=== PATIENT | female | born 1955 | race Caucasian/White ===

== ENCOUNTER 2022-01-14 13:59 | Emergency (ER) | payer MEDICARE, MEDICAID, SELFPAY ==
[2022-01-14] VITALS (9 sets, daily range): BP systolic 119–155; BP diastolic 72–88; PULSE 74–90; RESP 15–17; TEMP 36.6; O2SAT 93–97; BMI 17.6
[2022-01-14 14:30] LABS: Coronavirus 19, PCR Not Detected (NotDetected); Influenza B, PCR Not Detected (NotDetected)
--- NOTE | 2022-01-14 14:47 | HMH.EDGENADL ---
ED Disposition Clinical Impression: Influenza A Thoracic back pain Qualifiers: Chronicity: acute Back pain laterality: bilateral Qualified Code(s): M54.6 - Pain in thoracic spine Disposition: Home, Self-Care Condition on Discharge: Good Instructions: DI for Diarrhea and Traveler's Diarrhea -- Adult, DI for Nausea -- Adult, DI for Influenza -- Adult, DI for Thoracic Back Pain Additional Instructions: Tamiflu as prescribed. Tylenol 3 as needed for pain, plain Tylenol as needed for less severe pain or fever. Zofran as needed for nausea. [id number] Imodium as needed for diarrhea. Follow-up with primary care provider if not improved in 4 to 5 days. Prescriptions: Acetaminophen with Codeine [Tylenol with Codeine #3 tablet] 1 tab PO Q6HP PRN #10 tab PRN Reason: Moderate Pain Transmission Status: Received by [id number] Oseltamivir Phosphate [Tamiflu 75mg Capsule] 75 mg PO BID #10 cap Transmission Status: Pending to [id number] Ondansetron [Zofran 4mg ODT] 4 mg PO TIDP PRN #10 tab PRN Reason: Nausea And Vomiting Transmission Status: Pending to [id number] Referrals: Scooby Sepulveda APRN [Primary Care Provider] - - Critical Care Critical Care Time: No Attestation: On 01/14/22, the high probability of a clinically significant, sudden or life threatening deterioration of the following system(s) required my full and direct attention, intervention and personal management. The time I documented below is in addition to time spent performing reported procedures but includes the following listed in this critical care notation. Medical Decision Making - Preet Inquiry Pt receiving controlled substance: No Vital Signs: 01/14/22 14:00 01/14/22 14:30 01/14/22 15:13 Temperature 97.9 F Temperature Source Oral Pulse Rate 85 89 Pulse Rate [Right Radial] 87 Respiratory Rate 16 16 16 Blood Pressure 119/73 155/81 H Blood Pressure [Right Arm] 129/78 Blood Pressure Mean 92 105 Blood Pressure Mean [Right Arm] 95 Blood Pressure Source Automatic Cuff Blood Pressure Source [Right Arm] Automatic Cuff Blood Pressure Position Sitting Blood Pressure Position [Right Arm] Sitting 02 Sat by Pulse Oximetry 95 96 96 Oxygen Delivery Method Room Air Room Air 01/14/22 15:30 01/14/22 16:00 Temperature Temperature Source Pulse Rate 90 84 Pulse Rate [Right Radial] Respiratory Rate 15 16 Blood Pressure 134/88 140/84 Blood Pressure [Right Arm] Blood Pressure Mean 103 102 Blood Pressure Mean [Right Arm] Blood Pressure Source Blood Pressure Source [Right Arm] Blood Pressure Position Blood Pressure Position [Right Arm] 02 Sat by Pulse Oximetry 96 95 Oxygen Delivery Method - Lab Data Lab Results 01/14/22 14:21: SARS-CoV-2 (PCR) Not detected, Influenza A Untype (PCR) Detected A, Influenza Type B (PCR) Not detected 01/14/22 15:23: WBC 3.9 L, RBC 4.47, Hgb 14.7, Hct 44.5, MCV 99.6 H, MCH 32.8 H, MCHC 32.9, RDW 14.0, Plt Count 108 L, MPV 8.7, Neut % (Auto) 76.6, Lymph % (Auto) 11.8, [place] % (Auto) 8.5, Eos % (Auto) 0.3, Baso % (Auto) 2.8 H, Neut # (Auto) 3.0, Lymph # (Auto) 0.5 L, [place] # (Auto) 0.3, Eos # (Auto) 0.0, Baso # (Auto) 0.1 01/14/22 15:23: Sodium 135 L, Potassium 3.9, Chloride 98, Carbon Dioxide 33 H, Anion Gap 7.9, BUN 17, Creatinine 0.80, Estimated Creat Clear 42, Estimated GFR 72, Est GFR ( Amer) 87, Glucose 111 H, Calcium 9.3, Total Bilirubin 1.3, AST 66 H, ALT 32, Alkaline Phosphatase 137 H, Troponin I 0.01, Total Protein 7.0, Albumin 3.8, Globulin 3.2, Albumin/Globulin Ratio 1.2 Result diagrams: 01/14/22 15:23 01/14/22 15:23 Orders (Tests/Meds): ED MEDICATIONS Generic Name Dose Route Start Last Admin Trade Name Freq PRN Reason Stop Dose Admin Lactated Ringer's 1,000 mls @ 100 mls/hr 01/14/22 15:00 01/14/22 15:16 Lactated Ringer's 1000 Ml Bag IV 02/13/22 14:59 100 mls/hr .Q10H BOOKER Administration Sodium Chlori
--- NOTE | 2022-01-14 14:49 | PC.NURSE ---
ED MD at
--- NOTE | 2022-01-14 14:52 | XR_ITS ---
PROCEDURE INFORMATION: Exam: XR Chest Exam date and time: 01/14/2022 2:54 PM Age: 66 years old Clinical indication: Pain; Other: Back; Additional info: Thoracic back pain TECHNIQUE: Imaging protocol: XR of the chest. Views: 2 views. COMPARISON: CR XR THORACIC SPINE 2V 01/14/2022 2:51 PM FINDINGS: Tubes, catheters and devices: Left subclavian transvenous pacemaker present. Lungs: Lungs are mildly hyperexpanded, with flattening of the diaphragm and increased retrosternal clear space, compatible chronic obstructive pulmonary physiologic changes. Calcified granuloma within the periphery of the left lower lobe. Pleural spaces: Unremarkable. No pleural effusion. No pneumothorax. Heart/Mediastinum: Changes of prior sternotomy and mitral valve repair. Vasculature: Atherosclerotic vascular disease. Bones/joints: Mild multilevel upper and midthoracic spine degenerative disc space narrowing and osteophyte formation. Organs: Cholecystectomy clips in the right upper abdomen. IMPRESSION: No acute cardiopulmonary abnormality.
--- NOTE | 2022-01-14 14:52 | XR_ITS ---
PROCEDURE INFORMATION: Exam: XR Thoracic Spine Exam date and time: 01/14/2022 2:51 PM Age: 66 years old Clinical indication: Pain in thoracic spine; Additional info: Thoracic back pain TECHNIQUE: Imaging protocol: XR of the thoracic spine. Views: 2 views. COMPARISON: No relevant prior studies available. FINDINGS: Tubes, catheters and devices: Partially visualized left subclavian transvenous pacemaker leads within the right cardiac chambers. Bones/joints: Changes of prior sternotomy and mitral valve repair. Mild upper and midthoracic spine degenerative disc space narrowing minimal osteophyte formation. No acute fracture or malalignment. Soft tissues: Unremarkable. Vasculature: Atherosclerotic disease of the thoracic aorta, without aneurysm or dissection. Other findings: Retained epicardial wires visualized. IMPRESSION: No acute fracture or malalignment.
--- NOTE | 2022-01-14 15:00 | PC.NURSE ---
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
--- NOTE | 2022-01-14 15:11 | ECG_ITS ---
APPROVED REPORT Exam: Resting ECG HR:100 bpm ECG Measurements Heart Rate 100 AXES QRSd 168 QRS -88 QT 407 T 83 QTc 464 Conclusion ATRIAL FIBRILLATION WITH RAPID VENTRICULAR RESPONSE LEFT AXIS DEVIATION [QRS AXIS < -30] RIGHT BUNDLE BRANCH BLOCK [120+ ms QRS DURATION, UPRIGHT V1, 40+ ms S IN I/aVL/V4/V5/V6] VOLTAGE CRITERIA FOR LVH [MEETS CRITERIA IN ONE OF: R(aVL), S(V1), R(V5), R(V5/V6)+S(V1)] ABNORMAL ECG UNCONFIRMED REPORT Electronically signed by : Foreign Vargas MD 01/15/2022 20:12:56
[2022-01-14 15:37] LABS: Influenza A, PCR Detected (NotDetected)
[2022-01-14 15:44] LABS: Chloride 98 mmol/L (98-107); Sodium 135 mmol/L (136-145)
[2022-01-14 15:45] LABS: Potassium 3.9 mmoL/L (3.5-5.1)
[2022-01-14 15:47] LABS: Alanine Aminotransferase 32 U/L (12-78); Albumin Level 3.8 g/dl (3.5-5.0); Albumin/Globulin Ratio 1.2 (1.1-1.8); Alkaline Phosphatase 137 U/L (38-126); Anion Gap 7.9 mEq/L (5-15); Aspartate Amino Transferase 66 U/L (14-36); Bilirubin,Total 1.3 mg/dl (0.2-1.3); Blood Urea Nitrogen 17 mg/dl (7-17); Carbon Dioxide 33 mmol/L (22.0-30.0); Creatinine Clearance Estimated 42 mL/min (50-200); Estimated Glomerular Filt Rate 72 ml/min (>60); GFR (African American) 87 ML/MIN (>60); Globulin 3.2 g/dL (1.3-3.2)
[2022-01-14 15:48] LABS: Basophils # 0.1 K/mm3 (0-0.2); Basophils % 2.8 % (0.1-2.0); Calcium 9.3 mg/dl (8.4-10.2); Eosinophils % 0.3 % (0.1-12.0); Glucose 111 mg/dl (74-100); Hematocrit 44.5 % (37.0-47.0); Hemoglobin 14.7 g/dL (12.2-16.2); Lymphocytes # 0.5 K/mm3 (0.7-4.5); Lymphocytes % 11.8 % (10-50); Mean Corpuscular HGB Conc 32.9 g/dL (31.8-35.4); Mean Corpuscular Hemoglobin 32.8 pg (27.0-31.2); Mean Corpuscular Volume 99.6 fl (81-99); Mean Platelet Volume 8.7 fl (7.4-10.4); Monocytes # 0.3 K/mm3 (0.1-1.0); Monocytes % 8.5 % (1.7-9.3); Neutrophils % 76.6 % (37.0-80.0); Platelet Count 108 K/mm3 (142-424); Red Blood Count 4.47 M/mm3 (4.20-5.40); White Blood Count 3.9 K/mm3 (4.8-10.8)
[2022-01-14 16:00] LABS: Troponin I 0.01 ng/ml (0.00-0.034)
--- NOTE | 2022-01-14 16:37 | PC.NURSE ---
ED MD at speaking with patient about POC
== END 2022-01-14 18:03 | disposition home or self-care (01) ==
PROVIDERS: Emergency Provider Emergency Medicine; PCP Nurse Practitioner Family
DX: M54.6 Pain in thoracic spine (principal); R11.2 Nausea with vomiting, unspecified; R19.7 Diarrhea, unspecified; Z20.822 Contact with and (suspected) exposure to COVID-19; I10 Essential (primary) hypertension; I45.10 Unspecified right bundle-branch block; I49.9 Cardiac arrhythmia, unspecified; K21.9 Gastro-esophageal reflux disease without esophagitis; M79.7 Fibromyalgia; J44.9 Chronic obstructive pulmonary disease, unspecified; F17.210 Nicotine dependence, cigarettes, uncomplicated; Z79.01 Long term (current) use of anticoagulants; Z79.1 Long term (current) use of non-steroidal anti-inflammatories (NSAID); Z79.51 Long term (current) use of inhaled steroids; Z79.899 Other long term (current) drug therapy; Z88.6 Allergy status to analgesic agent; Z88.8 Allergy status to other drugs, medicaments and biological substances; Z82.49 Family history of ischemic heart disease and other diseases of the circulatory system; Z80.9 Family history of malignant neoplasm, unspecified; Z83.3 Family history of diabetes mellitus
CPT/HCPCS: 71046; 72070; 80053; 84484; 85025; 93005; 96374; 96375; 99285; C9803; J2405; U0003; U0005

== ENCOUNTER 2022-01-18 18:15 | Inpatient (IN) | payer MEDICARE, MEDICAID, SELFPAY ==
[2022-01-18 18:18] VITALS: BP 132/112; PULSE 106; RESP 22; TEMP 36.7; O2SAT 86; BMI 17.1
--- NOTE | 2022-01-18 18:39 | XR_ITS ---
PROCEDURE INFORMATION: Exam: XR Chest Exam date and time: 01/18/2022 6:46 PM Age: 66 years old Clinical indication: Shortness of breath; Additional info: Flu 1 week ago, SOA, weakness, fatigue TECHNIQUE: Imaging protocol: XR of the chest. Views: 1 view. COMPARISON: CR XR CHEST 2V 01/14/2022 2:54 PM FINDINGS: Lungs: Mild increase in the lung volumes with flattening of the hemidiaphragms is demonstrated. No regions of consolidation or pleural effusion are present. There is a slightly nodular region of increased radiodensity superimposed upon the left lower lung. Findings again correspond to a densely calcified granuloma. Pleural spaces: See Lungs finding. Heart/Mediastinum: No interval change in previously demonstrated pacemaker device and valve prosthesis. Bones/joints: Unremarkable. IMPRESSION: 1. Stable appearance of the lung parenchyma. No evidence of acute cardiopulmonary disease. 2. Mild hyperinflation of the lung volumes suggesting mild changes of chronic obstructive pulmonary disease. Clinically correlate.
[2022-01-18 19:02] LABS: Basophils # 0.1 K/mm3 (0-0.2); Basophils % 1.3 % (0.1-2.0); Eosinophils # 0.1 K/mm3 (0.0-0.4); Eosinophils % 0.7 % (0.1-12.0); Hematocrit 37.8 % (37.0-47.0); Hemoglobin 12.7 g/dL (12.2-16.2); Mean Corpuscular HGB Conc 33.7 g/dL (31.8-35.4); Mean Corpuscular Hemoglobin 33.2 pg (27.0-31.2); Mean Corpuscular Volume 98.6 fl (81-99); Mean Platelet Volume 9.9 fl (7.4-10.4); Monocytes # 0.8 K/mm3 (0.1-1.0); Monocytes % 8.2 % (1.7-9.3); Neutrophils # 7.7 K/mm3 (1.8-7.8); Neutrophils % 79.9 % (37.0-80.0); Platelet Count 139 K/mm3 (142-424); Red Blood Count 3.83 M/mm3 (4.20-5.40); Red Cell Distribution Width 14.2 % (11.5-17.5); White Blood Count 9.6 K/mm3 (4.8-10.8)
[2022-01-18 19:03] LABS: Chloride 87 mmol/L (98-107); Potassium 4.9 mmoL/L (3.5-5.1); Sodium 129 mmol/L (136-145)
[2022-01-18 19:06] LABS: Alanine Aminotransferase 28 U/L (12-78); Albumin Level 3.6 g/dl (3.5-5.0); Albumin/Globulin Ratio 1.1 (1.1-1.8); Alkaline Phosphatase 87 U/L (38-126); Anion Gap 11.9 mEq/L (5-15); Aspartate Amino Transferase 53 U/L (14-36); Bilirubin,Total 2.2 mg/dl (0.2-1.3); Blood Urea Nitrogen 28 mg/dl (7-17); Carbon Dioxide 35 mmol/L (22.0-30.0); Creatinine Clearance Estimated 41 mL/min (50-200); Estimated Glomerular Filt Rate 55 ml/min (>60); GFR (African American) 67 ML/MIN (>60); Globulin 3.3 g/dL (1.3-3.2); Total Protein,Serum 6.9 g/dl (6.3-8.2)
[2022-01-18 19:07] LABS: Calcium 8.5 mg/dl (8.4-10.2); Glucose 109 mg/dl (74-100)
--- NOTE | 2022-01-18 19:14 | HMH.EDGENADL ---
ED Disposition Condition on Discharge: Fair - Critical Care Critical Care Time: No <Gilberto Rebollar - Last Filed: 01/18/22 20:31> <Sean Barros - Last Filed: 01/18/22 21:29> Clinical Impression: Influenza A, Dehydration, Thrombocytopenia, Prolonged INR, Elevated brain natriuretic peptide (BNP) level, History of artificial heart valve, Long-term (current) use of anticoagulants, INR goal 2.5-3.5, SIRS (systemic inflammatory response syndrome), Tobacco use Respiratory failure with hypoxia Qualifiers: Chronicity: acute Qualified Code(s): J96.01 - Acute respiratory failure with hypoxia Thoracic back pain Qualifiers: Chronicity: acute Back pain laterality: midline Qualified Code(s): M54.6 - Pain in thoracic spine COPD (chronic obstructive pulmonary disease) Qualifiers: COPD type: emphysema Emphysema type: unspecified Qualified Code(s): J43.9 - Emphysema, unspecified Disposition: Admitted As Inpatient Attestation: On 01/18/22, the high probability of a clinically significant, sudden or life threatening deterioration of the following system(s) required my full and direct attention, intervention and personal management. The time I documented below is in addition to time spent performing reported procedures but includes the following listed in this critical care notation. Medical Decision Making - Medical Records Medical records reviewed: Yes: I reviewed the patient's medical records. MR Comment: Reviewed emergency department visit note from 01/14/2022 and associated x-ray reports. - Preet Inquiry Pt receiving controlled substance: Yes Preet was queried for this patient: Yes Risks and benefits of using a controlled substance: were discussed with pt by me - Lab Data Result diagrams: 01/18/22 18:50 01/18/22 18:50 - Radiology Data #1 Image(s): Chest Image Reviewed: Yes I reviewed the patient's radiology image, Yes I have reviewed radiologist's interpretation - Physician Consults Physician Consulted: Fiorella - present Time: 20:15 Reason -: Pt condition <Gilberto Rebollar - Last Filed: 01/18/22 20:31> - Lab Data Lab results reviewed: Yes: I reviewed the patient's lab results. Result diagrams: 01/18/22 18:50 01/18/22 18:50 - CT Data CT Scan: Chest, T-Spine Time Received: 21:[address] Reviewed: Yes: I have viewed the radiologist's interpretation Preliminary Findings: Abnormal - ECG Data Tracing #1 Arrhythmias present: afib Ischemic changes: non-specific ST-T wave changes Conduction abnormalities present: RBBB <FiorellaSean S - Last Filed: 01/18/22 21:29> Vital Signs: 01/18/22 18:18 Temperature 98.1 F Temperature Source Oral Pulse Rate [Right Radial] 106 H Respiratory Rate 22 Blood Pressure [Right Arm] 132/112 H Blood Pressure Mean [Right Arm] 118 Blood Pressure Source [Right Arm] Automatic Cuff Blood Pressure Position [Right Arm] Sitting 02 Sat by Pulse Oximetry 86 L Oxygen Delivery Method Room Air - Lab Data Lab Results 01/18/22 18:50: WBC 9.6, RBC 3.83 L, Hgb 12.7, Hct 37.8, MCV 98.6, MCH 33.2 H, MCHC 33.7, RDW 14.2, Plt Count 139 L, MPV 9.9, Neut % (Auto) 79.9, Lymph % (Auto) 10.0, [place] % (Auto) 8.2, Eos % (Auto) 0.7, Baso % (Auto) 1.3, Neut # (Auto) 7.7, Lymph # (Auto) 1.0, [place] # (Auto) 0.8, Eos # (Auto) 0.1, Baso # (Auto) 0.1 01/18/22 18:50: Sodium 129 L, Potassium 4.9, Chloride 87 L, Carbon Dioxide 35 H, Anion Gap 11.9, BUN 28 H, Creatinine 1.00, Estimated Creat Clear 41, Estimated GFR 55 L, Est GFR ( Amer) 67, Glucose 109 H, Calcium 8.5, Total Bilirubin 2.2 H, AST 53 H, ALT 28, Alkaline Phosphatase 87, Total Protein 6.9, Albumin 3.6, Globulin 3.3 H, Albumin/Globulin Ratio 1.1 01/18/22 18:50: Troponin I 0.01 01/18/22 18:50: C-Reactive Protein 162.0 H, NT-Pro-B Natriuret Pep 2090 H 01/18/22 18:50: ESR 19 01/18/22 18:50: Procalcitonin 0.286 05/04/22 19:51: PT 84.9 H, INR 8.00 H 01/18/22 19:51: Lactate 1.6 01/18/22 20:20: SARS-CoV-2 (PCR) Not detected, Influen
--- NOTE | 2022-01-18 19:33 | CT_ITS ---
PROCEDURE INFORMATION: Exam: CT Thoracic Spine With Contrast Exam date and time: 01/18/2022 8:06 PM Age: 66 years old Clinical indication: Pain in thoracic spine; Additional info: Pain thoracic spine TECHNIQUE: Imaging protocol: Computed tomography images of the thoracic spine with intravenous contrast. Radiation optimization: All CT scans at this facility use at least one of these dose optimization techniques: automated exposure control; mA and/or kV adjustment per patient size (includes targeted exams where dose is matched to clinical indication); or iterative reconstruction. Contrast material: ISOVUE; Contrast volume: 75 ml; Contrast route: IV; COMPARISON: CR XR THORACIC SPINE 2V 01/14/2022 2:51 PM FINDINGS: Vertebrae: Mild scoliosis of the thoracic spine convexity to the left. Irregularity of the superior T8 and T9 vertebral endplates compatible Schmorl's node formation. No evidence of compression fracture deformity. Discs/Spinal canal/Neural foramina: Spinal canal neural foramina patent. Soft tissues: Unremarkable. IMPRESSION: 1. No evidence of compression fracture deformity. 2. Multi level Schmorl's node formation. 3. Mild scoliosis of the thoracic spine convexity to the left .
--- NOTE | 2022-01-18 19:33 | CT_ITS ---
PROCEDURE INFORMATION: Exam: CTA Chest With Contrast Exam date and time: 01/18/2022 8:02 PM Age: 66 years old Clinical indication: Shortness of breath; Prior surgery; Additional info: SOA, hypoxia TECHNIQUE: Imaging protocol: Computed tomographic angiography of the chest with contrast. 3D rendering (Not supervised by radiologist): MIP and/or 3D reconstructed images were created by the technologist. Radiation optimization: All CT scans at this facility use at least one of these dose optimization techniques: automated exposure control; mA and/or kV adjustment per patient size (includes targeted exams where dose is matched to clinical indication); or iterative reconstruction. Contrast material: ISOVUE; Contrast volume: 75 ml; Contrast route: INTRAVENOUS (IV); COMPARISON: CR XR CHEST PORTABLE 01/18/2022 6:46 PM FINDINGS: Tubes, catheters and devices: Artifact related to known mitral valve prosthesis demonstrated. Artifact related to known pacemaker wires also demonstrated. Pulmonary arteries: No evidence of pulmonary embolus. Aorta: Regions of atherosclerotic vascular calcification involving the aortic arch.. Lungs: Evidence of densely calcified granulomas left lower lobe. Mild regions of bronchiectasis with peribronchial thickening demonstrated in the lower lobes. No regions of pleural effusion. No infiltrates. Pleural spaces: See Lungs finding. Heart: Left atrium is enlarged. Lymph nodes: Unremarkable. No enlarged lymph nodes. Bones/joints: Unremarkable. No acute fracture. Soft tissues: Coarse calcifications in the right breast. IMPRESSION: 1. No evidence of pulmonary embolus. 2. Evidence of prior granulomatous disease. 3. Mild regions of peribronchial thickening and bronchiectasis in the lower lobes. No regions of consolidation or pleural effusion. 4. Left atrial enlargement. Mitral valve prosthesis demonstrated.
--- NOTE | 2022-01-18 19:57 | ECG_ITS ---
APPROVED REPORT Exam: Resting ECG HR:106 bpm ECG Measurements Heart Rate 106 AXES QRSd 159 QRS -89 QT 363 T 79 QTc 425 Conclusion ATRIAL FIBRILLATION WITH RAPID VENTRICULAR RESPONSE RIGHT BUNDLE BRANCH BLOCK [120+ ms QRS DURATION, UPRIGHT V1, 40+ ms S IN I/aVL/V4/V5/V6] ABNORMAL ECG UNCONFIRMED REPORT Electronically signed by : Foreign Vargas MD 01/19/2022 10:17:12
--- NOTE | 2022-01-18 20:01 | PC.NURSE ---
Assessed pt at this time. No new needs at this time, medicated per MAR and EKG performed.
[2022-01-18 20:04] LABS: Erythrocyte Sedimentation Rate 19 mm/hr (0-30)
[2022-01-18 20:10] LABS: NT Pro Brain Natriuretic Pep. 2090 pg/mL (0-125)
[2022-01-18 20:14] LABS: Troponin I 0.01 ng/ml (0.00-0.034)
[2022-01-18 20:15] LABS: Lactic Acid 1.6 mmol/L (0.7-2.1)
[2022-01-18 20:18] LABS: Procalcitonin 0.286 ng/mL (0.0-2.0)
[2022-01-18 20:30] LABS: Prothrombin Time 84.9 seconds (10.1-12.5)
[2022-01-18 20:35] LABS: Coronavirus 19, PCR Not Detected (NotDetected); Influenza B, PCR Not Detected (NotDetected)
[2022-01-18 20:37] VITALS: BMI 17.2
--- NOTE | 2022-01-18 20:46 | PC.NURSE ---
pt up to restroom
--- NOTE | 2022-01-18 20:49 | PC.NURSE ---
Report called to
[2022-01-18 21:00] LABS: Influenza A, PCR Detected (NotDetected)
--- NOTE | 2022-01-18 21:33 | PC.NURSE ---
patient up to floor via stretcher @ this time.
--- NOTE | 2022-01-18 21:36 | HMH.HP ---
*Admission Date: 01/18/22 *Chief complaint: sob *History of present illness: this patient presented to the ed -The patient was diagnosed with influenza A on 01/14/2022 in this emergency department by me. She says that now I have progressed to pneumonia or something . She says she continues to get worse with increased shortness of breath, increased weakness, poor appetite. Continues to have severe pain in her thoracic back. She says that her 's home health nurse checked her out today and told her her pulse ox was 86% at home. She does not use oxygen. She does have a nebulizer and used a treatment before coming to the emergency room. On 01/14/2022 she presented primarily complaining of severe pain in her thoracic back. X-rays of thoracic spine and chest were negative. Flu test was positive and she was treated with Tamiflu. She has COPD and continues to smoke, although she has not smoked for about 1 week. She has a history of cardiac valve replacement and is anticoagulated with warfarin. (Gilberto Rebollar) pt with low sat on room air and dec po intake and admitted for eval and treatment - [facility] History I have reviewed the patient's past medical history: Yes Medical History: Reports:: Arrhythmia, Chronic Obstructive Pulmonary Disease (COPD), Gastroesophageal Reflux Disease(GERD), Internal Pacemaker Denies:: Cancer, Diabetes Mellitus Type 1, Diabetes Mellitus Type 2, Hypertension, MRSA *Have you ever received a pneumonia vaccine?: Yes *Have you received a flu vaccine this season?: Yes Other Medical History: Reports: Other Other Surgeries: Yes: CABG (x4), Cardiac Surgery (x2), Cholecystectomy, Mitral Valve Replacement, Open Heart Surgery, Pacemaker, Tubal Ligation, Other (PMx4) Amputation: No Fractures: No - *Social History Smoking Status: Current every day smoker Tobacco Type: cigarettes Alcohol Intake: never Substance Use Type: marijuana *Occupational Status:: retired Housing: house Household Members: family *Travel in the last 8 weeks: None Family Hx:: Cancer, Coronary Artery Disease, Hypertension, Diabetes, Heart Attack Review of Systems - Review of Systems Review of systems:: pertinent systems reviewed and negative unless documented below - Constitutional Reports weakness, Denies fever(s) - Eyes Denies change in vision - ENT Denies facial pain - *Cardiovascular Reports shortness of breath, Denies chest pain at rest - *Respiratory Reports cough, Reports shortness of breath - *Gastrointestinal Denies abdominal pain - *Genitourinary Denies blood in urine - *Musculoskeletal Denies joint pain - Integumentary/Breasts Denies rash - *Neurologic Reports weakness, Denies headache(s) - Psychiatric Denies confusion Meds Home Medications Medication Instructions Recorded Confirmed Type carvedilol 12.5 mg tablet 12.5 mg PO BID 11/18/20 01/18/22 History furosemide 40 mg tablet 40 mg PO DAILY 11/18/20 01/18/22 History lisinopril 20 mg tablet 20 mg PO DAILY 11/18/20 01/18/22 History warfarin 4 mg tablet 4 mg PO DAILY 11/18/20 01/18/22 History Acetaminophen with Codeine 1 tab PO Q6HP PRN #10 tab 01/14/22 01/18/22 Rx [Tylenol with Codeine #3 tablet] Ondansetron [Zofran 4mg ODT] 4 mg PO TIDP PRN #10 tab 01/14/22 01/18/22 Rx Allergies Allergy/AdvReac Type Severity Reaction Status Date / Time Aspirin Allergy Unknown Uncoded 11/18/20 14:31 Ibuprofen Allergy Unknown Uncoded 11/18/20 14:31 Nitroglycerin Allergy Unknown Uncoded 11/18/20 14:31 Nonsteroidal Allergy Unknown Uncoded 11/18/20 14:31 Antiinflammatory Drug Nsaid Allergy Unknown Uncoded 11/18/20 14:31 Procainamide Allergy Unknown Uncoded 11/18/20 14:31 Exam Vital signs and Labs for Last 24 Hours: Temp Pulse Resp BP Pulse Ox 98.1 F 106 H 22 132/112 H 86 L 01/18/22 18:18 01/18/22 18:18 01/18/22 18:18 01/18/22 18:18 01/18/22 18:18 Laboratory Results - last 24 hr 01/18/22 18:50: WBC 9.6, RBC 3.83
[2022-01-18 22:01] VITALS: BP 99/58; PULSE 88; RESP 28; TEMP 37.3; O2SAT 90
--- NOTE | 2022-01-18 22:24 | PC.NURSE ---
patient up to floor @ 22:19
[2022-01-18 22:29] VITALS: PULSE 88
[2022-01-18 22:41] LABS: Troponin I 0.02 ng/ml (0.00-0.034)
[2022-01-19] VITALS (11 sets, daily range): BP systolic 90–110; BP diastolic 47–73; PULSE 73–110; RESP 18–20; TEMP 36.6–36.9; O2SAT 86–96; BMI 17.2
[2022-01-19 02:04] LABS: Troponin I < 0.01 ng/ml (0.00-0.034)
--- NOTE | 2022-01-19 03:59 | PC.NURSE ---
Pt is A/O x3. Rested intermittently t/o night. Pt voiced no c/o of N/V, or pain. Pt remains on 2L NC with O2 sats >90%. Pt can ambulate to bathroom independently.
[2022-01-19 06:20] LABS: Basophils # 0.1 K/mm3 (0-0.2); Basophils % 1.2 % (0.1-2.0); Hematocrit 38.1 % (37.0-47.0); Hemoglobin 12.7 g/dL (12.2-16.2); Lymphocytes # 0.3 K/mm3 (0.7-4.5); Lymphocytes % 6.1 % (10-50); Mean Corpuscular HGB Conc 33.2 g/dL (31.8-35.4); Mean Corpuscular Volume 99.6 fl (81-99); Mean Platelet Volume 8.6 fl (7.4-10.4); Monocytes # 0.2 K/mm3 (0.1-1.0); Monocytes % 3.1 % (1.7-9.3); Neutrophils % 89.7 % (37.0-80.0); Platelet Count 131 K/mm3 (142-424); Red Blood Count 3.83 M/mm3 (4.20-5.40); Red Cell Distribution Width 14.3 % (11.5-17.5); White Blood Count 5.5 K/mm3 (4.8-10.8)
[2022-01-19 06:31] LABS: Blood Urea Nitrogen 26 mg/dl (7-17); Calcium 8.4 mg/dl (8.4-10.2); Carbon Dioxide 38 mmol/L (22.0-30.0); Chloride 87 mmol/L (98-107); Creatinine Clearance Estimated 41 mL/min (50-200); Estimated Glomerular Filt Rate 72 ml/min (>60); GFR (African American) 87 ML/MIN (>60); Glucose 177 mg/dl (74-100); Sodium 130 mmol/L (136-145)
[2022-01-19 06:32] LABS: MANUAL DIFFERENTIAL MANUAL DIFFERENTIAL (MANUAL DIFF)
[2022-01-19 06:40] LABS: INR 7.87 (0.9-1.1); Prothrombin Time 76.3 seconds (10.1-12.5)
--- NOTE | 2022-01-19 07:17 | HMH.PHAVTE ---
[facility] Pharmacy VTE Monitoring - Patient Demographics Admission date: 01/18/22 Report Date: 01/19/22 Time: 07:17 Allergies/Adverse Reactions: Patient Allergies Aspirin Allergy (Unknown, Uncoded 11/18/20 14:31) Ibuprofen Allergy (Unknown, Uncoded 11/18/20 14:31) Nitroglycerin Allergy (Unknown, Uncoded 11/18/20 14:31) Nonsteroidal Antiinflammatory Drug Allergy (Unknown, Uncoded 11/18/20 14:31) Nsaid Allergy (Unknown, Uncoded 11/18/20 14:31) Procainamide Allergy (Unknown, Uncoded 11/18/20 14:31) Height: 1.65 m Weight: 46.72 kg Patient Problems: Current Active Problems Influenza A (Acute) Thoracic back pain (Acute) Respiratory failure with hypoxia (Acute) Dehydration (Acute) Thrombocytopenia (Acute) Prolonged INR (Acute) Elevated brain natriuretic peptide (BNP) level (Acute) SIRS (systemic inflammatory response syndrome) (Acute) COPD (chronic obstructive pulmonary disease) (Acute) Tobacco use (Acute) COPD with respiratory failure, acute (Acute) Long-term (current) use of anticoagulants, INR goal 2.5-3.5 (Chronic) History of artificial heart valve (Chronic) - VTE Risk Labs: VTE Related Lab Results Hgb 12.7 g/dL (12.2-16.2) 01/19/22 06:02 Hct 38.1 % (37.0-47.0) 01/19/22 06:02 Plt Count 131 K/mm3 (142-424) L 01/19/22 06:02 PT 76.3 seconds (10.1-12.5) H 01/19/22 06:02 INR 7.87 (0.9-1.1) H 01/19/22 06:02 BUN 26 mg/dl (7-17) H 01/19/22 06:02 Creatinine 0.80 mg/dl (0.52-1.04) 01/19/22 06:02 Estimated Creat Clear 41 mL/min (50-200) 01/19/22 06:02 VTE Score: 5 VTE Risk Level: Low Risk - Prophylaxis VTE Prophylaxis Ordered?: Yes Types of VTE Prophylaxis: TEDS Knee High Location of Applied Device: Bilateral Lower Extremeties
[2022-01-19 07:41] LABS: Lymphocytes % 9 % (10-50); Monocytes % 5 % (2-9); Neutrophils % 86 % (42-76); Platelet Estimate Normal; RBC Morphology Normal; Total Cells Counted 100
--- NOTE | 2022-01-19 08:00 | CA_ITS ---
APPROVED REPORT EXAM: Comprehensive 2D, Doppler, and color-flow Echocardiogram Senior Reliability Engineer: Edna Woods CRT Ht: 5 ft 5 in Wt: 103lbs BSA: 1.49 BP: 132/112 mmHg Indications: NSTEMI, CABG X4, MVR, PACER,CHF,COPD,TDE POOR U/S WINDOWS 2D Dimensions Aortic Root 2.04 cm M-Mode Dimensions RVDd 1.92 cm (0.9-2.6) LA Diam 3.73 cm (1.9-4.0) LVDd 5.03 cm (3.5-5.7) Ao Diam 3.70 cm (2.0-3.7) LVDs 3.87 cm (3.5-5.7) IVSd 0.96 cm (0.6-1.1) PWd 1.11 cm (0.6-1.1) EF (Teich) 46.00% FS 23.10% EDV (Teich) 119.90 mL TAPSE 1.18 (<1.7) ESV (Teich) 64.70 mL LV Diastology E Decel Time 140.00 (160-240 msec) E/A Ratio 2.39 MED E' 4.90 (< 7 cm/sec) MED A' 2.80 cm/s E'/MED E' Ratio 37.45 (>14) LAT E' 10.00 (<10 cm/sec) LAT A' 2.80 cm/s E/LAT E' Ratio 18.35 (>14) Aortic Valve AO Peak GR. 4.40 mmHg Mitral Valve MV E Max Malik. 184.00 (40-130 cm/s) MV A Velocity 77.00 (40-130 cm/s) E/A Ratio 2.39 MV Decel. Time 140.00 (160-240 ms) MV Mean Gr. 4.50 (<2mmHg) MV PHT 41.00 ms Pulmonary Valve PV Peak Velocity 155.00 (50-150 cm/s) Tricuspid Valve TR P. Velocity 240.00 cm/s RAP Estimate 10.00 mmHg RVSP 33.10 mmHg Left Ventricle Left atrium is moderately enlarged, left ventricle is normal size, mild concentric left ventricular hypertrophy, visually estimated ejection fraction 55% with no regional wall motion abnormality, diastolic parameters are inconclusive. Right Ventricle Right atrium and right ventricle moderately enlarged with normal contractility, pacemaker leads in right atrium and right ventricle. Aortic Valve Aortic valve is thickened and calcified without Doppler evidence of aortic stenosis or aortic insufficiency. Mitral Valve There is a mechanical mitral valve prosthesis seen in the mitral position, the valve is well-seated, the mean gradient across valve is 4.5 mmHg, which is within physiological range for this type of valve, there is no significant mitral regurgitation. Tricuspid Valve Tricuspid valve is minimally thickened, there is moderate tricuspid regurgitation, calculated right ventricular systolic pressure 33 mmHg. Pulmonic Valve Pulmonic valve is poorly visualized. Great Vessels Aortic root is normal size. Inferior vena cava is mildly dilated with normal inspiratory collapse. Pericardium No significant pericardial effusion noted. Conclusion 1. Biatrial enlargement, normal left ventricular size, mild concentric left ventricular hypertrophy, estimated ejection fraction 55% with no regional wall motion abnormality, diastolic parameters are inconclusive. 2. Normal functioning mechanical prosthetic valve in the mitral position without significant mitral inflow obstruction or mitral regurgitation. 3. Moderately enlarged right ventricle with normal contractility. 4. Moderate tricuspid regurgitation, calculated right ventricular systolic pressure 33 mmHg. 5. No significant pericardial effusion noted. 6. Inferior vena cava is mildly dilated with normal inspiratory collapse. Electronically signed by : Richmond Guevara MD 01/20/2022 09:39:45
--- NOTE | 2022-01-19 09:16 | HMH.PULMCON ---
*Admission Date: 01/18/22 *Reason for consult:: Acute hypoxic respiratory failure, influenza *History of present illness: Ms. Katz 66-year-old female current smoker greater than [id number] smoking history, no significant prior respiratory complaint recent right breast influenza pneumonia and discharged on 5 days of Tamiflu presented to the hospital with worsening respiratory distress and pulmonary was called for further management [facility] History Medical History: Reports:: Arrhythmia, Congestive Heart Failure, Chronic Obstructive Pulmonary Disease (COPD), Gastroesophageal Reflux Disease(GERD), Internal Pacemaker Denies:: Cancer, Diabetes Mellitus Type 1, Diabetes Mellitus Type 2, Hypertension, MRSA *Have you ever received a pneumonia vaccine?: Yes *Have you received a flu vaccine this season?: Yes Other Medical History: Reports: Other Other Surgeries: Yes: CABG (x4), Cardiac Surgery (x2), Cholecystectomy, Mitral Valve Replacement, Open Heart Surgery, Pacemaker, Tubal Ligation, Other (PMx4) Amputation: No Fractures: No - *Social History Smoking Status: Current every day smoker Tobacco Type: cigarettes # Packs/Day (cigarettes): 1 Alcohol Intake: never Substance Use Type: marijuana *Occupational Status:: retired Housing: house Household Members: significant other, children *Travel in the last 8 weeks: None Family Hx:: No significant family history ROS - Cons Reports body ache(s), Reports chills - Eyes Denies change in vision - ENT Reports nasal discharge - Card Reports shortness of breath, Reports shortness of breath with activity - Resp Respiratory: Reports shortness of breath, Reports chest congestion, Reports cough, Reports dyspnea on exertion, Reports excessive phlegm production - GI Gastrointestingal: Denies: abdominal pain - [place] Musculoskeletal: Reports muscle weakness - Psych Denies thoughts of hurting/killing others, Denies thoughts of hurting/killing yourself Meds Home Medications Medication Instructions Recorded Confirmed Type carvedilol 12.5 mg tablet 12.5 mg PO BID 11/18/20 01/18/22 History furosemide 40 mg tablet 40 mg PO DAILY 11/18/20 01/18/22 History lisinopril 20 mg tablet 20 mg PO DAILY 11/18/20 01/18/22 History warfarin 4 mg tablet 4 mg PO DAILY 11/18/20 01/19/22 History Acetaminophen with Codeine 1 tab PO Q6HP PRN #10 tab 01/14/22 01/18/22 Rx [Tylenol with Codeine #3 tablet] Ondansetron [Zofran 4mg ODT] 4 mg PO TIDP PRN #10 tab 01/14/22 01/18/22 Rx Allergies Allergy/AdvReac Type Severity Reaction Status Date / Time aspirin Allergy Unknown Unknown Verified 01/19/22 07:56 allergy reaction nitroglycerin Allergy Unknown Unknown Verified 01/19/22 07:57 allergy reaction NSAIDS (Non-Steroidal Allergy Unknown Unknown Verified 01/19/22 07:56 Anti-Inflamma allergy reaction procainamide Allergy Unknown Unknown Verified 01/19/22 07:57 allergy reaction Exam - Constitutional Constitutional:: Present: no acute distress, comfortable - HENMT Exam HENMT: Present: normocephalic, atraumatic - Eye Exam Eyes:: Present: normal appearance both eyes and related structures - Neck Exam Neck:: Present: normal visual inspection - Respiratory Exam Respiratory:: Present: able to speak in complete sentences, no respiratory distress, wheezing - Cardiovascular Exam Cardiac:: Present: S1, S2 - GI Exam GI:: Present: soft, no hepatosplenomegaly - Skin Exam Skin: Present: warm, no rash - Neurological Exam Neurological: Present: alert, awake, normal cognition - Extremities Exam Extremities: Present: no cyanosis, no clubbing, no edema Internal Medicine - CN: Reslt - Labs CBC & Chem 7: 01/19/22 06:02 01/19/22 06:02 Labs: Short CBC 01/18/22 01/19/22 Range/Units 18:50 06:02 WBC 9.6 5.5 D (4.8-10.8) K/mm3 Hgb 12.7 12.7 (12.2-16.2) g/dL Hct 37.8 38.1 (37.0-47.0) % Plt Count 139 L 131 L (142-424
--- NOTE | 2022-01-19 09:19 | HMH.PHAINT ---
HOME MEDICATION RECONCILIATION COMPLETED ON PATIENT USING EXTERNAL FILL HISTORY FROM PHARMACY AND PATIENT INTERVIEW. -SHREE STEEL, OHD
--- NOTE | 2022-01-19 09:56 | DIET.NUTRFU ---
RD rounded with provider, patient requesting salt and wants a regular diet. Patient is underweight, appears malnourished. Will interview to determine if baseline or actively losing. Provider agreed to liberalize to regular diet
--- NOTE | 2022-01-19 10:28 | HMH.CNCARD ---
History of Present Illness Consult date: 01/19/22 Requesting physician: Sean Barros Consult reason: shortness of breath Chief complaint: Flu, SOA, elevated BNP Additional Medical History:: 1. COPD/emphysema with continued tobacco use 2. History of myocardial infarction, age 25 3. History of mitral valve replacement with mechanical mitral valve, approximately 1997 4. History of ASD repair with patch, 1999 5. History of pacemaker implantation approximately 1997, currently has a Protenus device, followed by Dr. Rutherford History of present illness: 66-year-old white female with history as noted above presented for evaluation of shortness of breath with suspected influenza infection due to other members of the household recently having it. Patient did test positive for the flu and was admitted for evaluation and treatment. Elevated BNP noted on admission and echocardiogram performed with official results pending at this time. CT of the chest showed evidence of emphysema and suspected bronchitis with no evidence of pneumonia or pulmonary embolism. Pulmonary has seen the patient and recommends continuing antibiotic therapy along with tamsulosin for treatment of the flu. Cardiology consulted due to history of mitral valve replacement and pacemaker placement. Patient does see Dr. Rutherford on a regular basis and does relate having cardiac catheterization in the remote past with no need for stenting. She states she is on her sixth pacemaker battery at this time. INR is noted to be elevated but patient states she has not been eating regularly due to the flu which may have altered her INR. She denies any bleeding. EKG is atrial fibrillation at a rate of 106 bpm with right bundle branch block. [facility] History Medical History: Reports:: Arrhythmia, Congestive Heart Failure, Chronic Obstructive Pulmonary Disease (COPD), Gastroesophageal Reflux Disease(GERD), Internal Pacemaker Denies:: Cancer, Diabetes Mellitus Type 1, Diabetes Mellitus Type 2, Hypertension, MRSA *Have you ever received a pneumonia vaccine?: Yes *Have you received a flu vaccine this season?: Yes Other Medical History: Reports: Other Other Surgeries: Yes: CABG (x4), Cardiac Surgery (x2), Cholecystectomy, Mitral Valve Replacement, Open Heart Surgery, Pacemaker, Tubal Ligation, Other (PMx4) Amputation: No Fractures: No - *Social History Smoking Status: Current every day smoker Tobacco Type: cigarettes # Packs/Day (cigarettes): 1 Alcohol Intake: never Substance Use Type: marijuana *Occupational Status:: retired Housing: house Household Members: significant other, children *Travel in the last 8 weeks: None Family Hx:: No significant family history Meds Home Medications Medication Instructions Recorded Confirmed Type carvedilol 12.5 mg tablet 12.5 mg PO BID 11/18/20 01/18/22 History furosemide 40 mg tablet 40 mg PO DAILY 11/18/20 01/18/22 History lisinopril 20 mg tablet 20 mg PO DAILY 11/18/20 01/18/22 History warfarin 4 mg tablet 4 mg PO DAILY 11/18/20 01/19/22 History Acetaminophen with Codeine 1 tab PO Q6HP PRN #10 tab 01/14/22 01/18/22 Rx [Tylenol with Codeine #3 tablet] Ondansetron [Zofran 4mg ODT] 4 mg PO TIDP PRN #10 tab 01/14/22 01/18/22 Rx Allergies Allergy/AdvReac Type Severity Reaction Status Date / Time aspirin Allergy Unknown Unknown Verified 01/19/22 07:56 allergy reaction nitroglycerin Allergy Unknown Unknown Verified 01/19/22 07:57 allergy reaction NSAIDS (Non-Steroidal Allergy Unknown Unknown Verified 01/19/22 07:56 Anti-Inflamma allergy reaction procainamide Allergy Unknown Unknown Verified 01/19/22 07:57 allergy reaction Exam Vital signs and Labs for Last 24 Hours: Temp Pulse Resp BP Pulse Ox 98.0 F 100 H 20 101/59 L 90 L 01/19/22 07:34 01/19/22 08:00 01/19/22 07:34 01/19/22 07:34 01/19/22 07:34 Laboratory Results - last 24 hr 01/18/22 18:50: WBC 9.6,
--- NOTE | 2022-01-19 10:39 | HMH.ACPN2 ---
Internal Medicine - PN: Subj *Date: 01/19/22 *Time: 10:39 Interval history: 66-year-old female patient sitting up in bed resting quietly O2 on as a 2 L with oxygenation 91%. She reports she is feeling better today than yesterday Exam Vital signs and Labs for Last 24 Hours: Temp Pulse Resp BP Pulse Ox 98.0 F 100 H 20 101/59 L 90 L 01/19/22 07:34 01/19/22 08:00 01/19/22 07:34 01/19/22 07:34 01/19/22 07:34 Laboratory Results - last 24 hr 01/18/22 18:50: WBC 9.6, RBC 3.83 L, Hgb 12.7, Hct 37.8, MCV 98.6, MCH 33.2 H, MCHC 33.7, RDW 14.2, Plt Count 139 L, MPV 9.9, Neut % (Auto) 79.9, Lymph % (Auto) 10.0, [place] % (Auto) 8.2, Eos % (Auto) 0.7, Baso % (Auto) 1.3, Neut # (Auto) 7.7, Lymph # (Auto) 1.0, [place] # (Auto) 0.8, Eos # (Auto) 0.1, Baso # (Auto) 0.1 01/18/22 18:50: Sodium 129 L, Potassium 4.9, Chloride 87 L, Carbon Dioxide 35 H, Anion Gap 11.9, BUN 28 H, Creatinine 1.00, Estimated Creat Clear 41, Estimated GFR 55 L, Est GFR ( Amer) 67, Glucose 109 H, Calcium 8.5, Total Bilirubin 2.2 H, AST 53 H, ALT 28, Alkaline Phosphatase 87, Total Protein 6.9, Albumin 3.6, Globulin 3.3 H, Albumin/Globulin Ratio 1.1 01/18/22 18:50: Troponin I 0.01 01/18/22 18:50: C-Reactive Protein 162.0 H, NT-Pro-B Natriuret Pep 2090 H 01/18/22 18:50: ESR 19 01/18/22 18:50: Procalcitonin 0.286 01/18/22 19:51: PT 84.9 H, INR 8.00 H 01/18/22 19:51: Lactate 1.6 01/18/22 20:20: SARS-CoV-2 (PCR) Not detected, Influenza A Untype (PCR) Detected A, Influenza Type B (PCR) Not detected 01/18/22 22:15: Troponin I 0.02 01/19/22 01:30: Troponin I < 0.01 01/19/22 06:02: WBC 5.5 D, RBC 3.83 L, Hgb 12.7, Hct 38.1, MCV 99.6 H, MCH 33.0 H, MCHC 33.2, RDW 14.3, Plt Count 131 L, MPV 8.6, Neut % (Auto) 89.7 H, Lymph % (Auto) 6.1 L, [place] % (Auto) 3.1, Eos % (Auto) 0.0 L, Baso % (Auto) 1.2, Neut # (Auto) 5.0, Lymph # (Auto) 0.3 L, [place] # (Auto) 0.2, Eos # (Auto) 0.0, Baso # (Auto) 0.1, Total Counted 100, Neutrophils % (Manual) 86 H, Lymphocytes % (Manual) 9 L, Monocytes % (Manual) 5, Platelet Estimate Normal, RBC Morphology Normal 01/19/22 06:02: Sodium 130 L, Potassium 4.0, Chloride 87 L, Carbon Dioxide 38 H, Anion Gap 9.0, BUN 26 H, Creatinine 0.80, Estimated Creat Clear 41, Estimated GFR 72, Est GFR ( Amer) 87 D, Glucose 177 H D, Calcium 8.4, Magnesium 2.0 01/19/22 06:02: PT 76.3 H, INR 7.87 H I & O for Last 24 hours: Intake & Output 01/16/22 01/17/22 01/18/22 01/19/22 23:59 23:59 23:59 23:59 Intake Total 480 / 480 Balance 480 / 480 Weight 102 lb 15.999 oz 102 lb 15.999 oz - Constitutional no acute distress, chronically ill appearing - *Routine HEENT Exam Head: Present: normocephalic Eye: Present: EOMI ENT: Present: mucous membranes moist - *Routine Neck Exam Present: trachea midline. Absent: tracheal deviation - *Routine Respiratory Exam Present: decreased breath sounds. Absent: accessory muscle use - *Routine Cardiovascular Exam Present: tachycardia, irregularly irregular - *Routine Abdominal Exam Present: soft, normoactive bowel sounds. Absent: tenderness, firm - *Routine Extremities Exam Present: full ROM, pulses intact. Absent: cyanosis, clubbing - *Routine Skin Exam Present: intact, dry. Absent: cyanosis, erythema - *Routine Neurological Exam Present: alert, oriented X3. Absent: motor deficit - Routine Psychiatric Exam Present: normal affect, normal thought process. Absent: visual hallucinations Assessment and Plan (1) COPD with respiratory failure, acute Status: Acute Category: Medical Code(s): J44.9 - Chronic obstructive pulmonary disease, unspecified; J96.00 - Acute respiratory failure, unspecified whether with hypoxia or hypercapnia (2) COPD (chronic obstructive pulmonary disease) Status: Acute Qualifiers: Qualified Code(s): J43.9 - Emphysema, unspecified Category: Medical Code(s): J44.9 - Chronic obstructive pulmonary disease, unspecified (3) Elevated brain natriuretic peptide
--- NOTE | 2022-01-19 13:23 | PC.NURSE ---
Spoke with Kelly from lab about blood culture, and pcr being positive.
--- NOTE | 2022-01-19 13:46 | PC.NURSE ---
Called Dr. Barnett's office to tell about blood culture. Left a message on voicemail.
--- NOTE | 2022-01-19 13:54 | PC.NURSE ---
Spoke with Bonnie told her about results she will let chandu know.
--- NOTE | 2022-01-19 19:55 | PC.NURSE ---
Pt had a very pleasant day. She has been going to the bathroom independently. She has hardly called out. She has been mainly RA for a good portion of the day. She is coughing intermittently. She has had family visit and great affect. She has been A/O x4 through out the shift.
--- NOTE | 2022-01-19 20:48 | PC.NURSE ---
pt informed her O2 was at 86 and pt stated that she felt fine a did not want to wear it at this time
[2022-01-20] VITALS (12 sets, daily range): BP systolic 84–110; BP diastolic 47–72; PULSE 70–88; RESP 16–20; TEMP 36.5–36.8; O2SAT 89–98; BMI 17.3
--- NOTE | 2022-01-20 04:24 | PC.NURSE ---
no issues noted at this time, pt slept good through the night, a&o, VSS, was noted coreg held yesterday during day, coreg was given pm dose, b/p on the low side, but maps 71-76, 02 at 2L pnc worn at times, it was noted sats 83% on room air, 90% on 1.5-2L 02 pnc, lungs diminished.
--- NOTE | 2022-01-20 06:27 | PC.NURSE ---
Pt room air sat was 81%, placed back on 3L. Pt recovered to 90%.
[2022-01-20 06:29] LABS: Basophils % 0.3 % (0.1-2.0); Hematocrit 36.1 % (37.0-47.0); Hemoglobin 12.1 g/dL (12.2-16.2); Lymphocytes # 0.5 K/mm3 (0.7-4.5); Lymphocytes % 6.1 % (10-50); Mean Corpuscular HGB Conc 33.5 g/dL (31.8-35.4); Mean Corpuscular Hemoglobin 32.5 pg (27.0-31.2); Mean Corpuscular Volume 97.2 fl (81-99); Mean Platelet Volume 8.7 fl (7.4-10.4); Monocytes # 0.4 K/mm3 (0.1-1.0); Monocytes % 5.2 % (1.7-9.3); Neutrophils # 7.1 K/mm3 (1.8-7.8); Neutrophils % 88.4 % (37.0-80.0); Platelet Count 192 K/mm3 (142-424); Red Blood Count 3.72 M/mm3 (4.20-5.40); Red Cell Distribution Width 14.1 % (11.5-17.5)
[2022-01-20 06:37] LABS: Blood Urea Nitrogen 22 mg/dl (7-17); Calcium 8.5 mg/dl (8.4-10.2); Chloride 88 mmol/L (98-107); Creatinine Clearance Estimated 41 mL/min (50-200); Estimated Glomerular Filt Rate 72 ml/min (>60); GFR (African American) 87 ML/MIN (>60); Glucose 167 mg/dl (74-100); MANUAL DIFFERENTIAL MANUAL DIFFERENTIAL (MANUAL DIFF); Potassium 3.7 mmoL/L (3.5-5.1); Sodium 130 mmol/L (136-145)
[2022-01-20 06:43] LABS: Anion Gap 6.7 mEq/L (5-15); Carbon Dioxide 39 mmol/L (22.0-30.0)
[2022-01-20 07:18] LABS: Lymphocytes % 9 % (10-50); Monocytes % 3 % (2-9); Neutrophils % 88 % (42-76); Total Cells Counted 100
[2022-01-20 07:19] LABS: Platelet Estimate Normal; RBC Morphology Normal
--- NOTE | 2022-01-20 07:43 | HMH.PNCARD ---
Subjective Date: 01/20/22 Time: 07:43 Principal diagnosis: Influenza Interval history: 66-year-old white female sitting in bed in no acute distress. Breathing has improved since yesterday. echo results: 1. Biatrial enlargement, normal left ventricular size, mild concentric left ventricular hypertrophy, estimated ejection fraction 55% with no regional wall motion abnormality, diastolic parameters are inconclusive. 2. Normal functioning mechanical prosthetic valve in the mitral position without significant mitral inflow obstruction or mitral regurgitation. 3. Moderately enlarged right ventricle with normal contractility. 4. Moderate tricuspid regurgitation, calculated right ventricular systolic pressure 33 mmHg. 5. No significant pericardial effusion noted. 6. Inferior vena cava is mildly dilated with normal inspiratory collapse. Electronically signed by : Richmond Guevara MD 01/20/2022 09:39:45 Exam Vital signs and Labs for Last 24 Hours: Temp Pulse Resp BP Pulse Ox 98.0 F 70 18 105/62 L 90 L 01/20/22 03:17 01/20/22 04:00 01/20/22 03:17 01/20/22 03:17 01/20/22 06:28 Laboratory Results - last 24 hr 01/20/22 06:05: WBC 8.0 D, RBC 3.72 L, Hgb 12.1 L, Hct 36.1 L, MCV 97.2, MCH 32.5 H, MCHC 33.5, RDW 14.1, Plt Count 192 D, MPV 8.7, Neut % (Auto) 88.4 H, Lymph % (Auto) 6.1 L, [place] % (Auto) 5.2, Eos % (Auto) 0.0 L, Baso % (Auto) 0.3, Neut # (Auto) 7.1, Lymph # (Auto) 0.5 L, [place] # (Auto) 0.4, Eos # (Auto) 0.0, Baso # (Auto) 0.0, Total Counted 100, Neutrophils % (Manual) 88 H, Lymphocytes % (Manual) 9 L, Monocytes % (Manual) 3, Platelet Estimate Normal, RBC Morphology Normal 01/20/22 06:05: Sodium 130 L, Potassium 3.7, Chloride 88 L, Carbon Dioxide 39 H, Anion Gap 6.7, BUN 22 H, Creatinine 0.80, Estimated Creat Clear 41, Estimated GFR 72, Est GFR ( Amer) 87, Glucose 167 H, Calcium 8.5 I & O for Last 24 hours: Intake & Output 01/17/22 01/18/22 01/19/22 01/20/22 11:59 11:59 11:59 11:59 Intake Total 480 / 480 870 / 870 Balance 480 / 480 870 / 870 Weight 102 lb 15.999 oz 104 lb 0.931 oz Microbiology Reports for the Last 24 Hours: Microbiology 01/19/22 10:36 Sputum - Expectorated Sputum Gram Stain - Final 01/18/22 19:51 Blood Blood Culture - Preliminary - Constitutional no acute distress - *Routine Respiratory Exam Present: rhonchi, wheezes, diminished air movement - *Routine Cardiovascular Exam Present: click, irregular rhythm - *Routine Extremities Exam Absent: cyanosis, clubbing, edema Progress Note: A&P (1) COPD with respiratory failure, acute Status: Acute (2) COPD (chronic obstructive pulmonary disease) Status: Acute (3) Elevated brain natriuretic peptide (BNP) level Status: Acute (4) Influenza A Status: Acute (5) Prolonged INR Status: Acute (6) SIRS (systemic inflammatory response syndrome) Status: Acute (7) Thrombocytopenia Status: Acute (8) Tobacco use Status: Acute (9) History of artificial heart valve Status: Chronic (10) Long-term (current) use of anticoagulants, INR goal 2.5-3.5 Status: Chronic Assessment and Plan for All Diagnoses:: 1. Influenza infection, per pulmonary, continuing antibiotic therapy along with Tamiflu and prednisone. 2. COPD with chronic shortness of breath 3. Elevated BNP secondary to influenza infection. No appreciable congestive heart failure on chest x-ray or CT of the chest. Lasix has been resumed. 4. History of mechanical mitral valve, on Coumadin for chronic anticoagulation therapy. MVR functioning normally. EF normal. INR 6.29. No bleeding. 5. History of ASD repair with patch. 6. Pacemaker in situ, followed by Dr. Rutherford in [place], [place]. 7. History of hypertension, borderline low blood pressure with elevated BNP. Continues on coreg and lisinopril with lasix. 8. Elevated INR, holding Coumadin at this time to allow to drift down to goal of 2.5-3.5. [facility]
[2022-01-20 08:20] LABS: INR 6.29 (0.9-1.1)
--- NOTE | 2022-01-20 09:39 | HMH.PULMPN ---
Internal Medicine - PN: Subj *Date: 01/20/22 *Time: 13:53 Interval history: No acute respiratory events overnight. Patient continued to remain on room air. Admits improvement in her symptoms. Exam - Constitutional Constitutional:: Present: no acute distress, comfortable - HENMT Exam HENMT: Present: normocephalic - Eye Exam Eyes:: Present: normal appearance both eyes and related structures - Neck Exam Neck:: Present: normal visual inspection - Respiratory Exam Respiratory:: Present: able to speak in complete sentences, respiratory distress, wheezing. Absent: crackles - Cardiovascular Exam Cardiac:: Present: S1, S2 - GI Exam GI:: Present: soft - Skin Exam Skin: Present: warm, no rash - Neurological Exam Neurological: Present: alert, awake, normal cognition - Extremities Exam Extremities: Present: no cyanosis, no clubbing, no edema - Psychiatric Exam Psychiatric: Present: affect normal Assessment and Plan (1) COPD with respiratory failure, acute Status: Acute Category: Medical Code(s): J44.9 - Chronic obstructive pulmonary disease, unspecified; J96.00 - Acute respiratory failure, unspecified whether with hypoxia or hypercapnia (2) COPD (chronic obstructive pulmonary disease) Status: Acute Qualifiers: COPD type: emphysema Emphysema type: unspecified Qualified Code(s): J43.9 - Emphysema, unspecified Category: Medical Code(s): J44.9 - Chronic obstructive pulmonary disease, unspecified (3) Elevated brain natriuretic peptide (BNP) level Status: Acute Category: Medical Code(s): R79.89 - Other specified abnormal findings of blood chemistry (4) Influenza A Status: Acute Category: Medical Code(s): J10.1 - Influenza due to other identified influenza virus with other respiratory manifestations (5) Prolonged INR Status: Acute Category: Medical Code(s): R79.1 - Abnormal coagulation profile (6) SIRS (systemic inflammatory response syndrome) Status: Acute Category: Medical Code(s): R65.10 - Systemic inflammatory response syndrome (SIRS) of non-infectious origin without acute organ dysfunction (7) Thrombocytopenia Status: Acute Category: Medical Code(s): D69.6 - Thrombocytopenia, unspecified (8) Tobacco use Status: Acute Category: Social Hx Code(s): Z72.0 - Tobacco use (9) History of artificial heart valve Status: Chronic Category: Surgical Code(s): Z95.2 - Presence of prosthetic heart valve (10) Long-term (current) use of anticoagulants, INR goal 2.5-3.5 Status: Chronic Category: Medical Code(s): Z79.01 - retirement (current) use of anticoagulants - Assessment and plan all Dx Assessment and Plan for all problems:: #Acute hypoxic respiratory failure: #Influenza pneumonia: #Community-acquired pneumonia: #Streptococcus bacteremia Ms. Katz 66-year-old female current smoker greater than [id number] smoking history, no significant prior respiratory complaint recent right breast influenza pneumonia and discharged on 5 days of Tamiflu presented to the hospital with worsening respiratory distress and pulmonary was called for further management. Mechanical mitral valve prosthesis. On warfarin. Supratherapeutic INR on presentation. CTA on admission no evidence of pulmonary embolism. No dense airspace disease noted. Evidence of bronchitis noted. Evidence of emphysema noted As per chart review patient has history of cardiac valve and has been on anticoagulation. No evidence of leukocytosis. Renal function normal. Significant elevated INR at 8. Flu viral PCR positive, status post completion Tamiflu treatment for 5 days Was initiated on treatment for COPD exacerbation with ceftriaxone azithromycin along with methylprednisolone and nebulization treatments. Prelim blood cultures in pne bottle growing gram-positive cocci in chains, Streptococcus Interval update: No acute respiratory events overnight. Stable oxygen requirements, saturati
--- NOTE | 2022-01-20 09:53 | HMH.DCSUM ---
General - General Admission date:: 01/18/22 Discharge date: 01/23/22 HPI HPI: this patient presented to the ed -The patient was diagnosed with influenza A on 01/14/2022 in this emergency department by me. She says that now I have progressed to pneumonia or something . She says she continues to get worse with increased shortness of breath, increased weakness, poor appetite. Continues to have severe pain in her thoracic back. She says that her 's home health nurse checked her out today and told her her pulse ox was 86% at home. She does not use oxygen. She does have a nebulizer and used a treatment before coming to the emergency room. On 01/14/2022 she presented primarily complaining of severe pain in her thoracic back. X-rays of thoracic spine and chest were negative. Flu test was positive and she was treated with Tamiflu. She has COPD and continues to smoke, although she has not smoked for about 1 week. She has a history of cardiac valve replacement and is anticoagulated with warfarin. (Gilberto Rebollar) pt with low sat on room air and dec po intake and admitted for eval and treatment - Hospital Course Hospital Course: Abnormal Lab Results 01/20/22 06:05: RBC 3.72 L, Hgb 12.1 L, Hct 36.1 L, MCH 32.5 H, Neut % (Auto) 88.4 H, Lymph % (Auto) 6.1 L, Eos % (Auto) 0.0 L, Lymph # (Auto) 0.5 L, Neutrophils % (Manual) 88 H, Lymphocytes % (Manual) 9 L 01/20/22 06:05: Sodium 130 L, Chloride 88 L, Carbon Dioxide 39 H, BUN 22 H, Glucose 167 H 01/20/22 07:53: PT 62.0 H, INR 6.29 H Microbiology 01/18/22 19:51 Blood Blood Culture - Preliminary 01/19/22 10:36 Sputum - Expectorated Sputum Gram Stain - Final cardiology consult: Assessment and Plan for All Diagnoses:: 1. Influenza infection, per pulmonary, continuing antibiotic therapy along with Tamiflu and prednisone. 2. COPD with chronic shortness of breath 3. Elevated BNP secondary to influenza infection. No appreciable congestive heart failure on chest x-ray or CT of the chest. Lasix has been resumed. 4. History of mechanical mitral valve, on Coumadin for chronic anticoagulation therapy. MVR functioning normally. EF normal. INR 6.29. No bleeding. 5. History of ASD repair with patch. 6. Pacemaker in situ, followed by Dr. Rutherford in [place], [place]. 7. History of hypertension, borderline low blood pressure with elevated BNP. Continues on coreg and lisinopril with lasix. 8. Elevated INR, holding Coumadin at this time to allow to drift down to goal of 2.5-3.5. Nothing further to add. Please call if needed. Pt will follow up with Dr. Rutherford. echo results: 1. Biatrial enlargement, normal left ventricular size, mild concentric left ventricular hypertrophy, estimated ejection fraction 55% with no regional wall motion abnormality, diastolic parameters are inconclusive. 2. Normal functioning mechanical prosthetic valve in the mitral position without significant mitral inflow obstruction or mitral regurgitation. 3. Moderately enlarged right ventricle with normal contractility. 4. Moderate tricuspid regurgitation, calculated right ventricular systolic pressure 33 mmHg. 5. No significant pericardial effusion noted. 6. Inferior vena cava is mildly dilated with normal inspiratory collapse. pulmonary consult:Assessment and Plan for all problems:: #Acute hypoxic respiratory failure: #Influenza pneumonia: #Community-acquired pneumonia: #Streptococcus bacteremia Ms. Katz 66-year-old female current smoker greater than [id number] smoking history, no significant prior respiratory complaint recent right breast influenza pneumonia and discharged on 5 days of Tamiflu presented to the hospital with worsening respiratory distress and pulmonary was called for further management CTA on admission no evidence of pulmonary embolism. No dense airspace disease noted. Evidence of bronchitis noted. Evidence of emphysema noted As per chart review patient
--- NOTE | 2022-01-20 12:28 | XR_ITS ---
FINAL REPORT TECHNIQUE: Chest PA & Lateral CLINICAL HISTORY: soa, low o2 sat COMPARISON: January 14, 2022 FINDINGS: 2 views of the chest were performed. The heart size is normal. There are multiple sternotomy wires. There is a left subclavian pacemaker. The mediastinum is within normal limits. There are chronic changes in both lungs. There are no pleural effusions. There is no pneumothorax. The bony thorax appears intact. IMPRESSION: No acute cardiopulmonary process. Reviewed, Interpreted and Dictated by Jose Angel Espinal MD Transcribed by Clark Hinkle Authenticated by Jose Angel Espinal MD on 01/20/2022 01:52:19 PM [facility]
--- NOTE | 2022-01-20 13:33 | HMH.ACPN2 ---
Internal Medicine - PN: Subj *Date: 01/20/22 *Time: 08:15 Interval history: pt states doing well wants to go home Exam Vital signs and Labs for Last 24 Hours: Temp Pulse Resp BP Pulse Ox 97.7 F 77 20 84/53 L 94 L 01/20/22 11:42 01/20/22 11:42 01/20/22 11:42 01/20/22 11:42 01/20/22 11:42 Laboratory Results - last 24 hr 01/20/22 06:05: WBC 8.0 D, RBC 3.72 L, Hgb 12.1 L, Hct 36.1 L, MCV 97.2, MCH 32.5 H, MCHC 33.5, RDW 14.1, Plt Count 192 D, MPV 8.7, Neut % (Auto) 88.4 H, Lymph % (Auto) 6.1 L, [place] % (Auto) 5.2, Eos % (Auto) 0.0 L, Baso % (Auto) 0.3, Neut # (Auto) 7.1, Lymph # (Auto) 0.5 L, [place] # (Auto) 0.4, Eos # (Auto) 0.0, Baso # (Auto) 0.0, Total Counted 100, Neutrophils % (Manual) 88 H, Lymphocytes % (Manual) 9 L, Monocytes % (Manual) 3, Platelet Estimate Normal, RBC Morphology Normal 01/20/22 06:05: Sodium 130 L, Potassium 3.7, Chloride 88 L, Carbon Dioxide 39 H, Anion Gap 6.7, BUN 22 H, Creatinine 0.80, Estimated Creat Clear 41, Estimated GFR 72, Est GFR ( Amer) 87, Glucose 167 H, Calcium 8.5 01/20/22 07:53: PT 62.0 H, INR 6.29 H I & O for Last 24 hours: Intake & Output 01/18/22 01/19/22 01/20/22 01/21/22 11:59 11:59 11:59 11:59 Intake Total 480 / 480 1230 / 1230 Balance 480 / 480 1230 / 1230 Weight 102 lb 15.999 oz 104 lb 0.931 oz Microbiology Reports for the Last 24 Hours: Microbiology 01/18/22 19:51 Blood Blood Culture - Preliminary 01/19/22 10:36 Sputum - Expectorated Sputum Gram Stain - Final - Constitutional no acute distress - *Routine HEENT Exam Head: Present: normocephalic Eye: Present: PERRL ENT: Present: mucous membranes moist - *Routine Neck Exam Present: supple. Absent: lymphadenopathy - *Routine Respiratory Exam Present: wheezes - *Routine Cardiovascular Exam Present: RRR, murmur - *Routine Abdominal Exam Present: soft, normoactive bowel sounds. Absent: tenderness - *Routine Extremities Exam Absent: cyanosis, clubbing, edema - *Routine Skin Exam Present: warm. Absent: rash - *Routine Neurological Exam Present: alert, oriented X3 Assessment and Plan (1) COPD with respiratory failure, acute Status: Acute Category: Medical Code(s): J44.9 - Chronic obstructive pulmonary disease, unspecified; J96.00 - Acute respiratory failure, unspecified whether with hypoxia or hypercapnia (2) COPD (chronic obstructive pulmonary disease) Status: Acute Qualifiers: COPD type: emphysema Emphysema type: unspecified Qualified Code(s): J43.9 - Emphysema, unspecified Category: Medical Code(s): J44.9 - Chronic obstructive pulmonary disease, unspecified (3) Elevated brain natriuretic peptide (BNP) level Status: Acute Category: Medical Code(s): R79.89 - Other specified abnormal findings of blood chemistry (4) Influenza A Status: Acute Category: Medical Code(s): J10.1 - Influenza due to other identified influenza virus with other respiratory manifestations (5) Prolonged INR Status: Acute Category: Medical Code(s): R79.1 - Abnormal coagulation profile (6) SIRS (systemic inflammatory response syndrome) Status: Acute Category: Medical Code(s): R65.10 - Systemic inflammatory response syndrome (SIRS) of non-infectious origin without acute organ dysfunction (7) Thrombocytopenia Status: Acute Category: Medical Code(s): D69.6 - Thrombocytopenia, unspecified (8) Tobacco use Status: Acute Category: Social Hx Code(s): Z72.0 - Tobacco use (9) History of artificial heart valve Status: Chronic Category: Surgical Code(s): Z95.2 - Presence of prosthetic heart valve (10) Long-term (current) use of anticoagulants, INR goal 2.5-3.5 Status: Chronic Category: Medical Code(s): Z79.01 - joint terminal attack controller (current) use of anticoagulants (11) Protein malnutrition Status: Acute Category: Medical Code(s): E46 - Unspecified protein-calorie malnutrition - Assessment and plan all Dx Assessmen
--- NOTE | 2022-01-20 16:58 | PC.NURSE ---
Congested cough with no production. VS stable and patient on 2LNC. No complaints of pain and patient remained alert and oriented. Password set up: [employer]. Possible discharge home tomorrow.
[2022-01-21] VITALS (13 sets, daily range): BP systolic 98–107; BP diastolic 52–64; PULSE 75–110; RESP 16–19; TEMP 36.7–36.9; O2SAT 87–98; BMI 17.2
--- NOTE | 2022-01-21 04:00 | PC.NURSE ---
PT RESTED WELL THROUGH THE NIGHT, LUNG SOUNDS EXPIRATORY WHEEZES NOTED, VSS, TELEMETRY REVEALS PACED RYTHM WITH OCCASIONAL PACER SPIKES NOTED, RYTHM IRREGLAR, 02 SATS 91% ON 02 AT 3L, PT TAKES 02 OFF AND ON. NO OTHER ISSUES NOTED, VSS
[2022-01-21 07:44] LABS: Basophils % 0.3 % (0.1-2.0); Eosinophils % 0.1 % (0.1-12.0); Hematocrit 34.8 % (37.0-47.0); Hemoglobin 11.7 g/dL (12.2-16.2); Lymphocytes # 0.5 K/mm3 (0.7-4.5); Lymphocytes % 6.5 % (10-50); Mean Corpuscular HGB Conc 33.6 g/dL (31.8-35.4); Mean Corpuscular Volume 98.4 fl (81-99); Mean Platelet Volume 8.1 fl (7.4-10.4); Monocytes # 0.7 K/mm3 (0.1-1.0); Neutrophils # 6.9 K/mm3 (1.8-7.8); Neutrophils % 84.1 % (37.0-80.0); Platelet Count 229 K/mm3 (142-424); Red Blood Count 3.54 M/mm3 (4.20-5.40); Red Cell Distribution Width 14.1 % (11.5-17.5); White Blood Count 8.3 K/mm3 (4.8-10.8)
[2022-01-21 07:48] LABS: INR 4.61 (0.9-1.1)
[2022-01-21 07:49] LABS: Anion Gap 5.3 mEq/L (5-15); Blood Urea Nitrogen 16 mg/dl (7-17); Carbon Dioxide 38 mmol/L (22.0-30.0); Chloride 91 mmol/L (98-107); Creatinine Clearance Estimated 41 mL/min (50-200); Estimated Glomerular Filt Rate 84 ml/min (>60); GFR (African American) 101 ML/MIN (>60); Glucose 114 mg/dl (74-100); Potassium 3.3 mmoL/L (3.5-5.1); Sodium 131 mmol/L (136-145)
[2022-01-21 07:59] LABS: Prothrombin Time 46.5 seconds (10.1-12.5)
--- NOTE | 2022-01-21 07:59 | PC.NURSE ---
Spoke with Kelly from the lab with a critical value PT of 46.5.
--- NOTE | 2022-01-21 09:47 | HMH.ACPN2 ---
Internal Medicine - PN: Subj *Date: 01/22/22 *Time: 08:34 Interval history: doing ok - has t spine pain - labs are improving Exam Vital signs and Labs for Last 24 Hours: Temp Pulse Resp BP Pulse Ox 98.4 F 100 H 17 100/55 L 90 L 01/21/22 07:40 01/21/22 08:00 01/21/22 07:40 01/21/22 07:40 01/21/22 07:40 Laboratory Results - last 24 hr 01/21/22 06:54: WBC 8.3, RBC 3.54 L, Hgb 11.7 L, Hct 34.8 L, MCV 98.4, MCH 33.0 H, MCHC 33.6, RDW 14.1, Plt Count 229, MPV 8.1, Neut % (Auto) 84.1 H, Lymph % (Auto) 6.5 L, [place] % (Auto) 9.0, Eos % (Auto) 0.1, Baso % (Auto) 0.3, Neut # (Auto) 6.9, Lymph # (Auto) 0.5 L, [place] # (Auto) 0.7, Eos # (Auto) 0.0, Baso # (Auto) 0.0 01/21/22 06:54: Sodium 131 L, Potassium 3.3 L, Chloride 91 L, Carbon Dioxide 38 H, Anion Gap 5.3, BUN 16 D, Creatinine 0.70, Estimated Creat Clear 41, Estimated GFR 84, Est GFR ( Amer) 101, Glucose 114 H, Calcium 8.0 L 01/21/22 06:54: PT 46.5 H, INR 4.61 H I & O for Last 24 hours: Intake & Output 01/18/22 01/19/22 01/20/22 01/21/22 11:59 11:59 11:59 11:59 Intake Total 480 / 480 1230 / 1230 870 / 870 Balance 480 / 480 1230 / 1230 870 / 870 Weight 102 lb 15.999 oz 104 lb 0.931 oz 103 lb 9.876 oz Microbiology Reports for the Last 24 Hours: Microbiology 01/19/22 10:36 Sputum - Expectorated Sputum Gram Stain - Final 01/19/22 10:36 Sputum - Expectorated Sputum Sputum Culture - Preliminary 01/18/22 19:51 Blood Blood Culture - Preliminary NO GROWTH AFTER 48 HOURS 01/18/22 19:51 Blood Blood Culture - Preliminary - Constitutional no acute distress - *Routine HEENT Exam Head: Present: normocephalic Eye: Present: EOMI, PERRL ENT: Present: mucous membranes dry - *Routine Neck Exam Present: supple - *Routine Respiratory Exam Present: decreased breath sounds - *Routine Cardiovascular Exam Present: RRR, murmur - *Routine Abdominal Exam Present: soft - *Routine Extremities Exam Present: pulses intact - *Routine Skin Exam Present: intact - *Routine Neurological Exam Present: alert, CN II-XII intact - Routine Psychiatric Exam Present: normal affect Assessment and Plan (1) COPD with respiratory failure, acute Status: Acute Category: Medical Code(s): J44.9 - Chronic obstructive pulmonary disease, unspecified; J96.00 - Acute respiratory failure, unspecified whether with hypoxia or hypercapnia (2) COPD (chronic obstructive pulmonary disease) Status: Acute Qualifiers: COPD type: emphysema Emphysema type: unspecified Qualified Code(s): J43.9 - Emphysema, unspecified Category: Medical Code(s): J44.9 - Chronic obstructive pulmonary disease, unspecified (3) Elevated brain natriuretic peptide (BNP) level Status: Acute Category: Medical Code(s): R79.89 - Other specified abnormal findings of blood chemistry (4) Influenza A Status: Acute Category: Medical Code(s): J10.1 - Influenza due to other identified influenza virus with other respiratory manifestations (5) Prolonged INR Status: Acute Category: Medical Code(s): R79.1 - Abnormal coagulation profile (6) SIRS (systemic inflammatory response syndrome) Status: Acute Category: Medical Code(s): R65.10 - Systemic inflammatory response syndrome (SIRS) of non-infectious origin without acute organ dysfunction (7) Thrombocytopenia Status: Acute Category: Medical Code(s): D69.6 - Thrombocytopenia, unspecified (8) Tobacco use Status: Acute Category: Social Hx Code(s): Z72.0 - Tobacco use (9) History of artificial heart valve Status: Chronic Category: Surgical Code(s): Z95.2 - Presence of prosthetic heart valve (10) Long-term (current) use of anticoagulants, INR goal 2.5-3.5 Status: Chronic Category: Medical Code(s): Z79.01 - USP (current) use of anticoagulants
[2022-01-22] VITALS (12 sets, daily range): BP systolic 93–127; BP diastolic 45–68; PULSE 68–97; RESP 16–20; TEMP 36.7–37.2; O2SAT 92–100; BMI 17.2
[2022-01-22 07:45] LABS: Basophils % 0.4 % (0.1-2.0); Eosinophils % 0.3 % (0.1-12.0); Hemoglobin 12.1 g/dL (12.2-16.2); Lymphocytes # 0.6 K/mm3 (0.7-4.5); Lymphocytes % 6.1 % (10-50); Mean Corpuscular HGB Conc 31.8 g/dL (31.8-35.4); Mean Corpuscular Hemoglobin 32.3 pg (27.0-31.2); Mean Corpuscular Volume 101.6 fl (81-99); Mean Platelet Volume 8.1 fl (7.4-10.4); Monocytes # 0.9 K/mm3 (0.1-1.0); Monocytes % 9.5 % (1.7-9.3); Neutrophils # 8.1 K/mm3 (1.8-7.8); Neutrophils % 83.7 % (37.0-80.0); Platelet Count 234 K/mm3 (142-424); Red Blood Count 3.74 M/mm3 (4.20-5.40); Red Cell Distribution Width 14.4 % (11.5-17.5); White Blood Count 9.7 K/mm3 (4.8-10.8)
[2022-01-22 08:04] LABS: Anion Gap 5.3 mEq/L (5-15); Blood Urea Nitrogen 10 mg/dl (7-17); Calcium 8.2 mg/dl (8.4-10.2); Carbon Dioxide 39 mmol/L (22.0-30.0); Chloride 93 mmol/L (98-107); Creatinine Clearance Estimated 41 mL/min (50-200); Estimated Glomerular Filt Rate 84 ml/min (>60); GFR (African American) 101 ML/MIN (>60); Glucose 123 mg/dl (74-100); Potassium 3.3 mmoL/L (3.5-5.1); Sodium 134 mmol/L (136-145)
[2022-01-22 08:54] LABS: INR 3.39 (0.9-1.1)
--- NOTE | 2022-01-22 09:09 | HMH.ACPN2 ---
Internal Medicine - PN: Subj *Date: 01/22/22 *Time: 09:09 Exam Vital signs and Labs for Last 24 Hours: Temp Pulse Resp BP Pulse Ox 98.1 F 90 17 106/66 L 93 L 01/22/22 07:52 01/22/22 08:00 01/22/22 07:52 01/22/22 07:52 01/22/22 07:52 Laboratory Results - last 24 hr 01/22/22 07:10: WBC 9.7, RBC 3.74 L, Hgb 12.1 L, Hct 38.0, MCV 101.6 H, MCH 32.3 H, MCHC 31.8, RDW 14.4, Plt Count 234, MPV 8.1, Neut % (Auto) 83.7 H, Lymph % (Auto) 6.1 L, [place] % (Auto) 9.5 H, Eos % (Auto) 0.3, Baso % (Auto) 0.4, Neut # (Auto) 8.1 H, Lymph # (Auto) 0.6 L, [place] # (Auto) 0.9, Eos # (Auto) 0.0, Baso # (Auto) 0.0 01/22/22 07:10: Sodium 134 L, Potassium 3.3 L, Chloride 93 L, Carbon Dioxide 39 H, Anion Gap 5.3, BUN 10 D, Creatinine 0.70, Estimated Creat Clear 41, Estimated GFR 84, Est GFR ( Amer) 101, Glucose 123 H, Calcium 8.2 L I & O for Last 24 hours: Intake & Output 01/19/22 01/20/22 01/21/22 01/22/22 23:59 23:59 23:59 23:59 Intake Total 960 / 960 1470 / 1470 1110 / 1110 490 / 490 Balance 960 / 960 1470 / 1470 1110 / 1110 490 / 490 Weight 46.72 kg 47.2 kg 47 kg 47 kg Microbiology Reports for the Last 24 Hours: Microbiology 01/19/22 10:36 Sputum - Expectorated Sputum Gram Stain - Final 01/19/22 10:36 Sputum - Expectorated Sputum Sputum Culture - Preliminary Gram Negative Rods 01/19/22 11:49 Nose - Nasal MRSA Culture - Final Negative 01/18/22 19:51 Blood Blood Culture - Preliminary Streptococcus parasanguinis Assessment and Plan (1) COPD with respiratory failure, acute Status: Acute Category: Medical Code(s): J44.9 - Chronic obstructive pulmonary disease, unspecified; J96.00 - Acute respiratory failure, unspecified whether with hypoxia or hypercapnia (2) COPD (chronic obstructive pulmonary disease) Status: Acute Qualifiers: COPD type: emphysema Emphysema type: unspecified Qualified Code(s): J43.9 - Emphysema, unspecified Category: Medical Code(s): J44.9 - Chronic obstructive pulmonary disease, unspecified (3) Elevated brain natriuretic peptide (BNP) level Status: Acute Category: Medical Code(s): R79.89 - Other specified abnormal findings of blood chemistry (4) Influenza A Status: Acute Category: Medical Code(s): J10.1 - Influenza due to other identified influenza virus with other respiratory manifestations (5) Prolonged INR Status: Acute Category: Medical Code(s): R79.1 - Abnormal coagulation profile (6) SIRS (systemic inflammatory response syndrome) Status: Acute Category: Medical Code(s): R65.10 - Systemic inflammatory response syndrome (SIRS) of non-infectious origin without acute organ dysfunction (7) Thrombocytopenia Status: Acute Category: Medical Code(s): D69.6 - Thrombocytopenia, unspecified (8) Tobacco use Status: Acute Category: Social Hx Code(s): Z72.0 - Tobacco use (9) History of artificial heart valve Status: Chronic Category: Surgical Code(s): Z95.2 - Presence of prosthetic heart valve (10) Long-term (current) use of anticoagulants, INR goal 2.5-3.5 Status: Chronic Category: Medical Code(s): Z79.01 - penitentiary (current) use of anticoagulants The patient's infection will respond to the chosen ABx?: Yes (REPEAT BLOOD CULTURE PENDING, SPUTUM GNR FINAL C/S PENDING.) Is the patient receiving the right drug, dose, and route?: Yes Could a more targeted ABx be ordered?: No
--- NOTE | 2022-01-22 10:22 | HMH.ACPN2 ---
Internal Medicine - PN: Subj *Date: 01/22/22 *Time: 10:33 Interval history: Patient complains of back pain this morning, thoracic spine, lidocaine patch applied. CT scan of the thoracic spine was reviewed, there is some scoliosis changes, no acute compression deformity. Patient's status post a prosthetic mitral valve. Cultures positive Exam Vital signs and Labs for Last 24 Hours: Temp Pulse Resp BP Pulse Ox 98.1 F 90 17 106/66 L 98 01/22/22 07:52 01/22/22 08:00 01/22/22 07:52 01/22/22 07:52 01/22/22 09:32 Laboratory Results - last 24 hr 01/22/22 07:10: WBC 9.7, RBC 3.74 L, Hgb 12.1 L, Hct 38.0, MCV 101.6 H, MCH 32.3 H, MCHC 31.8, RDW 14.4, Plt Count 234, MPV 8.1, Neut % (Auto) 83.7 H, Lymph % (Auto) 6.1 L, [place] % (Auto) 9.5 H, Eos % (Auto) 0.3, Baso % (Auto) 0.4, Neut # (Auto) 8.1 H, Lymph # (Auto) 0.6 L, [place] # (Auto) 0.9, Eos # (Auto) 0.0, Baso # (Auto) 0.0 01/22/22 07:10: Sodium 134 L, Potassium 3.3 L, Chloride 93 L, Carbon Dioxide 39 H, Anion Gap 5.3, BUN 10 D, Creatinine 0.70, Estimated Creat Clear 41, Estimated GFR 84, Est GFR ( Amer) 101, Glucose 123 H, Calcium 8.2 L 01/22/22 08:37: PT 35.0 H, INR 3.39 H I & O for Last 24 hours: Intake & Output 01/19/22 01/20/22 01/21/22 01/22/22 23:59 23:59 23:59 23:59 Intake Total 960 / 960 1470 / 1470 1110 / 1110 490 / 490 Balance 960 / 960 1470 / 1470 1110 / 1110 490 / 490 Weight 102 lb 15.999 oz 104 lb 0.931 oz 103 lb 9.876 oz 103 lb 9.876 oz Microbiology Reports for the Last 24 Hours: Microbiology 01/20/22 10:02 Blood Blood Culture - Preliminary NO GROWTH AFTER 48 HOURS 01/20/22 10:02 Blood Blood Culture - Preliminary NO GROWTH AFTER 48 HOURS 01/19/22 10:36 Sputum - Expectorated Sputum Gram Stain - Final 01/19/22 10:36 Sputum - Expectorated Sputum Sputum Culture - Preliminary Gram Negative Rods 01/19/22 11:49 Nose - Nasal MRSA Culture - Final Negative 01/18/22 19:51 Blood Blood Culture - Preliminary Streptococcus parasanguinis - Constitutional no acute distress, chronically ill appearing - *Routine HEENT Exam Head: Present: normocephalic Eye: Present: EOMI, PERRL ENT: Present: mucous membranes moist - *Routine Neck Exam Present: supple. Absent: lymphadenopathy - *Routine Respiratory Exam Present: decreased breath sounds. Absent: wheezes - *Routine Cardiovascular Exam Present: RRR, murmur - *Routine Abdominal Exam Present: soft, normoactive bowel sounds. Absent: tenderness - *Routine Extremities Exam Absent: cyanosis, clubbing, edema - *Routine Skin Exam Present: warm. Absent: rash - *Routine Neurological Exam Present: alert, oriented X3 Assessment and Plan (1) COPD with respiratory failure, acute Status: Acute Category: Medical Code(s): J44.9 - Chronic obstructive pulmonary disease, unspecified; J96.00 - Acute respiratory failure, unspecified whether with hypoxia or hypercapnia (2) COPD (chronic obstructive pulmonary disease) Status: Acute Qualifiers: COPD type: emphysema Emphysema type: unspecified Qualified Code(s): J43.9 - Emphysema, unspecified Category: Medical Code(s): J44.9 - Chronic obstructive pulmonary disease, unspecified (3) Elevated brain natriuretic peptide (BNP) level Status: Acute Category: Medical Code(s): R79.89 - Other specified abnormal findings of blood chemistry (4) Influenza A Status: Acute Category: Medical Code(s): J10.1 - Influenza due to other identified influenza virus with other respiratory manifestations (5) Prolonged INR Status: Acute Category: Medical Code(s): R79.1 - Abnormal coagulation profile (6) SIRS (systemic inflammatory response syndrome) Status: Acute Category: Medical Code(s): R65.10 - Systemic inflammatory response syndrome (SIRS) of non-infectious jorje
--- NOTE | 2022-01-22 13:40 | PC.NURSE ---
Attempted to change IV and pt refused to let me change.
--- NOTE | 2022-01-22 18:35 | PC.NURSE ---
Pt was A/Ox4 had very unremarkable day. She is ready to leave and has been a little depressed about being her. I tried to change her IV today, and she refused stating that she should be leaving tomorrow. She was pleasant through out shift. She had no issues.
[2022-01-23] VITALS: BP 99/57; PULSE 70; PULSE 81; RESP 18; TEMP 37.1; O2SAT 97
[2022-01-23 03:51] VITALS: BP 131/80; PULSE 86; RESP 18; TEMP 36.8; O2SAT 99
[2022-01-23 04:00] VITALS: PULSE 70
[2022-01-23 04:06] VITALS: BMI 17.2
[2022-01-23 05:56] LABS: Basophils % 0.2 % (0.1-2.0); Eosinophils % 0.5 % (0.1-12.0); Hematocrit 35.7 % (37.0-47.0); Hemoglobin 11.4 g/dL (12.2-16.2); Lymphocytes # 0.7 K/mm3 (0.7-4.5); Lymphocytes % 7.9 % (10-50); Mean Corpuscular HGB Conc 31.9 g/dL (31.8-35.4); Mean Corpuscular Hemoglobin 32.4 pg (27.0-31.2); Mean Corpuscular Volume 101.7 fl (81-99); Mean Platelet Volume 7.7 fl (7.4-10.4); Monocytes # 0.8 K/mm3 (0.1-1.0); Monocytes % 8.7 % (1.7-9.3); Neutrophils # 7.3 K/mm3 (1.8-7.8); Neutrophils % 82.7 % (37.0-80.0); Platelet Count 231 K/mm3 (142-424); Red Blood Count 3.51 M/mm3 (4.20-5.40); Red Cell Distribution Width 14.2 % (11.5-17.5); White Blood Count 8.9 K/mm3 (4.8-10.8)
[2022-01-23 06:06] LABS: Alanine Aminotransferase 17 U/L (12-78); Albumin Level 2.8 g/dl (3.5-5.0); Albumin/Globulin Ratio 0.9 (1.1-1.8); Alkaline Phosphatase 75 U/L (38-126); Anion Gap 4.7 mEq/L (5-15); Aspartate Amino Transferase 18 U/L (14-36); Bilirubin,Total 0.7 mg/dl (0.2-1.3); Blood Urea Nitrogen 8 mg/dl (7-17); Calcium 7.9 mg/dl (8.4-10.2); Carbon Dioxide 34 mmol/L (22.0-30.0); Chloride 96 mmol/L (98-107); Creatinine Clearance Estimated 41 mL/min (50-200); Estimated Glomerular Filt Rate 100 ml/min (>60); GFR (African American) 121 ML/MIN (>60); Globulin 3.1 g/dL (1.3-3.2); Glucose 112 mg/dl (74-100); INR 2.33 (0.9-1.1); Potassium 3.7 mmoL/L (3.5-5.1); Prothrombin Time 24.7 seconds (10.1-12.5); Sodium 131 mmol/L (136-145); Total Protein,Serum 5.9 g/dl (6.3-8.2)
[2022-01-23 06:23] VITALS: O2SAT 94
--- NOTE | 2022-01-23 06:52 | PC.NURSE ---
Pt alert and oriented and able to report her needs. Pt stated that she feels much better and does not feel that she needs the amiflu anymore. Pt rested all night but did /o back pain. Heat pack given and was effective. Pt remain on 02 at this time and sats remain in the upper 90's. Call alva within reach.
[2022-01-23 08:00] VITALS: BP 114/68; PULSE 82; PULSE 90; RESP 22; TEMP 36.7; O2SAT 94
--- NOTE | 2022-01-23 09:31 | HMH.PULMPN ---
Internal Medicine - PN: Subj *Date: 01/23/22 *Time: 11:45 Interval history: No acute respiratory events over the weekend patient admits continued improvement in her symptoms. Exam - Constitutional Constitutional:: Present: no acute distress, comfortable - HENMT Exam HENMT: Present: normocephalic - Eye Exam Eyes:: Present: normal appearance both eyes and related structures - Neck Exam Neck:: Present: normal visual inspection - Respiratory Exam Respiratory:: Present: able to speak in complete sentences, no respiratory distress. Absent: wheezing - Cardiovascular Exam Cardiac:: Present: S1, S2 - GI Exam GI:: Present: soft, no hepatosplenomegaly - Skin Exam Skin: Present: warm - Neurological Exam Neurological: Present: alert, awake, normal cognition - Extremities Exam Extremities: Present: no cyanosis, no clubbing, no edema - Psychiatric Exam Psychiatric: Present: normal affect Assessment and Plan (1) COPD with respiratory failure, acute Status: Acute Category: Medical Code(s): J44.9 - Chronic obstructive pulmonary disease, unspecified; J96.00 - Acute respiratory failure, unspecified whether with hypoxia or hypercapnia (2) COPD (chronic obstructive pulmonary disease) Status: Acute Qualifiers: COPD type: emphysema Emphysema type: unspecified Qualified Code(s): J43.9 - Emphysema, unspecified Category: Medical Code(s): J44.9 - Chronic obstructive pulmonary disease, unspecified (3) Elevated brain natriuretic peptide (BNP) level Status: Acute Category: Medical Code(s): R79.89 - Other specified abnormal findings of blood chemistry (4) Influenza A Status: Acute Category: Medical Code(s): J10.1 - Influenza due to other identified influenza virus with other respiratory manifestations (5) Prolonged INR Status: Acute Category: Medical Code(s): R79.1 - Abnormal coagulation profile (6) SIRS (systemic inflammatory response syndrome) Status: Acute Category: Medical Code(s): R65.10 - Systemic inflammatory response syndrome (SIRS) of non-infectious origin without acute organ dysfunction (7) Thrombocytopenia Status: Acute Category: Medical Code(s): D69.6 - Thrombocytopenia, unspecified (8) Tobacco use Status: Acute Category: Social Hx Code(s): Z72.0 - Tobacco use (9) History of artificial heart valve Status: Chronic Category: Surgical Code(s): Z95.2 - Presence of prosthetic heart valve (10) Long-term (current) use of anticoagulants, INR goal 2.5-3.5 Status: Chronic Category: Medical Code(s): Z79.01 - terminal clerk (current) use of anticoagulants - Assessment and plan all Dx Assessment and Plan for all problems:: #Acute hypoxic respiratory failure: #Influenza pneumonia: #Community-acquired pneumonia: #Streptococcus bacteremia Ms. Katz 66-year-old female current smoker greater than [id number] smoking history, no significant prior respiratory complaint recent diagnosis of influenza pneumonia and discharged on 5 days of Tamiflu presented to the hospital with worsening respiratory distress and pulmonary was called for further management. Mechanical mitral valve prosthesis. On warfarin. Supratherapeutic INR on presentation. CTA on admission no evidence of pulmonary embolism. No dense airspace disease noted. Evidence of bronchitis noted. Evidence of emphysema noted As per chart review patient has history of cardiac valve and has been on anticoagulation. No evidence of leukocytosis. Renal function normal. Significant elevated INR at 8. Flu viral PCR positive, status post completion Tamiflu treatment for 5 days Was initiated on treatment for COPD exacerbation with ceftriaxone azithromycin along with methylprednisolone and nebulization treatments. Prelim blood cultures in one bottle growing gram-positive cocci in chains, Streptococcus, repeat blood cultures negative. Sputum culture growing gram-negative rods, Klebsiella pneumonia. She du
[2022-01-23 09:57] VITALS: O2SAT 91
--- NOTE | 2022-01-23 10:35 | HMH.DCSUM ---
General - General Admission date:: 01/18/22 Discharge date: 01/23/22 HPI HPI: this patient presented to the ed -The patient was diagnosed with influenza A on 01/14/2022 in this emergency department by me. She says that now I have progressed to pneumonia or something . She says she continues to get worse with increased shortness of breath, increased weakness, poor appetite. Continues to have severe pain in her thoracic back. She says that her 's home health nurse checked her out today and told her her pulse ox was 86% at home. She does not use oxygen. She does have a nebulizer and used a treatment before coming to the emergency room. On 01/14/2022 she presented primarily complaining of severe pain in her thoracic back. X-rays of thoracic spine and chest were negative. Flu test was positive and she was treated with Tamiflu. She has COPD and continues to smoke, although she has not smoked for about 1 week. She has a history of cardiac valve replacement and is anticoagulated with warfarin. (Gilberto Rebollar) pt with low sat on room air and dec po intake and admitted for eval and treatment - Objective Vital signs: Temp Pulse Resp BP Pulse Ox 98.1 F 82 22 114/68 91 L 01/23/22 08:00 01/23/22 08:00 01/23/22 08:00 01/23/22 08:00 01/23/22 09:57 Results Labs on day of discharge: Labs from last 24 hours 01/23/22 01/23/22 01/23/22 05:45 05:45 05:45 WBC 8.9 RBC 3.51 L Hgb 11.4 L Hct 35.7 L MCV 101.7 H MCH 32.4 H MCHC 31.9 RDW 14.2 Plt Count 231 MPV 7.7 Neut % (Auto) 82.7 H Lymph % (Auto) 7.9 L Henry % (Auto) 8.7 Eos % (Auto) 0.5 Baso % (Auto) 0.2 Neut # (Auto) 7.3 Lymph # (Auto) 0.7 Henry # (Auto) 0.8 Eos # (Auto) 0.0 Baso # (Auto) 0.0 PT 24.7 H INR 2.33 H Sodium 131 L Potassium 3.7 Chloride 96 L Carbon Dioxide 34 H Anion Gap 4.7 L BUN 8 Creatinine 0.60 Estimated Creat Clear 41 Estimated GFR 100 Est GFR ( Amer) 121 Glucose 112 H Calcium 7.9 L Total Bilirubin 0.7 AST 18 ALT 17 Alkaline Phosphatase 75 Total Protein 5.9 L Albumin 2.8 L Globulin 3.1 Albumin/Globulin Ratio 0.9 L Preliminary micro results at discharge 01/20/22 10:02 Blood Culture - Preliminary Blood NO GROWTH AFTER 48 HOURS 01/20/22 10:02 Blood Culture - Preliminary Blood NO GROWTH AFTER 48 HOURS 01/18/22 19:51 Blood Culture - Preliminary Blood Streptococcus parasanguinis 01/18/22 19:51 Blood Culture - Preliminary Blood NO GROWTH AFTER 48 HOURS DS: Diagnosis - Discharge Diagnosis (1) COPD with respiratory failure, acute Status: Acute (2) COPD (chronic obstructive pulmonary disease) Status: Acute (3) Elevated brain natriuretic peptide (BNP) level Status: Acute (4) Influenza A Status: Acute (5) Prolonged INR Status: Acute (6) SIRS (systemic inflammatory response syndrome) Status: Acute (7) Thrombocytopenia Status: Acute (8) Tobacco use Status: Acute (9) History of artificial heart valve Status: Chronic (10) Long-term (current) use of anticoagulants, INR goal 2.5-3.5 Status: Chronic Discharge Plan - Patient Discharge Instructions Patient Instructions: DI for Dehydration -- Adult, DI for Influenza -- Adult, DI for Chronic Pain -- Adult, DI for Respiratory Failure, DI for Hypoxia - Follow up Plan Follow up with: Nick Irby MD [Physician] - 03/02/22 1:30 pm (PFT and 6 Minute walk on 02/21/2022 at 8:00 NPO 4 hours prior to test ) Home Medications: Home Medications Medication Instructions Recorded Confirmed Type carvedilol 12.5 mg tablet 12.5 mg PO BID 11/18/20 01/18/22 History furosemide 40 mg tablet 40 mg PO DAILY 11/18/20 01/18/22 History lisinopril 20 mg tablet 20 mg PO DAILY 11/18/20 01/18/22 History warfarin 4 mg tablet 4 mg PO DAILY 11/18/20 01/19/22 History Acetamin
--- NOTE | 2022-01-23 10:52 | DIET.NUTRFU ---
RD provided her handouts on high calorie/high protein choices. It would be beneficial to gain 10# overtime. Recommended 6 small meals and protein provided at each. Handouts were provided and reviewed. Also recommended she drink 1 ensure daily to help with the wt gains.
--- NOTE | 2022-01-24 14:21 | CARE MANAGER ---
Contacted patient related to hospital discharge follow up. She states she received the antibiotic. I contacted [facility] pharmacy and they stated they had to order it and it will be there tomorrow. Relayed message to patient. Denies any other questions or concerns. FREDY Helms
== END 2022-01-23 11:47 | disposition home or self-care (01) | DRG 193 ==
LOC: ER 20:29 → 2ND 20:46
PROVIDERS: Family Medicine; Nurse Practitioner Family; Physician Assistant; Admitting Provider Emergency Medicine; Emergency Provider Emergency Medicine; PCP Nurse Practitioner Family; Visit Provider Emergency Medicine
DX: J11.08 Influenza due to unidentified influenza virus with specified pneumonia (principal); J96.00 Acute respiratory failure, unspecified whether with hypoxia or hypercapnia; Z68.1 Body mass index [BMI] 19.9 or less, adult; R78.81 Bacteremia; J18.9 Pneumonia, unspecified organism; J43.9 Emphysema, unspecified; Z95.1 Presence of aortocoronary bypass graft; Z20.822 Contact with and (suspected) exposure to COVID-19; F17.210 Nicotine dependence, cigarettes, uncomplicated; D69.59 Other secondary thrombocytopenia; Z95.2 Presence of prosthetic heart valve; Z95.0 Presence of cardiac pacemaker; R79.1 Abnormal coagulation profile; I25.2 Old myocardial infarction; I10 Essential (primary) hypertension; D69.6 Thrombocytopenia, unspecified
CPT/HCPCS: 36415; 71045; 71046; 71275; 72129; 80048; 80053; 83605; 83735; 83880; 84145; 84484; 85007; 85025; 85610; 85651; 86140; 87040; 87070; 87077; 87081; 87186; 87205; 93005; 93306; 94640; 94761; 96375; 99285; C9803; J0456; J0696; J2405; Q9967; U0003; U0005

== ENCOUNTER 2022-03-22 13:21 | Emergency (ER) | payer MEDICARE, MEDICAID, SELFPAY ==
--- NOTE | 2022-03-22 13:46 | HMH.EDUTC ---
[facility] Disposition Clinical Impression: Pruritus of skin Disposition: Home, Self-Care Condition on Discharge: Good Instructions: DI for Itching, Hydroxyzine Additional Instructions: avoid contact with anything that may be contributing to your itching. Don't put the topical steroids (triamcinolone) on your face or your groin. Follow up with your regular doctor. GO TO THE ER FOR ANY WORSENING SYMPTOMS OR CONCERNS The hydroxyzine will make you drowsy, so don't drive or operate heavy machinery after taking it. Prescriptions: hydrOXYzine HCL [Hydroxyzine HCl] 10 mg PO Q6HP PRN #30 tab PRN Reason: Itching Transmission Status: Received by [id number] Triamcinolone Acetonide 1 applicatio TP TIDP PRN 7 Days #1 gm PRN Reason: Itching Transmission Status: Received by [id number] Referrals: Provider,Referral, [Primary Care Provider] - Time of Disposition: 14:03 Medical Decision Making - Medical Records Medical records reviewed: No: I reviewed the patient's medical records. - Preet Inquiry Pt receiving controlled substance: No Vital Signs: 03/22/22 13:49 03/22/22 14:04 Temperature 97.8 F 97.8 F Temperature Source Oral Pulse Rate 88 Pulse Rate [Left] 88 Respiratory Rate 17 17 Blood Pressure 118/71 Blood Pressure [Right Arm] 118/71 Blood Pressure Mean [Right Arm] 86 02 Sat by Pulse Oximetry 97 [facility] HPI - General Stated complaint: rash on legs Time Seen by Provider: 03/22/22 13:46 - History of Present Illness Provider Complaint: She is here c/o bilateral leg itching. This has been ongoing for the past 1 week. She denies any contact with known irritant. - Related Data Home Medications Medication Instructions Recorded Confirmed carvedilol 12.5 mg tablet 12.5 mg PO BID 11/18/20 01/18/22 furosemide 40 mg tablet 40 mg PO DAILY 11/18/20 01/18/22 lisinopril 20 mg tablet 20 mg PO DAILY 11/18/20 01/18/22 warfarin 4 mg tablet 4 mg PO DAILY 11/18/20 01/19/22 Previous Rx's Medication Instructions Recorded Acetaminophen with Codeine 1 tab PO Q6HP PRN #10 tab 01/14/22 [Tylenol with Codeine #3 tablet] Ondansetron [Zofran 4mg ODT] 4 mg PO TIDP PRN #10 tab 01/14/22 Ipratropium/Albuterol Sulfate 2 puff IH QID PRN 90 Days #120 each 01/23/22 [Combivent Respimat Inh] Nicotine [Nicoderm 21mg/24hr 21 mg TD DAILYP PRN #30 patch 01/23/22 patch] levoFLOXacin [Levofloxacin 750MG 750 mg PO Q48H #3 tab 01/23/22 Tablet*] Triamcinolone Acetonide 1 applicatio TP TIDP PRN 7 Days #1 03/22/22 gm hydrOXYzine HCL [Hydroxyzine HCl] 10 mg PO Q6HP PRN #30 tab 03/22/22 Allergies Allergy/AdvReac Type Severity Reaction Status Date / Time aspirin Allergy Unknown Unknown Verified 03/22/22 13:51 allergy reaction nitroglycerin Allergy Unknown Unknown Verified 03/22/22 13:51 allergy reaction NSAIDS (Non-Steroidal Allergy Unknown Unknown Verified 03/22/22 13:51 Anti-Inflamma allergy reaction procainamide Allergy Unknown Unknown Verified 03/22/22 13:51 allergy reaction [facility] History - Hepatitis A Screen Attestation statement:: This patient has been screened for Hepatitis A risk factors. I have reviewed the patient's past medical history: Yes Medical History: Reports:: Arrhythmia, Congestive Heart Failure, Chronic Obstructive Pulmonary Disease (COPD), Gastroesophageal Reflux Disease(GERD), Internal Pacemaker Denies:: Cancer, Diabetes Mellitus Type 1, Diabetes Mellitus Type 2, Hypertension, MRSA Other Medical History: Reports: Other Other Surgeries: Yes: CABG (x4), Cardiac Surgery (x2), Cholecystectomy, Mitral Valve Replacement, Open Heart Surgery, Pacemaker, Tubal Ligation, Other (PMx4) Amputation: No Fractures: No Comment: ulnar nerve released - Social History Smoking Status: Current every day smoker Tobacco Type: cigarettes # Packs/Day (cigarettes): 1 Alcohol Intake: never Substance Use Type: marijuana O
[2022-03-22 13:49] VITALS: BP 118/71; PULSE 88; RESP 17; TEMP 36.6; O2SAT 97; BMI 16.2
[2022-03-22 14:04] VITALS: BP 118/71; PULSE 88; RESP 17; TEMP 36.6
== END 2022-03-22 14:06 | disposition home or self-care (01) ==
PROVIDERS: Emergency Provider Nurse Practitioner Family
DX: L29.9 Pruritus, unspecified (principal)
CPT/HCPCS: 99212; G0463

== ENCOUNTER → 2022-07-18 14:38 | Outpatient (CLI) | payer MEDICARE, MEDICAID, SELFPAY ==
[2022-07-18 19:42] LABS: Eosinophils # 0.1 K/mm3 (0.0-0.4); Eosinophils % 2.8 % (0.1-12.0); Hematocrit 44.1 % (37.0-47.0); Hemoglobin 13.8 g/dL (12.2-16.2); Lymphocytes # 0.9 K/mm3 (0.7-4.5); Lymphocytes % 20.9 % (10-50); Mean Corpuscular HGB Conc 31.3 g/dL (31.8-35.4); Mean Corpuscular Hemoglobin 31.9 pg (27.0-31.2); Mean Corpuscular Volume 102.1 fl (81-99); Mean Platelet Volume 9.2 fl (7.4-10.4); Monocytes # 0.2 K/mm3 (0.1-1.0); Neutrophils # 3.1 K/mm3 (1.8-7.8); Neutrophils % 70.2 % (37.0-80.0); Platelet Count 146 K/mm3 (142-424); Red Blood Count 4.32 M/mm3 (4.20-5.40); Red Cell Distribution Width 14.2 % (11.5-17.5); White Blood Count 4.3 K/mm3 (4.8-10.8)
[2022-07-18 19:48] LABS: Alanine Aminotransferase 14 U/L (12-78); Albumin Level 4.3 g/dl (3.5-5.0); Albumin/Globulin Ratio 1.4 (1.1-1.8); Alkaline Phosphatase 106 U/L (38-126); Anion Gap 13.3 mEq/L (5-15); Aspartate Amino Transferase 34 U/L (14-36); Bilirubin,Total 0.8 mg/dl (0.2-1.3); Blood Urea Nitrogen 11 mg/dl (7-17); Calcium 9.8 mg/dl (8.4-10.2); Carbon Dioxide 38 mmol/L (22.0-30.0); Chloride 96 mmol/L (98-107); Estimated Glomerular Filt Rate 72 ml/min (>60); GFR (African American) 87 ML/MIN (>60); Globulin 3.1 g/dL (1.3-3.2); Glucose 78 mg/dl (74-100); Potassium 4.3 mmoL/L (3.5-5.1); Sodium 143 mmol/L (136-145); Total Protein,Serum 7.4 g/dl (6.3-8.2)
[2022-07-18 20:18] LABS: Thyroid Stimulating Hormone 3.89 uIU/mL (0.465-4.68)
== END ==
PROVIDERS: PCP Family Medicine; Visit Provider Family Medicine
DX: D69.6 Thrombocytopenia, unspecified (principal); I48.91 Unspecified atrial fibrillation
CPT/HCPCS: 80053; 84436; 84443; 85025

== ENCOUNTER 2022-10-24 12:57 | Emergency (ER) | payer MEDICARE, MEDICAID, SELFPAY ==
[2022-10-24 13:27] VITALS: BP 126/85; PULSE 78; RESP 19; TEMP 36.6; O2SAT 92
[2022-10-24 13:28] LABS: Coronavirus 19, PCR Not Detected (NotDetected); Influenza A, PCR Not Detected (NotDetected); Influenza B, PCR Not Detected (NotDetected)
--- NOTE | 2022-10-24 13:28 | PC.NURSE ---
Pt pulled to triage so we could assess vital signs and get history. FREDY Blancas has been informed of vitals at this time. Pt has been placed back into lobby as we wait for a room to open up. She was given a warm blanket and told if she begins to feel any different to let registration know. Will round on her again shortly.
--- NOTE | 2022-10-24 13:30 | XR_ITS ---
FINAL REPORT TECHNIQUE: Chest PA & Lateral CLINICAL HISTORY: cough, sob when lying down COMPARISON: January 2022 FINDINGS: 2 views of the chest were performed. There are multiple sternotomy wires. There is a left subclavian pacemaker. The heart size is normal. The mediastinum is within normal limits. There is no acute cardiopulmonary process. There are no pleural effusions. There is no pneumothorax. The bony thorax appears intact. IMPRESSION: No acute cardiopulmonary process. Reviewed, Interpreted and Dictated by Jose Angel Espinal MD Transcribed by Clark Hinkle Authenticated and [facility]
--- NOTE | 2022-10-24 13:31 | PC.NURSE ---
Notified xray of radiology order
--- NOTE | 2022-10-24 13:34 | PC.NURSE ---
PT TO XR AT THIS TIME
[2022-10-24 14:06] VITALS: BP 126/85; PULSE 78; RESP 19; TEMP 36.6; O2SAT 93; BMI 16.2
--- NOTE | 2022-10-24 14:26 | ECG_ITS ---
APPROVED REPORT Exam: Resting ECG HR:77 bpm ECG Measurements Heart Rate 77 AXES HI 250 P 80 QRSd 151 QRS 268 QT 432 T 72 QTc 464 Conclusion SINUS RHYTHM WITH FIRST DEGREE AV BLOCK RIGHT AXIS DEVIATION [QRS AXIS > 100] RIGHT BUNDLE BRANCH BLOCK [120+ ms QRS DURATION, UPRIGHT V1, 40+ ms S IN I/aVL/V4/V5/V6] INFERIOR MYOCARDIAL INFARCTION , PROBABLY OLD [40+ ms Q WAVE AND/OR ST/T ABNORMALITY IN II/aVF] ANTEROLATERAL MYOCARDIAL INFARCTION , OF INDETERMINATE AGE [40+ ms Q WAVE IN I/aVL/V3-V6] ABNORMAL ECG UNCONFIRMED REPORT Electronically signed by : Foreign Vargas MD 10/24/2022 20:17:30
--- NOTE | 2022-10-24 14:27 | PC.NURSE ---
RESPIRATORY AT BEDSIDE
[2022-10-24 14:30] VITALS: BP 133/71; PULSE 77; RESP 22; O2SAT 95
[2022-10-24 14:44] VITALS: PULSE 75; PULSE 77
[2022-10-24 14:55] LABS: Basophils % 0.5 % (0.1-2.0); Eosinophils # 0.1 K/mm3 (0.0-0.4); Eosinophils % 1.3 % (0.1-12.0); Hematocrit 42.4 % (37.0-47.0); Hemoglobin 13.8 g/dL (12.2-16.2); Lymphocytes # 0.4 K/mm3 (0.7-4.5); Lymphocytes % 7.2 % (10-50); Mean Corpuscular HGB Conc 32.5 g/dL (31.8-35.4); Mean Corpuscular Hemoglobin 32.6 pg (27.0-31.2); Mean Corpuscular Volume 100.4 fl (81-99); Mean Platelet Volume 8.2 fl (7.4-10.4); Monocytes # 0.3 K/mm3 (0.1-1.0); Monocytes % 5.8 % (1.7-9.3); Neutrophils # 4.8 K/mm3 (1.8-7.8); Neutrophils % 85.2 % (37.0-80.0); Platelet Count 130 K/mm3 (142-424); Red Blood Count 4.22 M/mm3 (4.20-5.40); White Blood Count 5.6 K/mm3 (4.8-10.8)
[2022-10-24 15:05] LABS: Chloride 98 mmol/L (98-107); MANUAL DIFFERENTIAL MANUAL DIFFERENTIAL (MANUAL DIFF); Potassium 4.3 mmoL/L (3.5-5.1); Sodium 138 mmol/L (136-145)
[2022-10-24 15:08] LABS: Alanine Aminotransferase 20 U/L (12-78); Albumin Level 4.3 g/dl (3.5-5.0); Albumin/Globulin Ratio 1.2 (1.1-1.8); Alkaline Phosphatase 110 U/L (38-126); Anion Gap 8.3 mEq/L (5-15); Aspartate Amino Transferase 37 U/L (14-36); Bilirubin,Total 2.1 mg/dl (0.2-1.3); Blood Urea Nitrogen 11 mg/dl (7-17); Carbon Dioxide 36 mmol/L (22.0-30.0); Creatinine Clearance Estimated 38 mL/min (50-200); Estimated Glomerular Filt Rate 72 ml/min (>60); GFR (African American) 87 ML/MIN (>60); Globulin 3.6 g/dL (1.3-3.2); Total Protein,Serum 7.9 g/dl (6.3-8.2)
[2022-10-24 15:09] LABS: Calcium 8.9 mg/dl (8.4-10.2); Glucose 102 mg/dl (74-100)
--- NOTE | 2022-10-24 15:16 | HMH.EDGENADL ---
Discharge Plan Disposition Patient Disposition: Home, Self-Care Condition: Good Prescriptions Prescriptions: New prednisone 20 mg tablet 20 mg PO BID Qty: 10 0RF levofloxacin 500 mg tablet 500 mg PO DAILY 7 Days Qty: 7 0RF No Action lisinopril 20 mg tablet 20 mg PO DAILY furosemide [Lasix] 40 mg tablet 40 mg PO DAILY carvedilol 12.5 mg tablet 12.5 mg PO BID warfarin 4 mg tablet 4 mg PO DAILY scopolamine base 1 mg over 3 days patch 3 day 1 patch transdermal Q3D PRN (Reason: motion sickness) Qty: 4 0RF nicotine 21 MG/PATCH patch 24 hour 21 mg transdermal DAILYP PRN (Reason: Nicotine Cravings) Qty: 30 0RF ipratropium-albuterol 120 PUFF mist 2 puff inhalation QID PRN (Reason: Shortness Of Breath Or Wheezing) 90 Days Qty: 120 3RF ondansetron 4 MG tablet,disintegrating 4 mg PO TIDP PRN (Reason: Nausea And Vomiting) Qty: 10 0RF triamcinolone acetonide 15 GM cream 1 applicatio TP TIDP PRN (Reason: Itching) 7 Days Qty: 1 0RF Rx Instructions: 0.025% Referrals Follow up/Referrals: Francisco Javier Barnett MD [Primary Care Provider] - See instructions Clinical Impressions Clinical Impression: COPD (chronic obstructive pulmonary disease) Discharge ED Provider: Gilberto Rebollar General Adult HPI General Chief complaint: Shortness of Breath/Dyspnea Stated complaint: Bodyaches cough fatigue chills SOA Time Seen by Provider: 10/24/22 15:20 Mode of Arrival: Ambulatory Source of Information: Patient Limitations: No Limitations Description of Symptoms (Recalled from ER Triage Doc. by RN): PT WITH C/O COUGH, CONGESTION, BODY ACHES AND SHORTNESS OF BREATH WORSE WHEN LYING DOWN X 3 DAYS History of Present Illness HPI narrative: Patient states I hope I am not going into pneumonia . She complains of a cough producing white and sometimes small amounts of yellow sputum, congestion, chills, body aches, fatigue. She says that she has not felt well since taking a cruise before , but is worse over the past 3 days. She is a smoker and has COPD. She is on inhalers and nebulizer treatments as needed. She is not on oxygen at home. Related Data Home Medications Medication Instructions Recorded Confirmed carvedilol 12.5 mg tablet 12.5 mg PO BID Hypertension 11/18/20 07/18/22 furosemide 40 mg tablet (Lasix) 40 mg PO DAILY Fluid 11/18/20 07/18/22 lisinopril 20 mg tablet 20 mg PO DAILY Hypertension 11/18/20 07/18/22 warfarin 4 mg tablet 4 mg PO DAILY Blood thinner 11/18/20 07/18/22 Previous Rx's Medication Instructions Recorded ondansetron 4 mg disintegrating 4 mg PO TIDP PRN Nausea And 01/14/22 tablet Vomiting #10 tabs ipratropium 20 mcg-albuterol 100 2 puff inhalation QID PRN 01/23/22 mcg/actuation mist for inhalation Shortness Of Breath Or Wheezing 90 days #120 ea nicotine 21 mg/24 hr daily 21 mg transdermal DAILYP PRN 01/23/22 transdermal patch Nicotine Cravings #30 patches triamcinolone acetonide 0.025 % 1 applicatio topical TIDP PRN 03/22/22 topical cream Itching 7 days #1 g scopolamine base 1 mg over 3 days 1 patch transdermal Q3D PRN motion 07/18/22 transdermal patch sickness #4 ea levofloxacin 500 mg tablet 500 mg PO DAILY 7 days #7 tabs 10/24/22 prednisone 20 mg tablet 20 mg PO BID #10 tabs 10/24/22 Allergies Allergy/AdvReac Type Severity Reaction Status Date / Time aspirin Allergy Unknown Unknown Verified 07/18/22 13:16 allergy reaction nitroglycerin Allergy Unknown Unknown Verified 07/18/22 13:16 allergy reaction NSAIDS (Non-Steroidal Allergy Unknown Unknown Verified 07/18/22 13:16 Anti-Inflamma allergy reaction procainamide Allergy Unknown Unknown Verified 07/18/22 13:16 allergy reaction PFSH PFSH Disclaimer: The information contained in this section may have been updated after the patient was seen, as this information can be updated by other users. Medical History (Reviewed 07/18/22 @ 13:20
[2022-10-24 15:25] LABS: Lymphocytes % 11 % (10-50); Monocytes % 9 % (2-9); Neutrophils % 80 % (42-76); Platelet Estimate Slight Decrease; Stomatocytes 1+; Total Cells Counted 100
--- NOTE | 2022-10-24 15:27 | PC.NURSE ---
ER at ; family at
[2022-10-24 15:38] VITALS: BP 129/64; PULSE 71; RESP 19; TEMP 36.7; O2SAT 95
== END 2022-10-24 15:41 | disposition home or self-care (01) ==
PROVIDERS: Emergency Provider Emergency Medicine; PCP Family Medicine
DX: J44.9 Chronic obstructive pulmonary disease, unspecified (principal); I10 Essential (primary) hypertension; F17.210 Nicotine dependence, cigarettes, uncomplicated; Z79.01 Long term (current) use of anticoagulants; Z95.2 Presence of prosthetic heart valve; Z20.822 Contact with and (suspected) exposure to COVID-19
CPT/HCPCS: 71046; 80053; 85007; 85025; 93005; 96374; 99285; C9803; U0003; U0005

== ENCOUNTER 2023-04-24 09:52 | Emergency (ER) | payer MEDICARE, MEDICAID, SELFPAY ==
[2023-04-24] VITALS (7 sets, daily range): BP systolic 132–188; BP diastolic 74–105; PULSE 71–83; RESP 20–23; TEMP 36.8; O2SAT 90–99; BMI 15.6
--- NOTE | 2023-04-24 09:52 | ECG_ITS ---
APPROVED REPORT Exam: Resting ECG HR:80 bpm ECG Measurements Heart Rate 80 AXES AZ 124 P 103 QRSd 182 QRS -89 QT 426 T 88 QTc 462 Conclusion ELECTRONIC VENTRICULAR PACEMAKER ABNORMAL RHYTHM ECG UNCONFIRMED REPORT Electronically signed by : Foreign Vargas MD 04/24/2023 20:46:40
--- NOTE | 2023-04-24 10:11 | XR_ITS ---
FINAL REPORT CLINICAL HISTORY: chest pain/SOA FINDINGS: SINGLE-VIEW CHEST There is cardiomegaly. The patient is status post median sternotomy. Left subclavian pacer is identified. The lungs are clear. There is no pneumothorax. IMPRESSION: No acute cardiopulmonary process. Reviewed, Interpreted and Dictated by Karri Maxwell III, MD Transcribed by Kelli Conroy Authenticated and [facility]
[2023-04-24 10:22] LABS: Basophils % 0.3 % (0.1-2.0); Eosinophils # 0.1 K/mm3 (0.0-0.4); Eosinophils % 2.1 % (0.1-12.0); Hematocrit 49.6 % (37.0-47.0); Hemoglobin 15.1 g/dL (12.2-16.2); Lymphocytes # 0.7 K/mm3 (0.7-4.5); Lymphocytes % 12.5 % (10-50); Mean Corpuscular HGB Conc 30.5 g/dL (31.8-35.4); Mean Corpuscular Hemoglobin 31.3 pg (27.0-31.2); Mean Corpuscular Volume 102.5 fl (81-99); Monocytes # 0.4 K/mm3 (0.1-1.0); Monocytes % 6.6 % (1.7-9.3); Neutrophils # 4.4 K/mm3 (1.8-7.8); Neutrophils % 78.4 % (37.0-80.0); Platelet Count 152 K/mm3 (142-424); Red Blood Count 4.83 M/mm3 (4.20-5.40); Red Cell Distribution Width 14.6 % (11.5-17.5); White Blood Count 5.6 K/mm3 (4.8-10.8)
[2023-04-24 10:28] LABS: Alanine Aminotransferase 21 U/L (12-78); Albumin Level 4.3 g/dl (3.5-5.0); Alkaline Phosphatase 101 U/L (38-126); Anion Gap 7.1 mEq/L (5-15); Aspartate Amino Transferase 46 U/L (14-36); Bilirubin,Total 1.8 mg/dl (0.2-1.3); Blood Urea Nitrogen 7 mg/dl (7-17); Calcium 9.4 mg/dl (8.4-10.2); Carbon Dioxide 37 mmol/L (22.0-30.0); Chloride 95 mmol/L (98-107); Creatinine Clearance Estimated 37 mL/min (50-200); Estimated Glomerular Filt Rate 100 ml/min (>60); GFR (African American) 121 ML/MIN (>60); Globulin 4.1 g/dL (1.3-3.2); Glucose 125 mg/dl (74-100); Potassium 4.1 mmoL/L (3.5-5.1); Sodium 135 mmol/L (136-145); Total Protein,Serum 8.4 g/dl (6.3-8.2)
[2023-04-24 10:29] LABS: Magnesium 1.7 mg/dl (1.6-2.3)
[2023-04-24 10:39] LABS: NT Pro Brain Natriuretic Pep. 2280 pg/mL (0-125)
[2023-04-24 10:41] LABS: Troponin I 0.02 ng/ml (0.00-0.034)
--- NOTE | 2023-04-24 10:45 | HMH.EDGENADL ---
Discharge Plan Disposition Patient Disposition: Home, Self-Care Prescriptions Prescriptions: New doxycycline hyclate 100 mg capsule 100 mg PO BID 10 Days Qty: 20 0RF benzonatate 100 mg capsule 100 mg PO TID PRN (Reason: cough) 5 Days Qty: 20 0RF albuterol sulfate 90 mcg/actuation HFA aerosol inhaler 4 inh inhalation Q4H PRN (Reason: shortness of breath or wheezing) Qty: 8.5 0RF Rx Instructions: 4 puffs every 4 hours for 48 hours then as needed for shortness of breath or wheezing following No Action lisinopril 20 mg tablet 20 mg PO DAILY furosemide [Lasix] 40 mg tablet 40 mg PO DAILY carvedilol 12.5 mg tablet 12.5 mg PO BID warfarin 4 mg tablet 4 mg PO DAILY scopolamine base 1 mg over 3 days patch 3 day 1 patch transdermal Q3D PRN (Reason: motion sickness) Qty: 4 0RF nicotine 21 MG/PATCH patch 24 hour 21 mg transdermal DAILYP PRN (Reason: Nicotine Cravings) Qty: 30 0RF ipratropium-albuterol 120 PUFF mist 2 puff inhalation QID PRN (Reason: Shortness Of Breath Or Wheezing) 90 Days Qty: 120 3RF prednisone 20 mg tablet 20 mg PO BID Qty: 10 0RF levofloxacin 500 mg tablet 500 mg PO DAILY 7 Days Qty: 7 0RF ondansetron 4 MG tablet,disintegrating 4 mg PO TIDP PRN (Reason: Nausea And Vomiting) Qty: 10 0RF triamcinolone acetonide 15 GM cream 1 applicatio TP TIDP PRN (Reason: Itching) 7 Days Qty: 1 0RF Rx Instructions: 0.025% Referrals Follow up/Referrals: Francisco Javier Barnett MD [Primary Care Provider] - See instructions Activity Restrictions/Add. Instructions Additional Instructions/Restrictions: Please return with any significant worsening shortness of breath fevers or other concerns. Clinical Impressions Clinical Impression: Acute exacerbation of chronic obstructive pulmonary disease Discharge ED Provider: Landry Lawrence General Adult HPI General Chief complaint: Chest Pain Stated complaint: CP Time Seen by Provider: 04/24/23 10:07 Mode of Arrival: Wheelchair Source of Information: Patient Limitations: No Limitations Description of Symptoms (Recalled from ER Triage Doc. by RN): pt to ed c/o chest pain and pressure. pt states her symptoms have been persistant x2 weeks associated with intermittent SOA. pt reports a hx of afib. History of Present Illness HPI narrative: 67-year-old female presenting today with dyspnea. This has been persistent for 2 weeks with increasing shortness of breath difficulty with speaking increased wheezing no sputum production or fevers or chills. No lower extremity edema or weight gain. She does have a history of heart failure she states and she has a pacemaker and has refused a defibrillator in the past she is unsure of her last heart cath or last echo and is unsure about her ejection fraction. She has been trying her breathing treatments at home without significant improvement. Related Data Home Medications Medication Instructions Recorded Confirmed carvedilol 12.5 mg tablet 12.5 mg PO BID Hypertension 11/18/20 07/18/22 furosemide 40 mg tablet (Lasix) 40 mg PO DAILY Fluid 11/18/20 07/18/22 lisinopril 20 mg tablet 20 mg PO DAILY Hypertension 11/18/20 07/18/22 warfarin 4 mg tablet 4 mg PO DAILY Blood thinner 11/18/20 07/18/22 Previous Rx's Medication Instructions Recorded ondansetron 4 mg disintegrating 4 mg PO TIDP PRN Nausea And 01/14/22 tablet Vomiting #10 tabs ipratropium 20 mcg-albuterol 100 2 puff inhalation QID PRN 01/23/22 mcg/actuation mist for inhalation Shortness Of Breath Or Wheezing 90 days #120 ea nicotine 21 mg/24 hr daily 21 mg transdermal DAILYP PRN 01/23/22 transdermal patch Nicotine Cravings #30 patches triamcinolone acetonide 0.025 % 1 applicatio topical TIDP PRN 03/22/22 topical cream Itching 7 days #1 g scopolamine base 1 mg over 3 days 1 patch transdermal Q3D PRN motion 07/18/22 transdermal patch sickness #4 ea levofloxacin 500 mg tablet 500 mg PO DAILY 7 days #7 tabs 0
[2023-04-24 11:00] LABS: Thyroid Stimulating Hormone 6.46 uIU/mL (0.465-4.68)
[2023-04-24 11:31] LABS: VBG Base Excess 7.4 mmol/L (-2.4-2.3); VBG HCO3 32.6 mmol/L (23-30); VBG Oxygen Saturation 54.4 % (50-70); VBG PH 7.38 mmol/L (7.31-7.41); VBG PO2 27.6 mmol/L (28-40); VBG Total CO2 34.3 mmol/L (23-27)
--- NOTE | 2023-04-24 11:53 | PC.NURSE ---
Rounded on pt, she is still feeling well. She is anxious to go home. Ensuring her IV ABX is running in smoothly, educated pt to keep her arm a little bit straighter to ensure medication to infuse well.
== END 2023-04-24 12:47 | disposition home or self-care (01) ==
PROVIDERS: Emergency Provider Student in an Organized Health Care Education/Training Program; PCP Family Medicine
DX: J44.1 Chronic obstructive pulmonary disease with (acute) exacerbation (principal); R07.89 Other chest pain; I10 Essential (primary) hypertension
CPT/HCPCS: 71045; 80053; 82803; 83735; 83880; 84443; 84484; 85025; 93005; 96361; 96374; 96375; 99285; J2405; J3475

== ENCOUNTER 2023-12-28 14:57 | Emergency (ER) | payer MEDICARE, MEDICAID, SELFPAY ==
[2023-12-28] VITALS (11 sets, daily range): BP systolic 120–169; BP diastolic 58–94; PULSE 75–116; RESP 13–23; TEMP 36.7; O2SAT 87–98; BMI 16.1
--- NOTE | 2023-12-28 14:51 | ECG_ITS ---
APPROVED REPORT Exam: Resting ECG HR:90 bpm ECG Measurements Heart Rate 90 AXES QRSd 179 QRS 268 QT 444 T 79 QTc 492 Conclusion ATRIAL FIBRILLATION RIGHT AXIS DEVIATION [QRS AXIS > 100] RIGHT BUNDLE BRANCH BLOCK [120+ ms QRS DURATION, UPRIGHT V1, 40+ ms S IN I/aVL/V4/V5/V6] MINIMAL VOLTAGE CRITERIA FOR LVH, CONSIDER NORMAL VARIANT [MEETS CRITERIA IN ONE OF: R(aVL), S(V1), R(V5), R(V5/V6)+S(V1)] ABNORMAL ECG Electronically signed by : CLEO MORGAN, 12/28/2023 20:49:39
--- NOTE | 2023-12-28 15:01 | ECG_ITS ---
APPROVED REPORT Exam: Resting ECG HR:97 bpm ECG Measurements Heart Rate 97 AXES QRSd 174 QRS 268 QT 430 T 76 QTc 484 Conclusion ATRIAL FIBRILLATION RIGHT AXIS DEVIATION [QRS AXIS > 100] RIGHT BUNDLE BRANCH BLOCK [120+ ms QRS DURATION, UPRIGHT V1, 40+ ms S IN I/aVL/V4/V5/V6] MINIMAL VOLTAGE CRITERIA FOR LVH, CONSIDER NORMAL VARIANT [MEETS CRITERIA IN ONE OF: R(aVL), S(V1), R(V5), R(V5/V6)+S(V1)] ABNORMAL ECG Electronically signed by : CLEO MORGAN, 12/28/2023 20:49:24
--- NOTE | 2023-12-28 15:15 | PC.NURSE ---
Dr. Grissom at [facility] for pt eval
--- NOTE | 2023-12-28 15:16 | CT_ITS ---
FINAL REPORT TECHNIQUE: Postcontrast axial images of the chest were performed in a CTA protocol. This study was performed with techniques to keep radiation doses as low as reasonably achievable, (ALARA). Individualized dose reduction technique using automated exposure control or adjustment of mA and/or kV according to the patient's size were employed. CLINICAL HISTORY: CP rad to back COMPARISON: 01/2022 FINDINGS: The heart is enlarged with significant dilatation of the right atrium and right ventricle. No adenopathy is identified. No pleural or pericardial effusion is identified. The thoracic aorta is normal in caliber with no focal aneurysm or dissection identified. There is no filling defect to suggest pulmonary embolism There is mild emphysema and mild scarring. A small nodule is seen in the left lower lobe measuring 4 mm on image 64 which is nonspecific. Lungs are otherwise clear. The images of the upper abdomen are unremarkable. IMPRESSION: No evidence for PE, aneurysm or dissection. 4 mm left lower lobe nodule, nonspecific. Consider follow-up chest CT in 12 months. Reviewed, Interpreted and Dictated by Karri Maxwell III, MD Transcribed by Eveline Ward Authenticated and [facility]
--- NOTE | 2023-12-28 15:16 | XR_ITS ---
FINAL REPORT CLINICAL HISTORY: cough FINDINGS: SINGLE-VIEW CHEST There is cardiomegaly with pulmonary vascular congestion. Patient is status post median sternotomy. Left subclavian pacer is identified. The lungs are otherwise clear. There is no pneumothorax. IMPRESSION: Cardiomegaly with pulmonary vascular congestion. Reviewed, Interpreted and Dictated by Karri Maxwell III, MD Transcribed by Kelli Conroy Authenticated and [facility]
--- NOTE | 2023-12-28 15:22 | ED_ITS ---
Discharge Plan Disposition Patient Disposition: Home, Self-Care Prescriptions Prescriptions: New azithromycin [Zithromax Z-Jose] 250 mg tablet 250 mg PO DAILY 4 Days Qty: 4 0RF Rx Instructions: start on day 2 of therapy prednisone 50 mg tablet 50 mg PO DAILY 4 Days Qty: 4 0RF No Action lisinopril 20 mg tablet 20 mg PO DAILY furosemide [Lasix] 40 mg tablet 40 mg PO DAILY carvedilol 12.5 mg tablet 12.5 mg PO BID warfarin 4 mg tablet 4 mg PO DAILY scopolamine base 1 mg over 3 days patch 3 day 1 patch transdermal Q3D PRN (Reason: motion sickness) Qty: 4 0RF nicotine 21 MG/PATCH patch 24 hour 21 mg transdermal DAILYP PRN (Reason: Nicotine Cravings) Qty: 30 0RF ipratropium-albuterol 120 PUFF mist 2 puff inhalation QID PRN (Reason: Shortness Of Breath Or Wheezing) 90 Days Qty: 120 3RF prednisone 20 mg tablet 20 mg PO BID Qty: 10 0RF levofloxacin 500 mg tablet 500 mg PO DAILY 7 Days Qty: 7 0RF ondansetron 4 MG tablet,disintegrating 4 mg PO TIDP PRN (Reason: Nausea And Vomiting) Qty: 10 0RF triamcinolone acetonide 15 GM cream 1 applicatio TP TIDP PRN (Reason: Itching) 7 Days Qty: 1 0RF Rx Instructions: 0.025% doxycycline hyclate 100 mg capsule 100 mg PO BID 10 Days Qty: 20 0RF benzonatate 100 mg capsule 100 mg PO TID PRN (Reason: cough) 5 Days Qty: 20 0RF albuterol sulfate 90 mcg/actuation HFA aerosol inhaler 4 inh inhalation Q4H PRN (Reason: shortness of breath or wheezing) Qty: 8.5 0RF Rx Instructions: 4 puffs every 4 hours for 48 hours then as needed for shortness of breath or wheezing following Referrals Follow up/Referrals: Antwan Gonsales MD [Staff Physician] - See instructions Provider,MD Raf [Primary Care Provider] - See instructions Activity Restrictions/Add. Instructions Additional Instructions/Restrictions: At this time it was felt you are safe to be discharged home. If new or worsening symptoms please do not hesitate to return the emergency department. If symptoms persist please follow-up with your family doctor as you are able for long-term care of your lung disease and to follow-up on the nodule that was found on your lung. Please take your medications as prescribed. Please call and schedule appoint with Dr. Gonsales for continued evaluation of your heart as soon as you are able next week. Clinical Impressions Clinical Impression: Acute exacerbation of chronic obstructive pulmonary disease, Pulmonary nodule Discharge ED Provider: Eladio Grissom [facility] General Chief Complaint: Chest Pain Stated Complaint: chest pain Time Seen by Provider: 12/28/23 15:02 Mode of Arrival: Wheelchair Source of Information: Patient Limitations: No Limitations Description of Symptoms (Recalled from ER Triage Doc. by RN): Patient complaint of diarrhea, stomach pain, vomiting, chest tightness and back pain since this morning. History of Present Illness HPI narrative: Patient is a 68-year-old female with past medical history of COPD not on nasal cannula, left-sided frozen shoulder who presents emergency department for evaluation multiple complaints. Patient has had nonbloody diarrhea and vomiting, chest tightness radiating through to her shoulder blades. There is associated cough. Onset was acute, occurring earlier this morning. Due to persistent symptoms she presents here for continued evaluation. Related Data Home Medications Medication Instructions Recorded Confirmed carvedilol 12.5 mg tablet 12.5 mg PO BID Hypertension 11/18/20 07/18/22 furosemide 40 mg tablet (Lasix) 40 mg PO DAILY Fluid 11/18/20 07/18/22 lisinopril 20 mg tablet 20 mg PO DAILY Hypertension 11/18/20 07/18/22 warfarin 4 mg tablet 4 mg PO DAILY Blood thinner 11/18/20 07/18/22 Previous Rx's Medication Instructions Recorded ondansetron 4 mg disintegrating 4 mg PO TIDP PRN Nausea And 01/14/22 tablet Vomiting #10 tabs ipratropium 20 mcg-albuterol 100 2 puff inhalation QID PRN 01/23/22 mcg/actuation mist for inhalation Shortness Of Breath Or Wheezing 90 days #120 ea nicotine 21 mg/24 hr daily 21 mg transdermal DAILYP PRN 01/23/22 transdermal patch Nicotine Cravings #30 patches triamcinolone acetonide 0.025 % 1 applicatio topical TIDP PRN 03/22/22 topical cream Itching 7 days #1 g scopolamine base 1 mg over 3 days 1 patch transdermal Q3D PRN motion 07/18/22 transdermal patch sickness #4 ea levofloxacin 500 mg tablet 500 mg PO DAILY 7 days #7 tabs 10/24/22 prednisone 20 mg tablet 20 mg PO BID #10 tabs 10/24/22 albuterol sulfate 90 mcg/actuation 4 inh inhalation Q4H PRN shortness 04/24/23 aerosol inhaler of breath or wheezing #8.5 grams benzonatate 100 mg capsule 100 mg PO TID PRN cough 5 days #20 04/24/23 caps doxycycline hyclate 100 mg capsule 100 mg PO BID 10 days #20 caps 04/24/23 azithromycin 250 mg tablet 250 mg PO DAILY COPD exacerbation 12/28/23 (Zithromax Z-Jose) 4 days #4 tabs prednisone 50 mg tablet 50 mg PO DAILY COPD 4 days #4 tabs 12/28/23 Allergies Allergy/AdvReac Type Severity Reaction Status Date / Time aspirin Allergy Unknown Unknown Verified 07/18/22 13:16 allergy reaction nitroglycerin Allergy Unknown Unknown Verified 07/18/22 13:16 allergy reaction NSAIDS (Non-Steroidal Allergy Unknown Unknown Verified 07/18/22 13:16 Anti-Inflamma allergy reaction procainamide Allergy Unknown Unknown Verified 07/18/22 13:16 allergy reaction PFSH PFS Disclaimer: The information contained in this section may have been updated after the patient was seen, as this information can be updated by other users. Medical History Hypertension Long-term (current) use of anticoagulants, INR goal 2.5-3.5 Surgical History History of artificial heart valve Social History (Updated 07/18/22 @ 13:20 by ROBEL Yu) Smoking Status: Unknown if ever smoked alcohol intake: never substance use type: marijuana current occupational status: retired Travel in the last 8 weeks: None household members: significant other and children housing: house caffeine: No ROS Obtained: Yes Systems reviewed as appropriate & no additional complaints except as documented Physical Exam General General appearance: alert and in no apparent distress Head Head exam: atraumatic and normocephalic Eye Eye exam: Present PERRL ENT ENT exam: Present mucous membranes moist Neck Neck exam: Present normal inspection Chest Chest inspection: Present normal inspection and symmetric chest wall rise Respiratory Respiratory exam: Present normal lung sounds bilaterally and other (Tachypneic with poor air entry); Absent respiratory distress Cardiovascular Cardiovascular exam: Present regular rate and normal rhythm Abdominal Exam Abdominal exam: Present soft; Absent tenderness Extremities Exam Extremities exam: Present normal inspection Neurological Exam Neurological exam: Present alert Psychiatric Psychiatric exam: Present normal affect Skin Skin exam: Present warm and dry HEART Score HEART Score HEART Score assessment performed?: Yes History (anamnesis): Moderately suspicious ECG: Non-specific disturbance Age: >65 years Risk factors: 1-2 risk factors Troponin: 1-3x normal limit HEART Score: 6 Critical Care Critical Care Time Critical Care Time: No Medical Decision Making Preet Inquiry Pt receiving controlled substance: No Vital Signs Vital Signs: 12/28/23 14:58 12/28/23 15:01 12/28/23 15:30 Temperature 98.1 F Temperature Source Oral Pulse Rate 116 H 78 Pulse Rate [Radial] 88 Respiratory Rate 18 23 13 Blood Pressure 169/94 H 145/82 H Blood Pressure [Right Arm] 163/84 H Blood Pressure Mean [Right Arm] 110 Blood Pressure Source [Right Arm] Automatic Cuff Blood Pressure Position [Right Arm] Sitting 02 Sat by Pulse Oximetry 94 L 93 L 94 L Oxygen Delivery Method Room Air Room Air Oxygen Flow Rate (LPM) 12/28/23 16:00 12/28/23 16:30 12/28/23 16:36 Temperature Temperature Source Pulse Rate 75 Pulse Rate [Radial] Respiratory Rate 17 22 Blood Pressure 136/84 152/70 H Blood Pressure [Right Arm] Blood Pressure Mean [Right Arm] Blood Pressure Source [Right Arm] Blood Pressure Position [Right Arm] 02 Sat by Pulse Oximetry 90 L 87 L Oxygen Delivery Method Room Air Oxygen Flow Rate (LPM) 12/28/23 16:36 12/28/23 17:01 12/28/23 17:31 Temperature Temperature Source Pulse Rate 80 85 Pulse Rate [Radial] Respiratory Rate 17 23 Blood Pressure 131/58 L 132/80 Blood Pressure [Right Arm] Blood Pressure Mean [Right Arm] Blood Pressure Source [Right Arm] Blood Pressure Position [Right Arm] 02 Sat by Pulse Oximetry 92 L 98 97 Oxygen Delivery Method Nasal Cannula Oxygen Flow Rate (LPM) 2 12/28/23 18:00 12/28/23 18:30 Temperature Temperature Source Pulse Rate 110 H 100 H Pulse Rate [Radial] Respiratory Rate 16 23 Blood Pressure 138/70 121/81 Blood Pressure [Right Arm] Blood Pressure Mean [Right Arm] Blood Pressure Source [Right Arm] Blood Pressure Position [Right Arm] 02 Sat by Pulse Oximetry 96 95 Oxygen Delivery Method Oxygen Flow Rate (LPM) Lab Data Labs: Lab Results 12/28/23 14:59: WBC 4.1 L, RBC 4.65, Hgb 16.2, Hct 51.4 H, MCV 110.5 H, MCH 34.8 H, MCHC 31.5 L, RDW 14.3, Plt Count 116 L, MPV 8.3, Neut % (Auto) 78.2, Lymph % (Auto) 13.4, [place] % (Auto) 5.9, Eos % (Auto) 1.7, Baso % (Auto) 0.8, Neut # (Auto) 3.2, Lymph # (Auto) 0.6 L, [place] # (Auto) 0.2, Eos # (Auto) 0.1, Baso # (Auto) 0.0, Sodium 131 L, Potassium 4.3, Chloride 93 L, Carbon Dioxide 34 H, Anion Gap 8.3, BUN 8, Creatinine 0.70, Estimated Creat Clear 37, Estimated GFR 83, Est GFR ( Amer) 101, Glucose 124 H, Calcium 9.4, Total Bilirubin 2.0 H, AST 46 H, ALT 21, Alkaline Phosphatase 111, Troponin I 0.02, Total Protein 7.6, Albumin 4.3, Globulin 3.3 H, Albumin/Globulin Ratio 1.3 12/28/23 15:20: VBG pH 7.39, VBG pCO2 47.4, VBG pO2 46.4 H, VBG HCO3 28.0, VBG Total CO2 29.5 H, VBG O2 Saturation 82.3 H, VBG Base Excess 3.1 H 12/28/23 15:30: SARS-CoV-2 (PCR) Not detected, Influenza A Untype (PCR) Not detected, Influenza Type B (PCR) Not detected 12/28/23 18:32: Troponin I < 0.01 12/28/23 14:59 12/28/23 14:59 Response Orders (Tests/Meds): ED MEDICATIONS Generic Name Dose Route Start Last Admin Trade Name Freq PRN Reason Stop Dose Admin Sodium Chloride 10 ml 12/28/23 16:15 12/28/23 16:17 Sodium Chloride 0.9% 10ml Syr (Rad Only) IV 01/27/24 16:14 10 ml NEEDED PRN Administration Maintain IV Site Discontinued Medications Generic Name Dose Route Start Last Admin Trade Name [place] PRN Reason Stop Dose Admin Acetaminophen 1,000 mg 12/28/23 15:16 12/28/23 15:26 Acetaminophen 1,000mg/100ml Vial IV 12/28/23 15:17 1,000 mg ONCE ONE Administration Albuterol/Ipratropium 3 ml 12/28/23 15:19 12/28/23 15:27 Ipratropium/Albuterol 3 Ml Neb IH 12/28/23 15:20 3 ml ONCE ONE Administration Azithromycin 500 mg 12/28/23 18:48 12/28/23 19:05 Azithromycin 250mg Tablet PO 12/28/23 18:49 500 mg ONCE ONE Administration Lactated Ringer's 1,710 mls @ 855 mls/hr 12/28/23 15:16 12/28/23 15:27 Lactated Ringer's 1000 Ml Bag 30 ml/kg infuse over 2 hr (1710 ml) 12/28/23 17:15 855 mls/hr IV Administration .Q2H ONE Iopamidol 70 ml 12/28/23 16:15 12/28/23 16:17 Iopamidol-370 (76%);100ml Bottle IV 12/28/23 16:16 70 ml ONCE ONE Administration Lidocaine 1 each 12/28/23 15:16 12/28/23 15:26 Lidocaine 5% Transdermal Patch TP 12/28/23 15:17 1 each ONCE ONE Administration Methylprednisolone Sodium Succinate 125 mg 12/28/23 15:19 12/28/23 15:26 Methylprednisolone Sod Succ 125mg Vial IV 12/28/23 15:20 125 mg ONCE ONE Administration Morphine Sulfate 4 mg 12/28/23 15:18 12/28/23 15:27 Morphine 4mg/Ml Syringe IV 12/28/23 15:19 4 mg ONCE ONE Administration Ondansetron HCl 4 mg 12/28/23 15:18 12/28/23 15:26 Ondansetron 4mg/2ml Vial IV 12/28/23 15:19 4 mg ONCE ONE Administration Sodium Chloride 50 ml 12/28/23 16:15 12/28/23 16:17 0.9 % Sodium Chloride 50 Ml Vial IV 12/28/23 16:16 50 ml ONCE ONE Administration ORDERS Category Date Time Status CT angio chest - dissection Stat Cat Scan 12/28/23 15:16 Completed CXR --portable [XR chest portable] Stat Exams 12/28/23 15:16 Completed CBC w/Auto Diff [Complete Blood Count Auto Diff] Stat Lab 12/28/23 14:59 Completed CMP [Comprehensive Metabolic Panel] Stat Lab 12/28/23 14:59 Completed Rapid PCR Covid and Flu A/B Stat Lab 12/28/23 15:30 Completed Trop I [Troponin I] Stat Lab 12/28/23 14:59 Completed Troponin I Q3H Lab 12/28/23 18:32 Completed Troponin I Q3H Lab 12/28/23 21:30 Ordered VBG [Venous Blood Gas] Stat RT 12/28/23 15:20 Results ECG Data Tracing #1: ECG Narrative: Independently interpreted by me, rate is 97, rhythm is irregular, atrial fibrillation with right bundle branch block, no excessive discordance, QTc 484. Tracing #2: ECG Narrative: Independently interpreted by me, rate is 90, rhythm is irregular, atrial fibrillation with right bundle branch block, no excessive discordance, QTc 492, no concordant ST changes. MDM Narrative Medical Decision Narrative: In summary patient is a 68-year-old female past medical history described above presents emergency department for evaluation of shortness of breath, chest pain, chest tightness. Patient is hemodynamically stable nontoxic-appearing upon arrival, tachycardic, slight tachypnea. Differential includes pneumonia, COPD exacerbation, aortic dissection, pulmonary embolism, ACS, among others. Workup will be conducted with hematologic labs, chest x-ray, EKG, troponins, CTA chest. Initial interventions include pain control, crystalloid bolus, DuoNeb, steroids. Initial workup reviewed by me, hematologic labs are remarkable for no significant leukocytosis, mild thrombocytopenia that is nonactionable, acid-base status is compensated, mild hyponatremia which has been present before, persistent hyperbilirubinemia that is stable, initial troponin anemia is stable from prior 0.02, viral swab negative. CTA chest shows no evidence of PE, or dissection, 4 mm left lower lobe nodule. Upon repeat evaluation patient had improved air movement and reported significant resolution of symptoms. Patient was made aware of lung nodule. Given these constellation of symptoms patient is likely having a COPD exacerbation and is appropriate for outpatient management at this time. Second troponin undetectably low. First dose of azithromycin administered in the emergency department and patient be discharged with a prescription for azithromycin and steroids.
[2023-12-28] MEDS: ONDANSETRON 4MG/2ML VIAL 4 MG IV (15:26)
[2023-12-28] MEDS: METHYLPREDNISOLONE SOD SUCC 125MG VIAL 125 MG IV (15:26)
[2023-12-28] MEDS: LIDOCAINE 5% TRANSDERMAL PATCH 1 EACH TP (15:26)
[2023-12-28] MEDS: ACETAMINOPHEN 1,000MG/100ML VIAL 1000 MG IV (15:26)
[2023-12-28 15:27] LABS: VBG Base Excess 3.1 mmol/L (-2.4-2.3); VBG Oxygen Saturation 82.3 % (50-70); VBG PCO2 47.4 mmol/L (35-51); VBG PH 7.39 mmol/L (7.31-7.41); VBG PO2 46.4 mmol/L (28-40); VBG Total CO2 29.5 mmol/L (23-27)
[2023-12-28] MEDS: MORPHINE 4MG/ML SYRINGE 4 MG IV (15:27)
[2023-12-28] MEDS: LACTATED RINGERS 1000ML 1,710 ML 855 ML IV (15:27)
[2023-12-28] MEDS: IPRATROPIUM/ALBUTEROL 3 ML NEB IH (15:27)
[2023-12-28 15:29] LABS: Basophils % 0.8 % (0.1-2.0); Eosinophils # 0.1 K/mm3 (0.0-0.4); Eosinophils % 1.7 % (0.1-12.0); Hematocrit 51.4 % (37.0-47.0); Hemoglobin 16.2 g/dL (12.2-16.2); Lymphocytes # 0.6 K/mm3 (0.7-4.5); Lymphocytes % 13.4 % (10-50); Mean Corpuscular HGB Conc 31.5 g/dL (31.8-35.4); Mean Corpuscular Hemoglobin 34.8 pg (27.0-31.2); Mean Corpuscular Volume 110.5 fl (81-99); Mean Platelet Volume 8.3 fl (7.4-10.4); Monocytes # 0.2 K/mm3 (0.1-1.0); Monocytes % 5.9 % (1.7-9.3); Neutrophils # 3.2 K/mm3 (1.8-7.8); Neutrophils % 78.2 % (37.0-80.0); Platelet Count 116 K/mm3 (142-424); Red Blood Count 4.65 M/mm3 (4.20-5.40); Red Cell Distribution Width 14.3 % (11.5-17.5); White Blood Count 4.1 K/mm3 (4.8-10.8)
[2023-12-28 15:30] LABS: Chloride 93 mmol/L (98-107); Potassium 4.3 mmoL/L (3.5-5.1); Sodium 131 mmol/L (136-145)
[2023-12-28 15:32] LABS: Blood Urea Nitrogen 8 mg/dl (7-17); Creatinine Clearance Estimated 37 mL/min (50-200); Estimated Glomerular Filt Rate 83 ml/min (>60); GFR (African American) 101 ML/MIN (>60)
[2023-12-28 15:33] LABS: Alanine Aminotransferase 21 U/L (12-78); Albumin Level 4.3 g/dl (3.5-5.0); Albumin/Globulin Ratio 1.3 (1.1-1.8); Alkaline Phosphatase 111 U/L (38-126); Anion Gap 8.3 mEq/L (5-15); Aspartate Amino Transferase 46 U/L (14-36); Calcium 9.4 mg/dl (8.4-10.2); Carbon Dioxide 34 mmol/L (22.0-30.0); Globulin 3.3 g/dL (1.3-3.2); Glucose 124 mg/dl (74-100); Total Protein,Serum 7.6 g/dl (6.3-8.2)
[2023-12-28 15:36] LABS: Coronavirus 19, PCR Not Detected (NotDetected); Influenza A, PCR Not Detected (NotDetected); Influenza B, PCR Not Detected (NotDetected)
[2023-12-28 15:45] LABS: Troponin I 0.02 ng/ml (0.00-0.034)
[2023-12-28] MEDS: 0.9 % SODIUM CHLORIDE 50 ML VIAL IV (16:17)
[2023-12-28] MEDS: IOPAMIDOL-370 (76%);100ML BOTTLE 70 ML IV (16:17)
[2023-12-28] MEDS: SODIUM CHLORIDE 0.9% 10ML SYR (RAD ONLY) 10 ML IV (16:17)
--- NOTE | 2023-12-28 16:37 | PC.NURSE ---
aware of low o2 reading of 87 on RA, placed on 2 L NC
--- NOTE | 2023-12-28 17:26 | PC.NURSE ---
Rounded on patient. No needs at this time.
[2023-12-28 19:02] LABS: Troponin I < 0.01 ng/ml (0.00-0.034)
[2023-12-28] MEDS: AZITHROMYCIN 250MG TABLET 500 MG PO (19:05)
== END 2023-12-28 19:17 | disposition home or self-care (01) ==
PROVIDERS: Emergency Provider Emergency Medicine
DX: J44.1 Chronic obstructive pulmonary disease with (acute) exacerbation (principal); R94.31 Abnormal electrocardiogram [ECG] [EKG]; E87.1 Hypo-osmolality and hyponatremia; R91.1 Solitary pulmonary nodule; R11.2 Nausea with vomiting, unspecified; R19.7 Diarrhea, unspecified; R05.9 Cough, unspecified; I10 Essential (primary) hypertension; R07.9 Chest pain, unspecified; Z79.01 Long term (current) use of anticoagulants; Z95.0 Presence of cardiac pacemaker; Z87.891 Personal history of nicotine dependence
CPT/HCPCS: 36415; 71045; 71275; 80053; 82803; 84484; 85025; 87636; 93005; 96361; 96374; 96375; 99285; J0131; J2405; Q9967

== ENCOUNTER 2024-03-09 14:19 | Emergency (ER) | payer MEDICARE, MEDICAID, SELFPAY ==
[2024-03-09] VITALS (7 sets, daily range): BP systolic 139–170; BP diastolic 76–105; PULSE 76–88; RESP 14–18; TEMP 36.6; O2SAT 92–97; BMI 15.7
--- NOTE | 2024-03-09 14:18 | ECG_ITS ---
APPROVED REPORT Exam: Resting ECG HR:84 bpm ECG Measurements Heart Rate 84 AXES QRSd 176 QRS 269 QT 453 T 76 QTc 494 Conclusion ATRIAL FIBRILLATION WITH ABERRANT CONDUCTION OR VENTRICULAR PREMATURE COMPLEXES RIGHT AXIS DEVIATION [QRS AXIS > 100] RIGHT BUNDLE BRANCH BLOCK AND POSSIBLE RIGHT VENTRICULAR HYPERTROPHY [RBBB, 1.5 mV R IN V1, RAD] MODERATE VOLTAGE CRITERIA FOR LVH, CONSIDER NORMAL VARIANT [MEETS CRITERIA IN ONE OF: R(aVL), S(V1), R(V5), R(V5/V6)+S(V1)] ABNORMAL ECG Electronically signed by : CLEO MORGAN, 03/09/2024 15:38:50
--- NOTE | 2024-03-09 14:24 | ED_ITS ---
<Statement entered by Hope Jimenez DO - 03/09/24 23:18> I was consulted by the JEMAL, and we discussed the complexity of the problems being addressed. I approved the treatment and management plan for this patient's care in the emergency department, thus performing a substantive portion of the medical decision making. Hope Jimenez DO Discharge Plan Disposition Patient Disposition: Home, Self-Care Condition: Good Prescriptions Prescriptions: New ondansetron 4 mg tablet,disintegrating 4 mg PO Q6H PRN (Reason: nausea and vomiting) Qty: 10 0RF metoclopramide HCl [Reglan] 10 mg tablet 10 mg PO Q6H PRN (Reason: nausea and vomiting) Qty: 10 0RF No Action lisinopril 20 mg tablet 20 mg PO DAILY furosemide [Lasix] 40 mg tablet 40 mg PO DAILY carvedilol 12.5 mg tablet 12.5 mg PO BID warfarin 4 mg tablet 4 mg PO DAILY scopolamine base 1 mg over 3 days patch 3 day 1 patch transdermal Q3D PRN (Reason: motion sickness) Qty: 4 0RF nicotine 21 MG/PATCH patch 24 hour 21 mg transdermal DAILYP PRN (Reason: Nicotine Cravings) Qty: 30 0RF ipratropium-albuterol 120 PUFF mist 2 puff inhalation QID PRN (Reason: Shortness Of Breath Or Wheezing) 90 Days Qty: 120 3RF prednisone 20 mg tablet 20 mg PO BID Qty: 10 0RF levofloxacin 500 mg tablet 500 mg PO DAILY 7 Days Qty: 7 0RF azithromycin [Zithromax Z-Jose] 250 mg tablet 250 mg PO DAILY 4 Days Qty: 4 0RF Rx Instructions: start on day 2 of therapy prednisone 50 mg tablet 50 mg PO DAILY 4 Days Qty: 4 0RF ondansetron 4 MG tablet,disintegrating 4 mg PO TIDP PRN (Reason: Nausea And Vomiting) Qty: 10 0RF triamcinolone acetonide 15 GM cream 1 applicatio TP TIDP PRN (Reason: Itching) 7 Days Qty: 1 0RF Rx Instructions: 0.025% doxycycline hyclate 100 mg capsule 100 mg PO BID 10 Days Qty: 20 0RF benzonatate 100 mg capsule 100 mg PO TID PRN (Reason: cough) 5 Days Qty: 20 0RF albuterol sulfate 90 mcg/actuation HFA aerosol inhaler 4 inh inhalation Q4H PRN (Reason: shortness of breath or wheezing) Qty: 8.5 0RF Rx Instructions: 4 puffs every 4 hours for 48 hours then as needed for shortness of breath or wheezing following Referrals Follow up/Referrals: Provider,Referral, MD [Referring] - See instructions Activity Restrictions/Add. Instructions Additional Instructions/Restrictions: Please schedule follow-up with your PCP within 48 hours. Return to ER for any worsening signs or symptoms as needed. Clinical Impressions Clinical Impression: Nausea & vomiting Qualifiers: Vomiting type: unspecified Qualified Code(s): R11.2 - Nausea with vomiting, unspecified Instructions Patient Instructions: Nausea and Vomiting-Adult Discharge ED Provider: Hope Jimenez General Adult HPI <JAZIEL Alvarez - Last Filed: 03/09/24 22:27> General Chief complaint: Arrhythmia/Palpitations Stated complaint: Palpitations Time Seen by Provider: 03/09/24 14:24 History of Present Illness HPI narrative: Patient presents for evaluation of dry heaves . Patient initially told triage that she was having fluttering in her chest however she tells me that she has been dry heaving and has been having some tightness sensation prior to her emesis but no cardiac chest pain fever chills hemoptysis hematochezia melena vomiting or diarrhea. Patient states that there is been no provoking mechanism and she denies any acute abdominal pain. Related Data Home Medications Medication Instructions Recorded Confirmed carvedilol 12.5 mg tablet 12.5 mg PO BID Hypertension 11/18/20 07/18/22 furosemide 40 mg tablet (Lasix) 40 mg PO DAILY Fluid 11/18/20 07/18/22 lisinopril 20 mg tablet 20 mg PO DAILY Hypertension 11/18/20 07/18/22 warfarin 4 mg tablet 4 mg PO DAILY Blood thinner 11/18/20 07/18/22 Previous Rx's Medication Instructions Recorded ondansetron 4 mg disintegrating 4 mg PO TIDP PRN Nausea And 01/14/22 tablet Vomiting #10 tabs ipratropium 20 mcg-albuterol 100 2 puff inhalation QID PRN 01/23/22 mcg/actuation mist for inhalation Shortness Of Breath Or Wheezing 90 days #120 ea nicotine 21 mg/24 hr daily 21 mg transdermal DAILYP PRN 01/23/22 transdermal patch Nicotine Cravings #30 patches triamcinolone acetonide 0.025 % 1 applicatio topical TIDP PRN 03/22/22 topical cream Itching 7 days #1 g scopolamine base 1 mg over 3 days 1 patch transdermal Q3D PRN motion 07/18/22 transdermal patch sickness #4 ea levofloxacin 500 mg tablet 500 mg PO DAILY 7 days #7 tabs 10/24/22 prednisone 20 mg tablet 20 mg PO BID #10 tabs 10/24/22 albuterol sulfate 90 mcg/actuation 4 inh inhalation Q4H PRN shortness 04/24/23 aerosol inhaler of breath or wheezing #8.5 grams benzonatate 100 mg capsule 100 mg PO TID PRN cough 5 days #20 04/24/23 caps doxycycline hyclate 100 mg capsule 100 mg PO BID 10 days #20 caps 04/24/23 azithromycin 250 mg tablet 250 mg PO DAILY COPD exacerbation 12/28/23 (Zithromax Z-Jose) 4 days #4 tabs prednisone 50 mg tablet 50 mg PO DAILY COPD 4 days #4 tabs 12/28/23 metoclopramide HCl 10 mg tablet 10 mg PO Q6H PRN nausea and 03/09/24 (Reglan) vomiting #10 tabs ondansetron 4 mg disintegrating 4 mg PO Q6H PRN nausea and 03/09/24 tablet vomiting #10 tabs Allergies Allergy/AdvReac Type Severity Reaction Status Date / Time aspirin Allergy Unknown Unknown Verified 07/18/22 13:16 allergy reaction nitroglycerin Allergy Unknown Unknown Verified 07/18/22 13:16 allergy reaction NSAIDS (Non-Steroidal Allergy Unknown Unknown Verified 07/18/22 13:16 Anti-Inflamma allergy reaction procainamide Allergy Unknown Unknown Verified 07/18/22 13:16 allergy reaction PFSH <JAZIEL Alvarez - Last Filed: 03/09/24 22:27> [facility] Disclaimer: The information contained in this section may have been updated after the patient was seen, as this information can be updated by other users. Medical History Hypertension Long-term (current) use of anticoagulants, INR goal 2.5-3.5 Surgical History History of artificial heart valve Social History (Updated 07/18/22 @ 13:20 by ROBEL Yu) Smoking Status: Current every day smoker tobacco type: cigarettes packs per day: 1 alcohol intake: never substance use type: marijuana current occupational status: retired Travel in the last 8 weeks: None household members: significant other and children housing: house caffeine: No <JAZIEL Alvarez - Last Filed: 03/09/24 22:27> ROS Obtained: Yes Systems reviewed as appropriate & no additional complaints except as documented Physical Exam <JAZIEL Alvarez - Last Filed: 03/09/24 22:27> General General appearance: alert and in no apparent distress Chest Chest inspection: Absent tenderness Respiratory Respiratory exam: Present normal lung sounds bilaterally Cardiovascular Cardiovascular exam: Present regular rate, normal rhythm, normal heart sounds and +S2 Abdominal Exam Abdominal exam: Present soft, tenderness (Mild abdominal epigastric tenderness without rebound guarding rigidity) and normal bowel sounds; Absent guarding, rebound or rigidity Extremities Exam Extremities exam: Present normal inspection and full ROM Back Exam Back exam: Present normal inspection and full ROM; Absent tenderness Neurological Exam Neurological exam: Present alert, oriented X3 and CN II-XII intact Psychiatric Psychiatric exam: Present normal affect and normal mood Skin Skin exam: Present warm, dry and normal color Medical Decision Making <JAZIEL Alvarez - Last Filed: 03/09/24 22:27> Medical Records Medical records reviewed: Yes I reviewed the patient's medical records. Preet Inquiry Pt receiving controlled substance: No Vital Signs: 03/09/24 14:20 03/09/24 15:21 03/09/24 16:31 Temperature Pulse Rate 85 81 Pulse Rate [Apical] 76 Respiratory Rate 14 Blood Pressure 157/88 H 158/105 H Blood Pressure [Right Arm] 170/86 H Blood Pressure Mean [Right Arm] 114 Blood Pressure Source Blood Pressure Source [Right Arm] Automatic Cuff Blood Pressure Position Blood Pressure Position [Right Arm] Sitting 02 Sat by Pulse Oximetry 92 L 97 94 L Oxygen Delivery Method Room Air Nasal Cannula Nasal Cannula 03/09/24 16:45 03/09/24 17:50 03/09/24 18:01 Temperature Pulse Rate 80 78 88 Pulse Rate [Apical] Respiratory Rate 16 Blood Pressure 152/82 H 156/76 H Blood Pressure [Right Arm] Blood Pressure Mean [Right Arm] Blood Pressure Source Blood Pressure Source [Right Arm] Blood Pressure Position Blood Pressure Position [Right Arm] 02 Sat by Pulse Oximetry 95 94 L 94 L Oxygen Delivery Method Room Air Nasal Cannula 03/09/24 18:44 Temperature 97.9 F Pulse Rate 79 Pulse Rate [Apical] Respiratory Rate 18 Blood Pressure 139/76 Blood Pressure [Right Arm] Blood Pressure Mean [Right Arm] Blood Pressure Source Automatic Cuff Blood Pressure Source [Right Arm] Blood Pressure Position Sitting Blood Pressure Position [Right Arm] 02 Sat by Pulse Oximetry Oxygen Delivery Method Room Air Lab Data Lab results reviewed: Yes I reviewed the patient's lab results. Lab Results 03/09/24 14:33: WBC 5.3, RBC 4.24, Hgb 14.7, Hct 45.9, MCV 108.3 H, MCH 34.7 H, MCHC 32.0, RDW 14.4, Plt Count 107 L, MPV 8.5, Neut % (Auto) 83.3 H, Lymph % (Auto) 10.6, [place] % (Auto) 5.1, Eos % (Auto) 0.8, Baso % (Auto) 0.2, Neut # (Auto) 4.4, Lymph # (Auto) 0.6 L, [place] # (Auto) 0.3, Eos # (Auto) 0.0, Baso # (Auto) 0.0, PT 14.7 H, INR 1.39 H, Sodium 133 L, Potassium 3.5, Chloride 94 L, C arbon Dioxide 32 H, Anion Gap 10.5, BUN 13, Creatinine 0.70, Estimated Creat Clear 37, Estimated GFR 83, Est GFR ( Amer) 101, Glucose 125 H, Calcium 9.3, Magnesium 1.6, Total Bilirubin 3.3 H, AST 33, ALT 18, Alkaline Phosphatase 87, Troponin I < 0.01, Total Protein 6.9, Albumin 3.9, Globulin 3.0, Albumin/Globulin Ratio 1.3, Lipase 71 03/09/24 15:18: Lactate 2.6 H 03/09/24 14:33 03/09/24 14:33 Orders (Tests/Meds): ED MEDICATIONS Discontinued Medications Generic Name Dose Route Start Last Admin Trade Name Freq PRN Reason Stop Dose Admin Acetaminophen 1,000 mg 03/09/24 14:39 03/09/24 14:46 Acetaminophen 1,000mg/100ml Vial IV 03/09/24 14:40 1,000 mg ONCE ONE Administration Lactated Ringer's 1,000 mls @ 999 mls/hr 03/09/24 14:39 03/09/24 14:47 Lactated Ringer's 1000 Ml Bag IV 03/09/24 15:39 999 mls/hr .Q1H1M ONE Administration Metoclopramide HCl 10 mg 03/09/24 17:28 03/09/24 17:38 Metoclopramide 10mg Tablet PO 03/09/24 17:29 10 mg ONCE ONE Administration Prochlorperazine Edisylate 10 mg 03/09/24 16:49 03/09/24 16:54 Prochlorperazine 10mg/2ml Vial IV 03/09/24 16:50 10 mg ONCE ONE Administration Promethazine HCl 12.5 mg 03/09/24 14:39 03/09/24 14:46 Promethazine Hcl 25mg/Ml 1ml Vial IV 03/09/24 14:40 12.5 mg ONCE ONE Administration Sodium Chloride 25 ml 03/09/24 14:39 03/09/24 15:13 Sodium Chloride 0.9% 25ml Bag IV 03/09/24 14:40 Not Given ONCE ONE ORDERS Category Date Time Status CT abdomen pelvis wo con Stat Cat Scan 03/09/24 14:39 Completed XR chest portable Stat Exams 03/09/24 14:37 Completed Complete Blood Count Auto Diff Stat Lab 03/09/24 14:33 Completed Comprehensive Metabolic Panel Stat Lab 03/09/24 14:33 Completed Lactic Acid Stat Lab 03/09/24 15:18 Completed Lipase Stat Lab 03/09/24 14:33 Completed Magnesium Stat Lab 03/09/24 14:33 Completed PT INR [Prothrombin Time INR] Stat Lab 03/09/24 14:33 Completed Troponin I Stat Lab 03/09/24 14:33 Completed HEART Score History (anamnesis): Slightly suspicious ECG: Non-specific disturbance Age: >65 years Risk factors: Atherosclerosis history Troponin: </= normal limit HEART Score: 5 Medical Decision Narrative: In summary patient is a 68-year-old female who presents to the emergency department for evaluation of nausea vomiting. Patient is hemodynamically stable upon arrival, afebrile. Physical exam is remarkable for mild abdominal tenderness but her abdominal exam is soft with no rigidity rebound or guarding normal bowel sounds. Differential diagnosis includes ACS versus gastroenteritis versus bowel obstruction versus constipation etc. Initial workup will be conducted with hematologic labs CT scan abdomen pelvis urinalysis. Initial interventions include crystalloid bolus Toradol Tylenol antiemetics and Reglan. Initial workup reviewed by me shows that her hematologic labs are nonactionable and my interpretation of her CT scan abdomen pelvis shows that she has distended fluid-filled stomach and given her presentation likely suggest gastroparesis or possible ileus. Upon repeat evaluation had complete resolution of her symptoms after the initial interventions.. Given this patient is appropriate for discharge with a prescription for Reglan and Zofran and referral back to her PCP for further evaluation of her symptoms within 1 week. <Eladio Grissom MD - Last Filed: 03/09/24 15:04> Vital Signs: 03/09/24 14:20 03/09/24 15:21 03/09/24 16:31 Temperature Pulse Rate 85 81 Pulse Rate [Apical] 76 Respiratory Rate 14 Blood Pressure 157/88 H 158/105 H Blood Pressure [Right Arm] 170/86 H Blood Pressure Mean [Right Arm] 114 Blood Pressure Source Blood Pressure Source [Right Arm] Automatic Cuff Blood Pressure Position Blood Pressure Position [Right Arm] Sitting 02 Sat by Pulse Oximetry 92 L 97 94 L Oxygen Delivery Method Room Air Nasal Cannula Nasal Cannula 03/09/24 16:45 03/09/24 17:50 03/09/24 18:01 Temperature Pulse Rate 80 78 88 Pulse Rate [Apical] Respiratory Rate 16 Blood Pressure 152/82 H 156/76 H Blood Pressure [Right Arm] Blood Pressure Mean [Right Arm] Blood Pressure Source Blood Pressure Source [Right Arm] Blood Pressure Position Blood Pressure Position [Right Arm] 02 Sat by Pulse Oximetry 95 94 L 94 L Oxygen Delivery Method Room Air Nasal Cannula 03/09/24 18:44 Temperature 97.9 F Pulse Rate 79 Pulse Rate [Apical] Respiratory Rate 18 Blood Pressure 139/76 Blood Pressure [Right Arm] Blood Pressure Mean [Right Arm] Blood Pressure Source Automatic Cuff Blood Pressure Source [Right Arm] Blood Pressure Position Sitting Blood Pressure Position [Right Arm] 02 Sat by Pulse Oximetry Oxygen Delivery Method Room Air Lab Data Lab Results 03/09/24 14:33: WBC 5.3, RBC 4.24, Hgb 14.7, Hct 45.9, MCV 108.3 H, MCH 34.7 H, MCHC 32.0, RDW 14.4, Plt Count 107 L, MPV 8.5, Neut % (Auto) 83.3 H, Lymph % (Auto) 10.6, [place] % (Auto) 5.1, Eos % (Auto) 0.8, Baso % (Auto) 0.2, Neut # (Auto) 4.4, Lymph # (Auto) 0.6 L, [place] # (Auto) 0.3, Eos # (Auto) 0.0, Baso # (Auto) 0.0, PT 14.7 H, INR 1.39 H, Sodium 133 L, Potassium 3.5, Chloride 94 L, C arbon Dioxide 32 H, Anion Gap 10.5, BUN 13, Creatinine 0.70, Estimated Creat Clear 37, Estimated GFR 83, Est GFR ( Amer) 101, Glucose 125 H, Calcium 9.3, Magnesium 1.6, Total Bilirubin 3.3 H, AST 33, ALT 18, Alkaline Phosphatase 87, Troponin I < 0.01, Total Protein 6.9, Albumin 3.9, Globulin 3.0, Albumin/Globulin Ratio 1.3, Lipase 71 03/09/24 15:18: Lactate 2.6 H Orders (Tests/Meds): ED MEDICATIONS Discontinued Medications Generic Name Dose Route Start Last Admin Trade Name Freq PRN Reason Stop Dose Admin Acetaminophen 1,000 mg 03/09/24 14:39 03/09/24 14:46 Acetaminophen 1,000mg/100ml Vial IV 03/09/24 14:40 1,000 mg ONCE ONE Administration Lactated Ringer's 1,000 mls @ 999 mls/hr 03/09/24 14:39 03/09/24 14:47 Lactated Ringer's 1000 Ml Bag IV 03/09/24 15:39 999 mls/hr .Q1H1M ONE Administration Metoclopramide HCl 10 mg 03/09/24 17:28 03/09/24 17:38 Metoclopramide 10mg Tablet PO 03/09/24 17:29 10 mg ONCE ONE Administration Prochlorperazine Edisylate 10 mg 03/09/24 16:49 03/09/24 16:54 Prochlorperazine 10mg/2ml Vial IV 03/09/24 16:50 10 mg ONCE ONE Administration Promethazine HCl 12.5 mg 03/09/24 14:39 03/09/24 14:46 Promethazine Hcl 25mg/Ml 1ml Vial IV 03/09/24 14:40 12.5 mg ONCE ONE Administration Sodium Chloride 25 ml 03/09/24 14:39 03/09/24 15:13 Sodium Chloride 0.9% 25ml Bag IV 03/09/24 14:40 Not Given ONCE ONE ORDERS Category Date Time Status CT abdomen pelvis wo con Stat Cat Scan 03/09/24 14:39 Completed XR chest portable Stat Exams 03/09/24 14:37 Completed Complete Blood Count Auto Diff Stat Lab 03/09/24 14:33 Completed Comprehensive Metabolic Panel Stat Lab 03/09/24 14:33 Completed Lactic Acid Stat Lab 03/09/24 15:18 Completed Lipase Stat Lab 03/09/24 14:33 Completed Magnesium Stat Lab 03/09/24 14:33 Completed PT INR [Prothrombin Time INR] Stat Lab 03/09/24 14:33 Completed Troponin I Stat Lab 03/09/24 14:33 Completed ECG Data Tracing #1: Independently interpreted by me, rate is 84, rhythm is regular, axis is rightward deviated, A-fib with bundle branch block. QTc 294. No ST elevation in anatomical contiguous leads. <Hope Jimenez, DO - Last Filed: 03/09/24 23:18> Vital Signs: 03/09/24 14:20 03/09/24 15:21 03/09/24 16:31 Temperature Pulse Rate 85 81 Pulse Rate [Apical] 76 Respiratory Rate 14 Blood Pressure 157/88 H 158/105 H Blood Pressure [Right Arm] 170/86 H Blood Pressure Mean [Right Arm] 114 Blood Pressure Source Blood Pressure Source [Right Arm] Automatic Cuff Blood Pressure Position Blood Pressure Position [Right Arm] Sitting 02 Sat by Pulse Oximetry 92 L 97 94 L Oxygen Delivery Method Room Air Nasal Cannula Nasal Cannula 03/09/24 16:45 03/09/24 17:50 03/09/24 18:01 Temperature Pulse Rate 80 78 88 Pulse Rate [Apical] Respiratory Rate 16 Blood Pressure 152/82 H 156/76 H Blood Pressure [Right Arm] Blood Pressure Mean [Right Arm] Blood Pressure Source Blood Pressure Source [Right Arm] Blood Pressure Position Blood Pressure Position [Right Arm] 02 Sat by Pulse Oximetry 95 94 L 94 L Oxygen Delivery Method Room Air Nasal Cannula 03/09/24 18:44 Temperature 97.9 F Pulse Rate 79 Pulse Rate [Apical] Respiratory Rate 18 Blood Pressure 139/76 Blood Pressure [Right Arm] Blood Pressure Mean [Right Arm] Blood Pressure Source Automatic Cuff Blood Pressure Source [Right Arm] Blood Pressure Position Sitting Blood Pressure Position [Right Arm] 02 Sat by Pulse Oximetry Oxygen Delivery Method Room Air Lab Data Lab Results 03/09/24 14:33: WBC 5.3, RBC 4.24, Hgb 14.7, Hct 45.9, MCV 108.3 H, MCH 34.7 H, MCHC 32.0, RDW 14.4, Plt Count 107 L, MPV 8.5, Neut % (Auto) 83.3 H, Lymph % (Auto) 10.6, [place] % (Auto) 5.1, Eos % (Auto) 0.8, Baso % (Auto) 0.2, Neut # (Auto) 4.4, Lymph # (Auto) 0.6 L, [place] # (Auto) 0.3, Eos # (Auto) 0.0, Baso # (Auto) 0.0, PT 14.7 H, INR 1.39 H, Sodium 133 L, Potassium 3.5, Chloride 94 L, C arbon Dioxide 32 H, Anion Gap 10.5, BUN 13, Creatinine 0.70, Estimated Creat Clear 37, Estimated GFR 83, Est GFR ( Amer) 101, Glucose 125 H, Calcium 9.3, Magnesium 1.6, Total Bilirubin 3.3 H, AST 33, ALT 18, Alkaline Phosphatase 87, Troponin I < 0.01, Total Protein 6.9, Albumin 3.9, Globulin 3.0, Albumin/Globulin Ratio 1.3, Lipase 71 03/09/24 15:18: Lactate 2.6 H Orders (Tests/Meds): ED MEDICATIONS Discontinued Medications Generic Name Dose Route Start Last Admin Trade Name Freq PRN Reason Stop Dose Admin Acetaminophen 1,000 mg 03/09/24 14:39 03/09/24 14:46 Acetaminophen 1,000mg/100ml Vial IV 03/09/24 14:40 1,000 mg ONCE ONE Administration Lactated Ringer's 1,000 mls @ 999 mls/hr 03/09/24 14:39 03/09/24 14:47 Lactated Ringer's 1000 Ml Bag IV 03/09/24 15:39 999 mls/hr .Q1H1M ONE Administration Metoclopramide HCl 10 mg 03/09/24 17:28 03/09/24 17:38 Metoclopramide 10mg Tablet PO 03/09/24 17:29 10 mg ONCE ONE Administration Prochlorperazine Edisylate 10 mg 03/09/24 16:49 03/09/24 16:54 Prochlorperazine 10mg/2ml Vial IV 03/09/24 16:50 10 mg ONCE ONE Administration Promethazine HCl 12.5 mg 03/09/24 14:39 03/09/24 14:46 Promethazine Hcl 25mg/Ml 1ml Vial IV 03/09/24 14:40 12.5 mg ONCE ONE Administration Sodium Chloride 25 ml 03/09/24 14:39 03/09/24 15:13 Sodium Chloride 0.9% 25ml Bag IV 03/09/24 14:40 Not Given ONCE ONE ORDERS Category Date Time Status CT abdomen pelvis wo con Stat Cat Scan 03/09/24 14:39 Completed XR chest portable Stat Exams 03/09/24 14:37 Completed Complete Blood Count Auto Diff Stat Lab 03/09/24 14:33 Completed Comprehensive Metabolic Panel Stat Lab 03/09/24 14:33 Completed Lactic Acid Stat Lab 03/09/24 15:18 Completed Lipase Stat Lab 03/09/24 14:33 Completed Magnesium Stat Lab 03/09/24 14:33 Completed PT INR [Prothrombin Time INR] Stat Lab 03/09/24 14:33 Completed Troponin I Stat Lab 03/09/24 14:33 Completed HEART Score HEART Score: 5 Critical Care <JAZIEL Alvarez - Last Filed: 03/09/24 22:27> Critical Care Time Critical Care Time: No
--- NOTE | 2024-03-09 14:37 | XR_ITS ---
PROCEDURE INFORMATION: Exam: XR Chest Exam date and time: 03/09/2024 3:10 PM Age: 68 years old Clinical indication: Shortness of breath; Additional info: SOA TECHNIQUE: Imaging protocol: Radiologic exam of the chest. Views: 1 view. COMPARISON: CT ANGIO CHEST 12/28/2023 4:07 PM FINDINGS: Tubes, catheters and devices: AICD in stable position. Lungs: Hyperexpanded lungs with moderate emphysematous changes. No evidence of acute airspace infiltrate. No pulmonary edema. Pleural spaces: No significant pleural effusion. No pneumothorax. Heart/Mediastinum: Cardiomediastinal silhouette is unchanged from prior exam. Bones/joints: No evidence of acute osseous abnormality. IMPRESSION: No evidence of acute cardiopulmonary disease.
--- NOTE | 2024-03-09 14:39 | CT_ITS ---
PROCEDURE INFORMATION: Exam: CT Abdomen And Pelvis Without Contrast Exam date and time: 03/09/2024 3:01 PM Age: 68 years old Clinical indication: Abdominal pain; Acute; Additional info: Acute abd pain TECHNIQUE: Imaging protocol: Computed tomography of the abdomen and pelvis without contrast. Radiation optimization: All CT scans at this facility use at least one of these dose optimization techniques: automated exposure control; mA and/or kV adjustment per patient size (includes targeted exams where dose is matched to clinical indication); or iterative reconstruction. COMPARISON: CT ANGIO CHEST 12/28/2023 4:07 PM FINDINGS: Limitations: Lack of intravenous contrast material limits detection and/or characterization of intra-abdominal pathology. Lungs: Lung bases are clear. Liver: Unremarkable. Gallbladder and biliary ducts: Status post cholecystectomy. Pancreas: Unremarkable as visualized. Spleen: Punctate calcifications in the spleen compatible with sequelae of prior granulomatous disease. No splenomegaly. Adrenal glands: Unremarkable as visualized. Kidneys and ureters: Horseshoe kidney congenital anomaly. No renal or ureteral stones. No hydronephrosis. Mass-like contour convexity along the posterior aspect of the left renal moiety measuring 2.5 cm in diameter, indeterminate for lobulation vs discrete renal mass. Stomach and bowel: Stomach is markedly enlarged, although not significantly distended. No evidence of bowel obstruction or acute inflammatory changes in the gastrointestinal tract. Appendix: No evidence of appendicitis. Intraperitoneal space: No free fluid. No pneumoperitoneum. Vasculature: Moderate amount of calcific arterial atherosclerosis throughout the aorta. No abdominal aortic aneurysm. Lymph nodes: Unremarkable. Urinary bladder: Unremarkable. Reproductive: Unremarkable. Bones/joints: No evidence of acute osseous abnormality. Soft tissues: Unremarkable. IMPRESSION: 1. No acute findings in the abdomen or pelvis. 2. Stomach is markedly enlarged, although not significantly distended. Findings are nonspecific, but can be seen with chronic gastric outlet obstruction or gastroparesis. 3. Horseshoe kidney congenital anomaly. 4. Mass-like contour convexity along the posterior aspect of the left renal moiety measuring 2.5 cm in diameter, indeterminate for lobulation vs discrete renal mass. Please see comments below for current guidelines. 5. Additional non-acute ancillary findings are detailed above. COMMENTS: Regarding suspected/incompletely characterized solid renal lesions, ACR guidelines recommend non-emergent MRI or CT tailored to renal mass protocol without and with contrast. MRI is preferred for masses under 1.5 cm. (Reference: [place]) REFERENCES: [place] MAK, Management of the Incidental Renal Mass on CT: A White Paper of the ACR Incidental Findings Committee, JACR 2018.
[2024-03-09] MEDS: ACETAMINOPHEN 1,000MG/100ML VIAL 1000 MG IV (14:46)
[2024-03-09] MEDS: PROMETHAZINE HCL 25MG/ML 1ML VIAL 12.5 MG IV (14:46)
[2024-03-09] MEDS: LACTATED RINGERS 1000ML 1,000 ML 999 ML IV (14:47)
[2024-03-09 15:09] LABS: Alanine Aminotransferase 18 U/L (12-78); Albumin Level 3.9 g/dl (3.5-5.0); Albumin/Globulin Ratio 1.3 (1.1-1.8); Alkaline Phosphatase 87 U/L (38-126); Anion Gap 10.5 mEq/L (5-15); Aspartate Amino Transferase 33 U/L (14-36); Bilirubin,Total 3.3 mg/dl (0.2-1.3); Blood Urea Nitrogen 13 mg/dl (7-17); Calcium 9.3 mg/dl (8.4-10.2); Carbon Dioxide 32 mmol/L (22.0-30.0); Chloride 94 mmol/L (98-107); Creatinine Clearance Estimated 37 mL/min (50-200); Estimated Glomerular Filt Rate 83 ml/min (>60); GFR (African American) 101 ML/MIN (>60); Glucose 125 mg/dl (74-100); Potassium 3.5 mmoL/L (3.5-5.1); Sodium 133 mmol/L (136-145); Total Protein,Serum 6.9 g/dl (6.3-8.2)
[2024-03-09 15:10] LABS: Lipase 71 U/L (23-300); Magnesium 1.6 mg/dl (1.6-2.3)
[2024-03-09 15:18] LABS: Basophils % 0.2 % (0.1-2.0); Eosinophils % 0.8 % (0.1-12.0); Hematocrit 45.9 % (37.0-47.0); Hemoglobin 14.7 g/dL (12.2-16.2); Lymphocytes # 0.6 K/mm3 (0.7-4.5); Lymphocytes % 10.6 % (10-50); Mean Corpuscular Hemoglobin 34.7 pg (27.0-31.2); Mean Corpuscular Volume 108.3 fl (81-99); Mean Platelet Volume 8.5 fl (7.4-10.4); Monocytes # 0.3 K/mm3 (0.1-1.0); Monocytes % 5.1 % (1.7-9.3); Neutrophils # 4.4 K/mm3 (1.8-7.8); Neutrophils % 83.3 % (37.0-80.0); Platelet Count 107 K/mm3 (142-424); Red Blood Count 4.24 M/mm3 (4.20-5.40); Red Cell Distribution Width 14.4 % (11.5-17.5); White Blood Count 5.3 K/mm3 (4.8-10.8)
[2024-03-09 15:24] LABS: INR 1.39 (0.9-1.1); Prothrombin Time 14.7 seconds (10.1-12.5)
[2024-03-09 15:43] LABS: Lactic Acid 2.6 mmol/L (0.7-2.1)
[2024-03-09 16:17] LABS: Troponin I < 0.01 ng/ml (0.00-0.034)
[2024-03-09] MEDS: PROCHLORPERAZINE 10MG/2ML VIAL 10 MG IV (16:54)
[2024-03-09] MEDS: METOCLOPRAMIDE 10MG TABLET 10 MG PO (17:38)
--- NOTE | 2024-03-09 17:51 | PC.NURSE ---
Pt still unable to provide urine sample
== END 2024-03-09 18:45 | disposition home or self-care (01) ==
PROVIDERS: Emergency Medicine; Physician Assistant; Emergency Provider Emergency Medicine; PCP Family Medicine
DX: R11.2 Nausea with vomiting, unspecified (principal); R10.816 Epigastric abdominal tenderness; R74.02 Elevation of levels of lactic acid dehydrogenase [LDH]; E87.1 Hypo-osmolality and hyponatremia; I48.91 Unspecified atrial fibrillation; I45.19 Other right bundle-branch block; I10 Essential (primary) hypertension; F17.210 Nicotine dependence, cigarettes, uncomplicated
CPT/HCPCS: 71045; 74176; 80053; 83605; 83690; 83735; 84484; 85025; 85610; 93005; 96361; 96374; 96375; 99285; J0131; J2550; J7120

== ENCOUNTER 2024-06-04 10:49 | Inpatient (IN) | payer MEDICARE, MEDICAID, SELFPAY ==
[2024-06-04] VITALS (16 sets, daily range): BP systolic 112–153; BP diastolic 64–87; PULSE 78–112; RESP 14–28; TEMP 36.4–36.9; O2SAT 82–100; BMI 18.3
--- NOTE | 2024-06-04 10:51 | ECG_ITS ---
APPROVED REPORT Exam: Resting ECG HR:88 bpm ECG Measurements Heart Rate 88 AXES QRSd 173 QRS 270 QT 421 T 75 QTc 466 Conclusion ATRIAL FIBRILLATION WITH ABERRANT CONDUCTION OR VENTRICULAR PREMATURE COMPLEXES RIGHT AXIS DEVIATION [QRS AXIS > 100] RIGHT BUNDLE BRANCH BLOCK AND POSSIBLE RIGHT VENTRICULAR HYPERTROPHY [RBBB, 1.5 mV R IN V1, RAD] ABNORMAL ECG UNCONFIRMED REPORT Electronically signed by : FRANCINE BANUELOS, 06/06/2024 06:39:51
--- NOTE | 2024-06-04 10:53 | PC.NURSE ---
Dr. Pagan at bedside for pt eval
--- NOTE | 2024-06-04 11:00 | XR_ITS ---
FINAL REPORT CLINICAL HISTORY: Shortness of breath, inspiratory wheezes, LE edema COMPARISON: 03/09/2024 FINDINGS: The heart size is mildly enlarged. The patient is status post median sternotomy. A pacemaker is identified. Minimal scarring is noted in the lung bases. There are no pleural effusions. There is no pneumothorax. There is no osseous abnormality. IMPRESSION: Cardiomegaly without acute cardiopulmonary process Reviewed, Interpreted and Dictated by Jose Angel Espinal MD Transcribed by Lilia Michaels Authenticated and [facility]
--- NOTE | 2024-06-04 11:02 | PC.NURSE ---
called rt to notify of vbg
[2024-06-04] MEDS: IPRATROPIUM/ALBUTEROL 3 ML NEB IH (11:05)
[2024-06-04 11:10] LABS: Lactate Venous 1.7 mmol/L (0.4-2.0); VBG Base Excess 4.2 mmol/L (-2.4-2.3); VBG HCO3 31.3 mmol/L (23-30); VBG PH 7.26 mmol/L (7.31-7.41); VBG PO2 36.1 mmol/L (28-40); VBG Total CO2 33.5 mmol/L (23-27)
[2024-06-04 11:15] LABS: Basophils % 0.2 % (0.1-2.0); Eosinophils # 0.2 K/mm3 (0.0-0.4); Eosinophils % 2.9 % (0.1-12.0); Hematocrit 41.3 % (37.0-47.0); Hemoglobin 12.7 g/dL (12.2-16.2); Lymphocytes # 0.7 K/mm3 (0.7-4.5); Lymphocytes % 11.2 % (10-50); Mean Corpuscular HGB Conc 30.7 g/dL (31.8-35.4); Mean Corpuscular Hemoglobin 33.1 pg (27.0-31.2); Mean Platelet Volume 7.5 fl (7.4-10.4); Monocytes # 0.4 K/mm3 (0.1-1.0); Monocytes % 6.1 % (1.7-9.3); Neutrophils # 4.9 K/mm3 (1.8-7.8); Neutrophils % 79.6 % (37.0-80.0); Platelet Count 157 K/mm3 (142-424); Red Blood Count 3.82 M/mm3 (4.20-5.40); Red Cell Distribution Width 13.3 % (11.5-17.5); White Blood Count 6.2 K/mm3 (4.8-10.8)
[2024-06-04 11:16] LABS: Albumin Level 3.6 g/dl (3.5-5.0); Chloride 98 mmol/L (98-107); Potassium 4.2 mmoL/L (3.5-5.1); Sodium 133 mmol/L (136-145)
[2024-06-04 11:18] LABS: Alanine Aminotransferase 17 U/L (12-78); Anion Gap 2.2 mEq/L (5-15); Aspartate Amino Transferase 33 U/L (14-36); Blood Urea Nitrogen 10 mg/dl (7-17); Carbon Dioxide 37 mmol/L (22.0-30.0); Creatinine Clearance Estimated 42 mL/min (50-200); Estimated Glomerular Filt Rate 83 ml/min (>60); GFR (African American) 100 ML/MIN (>60)
[2024-06-04 11:19] LABS: Albumin/Globulin Ratio 1.1 (1.1-1.8); Alkaline Phosphatase 109 U/L (38-126); Bilirubin,Total 1.9 mg/dl (0.2-1.3); Calcium 8.3 mg/dl (8.4-10.2); Globulin 3.3 g/dL (1.3-3.2); Glucose 151 mg/dl (74-100); Lipase 136 U/L (23-300); Magnesium 1.7 mg/dl (1.6-2.3); Total Protein,Serum 6.9 g/dl (6.3-8.2)
--- NOTE | 2024-06-04 11:19 | HMH.EDGENADL ---
Discharge Plan Disposition Patient Disposition: Home, Self-Care Prescriptions Prescriptions: New ipratropium-albuterol 0.5 mg-3 mg(2.5 mg base)/3 mL solution for nebulization 3 ml inhalation Q4H PRN (Reason: shortness of breath) Qty: 180 2RF Rx Instructions: until breathing returns to target peak flow/parameters prednisone 20 mg tablet 40 mg PO DAILY 5 Days Qty: 10 0RF No Action lisinopril 20 mg tablet 20 mg PO DAILY furosemide [Lasix] 40 mg tablet 40 mg PO DAILY carvedilol 12.5 mg tablet 12.5 mg PO BID warfarin 4 mg tablet 4 mg PO DAILY scopolamine base 1 mg over 3 days patch 3 day 1 patch transdermal Q3D PRN (Reason: motion sickness) Qty: 4 0RF nicotine 21 MG/PATCH patch 24 hour 21 mg transdermal DAILYP PRN (Reason: Nicotine Cravings) Qty: 30 0RF ipratropium-albuterol 120 PUFF mist 2 puff inhalation QID PRN (Reason: Shortness Of Breath Or Wheezing) 90 Days Qty: 120 3RF prednisone 20 mg tablet 20 mg PO BID Qty: 10 0RF levofloxacin 500 mg tablet 500 mg PO DAILY 7 Days Qty: 7 0RF azithromycin [Zithromax Z-Jose] 250 mg tablet 250 mg PO DAILY 4 Days Qty: 4 0RF Rx Instructions: start on day 2 of therapy prednisone 50 mg tablet 50 mg PO DAILY 4 Days Qty: 4 0RF ondansetron 4 MG tablet,disintegrating 4 mg PO TIDP PRN (Reason: Nausea And Vomiting) Qty: 10 0RF triamcinolone acetonide 15 GM cream 1 applicatio TP TIDP PRN (Reason: Itching) 7 Days Qty: 1 0RF Rx Instructions: 0.025% doxycycline hyclate 100 mg capsule 100 mg PO BID 10 Days Qty: 20 0RF benzonatate 100 mg capsule 100 mg PO TID PRN (Reason: cough) 5 Days Qty: 20 0RF albuterol sulfate 90 mcg/actuation HFA aerosol inhaler 4 inh inhalation Q4H PRN (Reason: shortness of breath or wheezing) Qty: 8.5 0RF Rx Instructions: 4 puffs every 4 hours for 48 hours then as needed for shortness of breath or wheezing following ondansetron 4 mg tablet,disintegrating 4 mg PO Q6H PRN (Reason: nausea and vomiting) Qty: 10 0RF metoclopramide HCl [Reglan] 10 mg tablet 10 mg PO Q6H PRN (Reason: nausea and vomiting) Qty: 10 0RF Referrals Follow up/Referrals: Provider,Referral, MD [Referring] - See instructions Activity Restrictions/Add. Instructions Additional Instructions/Restrictions: Call your family doctor to establish care for this visit to the emergency department and schedule follow-up within 48 hours to ensure improvement. If you have any worsening of your condition or any other concerning signs or symptoms, return to the emergency department or your primary care doctor for further evaluation. Prednisone each morning for the next 5 days. DuoNebs as needed. Clinical Impressions Clinical Impression: Acute exacerbation of chronic obstructive pulmonary disease, Acute hypercapnic respiratory failure, CHF exacerbation Instructions Patient Instructions: DI for Heart Failure, DI for Chronic Obstructive Pulmonary Disease Print Language Print Language: Azeri Discharge ED Provider: Alhaji Pagan General Adult HPI General Chief complaint: Shortness of Breath/Dyspnea Stated complaint: SOA Time Seen by Provider: 06/04/24 10:57 Mode of Arrival: EMS Source of Information: Patient, EMS and Medical Record Limitations: No Limitations Description of Symptoms (Recalled from ER Triage Doc. by RN): Pt c/o increased swelling to legs and work of breathing that has worsened over the last 5 days. States that she is on warfarin and lasix and is taking her medications as prescribed, however she continues to have swelling. No home O2 requirements, she does continue to smoke 1PPD, and has hx of copd. History of Present Illness HPI narrative: Please note that above description of symptoms, in this electronic medical record under categorization of recalled from ER triage doctor by RN are reflective of an initial nursing assessment, however, is not reflective of my full history and physical exam that was personally taken and clarified. Consequentially, this preceding description of symptoms, which may include the patient's categorized chief complaint in the EMR, do not reflect my personal clinical impression, and the ultimate description of history of present illness and patient stated complaints should be deferred to this section of the note. Unless stated otherwise or congruent with this section of the note, additional signs, symptoms, or incongruence should be interpreted as inaccurate with my clinical impression. Related Data Home Medications ?Medication ?Instructions ?Recorded ?Confirmed carvedilol 12.5 mg tablet 12.5 mg PO BID Hypertension 11/18/20 07/18/22 furosemide 40 mg tablet (Lasix) 40 mg PO DAILY Fluid 11/18/20 07/18/22 lisinopril 20 mg tablet 20 mg PO DAILY Hypertension 11/18/20 07/18/22 warfarin 4 mg tablet 4 mg PO DAILY Blood thinner 11/18/20 07/18/22 Previous Rx's ?Medication ?Instructions ?Recorded ondansetron 4 mg disintegrating 4 mg PO TIDP PRN Nausea And 01/14/22 tablet Vomiting #10 tabs ipratropium 20 mcg-albuterol 100 2 puff inhalation QID PRN 01/23/22 mcg/actuation mist for inhalation Shortness Of Breath Or Wheezing 90 days #120 ea nicotine 21 mg/24 hr daily 21 mg transdermal DAILYP PRN 01/23/22 transdermal patch Nicotine Cravings #30 patches triamcinolone acetonide 0.025 % 1 applicatio topical TIDP PRN 03/22/22 topical cream Itching 7 days #1 g scopolamine base 1 mg over 3 days 1 patch transdermal Q3D PRN motion 07/18/22 transdermal patch sickness #4 ea levofloxacin 500 mg tablet 500 mg PO DAILY 7 days #7 tabs 10/24/22 prednisone 20 mg tablet 20 mg PO BID #10 tabs 10/24/22 albuterol sulfate 90 mcg/actuation 4 inh inhalation Q4H PRN shortness 04/24/23 aerosol inhaler of breath or wheezing #8.5 grams benzonatate 100 mg capsule 100 mg PO TID PRN cough 5 days #20 04/24/23 caps doxycycline hyclate 100 mg capsule 100 mg PO BID 10 days #20 caps 04/24/23 azithromycin 250 mg tablet 250 mg PO DAILY COPD exacerbation 12/28/23 (Zithromax Z-Jose) 4 days #4 tabs prednisone 50 mg tablet 50 mg PO DAILY COPD 4 days #4 tabs 12/28/23 metoclopramide HCl 10 mg tablet 10 mg PO Q6H PRN nausea and 03/09/24 (Reglan) vomiting #10 tabs ondansetron 4 mg disintegrating 4 mg PO Q6H PRN nausea and 03/09/24 tablet vomiting #10 tabs ipratropium 0.5 mg-albuterol 3 mg 3 ml inhalation Q4H PRN shortness 06/04/24 (2.5 mg base)/3 mL nebulization of breath #180 mL soln prednisone 20 mg tablet 40 mg (2 x 20 mg) PO DAILY 5 days 06/04/24 #10 tabs Allergies Allergy/AdvReac Type Severity Reaction Status Date / Time aspirin Allergy Unknown Unknown Verified 07/18/22 13:16 allergy reaction nitroglycerin Allergy Unknown Unknown Verified 07/18/22 13:16 allergy reaction NSAIDS (Non-Steroidal Allergy Unknown Unknown Verified 07/18/22 13:16 Anti-Inflamma allergy reaction procainamide Allergy Unknown Unknown Verified 07/18/22 13:16 allergy reaction PFSH PFSH Disclaimer: The information contained in this section may have been updated after the patient was seen, as this information can be updated by other users. Medical History Hypertension Long-term (current) use of anticoagulants, INR goal 2.5-3.5 Surgical History History of artificial heart valve Social History (Updated 07/18/22 @ 13:20 by ROBEL Yu) Smoking Status: Current every day smoker tobacco type: cigarettes packs per day: 1 alcohol intake: never substance use type: marijuana current occupational status: retired Travel in the last 8 weeks: None household members: significant other and children housing: house caffeine: No ROS Obtained: Yes All systems reviewed & no additional complaints except as documented Physical Exam General General appearance: alert, in no apparent distress and other (Chronically ill, disheveled) Head Head exam: atraumatic and normocephalic Eye Eye exam: Present normal appearance, PERRL and EOMI ENT ENT exam: Present mucous membranes moist Neck Neck exam: Present normal inspection, full ROM and trachea midline Respiratory Respiratory exam: Present wheezes (Inspiratory wheezes bilateral lung rios); Absent respiratory distress, stridor, accessory muscle use or prolonged expiratory phase Cardiovascular Cardiovascular exam: Present regular rate, irregular rhythm and other (Pulses equal symmetric in upper and lower extremities) Abdominal Exam Abdominal exam: Present soft; Absent distention, tenderness or pulsatile mass Extremities Exam Extremities exam: Present edema (1+ lower extremity pitting edema) Neurological Exam Neurological exam: Present alert, oriented X3 and CN II-XII intact; Absent motor sensory deficit Skin Skin exam: Present warm and dry; Absent diaphoresis or erythema Medical Decision Making Medical Records Medical records reviewed: Yes I reviewed the patient's medical records. Screening: Per USPSTF and CDC recommendations, given the prevalence of disease in our region, it is our hospital?s policy to screen for HIV and viral Hepatitis for all patients aged 18 and over and those with ongoing risk factors. Preet Inquiry Pt receiving controlled substance: No Preet was queried for this patient: No Vital Signs: 06/04/24 10:49 06/04/24 11:00 06/04/24 11:30 Temperature 97.9 F Temperature Source Oral Pulse Rate 92 H 78 Pulse Rate [Right] 93 H Respiratory Rate 20 16 14 Blood Pressure 130/87 126/76 Blood Pressure [Right Arm] 153/85 H Blood Pressure Mean [Right Arm] 107 Blood Pressure Source [Right Arm] Automatic Cuff 02 Sat by Pulse Oximetry 94 L 92 L 92 L Oxygen Delivery Method Room Air 06/04/24 12:00 06/04/24 12:31 06/04/24 12:40 Temperature Temperature Source Pulse Rate 84 97 H Pulse Rate [Right] Respiratory Rate 15 19 Blood Pressure 115/78 132/80 Blood Pressure [Right Arm] Blood Pressure Mean [Right Arm] Blood Pressure Source [Right Arm] 02 Sat by Pulse Oximetry 100 Oxygen Delivery Method 06/04/24 13:00 Temperature Temperature Source Pulse Rate Pulse Rate [Right] Respiratory Rate 21 Blood Pressure 112/64 Blood Pressure [Right Arm] Blood Pressure Mean [Right Arm] Blood Pressure Source [Right Arm] 02 Sat by Pulse Oximetry Oxygen Delivery Method Lab Data Lab Results 06/04/24 10:50: WBC 6.2, RBC 3.82 L, Hgb 12.7, Hct 41.3, MCV 108.0 H, MCH 33.1 H, MCHC 30.7 L, RDW 13.3, Plt Count 157, MPV 7.5, Neut % (Auto) 79.6, Lymph % (Auto) 11.2, [place] % (Auto) 6.1, Eos % (Auto) 2.9, Baso % (Auto) 0.2, Neut # (Auto) 4.9, Lymph # (Auto) 0.7, [place] # (Auto) 0.4, Eos # (Auto) 0.2, Baso # (Auto) 0.0, PT 13.5 H, INR 1.23 H, APTT 25.9, Sodium 133 L, Potassium 4.2, Chloride 98, Carbon Dioxide 37 H, Anion Gap 2.2 L, BUN 10, Creatinine 0.70, Estimated Creat Clear 42, Estimated GFR 83, Est GFR ( Amer) 100, Glucose 151 H, Calcium 8.3 L, Magnesium 1.7, Total Bilirubin 1.9 H, AST 33, ALT 17, Alkaline Phosphatase 109, Troponin I < 0.01, NT-Pro-B Natriuret Pep 1180 H, Total Protein 6.9, Albumin 3.6, Globulin 3.3 H, Albumin/Globulin Ratio 1.1, Lipase 136 06/04/24 11:00: VBG pH 7.26 L, VBG pCO2 72.0 H, VBG pO2 36.1, VBG HCO3 31.3 H, VBG Total CO2 33.5 H, VBG O2 Saturation 62.0, VBG Base Excess 4.2 H, VBG Lactic Acid 1.7 06/04/24 13:30: VBG pH 7.35, VBG pCO2 63.0 H, VBG pO2 37.6, VBG HCO3 34.3 H, VBG Total CO2 36.2 H, VBG O2 Saturation 70.3 H, VBG Base Excess 8.8 H, VBG Lactic Acid 1.5 06/04/24 10:50 06/04/24 10:50 Orders (Tests/Meds): ED MEDICATIONS Generic Name Dose Route Start Last Admin Trade Name Freq PRN Reason Stop Dose Admin Sodium Chloride 10 ml 06/04/24 12:24 Sodium Chloride 0.9% 10ml Vial IV 07/04/24 12:23 NEEDED PRN to Dilute Lorazepam inj Discontinued Medications Generic Name Dose Route Start Last Admin Trade Name Freq PRN Reason Stop Dose Admin Albuterol/Ipratropium 9 ml 06/04/24 11:27 06/04/24 11:42 Ipratropium/Albuterol 3 Ml Formerly [facility] 06/04/24 11:28 9 ml ONCE ONE Administration Albuterol/Ipratropium 9 ml 06/04/24 12:24 06/04/24 12:36 Ipratropium/Albuterol 3 Ml Former[facility] 06/04/24 12:25 9 ml ONCE ONE Administration Furosemide 40 mg 06/04/24 12:24 06/04/24 12:32 Furosemide 40mg/4ml Vial IV 06/04/24 12:25 40 mg ONCE ONE Administration Magnesium Sulfate 2 gm in 50 mls @ 50 mls/hr 06/04/24 11:27 06/04/24 11:42 Magnesium Sulfate 2gm/50ml Premix IV 06/04/24 12:26 50 mls/hr ONCE ONE Administration Lorazepam 1 mg 06/04/24 12:24 06/04/24 12:32 Lorazepam 2mg/Ml Vial IV 06/04/24 12:25 1 mg ONCE ONE Administration Methylprednisolone Sodium Succinate 125 mg 06/04/24 11:27 06/04/24 11:49 Methylprednisolone Sod Succ 125mg Vial IV 06/04/24 11:28 Not Given ONCE ONE ORDERS Category Date Time Status XR chest portable Stat Exams 06/04/24 11:00 Completed Complete Blood Count Auto Diff Stat Lab 06/04/24 10:50 Completed Comprehensive Metabolic Panel Stat Lab 06/04/24 10:50 Completed HIV (1&2) Antibody Rapid Stat Lab 06/04/24 10:50 Received Hep C Ab with Reflex to RNA Stat Lab 06/04/24 10:50 Received INR [Prothrombin Time INR] Stat Lab 06/04/24 10:50 Completed Lipase Stat Lab 06/04/24 10:50 Completed Magnesium Stat Lab 06/04/24 10:50 Completed NT Pro Brain Natriuretic Pep. Stat Lab 06/04/24 10:50 Completed PTT [Activated Partial Thrombo Time] Stat Lab 06/04/24 10:50 Completed Troponin I Q3H Lab 06/04/24 14:00 Ordered Troponin I Q3H Lab 06/04/24 17:00 Ordered Troponin I Stat Lab 06/04/24 10:50 Completed VBG [Venous Blood Gas] Stat RT 06/04/24 13:30 Completed Venous Blood Gas Stat RT 06/04/24 11:00 Completed HEART Score History (anamnesis): Slightly suspicious ECG: Non-specific disturbance Age: >65 years Risk factors: 3 or more risk factors Troponin: </= normal limit HEART Score: 5 Medical Decision Narrative: 69-year-old female history of hypertension, hyperlipidemia, COPD on home oxygen, CAD status post CABG x 2, stenting, A-fib with AICD in place, CHF, mechanical aortic valve on warfarin goal INR 2.5-3.5 presenting with shortness of breath. Patient states that she broke her left hip a couple days prior to this while she was out of town in [place], got the hip repaired in [place]. Has been trying to figure out home health, PT, etc. since that time. States berenice she has been taking all of her medications as prescribed without fail. States that over the past few days she has been feeling progressively short of breath and noticed that her lower extremities are swelling. Cough is productive of sputum only when using her breathing treatments and is clear, normal for her. No change in color, consistency, amount. No fevers or chills, chest pain, nausea or vomiting. Denies PND orthopnea, but patient is so short of breath baseline, difficult to tell. She also has not had to increase the amount of oxygen she has been using at home. History was obtained via conversation with patient. On arrival, patient hemodynamically stable, alert, oriented x4, appropriate, GCS 15, moving all extremities spontaneously, pupils equal and reactive to light. Full physical exam performed and significant for chronically ill appearing female who is in no acute distress. On home oxygen. Lungs with inspiratory wheezes in bilateral lung rios, no expiratory wheezes. No increased work of breathing or accessory muscle use. Patient does have right upper sternal border click, no murmur auscultated. Lower extremities are 1+ edematous with pulses equal and symmetric in upper and lower extremities. Differential includes CHF exacerbation, fluid overload, COPD exacerbation, metabolic abnormality, endocrinologic abnormality, pneumonia, sepsis, pneumothorax, PE with subtherapeutic INR, among others. Patient placed on continuous cardiac monitoring and continuous pulse ox with initial blood pressure 153/85, heart rate 93, saturation 94% on 2 L nasal cannula. Independent interpretation of EKG shows atrial fibrillation without rapid rate. Rate 88 beats a minute, QRS 173, QTc widened at 466. Right bundle branch block, no obvious acute ischemic change. Patient was give 3 DuoNebs, Solu-Medrol was given by EMS prior to arrival for symptomatic management and correction of underlying abnormalities. Workup independently interpreted and significant for nonactionable CBC or chemistry. Kidney function stable. Patient's coags with subtherapeutic INR at 1.23, this was relayed to patient. Initial VBG 7.26/CO2 72/bicarb 31 with normal lactate. Patient intolerant of BiPAP secondary to anxiety, 1 mg IV Ativan given for this. Heart score 5. On initial reevaluation about 45 minutes after BiPAP, patient sleeping comfortably. Repeat VBG drawn. On independent interpretation of imaging, patient has no acute cardiopulmonary airspace disease. See radiology read for full review of final results. Repeat VBG with normal pH, improving CO2. On reevaluation, patient continuing to sleep, but more arousable. Patient allowed to rest comfortably until Ativan metabolized and she was alert. Reevaluation around 2 PM, patient alert, ambulatory to the restroom, no shortness of breath, symptoms near completely resolved. Given patient presentation, workup, history, this most likely represents acute hypoxemic and hypercapnic respiratory failure in the setting of COPD and CHF. On further conversation, patient not agreeable to inpatient admission, requesting to go home. Because patient at baseline without signs or symptoms of clinical decompensation, deemed appropriate for discharge. Results were relayed to patient who voiced understanding and were agreeable to outpatient management and follow up. I discussed my clinical impression with patient and answered all questions. At this time, the evidence for any other entities in the differential is insufficient to warrant any further testing or ED observation. This was explained as well. Advisory was given that persistent or worsening symptoms require further evaluation. I confirmed the understanding of this discussion. [facility] disclaimer Much of this encounter note is an electronic waste reclaimer spoken language to printed text. Electronic waste reclaimer of the spoken language may permit errors. Although I have reviewed the note, some errors may still exist. Critical Care Critical Care Time Critical Care Time: Yes (respiratory, cardiac) Attestation: On 06/04/24, the high probability of a clinically significant, sudden or life threatening deterioration of the following system(s) required my full and direct attention, intervention and personal management. The time I documented below is in addition to time spent performing reported procedures but includes the following listed in this critical care notation. Total Time Total Critical Care Time: 45
[2024-06-04 11:23] LABS: Activated Partial Thrombo Time 25.9 seconds (22.8-30.6)
[2024-06-04 11:28] LABS: NT Pro Brain Natriuretic Pep. 1180 pg/mL (0-125)
[2024-06-04 11:32] LABS: Troponin I < 0.01 ng/ml (0.00-0.034)
[2024-06-04 11:34] LABS: INR 1.23 (0.9-1.1); Prothrombin Time 13.5 seconds (10.1-12.5)
--- NOTE | 2024-06-04 11:34 | PC.NURSE ---
Critical VBG results given to Dr. Pagan
[2024-06-04] MEDS: MAGNESIUM SULFATE IN WATER 2 GM/50 ML PIGGYBACK IV ×3 (11:42→20:33)
[2024-06-04] MEDS: IPRATROPIUM/ALBUTEROL 3 ML NEB 9 ML IH ×2 (11:42→12:36)
--- NOTE | 2024-06-04 11:47 | PC.NURSE ---
RESPIRATORY NOTIFIED OF BI-PAP ORDER
--- NOTE | 2024-06-04 12:11 | PC.NURSE ---
RESPIRATORY AT BEDSIDE TO SET-UP BI-PAP
--- NOTE | 2024-06-04 12:18 | PC.NURSE ---
Dr. Pagan at bedside
[2024-06-04] MEDS: LORazepam 2MG/ML VIAL 1 MG IV (12:32)
[2024-06-04] MEDS: FUROSEMIDE 40MG/4ML VIAL 40 MG IV (12:32)
--- NOTE | 2024-06-04 13:30 | PC.NURSE ---
REPEAT VBG SENT
--- NOTE | 2024-06-04 13:32 | PC.NURSE ---
Notified Christy in RT about repeat VBG order and blood sent to LAB
--- NOTE | 2024-06-04 13:32 | PC.NURSE ---
PT PLACED ON BEDPAN
[2024-06-04 13:38] LABS: Lactate Venous 1.5 mmol/L (0.4-2.0); VBG Base Excess 8.8 mmol/L (-2.4-2.3); VBG HCO3 34.3 mmol/L (23-30); VBG Oxygen Saturation 70.3 % (50-70); VBG PH 7.35 mmol/L (7.31-7.41); VBG PO2 37.6 mmol/L (28-40); VBG Total CO2 36.2 mmol/L (23-27)
--- NOTE | 2024-06-04 14:02 | PC.NURSE ---
pt ambulated to bathroom with family at bedside
--- NOTE | 2024-06-04 14:04 | PC.NURSE ---
PT AMBULATORY TO BR WITH FAMILY
--- NOTE | 2024-06-04 14:04 | PC.NURSE ---
pt ambulated to the bathroom with family.
--- NOTE | 2024-06-04 14:12 | PC.NURSE ---
DR SANCHEZ AT BEDSIDE TO UPDATE PT AND FAMILY
--- NOTE | 2024-06-04 14:45 | PC.NURSE ---
reviewed d/c information and instructions with daughter. Pt is still very sleepy and daughter would like for her to wake up more before d/c. Call light at bedside
[2024-06-04 15:03] LABS: HIV (1&2) Antibody Rapid NONREACTIVE (NONREACTIVE)
--- NOTE | 2024-06-04 15:30 | PC.NURSE ---
Dr. Jimenez at bedside
--- NOTE | 2024-06-04 15:38 | PC.NURSE ---
Pt's resting sat dropped to 82%. I woke her up and sat only improved to 86%. Pt states she really doesn't want to stay but her daughter does. Pt & daughter s/w Dr. Jimenez for several minutes and pt states she will stay 1 night. Pt assisted to the bathroom and placed back on bipap and sat improved to 95% quickly.
--- NOTE | 2024-06-04 15:40 | PC.NURSE ---
[facility] FOLDING MACHINE OPERATOR NOTIFIED OF ADMISSION
--- NOTE | 2024-06-04 16:06 | PC.NURSE ---
Called report to [place] RN on Med/Surg
--- NOTE | 2024-06-04 16:37 | PC.NURSE ---
SPOKE WITH CHARGE NURSE TO CHECK ON UPDATE FOR PT TO BE TAKEN UPSTAIRS FOR ADMISSION
--- NOTE | 2024-06-04 16:50 | PC.NURSE ---
Pt went to the bathroom and then assisted to Med/Surg unit via wheelchair
--- NOTE | 2024-06-04 16:59 | PC.NURSE ---
arrived by w/c from ED
--- NOTE | 2024-06-04 18:22 | P.HP_ITS ---
History of Present Illness *History of present illness: Ms. Karlene Katz is a 69-year-old female history of hypertension, hyperlipidemia, COPD (no home O2), CAD status post CABG x 2, stenting, A-fib with AICD in place, CHF, mechanical mitral valve on warfarin goal INR 2.5-3.5 presenting with progressive shortness of breath. She states has been going on for 1 week with many weeks of lower extremity pitting edema. She also endorses nonproductive cough, but denies chest pain, fevers. Of note, she had a fall when she was traveling to [place] and fractured her left hip s/p total hip replacement. She uses a walker and cane at home for ambulation. Workup in the ED revealed initial respiratory acidosis with hypercarbia, which improved after breathing treatments and BiPAP treatment. However, patient desaturated on walk test and requires 2 L via nasal cannula. Not currently on home O2. BNP 1180. Troponin unremarkable. EKG unremarkable for acute ischemic findings. Case discussed with the ED attending and decision was made to admit patient for acute hypoxic respiratory failure from CHF and COPD exacerbation. [facility] Disclaimer: The information contained in this section may have been updated after the patient was seen, as this information can be updated by other users. Medical History Hypertension Long-term (current) use of anticoagulants, INR goal 2.5-3.5 Surgical History History of artificial heart valve Family History (Updated 06/04/24 @ 17:31 by Santa Miller RN) Other No significant family history Social History (Updated 06/04/24 @ 17:31 by Santa Miller RN) Smoking Status: Current every day smoker tobacco type: cigarettes packs per day: 1 alcohol intake: never substance use type: marijuana current occupational status: retired Travel in the last 8 weeks: None household members: significant other and children housing: house caffeine: No Meds Home Medications and Allergies Home Medications ?Medication ?Instructions ?Recorded ?Confirmed ?Type carvedilol 12.5 mg tablet 12.5 mg PO BID Hypertension 11/18/20 06/04/24 History furosemide 40 mg tablet (Lasix) 40 mg PO DAILY Fluid 11/18/20 06/04/24 History warfarin 4 mg tablet 4 mg PO DAILY Blood thinner 11/18/20 06/04/24 History ipratropium 20 mcg-albuterol 100 2 puff inhalation QID PRN 01/23/22 06/04/24 Rx mcg/actuation mist for inhalation Shortness Of Breath Or Wheezing 90 days #120 ea triamcinolone acetonide 0.025 % 1 applicatio topical TIDP PRN 03/22/22 06/04/24 Rx topical cream Itching 7 days #1 g scopolamine base 1 mg over 3 days 1 patch transdermal Q3D PRN motion 07/18/22 06/04/24 Rx transdermal patch sickness #4 ea albuterol sulfate 90 mcg/actuation 4 inh inhalation Q4H PRN shortness 04/24/23 06/04/24 Rx aerosol inhaler of breath or wheezing #8.5 grams benzonatate 100 mg capsule 100 mg PO TID PRN cough 5 days #20 04/24/23 06/04/24 Rx caps ondansetron 4 mg disintegrating 4 mg PO Q6H PRN nausea and 03/09/24 06/04/24 Rx tablet vomiting #10 tabs ipratropium 0.5 mg-albuterol 3 mg 3 ml inhalation Q4H PRN shortness 06/04/24 Rx (2.5 mg base)/3 mL nebulization of breath #180 mL soln New Prescriptions to Start Prescriptions: ipratropium-albuterol Alhaji Pagan Allergies Allergy/AdvReac Type Severity Reaction Status Date / Time nitroglycerin Allergy Intermediate Unknown Verified 06/04/24 16:21 allergy reaction aspirin AdvReac Intermediate stomach Verified 06/04/24 16:21 issues NSAIDS (Non-Steroidal AdvReac Intermediate stomach Verified 06/04/24 16:21 Anti-Inflamma issues procainamide AdvReac Intermediate stomach Verified 06/04/24 16:21 issues Exam Data for Last 24 hours Vital signs and Labs for Last 24 Hours: Temp Pulse Resp BP Pulse Ox O2 Del Method O2 Flow Rate 97.7 F 107 H 20 129/79 100 Nasal Cannula 2 06/04/24 17:11 06/04/24 17:11 06/04/24 17:11 06/04/24 17:11 06/04/24 17:11 06/04/24 17:11 06/04/24 17:11 FiO2 28 06/04/24 12:38 Laboratory Results - last 24 hr 06/04/24 10:50: WBC 6.2, RBC 3.82 L, Hgb 12.7, Hct 41.3, MCV 108.0 H, MCH 33.1 H , MCHC 30.7 L, RDW 13.3, Plt Count 157, MPV 7.5, Neut % (Auto) 79.6, Lymph % (Auto) 11.2, [place] % (Auto) 6.1, Eos % (Auto) 2.9, Baso % (Auto) 0.2, Neut # (Auto) 4.9, Lymph # (Auto) 0.7, [place] # (Auto) 0.4, Eos # (Auto) 0.2, Baso # (Auto) 0.0, PT 13.5 H, INR 1.23 H, APTT 25.9, Sodium 133 L, Potassium 4.2, Chloride 98, Carbon Dioxide 37 H, Anion Gap 2.2 L, BUN 10, Creatinine 0.70, Estimated Creat Clear 42, Estimated GFR 83, Est GFR ( Amer) 100, Glucose 151 H, Calcium 8.3 L, Magnesium 1.7, Total Bilirubin 1.9 H, AST 33, ALT 17, Alkaline Phosphatase 109, Troponin I < 0.01, NT-Pro-B Natriuret Pep 1180 H, Total Protein 6.9, Albumin 3.6, Globulin 3.3 H, Albumin/Globulin Ratio 1.1, Lipase 136, HIV 1&2 Antibody Rapid Nonreactive 06/04/24 11:00: VBG pH 7.26 L, VBG pCO2 72.0 H, VBG pO2 36.1, VBG HCO3 31.3 H, VBG Total CO2 33.5 H, VBG O2 Saturation 62.0, VBG Base Excess 4.2 H, VBG Lactic Acid 1.7 06/04/24 13:30: VBG pH 7.35, VBG pCO2 63.0 H, VBG pO2 37.6, VBG HCO3 34.3 H, VBG Total CO2 36.2 H, VBG O2 Saturation 70.3 H, VBG Base Excess 8.8 H, VBG Lactic Acid 1.5 I & O for Last 24 hours: Intake & Output 06/01/24 06/02/24 06/03/24 06/04/24 23:59 23:59 23:59 23:59 Output Total 0 / 0 Balance 0 / 0 Weight 56.359 kg Constitutional Constitutional: no acute distress *Routine HEENT Exam Head: Present normocephalic Eye: Present EOMI and PERRL ENT: Present mucous membranes moist *Routine Neck Exam Neck: Present supple; Absent lymphadenopathy *Routine Respiratory Exam Respiratory: Present prolonged expiratory phase and wheezes; Absent CTA bilaterally *Routine Cardiovascular Exam Cardiovascular: Present RRR *Routine Abdominal Exam Abdominal: Present soft and normoactive bowel sounds; Absent tenderness *Routine Rectal Exam Rectal:: deferred *Routine Genitalia Exam Genitalia:: deferred *Routine Extremities Exam Extremities: Absent cyanosis, clubbing or edema *Routine Skin Exam Skin: Present warm; Absent rash *Routine Neurological Exam Neurological: Present alert and oriented X3 Assessment and Plan *Assessment and plan (1) CHF exacerbation: Status: Acute Category: Medical Code(s): I50.9 - Heart failure, unspecified (2) Acute hypercapnic respiratory failure: Status: Acute Category: Medical Code(s): J96.02 - Acute respiratory failure with hypercapnia (3) Acute exacerbation of chronic obstructive pulmonary disease: Status: Acute Category: Medical Code(s): J44.1 - Chronic obstructive pulmonary disease with (acute) exacerbation Plan Ms. Karlene Katz is a 69-year-old female history of hypertension, hyperlipidemia, COPD (no home O2), CAD status post CABG x 2, stenting, A-fib with AICD in place, CHF, mechanical mitral valve on warfarin goal INR 2.5-3.5 presenting with progressive shortness of breath. Workup in the ED revealed initial respiratory acidosis with hypercarbia, which improved after breathing treatments and BiPAP. However, patient desaturated on walk test and requires 2 L via nasal cannula. Not currently on home O2. BNP 1180. Troponin unremarkable. EKG unremarkable for acute ischemic findings. Case discussed with the ED attending and decision was made to admit patient for acute hypoxic respiratory failure from CHF and COPD exacerbation. #Acute hypoxic respiratory failure #Acute on chronic hypercapnic respiratory failure ?Likely secondary to HFpEF exacerbation and acute COPD exacerbation. ? Currently requiring 2 L nasal cannula. Wean as tolerated #HFpEF exacerbation ? Worsening shortness of breath, lower extremity edema. BNP 1180. Troponin unremarkable, EKG unremarkable for acute ischemic findings. ? Bilateral lower extremity 1+ pitting edema. CXR unremarkable for acute process. ? ECHO 01/2022 reveals LVEF 55%, mild concentric left ventricular hypertrophy, biatrial enlargement, normal mechanical prosthetic mitral valve, moderately enlarged right ventricle, moderate tricuspid regurgitation, RVSP 33 mmHg. ? IV Lasix 30 mg twice daily. Home regimen 40 mg daily. ? Blood pressure well-controlled and stable at this time. ? Follow-up repeat ECHO. ? Monitor urine output, electrolytes, renal function. Electrolyte replacement protocol initiated. Renal function normal at this time. ? Strict KATHERINE's, fluid/water restriction, and elevation. #COPD exacerbation ? Longstanding history of smoking, current smoker. Uses albuterol, DuoNebs as needed. No maintenance inhaler. No home O2. ? Initial VBG revealed respiratory acidosis with hypercarbia. Improved after BiPAP. ? CXR unremarkable or acute process. ? DuoNebs scheduled and as needed. ? Prednisone/steroids 40 mg day 09/21. ? Antibiotics not indicated at this time given no purulent sputum. Chronic problems: #CAD s/p CABG X2 ? Aspirin, statin. #A-fib with AICD #Mechanical mitral valve on warfarin #Subtherapeutic INR ? Currently rate controlled. ? Initial INR 1.23, goal is 2.5?3.5. Patient reports compliance, but states she takes only 4 mg only on Tuesdays and 2 mg the other days. 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 ? Continue warfarin 4 mg daily at this time given subtherapeutic INR. ? Repeat INR tomorrow. #Hypertension ? Resume home medications once reconciled. CODE STATUS: Full code DVT prophylaxis: Home warfarin Diet: Cardiac
[2024-06-04] MEDS: FUROSEMIDE 40MG/4ML VIAL 30 MG IV (19:10)
[2024-06-04] MEDS: CARVEDILOL 12.5MG TABLET 12.5 MG PO (20:35)
[2024-06-04] MEDS: ATORVASTATIN 40MG TABLET 40 MG PO (20:35)
[2024-06-05] VITALS (10 sets, daily range): BP systolic 93–115; BP diastolic 52–54; PULSE 69–108; RESP 16–19; TEMP 36.4–37.1; O2SAT 91–96; BMI 19.1
--- NOTE | 2024-06-05 03:43 | PC.NURSE ---
HAS RECEIVED TOTAL OF 3 MAGNESIUM 2 GRAM/50 ML BAGS (1 IN THER ED AND 2 ON MED SURG). TO HAVE LABS DRAWN THIS AM FOR FOLLOW UP ON ELECTROLYTE REPLACEMENT. 02 SAT 90-91 % ON 1 LITER NC. ECHO HAS BEEN ORDERED FOR THIS AM. NO C/O SOA/CP/OR DISCOMFORT.
[2024-06-05] MEDS: IPRATROPIUM/ALBUTEROL 3 ML NEB IH ×4 (06:06→23:03)
[2024-06-05 06:40] LABS: HCV Ab Non Reactive (Non Reactive)
[2024-06-05 07:18] LABS: Eosinophils % 0.1 % (0.1-12.0); Hematocrit 38.2 % (37.0-47.0); Lymphocytes # 0.3 K/mm3 (0.7-4.5); Lymphocytes % 7.2 % (10-50); Mean Corpuscular HGB Conc 31.3 g/dL (31.8-35.4); Mean Corpuscular Volume 105.3 fl (81-99); Mean Platelet Volume 8.5 fl (7.4-10.4); Monocytes # 0.3 K/mm3 (0.1-1.0); Monocytes % 7.3 % (1.7-9.3); Neutrophils # 3.4 K/mm3 (1.8-7.8); Neutrophils % 85.3 % (37.0-80.0); Platelet Count 122 K/mm3 (142-424); Red Blood Count 3.63 M/mm3 (4.20-5.40); Red Cell Distribution Width 13.4 % (11.5-17.5)
[2024-06-05 07:27] LABS: Blood Urea Nitrogen 14 mg/dl (7-17); Chloride 95 mmol/L (98-107); Creatinine Clearance Estimated 49 mL/min (50-200); Estimated Glomerular Filt Rate 71 ml/min (>60); GFR (African American) 86 ML/MIN (>60); Glucose 179 mg/dl (74-100); Magnesium 2.6 mg/dl (1.6-2.3); Potassium 3.8 mmoL/L (3.5-5.1); Sodium 134 mmol/L (136-145)
[2024-06-05 07:31] LABS: MANUAL DIFFERENTIAL MANUAL DIFFERENTIAL (MANUAL DIFF)
[2024-06-05 07:34] LABS: Anion Gap 5.8 mEq/L (5-15); Carbon Dioxide 37 mmol/L (22.0-30.0)
[2024-06-05 07:38] LABS: INR 1.23 (0.9-1.1); Prothrombin Time 13.5 seconds (10.1-12.5)
--- NOTE | 2024-06-05 09:44 | PC.NURSE ---
Dr. Amy gibbs to give lasix and hold coreg.
[2024-06-05] MEDS: FUROSEMIDE 40MG/4ML VIAL 30 MG IV ×2 (09:48→16:15)
[2024-06-05] MEDS: predniSONE 20MG TAB 40 MG PO (09:49)
[2024-06-05] MEDS: ASPIRIN EC 81MG TABLET 81 MG PO (09:49)
[2024-06-05 10:15] LABS: Lymphocytes % 6 % (10-50); Monocytes % 3 % (2-9); Neutrophils % 91 % (42-76); Total Cells Counted 100
[2024-06-05 10:16] LABS: Hypochromasia 1+; Macrocytosis 1+; Platelet Estimate Slight Decrease
--- NOTE | 2024-06-05 11:49 | SW/DCPLANNER ---
Addendum entered by Gely Nobles 06/06/24 09:43: Cindi davis/ [facility] stated that services will start Saturday 06/09 for this patient. Addendum entered by Gely Nobles 06/06/24 08:35: Patient information/order has been faxed to [facility]. Original Note: I spoke w/ this patient regarding plans once medically stable for discharge. PT/OT evaluated patient and recommended home w/ home health services. Patient is agreeable to home health and does not have a preference as to which agency. Discharge date is unknown at this time. Home health will be set up at time of discharge.
[2024-06-05] MEDS: WARFARIN 2MG TABLET 4 MG PO (11:51)
--- NOTE | 2024-06-05 17:03 | P.PN_ITS ---
Subjective *Date: 06/05/24 *Time: 17:03 Interval history: Patient is lying comfortably in bed without acute concerns or distress. She states she feels better today, states her lower extremity edema has significantly improved after diuresis. However, she feels very nervous about going home today because she feels she will get worse and return to the hospital with the same problem. Denies chest pain, shortness of breath, abdominal pain. Exam Data for Last 24 hours Vital signs and Labs for Last 24 Hours: Temp Pulse Resp BP Pulse Ox O2 Del Method O2 Flow Rate 98.2 F 98 H 19 109/53 L 94 L Room Air 1 06/05/24 16:00 06/05/24 16:00 06/05/24 16:00 06/05/24 16:00 06/05/24 16:00 06/05/24 16:25 06/05/24 09:00 FiO2 28 06/04/24 12:38 Laboratory Results - last 24 hr 06/04/24 10:50: Hepatitis C Antibody Non reactive 06/05/24 05:59: WBC 4.0 L D, RBC 3.63 L, Hgb 12.0 L, Hct 38.2, MCV 105.3 H, MCH 33.0 H, MCHC 31.3 L, RDW 13.4, Plt Count 122 L, MPV 8.5, Neut % (Auto) 85.3 H, Lymph % (Auto) 7.2 L, [place] % (Auto) 7.3, Eos % (Auto) 0.1, Baso % (Auto) 0.0 L, Neut # (Auto) 3.4, Lymph # (Auto) 0.3 L, [place] # (Auto) 0.3, Eos # (Auto) 0.0, Baso # (Auto) 0.0, Total Counted 100, Neutrophils % (Manual) 91 H, Lymphocytes % (Manual) 6 L, Monocytes % (Manual) 3, Platelet Estimate Slight decrease, Hypochromasia 1+, Macrocytosis 1+, PT 13.5 H, INR 1.23 H, Sodium 134 L, Potassium 3.8, Chloride 95 L, Carbon Dioxide 37 H, Anion Gap 5.8, BUN 14 D, Creatinine 0.80, Estimated Creat Clear 49, Estimated GFR 71, Est GFR ( Amer) 86, Glucose 179 H, Calcium 8.0 L, Magnesium 2.6 H D I & O for Last 24 hours: Intake & Output 06/02/24 06/03/24 06/04/24 06/05/24 23:59 23:59 23:59 23:59 Intake Total 700 / 700 Output Total 600 / 600 600 / 600 Balance -600 / -260 100 / 100 Weight 56.359 kg 58.423 kg Constitutional Constitutional: no acute distress *Routine HEENT Exam Head: Present normocephalic Eye: Present EOMI and PERRL ENT: Present mucous membranes moist *Routine Neck Exam Neck: Present supple; Absent lymphadenopathy *Routine Respiratory Exam Respiratory: Present CTA bilaterally *Routine Cardiovascular Exam Cardiovascular: Present RRR *Routine Abdominal Exam Abdominal: Present soft and normoactive bowel sounds; Absent tenderness *Routine Extremities Exam Extremities: Present edema; Absent cyanosis or clubbing Comments: Bilateral lower extremity 1+ pitting edema up to hips. *Routine Skin Exam Skin: Present warm; Absent rash *Routine Neurological Exam Neurological: Present alert and oriented X3 Assessment and Plan *Assessment and plan (1) CHF exacerbation: Status: Acute Qualifiers: Heart failure type: diastolic Qualified Code(s): I50.33 - Acute on chronic diastolic (congestive) heart failure Category: Medical Code(s): I50.9 - Heart failure, unspecified (2) Acute hypercapnic respiratory failure: Status: Acute Category: Medical Code(s): J96.02 - Acute respiratory failure with hypercapnia (3) Acute exacerbation of chronic obstructive pulmonary disease: Status: Acute Category: Medical Code(s): J44.1 - Chronic obstructive pulmonary disease with (acute) exacerbation (4) Acute hypoxic respiratory failure: Status: Acute Category: Medical Code(s): J96.01 - Acute respiratory failure with hypoxia Plan Ms. Karlene Katz is a 69-year-old female history of hypertension, hyperlipidemia, COPD (no home O2), CAD status post CABG x 2, stenting, A-fib with AICD in place, CHF, mechanical mitral valve on warfarin goal INR 2.5-3.5 presenting with progressive shortness of breath. Workup in the ED revealed initial respiratory acidosis with hypercarbia, which improved after breathing treatments and BiPAP. However, patient desaturated on walk test and requires 2 L via nasal cannula. Not currently on home O2. BNP 1180. Troponin unremarkable. EKG unremarkable for acute ischemic findings. Case discussed with the ED attending and decision was made to admit patient for acute hypoxic respiratory failure from CHF and COPD exacerbation. Respiratory failure resolved today. Weaned to room air. Responding well to diuresis. Patient nervous about going home today, plan to discharge tomorrow if stable. #Acute hypoxic respiratory failure, resolved #Acute on chronic hypercapnic respiratory failure, resolved ? Secondary to HFpEF exacerbation and acute COPD exacerbation. ? Weaned to room air today. #HFpEF exacerbation ? Worsening shortness of breath, lower extremity edema. BNP 1180. Troponin unremarkable, EKG unremarkable for acute ischemic findings. ? Bilateral lower extremity 1+ pitting edema. CXR unremarkable for acute process. ? ECHO 01/2022 reveals LVEF 55%, mild concentric left ventricular hypertrophy, biatrial enlargement, normal mechanical prosthetic mitral valve, moderately enlarged right ventricle, moderate tricuspid regurgitation, RVSP 33 mmHg. ? Patient states she feels better today, and that her lower extremity edema has improved a lot. However, she feels very nervous about going home today because she feels she will get worse and return to the hospital with the same problem. ? IV Lasix 30 mg twice daily. Home regimen 40 mg daily. Plan to discharge with Lasix 40 mg twice daily. ? Blood pressure well-controlled and stable at this time. ? Follow-up repeat ECHO. ? Monitor urine output, electrolytes, renal function. Electrolyte replacement protocol initiated. Renal function stable at this time. ? Strict KATHERINE's, fluid/water restriction, and elevation. #COPD exacerbation ? Longstanding history of smoking, current smoker. Uses albuterol, DuoNebs as needed. No maintenance inhaler. No home O2. ? Initial VBG revealed respiratory acidosis with hypercarbia. Improved after BiPAP. ? CXR unremarkable or acute process. ? DuoNebs scheduled and as needed. ? Prednisone/steroids 40 mg day 2/5. ? Antibiotics not indicated at this time given no purulent sputum. Chronic problems: #CAD s/p CABG X2 ? Aspirin, statin. #A-fib with AICD #Mechanical mitral valve on warfarin #Subtherapeutic INR ? Currently rate controlled. ? Initial INR 1.23, goal is 2.5?3.5. Patient reports compliance, but states she takes only 4 mg only on Tuesdays and 2 mg the other days. 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 ? Continue warfarin 4 mg daily at this time given subtherapeutic INR. ? Repeat INR tomorrow. #Hypertension ? Resume home medications once reconciled. CODE STATUS: Full code DVT prophylaxis: Home warfarin Diet: Cardiac
--- NOTE | 2024-06-05 18:42 | CA_ITS ---
APPROVED REPORT EXAM: Comprehensive 2D, Doppler, and color-flow Echocardiogram [employer] [facility]: [place] CRT Ht: 5 ft 5 in Wt: 124lbs BSA: 1.61 BP: 112/64 mmHg Indications: Congestive Heart Failure, Atrial Fibrillation, Diabetes, Peripheral Edema, CAD, Hyperlipidemia, Hypertension/HDD, resp failure, CABG, AICD, COPD, smoker, mechanical MVR Pt declined to roll on Left side all images obtained with pt flat on back. M-Mode Dimensions LA Diam 3.39 cm (1.9-4.0) LVDd 3.35 cm (3.5-5.7) LVDs 2.43 cm (3.5-5.7) IVSd 1.03 cm (0.6-1.1) PWd 0.93 cm (0.6-1.1) EF (Teich) 54.60% FS 27.50% EDV (Teich) 45.80 mL ESV (Teich) 20.80 mL LV Diastology E Decel Time 170 (160-240 msec) E/A Ratio 3.32 MED A' 4.00 cm/s LAT A' 2.70 cm/s Aortic Valve AO Peak GR. 9.00 mmHg Mitral Valve MV E Max Malik. 164.0 (40-130 cm/s) MV A Velocity 49.0 (40-130 cm/s) E/A Ratio 3.32 MV Mean Gr. 4.50 (<2mmHg) MV PHT 50.0 ms Pulmonary Valve PV Peak Velocity 148.0 (50-150 cm/s) Tricuspid Valve TR P. Velocity 254.00 cm/s RAP Estimate 10.00 mmHg RVSP 35.70 mmHg Left Ventricle The left ventricle is normal size. The left ventricular systolic function is normal. The left ventricular ejection fraction is within the normal range. There is increased LV wall thickness. No obvious regional wall motion abnormalities are noted. Diastolic function is indeterminate. LVEF is 55%. Right Ventricle Right ventricle is moderately dilated. The right ventricular systolic function is normal. There is a device lead present in the RV. Atria Left atrium is mildly dilated. Right atrium is moderately dilated. There is no Doppler evidence of interatrial shunt. Aortic Valve The aortic valve is mildly thickened. There is no aortic valvular stenosis. Trace aortic regurgitation. Mitral Valve s/p mechanical MVR. The mitral valve prosthesis is well-seated. Mean MV gradient 4 mmHg (HR 68 bpm). Peak E velocity 155 cm/s. Mild central mitral regurgitation. Tricuspid Valve The tricuspid valve leaflets are thin and pliable. Moderate to severe tricuspid regurgitation. RVSP is 25-30 mmHg. Pulmonic Valve The pulmonary valve is grossly normal in structure. Trace pulmonic regurgitation. Great Vessels The aortic root is not well-visualized. The IVC is normal in size, but collapses < 50% with respirophasic variation. RA pressure is estimated at 8 mmHg. Pericardium There is no pericardial effusion. Other Information Study Quality: Technically Difficult Conclusion Technically difficult study due to poor acoustic windows and mechanical MVR shadowing. Normal LV systolic function. Moderate RV dilation with normal RV function. Biatrial dilation. Moderate to severe TR. s/p mechanical MVR. Mean MV gradient acceptable at 4 mmHg. Mild MR. RVSP 25-30 mmHg. Compared to prior study from 01/19/2022, there are overall no significant changes. Electronically signed by : Violet Murrieta MD 06/06/2024 01:32:56
[2024-06-05] MEDS: ATORVASTATIN 40MG TABLET 40 MG PO (20:46)
[2024-06-05] MEDS: CARVEDILOL 12.5MG TABLET 12.5 MG PO (20:46)
[2024-06-06] VITALS: BP 97/58; PULSE 82; RESP 16; TEMP 36.8; O2SAT 91
[2024-06-06 04:00] VITALS: BP 97/53; PULSE 82; PULSE 83; RESP 20; TEMP 36.6; O2SAT 95
--- NOTE | 2024-06-06 04:04 | PC.NURSE ---
WAS ON ROOM AIR MOST OF THE DAY. 02 AT 1LNC APPLIED AT HS. LUNGS DIMINISHED WITH FINE CRACKLES AT BASES , R>L. OCCASSIONAL DRY COUGH NOTED. AFIB ON TELE UNTIL MN WHEN CONVERTED TO SR/BBB/1ST DEGREE AVB. NO PACEMAKER SPIKES NOTED. PUREWICK IN PLACE. UOP 1475. DENIES SOA WHILE AT REST. DENIES CP/DISCOMFORT. CHRONIC NON-PITTING EDEMA BILAT LEs, SKIN ON LOWER LEGS HARD. 02 SATS 91-96% ON 02. ECHO OBTAINED 06/05 BUT RESULTS PENDING.
[2024-06-06 06:15] VITALS: PULSE 81; PULSE 83; O2SAT 96
[2024-06-06] MEDS: IPRATROPIUM/ALBUTEROL 3 ML NEB IH ×2 (06:15→13:16)
[2024-06-06 07:03] LABS: Eosinophils % 0.3 % (0.1-12.0); Hematocrit 35.1 % (37.0-47.0); Hemoglobin 10.7 g/dL (12.2-16.2); Lymphocytes # 0.5 K/mm3 (0.7-4.5); Lymphocytes % 7.3 % (10-50); Mean Corpuscular HGB Conc 30.4 g/dL (31.8-35.4); Mean Corpuscular Volume 105.2 fl (81-99); Mean Platelet Volume 8.1 fl (7.4-10.4); Monocytes # 0.4 K/mm3 (0.1-1.0); Neutrophils # 5.7 K/mm3 (1.8-7.8); Neutrophils % 86.4 % (37.0-80.0); Platelet Count 129 K/mm3 (142-424); Red Blood Count 3.33 M/mm3 (4.20-5.40); Red Cell Distribution Width 13.2 % (11.5-17.5); White Blood Count 6.6 K/mm3 (4.8-10.8)
[2024-06-06 07:09] LABS: INR 1.47 (0.9-1.1); Prothrombin Time 15.8 seconds (10.1-12.5)
[2024-06-06 07:10] LABS: Blood Urea Nitrogen 17 mg/dl (7-17); Chloride 95 mmol/L (98-107); Creatinine Clearance Estimated 51 mL/min (50-200); Estimated Glomerular Filt Rate 71 ml/min (>60); GFR (African American) 86 ML/MIN (>60); Glucose 133 mg/dl (74-100); Potassium 3.4 mmoL/L (3.5-5.1); Sodium 133 mmol/L (136-145)
[2024-06-06 07:17] LABS: Anion Gap 3.4 mEq/L (5-15); Carbon Dioxide 38 mmol/L (22.0-30.0)
[2024-06-06 07:20] LABS: MANUAL DIFFERENTIAL MANUAL DIFFERENTIAL (MANUAL DIFF)
[2024-06-06 08:00] VITALS: BP 117/66; PULSE 85; PULSE 86; RESP 16; TEMP 36.6; O2SAT 88
--- NOTE | 2024-06-06 08:08 | EXP.DC.SUM ---
General Admission date:: 06/04/24 Discharge date: 06/06/24 HPI HPI HPI: Ms. Karlene Katz is a 69-year-old female history of hypertension, hyperlipidemia, COPD (no home O2), CAD status post CABG x 2, stenting, A-fib with AICD in place, CHF, mechanical mitral valve on warfarin goal INR 2.5-3.5 presenting with progressive shortness of breath. She states has been going on for 1 week with many weeks of lower extremity pitting edema. She also endorses nonproductive cough, but denies chest pain, fevers. Of note, she had a fall when she was traveling to [place] and fractured her left hip s/p total hip replacement. She uses a walker and cane at home for ambulation. Workup in the ED revealed initial respiratory acidosis with hypercarbia, which improved after breathing treatments and BiPAP treatment. However, patient desaturated on walk test and requires 2 L via nasal cannula. Not currently on home O2. BNP 1180. Troponin unremarkable. EKG unremarkable for acute ischemic findings. Case discussed with the ED attending and decision was made to admit patient for acute hypoxic respiratory failure from CHF and COPD exacerbation. Hospital Course Hospital Course Hospital Course: Ms. Karlene Katz is a 69-year-old female history of hypertension, hyperlipidemia, COPD (no home O2), CAD status post CABG x 2, stenting, A-fib with AICD in place, CHF, mechanical mitral valve on warfarin goal INR 2.5-3.5 presenting with progressive shortness of breath. Workup in the ED revealed initial respiratory acidosis with hypercarbia, which improved after breathing treatments and BiPAP. However, patient desaturated on walk test and requires 2 L via nasal cannula. Not currently on home O2. BNP 1180. Troponin unremarkable. EKG unremarkable for acute ischemic findings. Case discussed with the ED attending and decision was made to admit patient for acute hypoxic respiratory failure from CHF and COPD exacerbation. Respiratory failure showed improvement. Stable on 2 L oxygen by day of discharge. Needs close follow-up to address INR. Stable to discharge home. Problems addressed as follows: #Acute hypoxic respiratory failure, resolved #Acute on chronic hypercapnic respiratory failure, resolved ? Secondary to HFpEF exacerbation and acute COPD exacerbation. Improving with treatment with diuretics and nebulizers. See below. #HFpEF exacerbation ? Worsening shortness of breath, lower extremity edema. BNP 1180. Troponin unremarkable, EKG unremarkable for acute ischemic findings on admission. Edema improved with diuresis. ECHO 01/2022 reveals LVEF 55%, mild concentric left ventricular hypertrophy, biatrial enlargement, normal mechanical prosthetic mitral valve, moderately enlarged right ventricle, moderate tricuspid regurgitation, RVSP 33 mmHg. Patient states she feels better today, and that her lower extremity edema has improved a lot. However, she feels very nervous about going home today because she feels she will get worse and return to the hospital with the same problem. Will continue Lasix at discharge 40 mg p.o. twice daily. Has responded well with improved volume status. Repeat echo: Technically difficult study. No change since 2021. Mild to moderate severe tricuspid regurgitation. Mild RV dilation with normal RV function. Stable to discharge home with further outpatient management. #COPD exacerbation ? Longstanding history of smoking, current smoker. Uses albuterol, DuoNebs as needed. No maintenance inhaler. No home O2. Required oxygen during admission. Had respiratory acidosis and hypercarbia on admission. Improved with BiPAP. Transition to nasal cannula oxygen with stable blood gas. Will continue prednisone 40 mg daily to complete 5 days for COPD exacerbation. No indication for antibiotics at this time given no increase in sputum production. DuoNebs sent, will provide nebulizer through [facility]. Patient also necessitating supplemental oxygen. Room air saturation at rest on morning of discharge 88%. Continue 2 L nasal cannula oxygen continuously. Chronic problems: #CAD s/p CABG X2: Continue Lipitor 40 mL grams nightly. On warfarin, holding aspirin. #A-fib with AICD #Mechanical mitral valve on warfarin #Subtherapeutic INR ? Currently rate controlled. Initial INR 1.23 on admission, improved to 1.5 on day of discharge. Recommend continuing 5 mg warfarin daily until repeat INR on Sunday. Wants to follow with her primary care, encouraged her to consider Coumadin clinic at [facility]. Will defer decision to patient. Goal INR 2.5-3.5. Needs close follow-up for repeat levels check and adjustment to medications #Hypertension: Continue Lasix 40 mg twice daily Total time spent on discharge 32 minutes in counseling, documentation, chart review, and direct care with patient. Exam Data for Last 24 hours Vital signs and Labs for Last 24 Hours: Temp Pulse Resp BP Pulse Ox O2 Del Method O2 Flow Rate 97.9 F 81 20 97/53 L 96 Nasal Cannula 1 06/06/24 04:00 06/06/24 06:15 06/06/24 04:00 06/06/24 04:00 06/06/24 06:15 06/06/24 06:33 06/06/24 06:33 FiO2 28 06/04/24 12:38 Laboratory Results - last 24 hr 06/05/24 05:59: Total Counted 100, Neutrophils % (Manual) 91 H, Lymphocytes % (Manual) 6 L, Monocytes % (Manual) 3, Platelet Estimate Slight decrease, Hypochromasia 1+, Macrocytosis 1+ 06/06/24 06:16: WBC 6.6 D, RBC 3.33 L, Hgb 10.7 L, Hct 35.1 L, MCV 105.2 H, MCH 32.0 H, MCHC 30.4 L, RDW 13.2, Plt Count 129 L, MPV 8.1, Neut % (Auto) 86.4 H, Lymph % (Auto) 7.3 L, [place] % (Auto) 6.0, Eos % (Auto) 0.3, Baso % (Auto) 0.0 L, Neut # (Auto) 5.7, Lymph # (Auto) 0.5 L, [place] # (Auto) 0.4, Eos # (Auto) 0.0, Baso # (Auto) 0.0, PT 15.8 H, INR 1.47 H, Sodium 133 L, Potassium 3.4 L, Chloride 95 L, Carbon Dioxide 38 H, Anion Gap 3.4 L, BUN 17, Creatinine 0.80, Estimated Creat Clear 51, Estimated GFR 71, Est GFR ( Amer) 86, Glucose 133 H, Calcium 8.0 L I & O for Last 24 hours: Intake & Output 06/03/24 06/04/24 06/05/24 06/06/24 23:59 23:59 23:59 23:59 Intake Total 1060 / 1060 Output Total 600 / 600 875 / 875 Balance -600 / -260 185 / 185 Weight 56.359 kg 58.423 kg 61.326 kg Constitutional Constitutional: no acute distress, thin, chronically ill appearing and cooperative *Routine HEENT Exam Head: Present normocephalic Eye: Present EOMI and PERRL ENT: Present mucous membranes moist *Routine Neck Exam Neck: Present supple; Absent lymphadenopathy Routine Chest/Breast/Axilla Exam Comments: Well-healed sternotomy scar *Routine Respiratory Exam Respiratory: Present prolonged expiratory phase, wheezes and diminished air movement; Absent rhonchi or crackles *Routine Cardiovascular Exam Cardiovascular: Present RRR *Routine Abdominal Exam Abdominal: Present soft and normoactive bowel sounds; Absent tenderness *Routine Rectal Exam Patient deferred: visual exam *Routine Exam Patient deferred: external exam *Routine Extremities Exam Extremities: Present edema; Absent cyanosis or clubbing Comments: Bilateral lower extremity 1+ pitting edema up to hips. *Routine Skin Exam Skin: Present warm; Absent rash *Routine Neurological Exam Neurological: Present alert, oriented X3 and moving all extremities; Absent altered mental status Results Data Completed and Pending Labs on day of discharge: Labs from last 24 hours 06/06/24 06/05/24 06:16 05:59 WBC 6.6 D RBC 3.33 L Hgb 10.7 L Hct 35.1 L MCV 105.2 H MCH 32.0 H MCHC 30.4 L RDW 13.2 Plt Count 129 L MPV 8.1 Neut % (Auto) 86.4 H Lymph % (Auto) 7.3 L [place] % (Auto) 6.0 Eos % (Auto) 0.3 Baso % (Auto) 0.0 L Neut # (Auto) 5.7 Lymph # (Auto) 0.5 L [place] # (Auto) 0.4 Eos # (Auto) 0.0 Baso # (Auto) 0.0 Total Counted 100 Neutrophils % (Manual) 91 H Lymphocytes % (Manual) 6 L Monocytes % (Manual) 3 Platelet Estimate Slight decrease Hypochromasia 1+ Macrocytosis 1+ PT 15.8 H INR 1.47 H Sodium 133 L Potassium 3.4 L Chloride 95 L Carbon Dioxide 38 H Anion Gap 3.4 L BUN 17 Creatinine 0.80 Estimated Creat Clear 51 Estimated GFR 71 Est GFR ( Amer) 86 Glucose 133 H Calcium 8.0 L DS: Diagnosis Discharge Diagnosis (1) CHF exacerbation: Status: Acute Code(s): I50.9 - Heart failure, unspecified Qualifiers: Heart failure type: diastolic Qualified Code(s): I50.33 - Acute on chronic diastolic (congestive) heart failure (2) Acute hypercapnic respiratory failure: Status: Acute Code(s): J96.02 - Acute respiratory failure with hypercapnia (3) Acute exacerbation of chronic obstructive pulmonary disease: Status: Acute Code(s): J44.1 - Chronic obstructive pulmonary disease with (acute) exacerbation (4) Acute hypoxic respiratory failure: Status: Acute Code(s): J96.01 - Acute respiratory failure with hypoxia Meds Home Medications and Allergies Home Medications ?Medication ?Instructions ?Recorded ?Confirmed ?Type warfarin 4 mg tablet 4 mg PO DAILY Blood thinner 11/18/20 06/04/24 History albuterol sulfate 90 mcg/actuation 4 inh inhalation Q4H PRN shortness 04/24/23 06/05/24 Rx aerosol inhaler of breath or wheezing #8.5 grams ipratropium 0.5 mg-albuterol 3 mg 3 ml inhalation Q4H PRN shortness 06/04/24 Rx (2.5 mg base)/3 mL nebulization of breath #180 mL soln ipratropium 20 mcg-albuterol 100 1 puff inhalation QID 06/05/24 06/05/24 History mcg/actuation mist for inhalation (Combivent Respimat) atorvastatin 40 mg tablet 40 mg PO HS 30 days #30 tabs 06/06/24 Rx furosemide 40 mg tablet 40 mg PO BIDL 30 days #60 tabs 06/06/24 Rx prednisone 20 mg tablet 40 mg (2 x 20 mg) PO DAILY 3 days 06/06/24 Rx #6 tabs New Prescriptions to Start Prescriptions: Gabe Irwin furosemide Gabe Berumen ipratropium-albuterol Alhaji Pagan prednisone Gabe Berumen Allergies Allergy/AdvReac Type Severity Reaction Status Date / Time nitroglycerin Allergy Intermediate Unknown Verified 06/04/24 16:21 allergy reaction aspirin AdvReac Intermediate stomach Verified 06/04/24 16:21 issues NSAIDS (Non-Steroidal AdvReac Intermediate stomach Verified 06/04/24 16:21 Anti-Inflamma issues procainamide AdvReac Intermediate stomach Verified 06/04/24 16:21 issues Discharge Plan Disposition Patient Disposition: Home Health Service Condition: Good Discharge Order Discharge Orders: Discharge Order (Routine); Ordered 06/06/24 Ordered By: Gabe Berumen Follow up Plan Follow up with: Juanita Solano APRN [Referring] - 06/11/24 2:00 pm Prescriptions/Medication Reconciliation: New ipratropium-albuterol 0.5 mg-3 mg(2.5 mg base)/3 mL solution for nebulization 3 ml inhalation Q4H PRN (Reason: shortness of breath) Qty: 180 2RF Rx Instructions: until breathing returns to target peak flow/parameters atorvastatin 40 mg Tablet 40 mg PO HS 30 Days Qty: 30 0RF prednisone 20 mg Tablet 40 mg PO DAILY 3 Days Qty: 6 0RF Continued warfarin 4 mg tablet 4 mg PO DAILY Patient Comments: dose per scale Combivent Respimat 20-100 mcg/actuation mist 1 puff INHALATION QID Patient Comments: INHALE 1 PUFF BY MOUTH 4 TIMES A DAY albuterol sulfate 90 mcg/actuation HFA aerosol inhaler 4 inh inhalation Q4H PRN (Reason: shortness of breath or wheezing) Qty: 8.5 0RF Rx Instructions: 4 puffs every 4 hours for 48 hours then as needed for shortness of breath or wheezing following Changed furosemide 40 mg tablet 40 mg PO BIDL 30 Days Qty: 60 0RF Discontinued carvedilol 12.5 mg tablet 12.5 mg PO BID Other Ambulatory Orders: Home Medical Equipment (Routine) Location: None Selected Ordered By: Gabe Berumen Home Medical Equipment (Routine) Location: None Selected Ordered By: Gabe Berumen Problem Reconciliation Problems Reviewed?: Yes Patient Discharge Instructions ACTIVITY: Continue current activity DIET: continue same diet Patient Instructions: DI for Respiratory Failure, DI for Heart Failure Exacerbations Print Language: Uzbek Providers Primary Care Provider: Buffy Austin Admit Provider: Chirag Reyes Attending Provider: Chirag Reyes
[2024-06-06] MEDS: predniSONE 20MG TAB 40 MG PO (08:27)
[2024-06-06] MEDS: FUROSEMIDE 40MG/4ML VIAL 30 MG IV (08:27)
[2024-06-06] MEDS: CARVEDILOL 12.5MG TABLET 12.5 MG PO (08:28)
--- NOTE | 2024-06-06 08:30 | PC.NURSE ---
Addendum entered by Chasidy Villalobos RN 06/06/24 08:32: 94% o2 sat on 2 nc Original Note: RA o2 sat 88%.
[2024-06-06 09:32] LABS: Lymphocytes % 12 % (10-50); Monocytes % 2 % (2-9); Neutrophils % 86 % (42-76); Total Cells Counted 100
[2024-06-06 09:33] LABS: Macrocytosis 2+
[2024-06-06 09:34] LABS: Platelet Estimate Slight Decrease
--- NOTE | 2024-06-06 11:50 | PC.NURSE ---
pt states her ride home will be here around 1600
[2024-06-06 12:00] VITALS: PULSE 85
--- NOTE | 2024-06-06 12:17 | P.CONPHA_ITS ---
Pharmacy Intervention Comments: COUMADIN (warfarin) DISCHARGE COUNSELING PROVIDED TO PATIENT SPOKE WITH PATIENT ABOUT COMING TO COUMADIN CLINIC HERE AT [facility]. SHE INDICATED SHE CHECKS HER INR AT HOME AND REPORTS RESULTS TO DR. OMALLEY'S OFFICE IN [place]. THEY TELL HER HOW TO ADJUST. SHE DID NOT WANT TO FOLLOW UP WITH US HERE AT [facility] AT THIS TIME.
--- NOTE | 2024-06-06 12:17 | HMH.PHAINT1 ---
Pharmacy Intervention Comments: COUMADIN (warfarin) DISCHARGE COUNSELING PROVIDED TO PATIENT SPOKE WITH PATIENT ABOUT COMING TO COUMADIN CLINIC HERE AT [facility]. SHE INDICATED SHE CHECKS HER INR AT HOME AND REPORTS RESULTS TO DR. OMALLEY'S OFFICE IN [place]. THEY TELL HER HOW TO ADJUST. SHE DID NOT WANT TO FOLLOW UP WITH US HERE AT [facility] AT THIS TIME.
--- NOTE | 2024-06-06 12:31 | CARE MANAGER ---
Spoke with patient. She will require O2 and nebs at discharge. Patient requests [facility] as DME provider. Information sent. FREDY Helms
[2024-06-06 13:17] VITALS: PULSE 80; PULSE 87
--- NOTE | 2024-06-10 13:47 | CARE MANAGER ---
Contacted patient related to hospital discharge. She states she is aware of follow up appointments and she has new medications and changed medications. Patient seemed overwhelmed by this and I offered to review medications new and changed, etc with her, but she declined stating she had it written down. She denies questions or concerns. FREDY Helms
== END 2024-06-06 14:40 | disposition home health service (06) | DRG 291 ==
LOC: ER 15:39 → 2ND 16:22
PROVIDERS: Internal Medicine Adolescent Medicine; Admitting Provider Student in an Organized Health Care Education/Training Program; Emergency Provider Emergency Medicine; PCP Family Medicine; Visit Provider Student in an Organized Health Care Education/Training Program
DX: I11.0 Hypertensive heart disease with heart failure (principal); I50.33 Acute on chronic diastolic (congestive) heart failure; J96.02 Acute respiratory failure with hypercapnia; J96.01 Acute respiratory failure with hypoxia; J44.1 Chronic obstructive pulmonary disease with (acute) exacerbation; J44.9 Chronic obstructive pulmonary disease, unspecified; I50.9 Heart failure, unspecified; Z99.81 Dependence on supplemental oxygen; Z95.1 Presence of aortocoronary bypass graft; Z95.5 Presence of coronary angioplasty implant and graft; Z95.810 Presence of automatic (implantable) cardiac defibrillator; I48.91 Unspecified atrial fibrillation; R79.1 Abnormal coagulation profile
CPT/HCPCS: 36415; 71045; 80048; 80053; 82803; 83690; 83735; 83880; 84484; 85007; 85025; 85027; 85610; 85730; 86803; 87389; 93005; 93306; 94640; 94660; 94760; 94761; 99291; J1940; J2060; J3475; J7620

== ENCOUNTER 2024-06-23 14:03 | Outpatient (CLI) | payer MEDICARE, MEDICAID, SELFPAY ==
--- NOTE | 2024-06-23 14:13 | CA_ITS ---
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 2D Dimensions Left Atrium 4.24 cm F: 2.7 - 3.8 EF AP4 40.40 % LVOT 1.85 cm (M/F) 1.5-2.5 GL Strain -10.0 % M-Mode Dimensions RVDd 2.41 cm (0.9-2.6) LVDd 2.78 cm (3.5-5.7) Ao Diam 3.15 cm (2.0-3.7) LVDs 1.93 cm (3.5-5.7) IVSd 0.93 cm (0.6-1.1) PWd 1.01 cm (0.6-1.1) EF (Teich) 60.00% FS 30.60% EDV (Teich) 29.00 mL ESV (Teich) 11.60 mL LV Diastology MED E' 7.4 (>= 7 cm/sec) LAT E' 9.7 (>= 10 cm/sec) Mitral Valve MV PHT 42.0 ms Tricuspid Valve TR P. Velocity 291.00 cm/s RAP Estimate 10.00 mmHg RVSP 44.00 mmHg Left Ventricle The left ventricle is normal size. Left ventricular systolic function is low normal. There is increased LV wall thickness. The septum is asynchronous. Diastolic function is indeterminate. LVEF is 50%. Right Ventricle Right ventricle is moderately dilated. Right ventricle is grossly normal. There is a device lead in the right ventricle. Atria Left atrium is moderately dilated. Right atrium is moderately dilated. There is no Doppler evidence of interatrial shunt. Aortic Valve Aortic valve is mildly thickened. Mild aortic regurgitation. There is no aortic valvular stenosis. Mitral Valve s/p mechanical MVR. The prosthesis is well-seated. Mean MV gradient 4 mmHg (HR 100 bpm). Peak velocity 189 cm/s. PHT is 45 ms. Mild central mitral regurgitation. Tricuspid Valve The tricuspid valve leaflets are thin and pliable. Mild tricuspid regurgitation. RVSP is 25-30 mmHg. Pulmonic Valve The pulmonary valve is grossly normal in structure. Trace pulmonic regurgitation. Great Vessels The aortic root is normal in size. The ascending aorta is not well-visualized. The IVC is dilated but collapses > 50% with respirophasic variation. RA pressure is estimated at 8 mmHg. Pericardium There is no pericardial effusion. Other Information Study Quality: Technically Difficult Conclusion Technically difficult study due to poor acoustic windows and mechanical MVR. Low normal LV systolic function (LVEF 50%). Moderate RV dilation with normal RV function. Biatrial dilation. s/p MVR, acceptable transmitral gradients at 4 mmHg (HR 100 bpm). Mild AI, mild TR. Compared to prior study from 06/05/2024, there are overall no significant changes. Electronically signed by : Violet Murrieta MD 06/29/2024 23:36:52
== END 2024-06-23 23:59 | disposition home or self-care (01) ==
PROVIDERS: PCP Internal Medicine Cardiovascular Disease; Visit Provider Internal Medicine Cardiovascular Disease
DX: I34.0 Nonrheumatic mitral (valve) insufficiency (principal); I48.0 Paroxysmal atrial fibrillation; I48.21 Permanent atrial fibrillation; I51.9 Heart disease, unspecified
CPT/HCPCS: 93306

== ENCOUNTER 2024-08-13 11:48 | Emergency (ER) | payer MEDICARE, MEDICAID, SELFPAY ==
[2024-08-13] VITALS (9 sets, daily range): BP systolic 108–127; BP diastolic 57–76; PULSE 86–91; RESP 18–23; TEMP 36.6–36.7; O2SAT 94–100
--- NOTE | 2024-08-13 11:56 | XR_ITS ---
FINAL REPORT CLINICAL HISTORY: increased shortness of breath COMPARISON: 06/04/2024 FINDINGS: A portable view of the chest was obtained. Median sternotomy. A left-sided pacemaker is present. There are an additional 2 abandoned leads on the left. The heart is enlarged. Pulmonary vascular congestion is stable. The right basilar atelectasis and is unchanged. There is no new infiltrate, effusion, or pneumothorax. IMPRESSION: Stable right basilar atelectasis. Cardiomegaly and stable pulmonary vascular congestion. Reviewed, Interpreted and Dictated by Marilu Corral MD Transcribed by Gladis Montes Authenticated and [facility]
[2024-08-13] MEDS: IPRATROPIUM/ALBUTEROL 3 ML NEB IH (11:57)
[2024-08-13 12:01] LABS: Lactate Venous 1.6 mmol/L (0.4-2.0); VBG Base Excess 9.5 mmol/L (-2.4-2.3); VBG HCO3 35.6 mmol/L (23-30); VBG PH 7.32 mmol/L (7.31-7.41); VBG PO2 42.2 mmol/L (28-40); VBG Total CO2 37.7 mmol/L (23-27)
[2024-08-13 12:01] LABS: Basophils # 0.1 K/mm3 (0-0.2); Basophils % 0.8 % (0.1-2.0); Eosinophils # 0.2 K/mm3 (0.0-0.4); Eosinophils % 2.7 % (0.1-12.0); Hematocrit 36.5 % (37.0-47.0); Hemoglobin 12.2 g/dL (12.2-16.2); Lymphocytes # 0.5 K/mm3 (0.7-4.5); Lymphocytes % 7.7 % (10-50); Mean Corpuscular HGB Conc 33.3 g/dL (31.8-35.4); Mean Corpuscular Hemoglobin 32.3 pg (27.0-31.2); Mean Corpuscular Volume 97.1 fl (81-99); Mean Platelet Volume 7.8 fl (7.4-10.4); Monocytes # 0.4 K/mm3 (0.1-1.0); Monocytes % 6.4 % (1.7-9.3); Neutrophils # 5.2 K/mm3 (1.8-7.8); Neutrophils % 82.3 % (37.0-80.0); Platelet Count 132 K/mm3 (142-424); Red Blood Count 3.76 M/mm3 (4.20-5.40); Red Cell Distribution Width 15.2 % (11.5-17.5); White Blood Count 6.4 K/mm3 (4.8-10.8)
[2024-08-13 12:04] LABS: VBG PCO2 70.6 mmol/L (35-51)
[2024-08-13 12:09] LABS: Chloride 97 mmol/L (98-107)
[2024-08-13 12:10] LABS: Albumin Level 3.7 g/dl (3.5-5.0); Potassium 3.7 mmoL/L (3.5-5.1); Sodium 139 mmol/L (136-145)
[2024-08-13 12:12] LABS: Alanine Aminotransferase 18 U/L (12-78); Aspartate Amino Transferase 30 U/L (14-36); Blood Urea Nitrogen 15 mg/dl (7-17); Creatinine Clearance Estimated 46 mL/min (50-200); Estimated Glomerular Filt Rate 62 ml/min (>60); GFR (African American) 75 ML/MIN (>60)
[2024-08-13 12:13] LABS: Albumin/Globulin Ratio 1.2 (1.1-1.8); Alkaline Phosphatase 121 U/L (38-126); Bilirubin,Total 1.4 mg/dl (0.2-1.3); Calcium 8.7 mg/dl (8.4-10.2); Globulin 3.1 g/dL (1.3-3.2); Glucose 110 mg/dl (74-100); Total Protein,Serum 6.8 g/dl (6.3-8.2)
[2024-08-13 12:20] LABS: Anion Gap 10.7 mEq/L (5-15); Carbon Dioxide 35 mmol/L (22.0-30.0)
[2024-08-13] MEDS: IPRATROPIUM/ALBUTEROL 3 ML NEB 9 ML IH (12:27)
[2024-08-13] MEDS: METHYLPREDNISOLONE SOD SUCC 125MG VIAL 125 MG IV (12:27)
[2024-08-13 12:36] LABS: Adenovirus,PCR Not Detected (NotDetected); Bordetella Pertussis Not Detected (NotDetected); Chlamydophila Pneumoniae, PCR Not Detected (NotDetected); Coronavirus 19, PCR Not Detected (NotDetected); Coronavirus 229E Not Detected (NotDetected); Coronavirus NL63 Not Detected (NotDetected); Coronavirus OC43 Not Detected (NotDetected); Coronovirus HKU1,PCR Not Detected (NotDetected); Human Metapneumovirus Not Detected (NotDetected); Influenza A, PCR Not Detected (NotDetected); Influenza AH1, 2009 Not Detected (NotDetected); Influenza AH1, PCR Not Detected (NotDetected); Influenza AH3,PCR Not Detected (NotDetected); Influenza B, PCR Not Detected (NotDetected); Mycoplasma Pneumoniae, PCR Not Detected (NotDetected); Parainfluenza 1, PCR Not Detected (NotDetected); Parainfluenza 2, PCR Not Detected (NotDetected); Parainfluenza 3, PCR Not Detected (NotDetected); Parainfluenza 4, PCR Not Detected (NotDetected); Respiratory Syncytial Virus Not Detected (NotDetected); Rhinovirus/Enterovirus Not Detected (NotDetected)
--- NOTE | 2024-08-13 13:08 | ED_ITS ---
Discharge Plan Prescriptions Prescriptions: New Combivent Respimat 20-100 mcg/actuation mist 1 puff inhalation Q6H PRN (Reason: shortness of breath or wheezing) Qty: 4 3RF prednisone 20 mg tablet 40 mg PO DAILY 5 Days Qty: 10 0RF doxycycline monohydrate 100 mg capsule 100 mg PO BID 5 Days Qty: 10 0RF furosemide 40 mg tablet 40 mg PO DAILY PRN (Reason: weight gain) Qty: 30 3RF ipratropium-albuterol 0.5 mg-3 mg(2.5 mg base)/3 mL solution for nebulization 3 ml inhalation Q6H PRN (Reason: wheezing) Qty: 180 4RF magnesium oxide 400 mg magnesium capsule 800 mg PO DAILY Qty: 60 2RF No Action warfarin 4 mg tablet 4 mg PO DAILY Patient Comments: dose per scale ipratropium-albuterol 0.5 mg-3 mg(2.5 mg base)/3 mL solution for nebulization 3 ml inhalation Q4H PRN (Reason: shortness of breath) Qty: 180 2RF Rx Instructions: until breathing returns to target peak flow/parameters Combivent Respimat 20-100 mcg/actuation mist 1 puff INHALATION QID Patient Comments: INHALE 1 PUFF BY MOUTH 4 TIMES A DAY atorvastatin 40 mg Tablet 40 mg PO HS 30 Days Qty: 30 0RF prednisone 20 mg Tablet 40 mg PO DAILY 3 Days Qty: 6 0RF furosemide 40 mg tablet 40 mg PO BIDL 30 Days Qty: 60 0RF albuterol sulfate 90 mcg/actuation HFA aerosol inhaler 4 inh inhalation Q4H PRN (Reason: shortness of breath or wheezing) Qty: 8.5 0RF Rx Instructions: 4 puffs every 4 hours for 48 hours then as needed for shortness of breath or wheezing following Referrals Follow up/Referrals: Provider,Referral, MD [Primary Care Provider] - See instructions Activity Restrictions/Add. Instructions Additional Instructions/Restrictions: Meds sent to pharmacy. Furosemide daily as discussed for 5 pound increase from baseline weight each morning after standard weigh. Doxycycline twice daily for 5 days, prednisone once daily in the morning for the next 5 days as well. Call your family doctor to establish care for this visit to the emergency department and schedule follow-up within 48 hours to ensure improvement. If you have any worsening of your condition or any other concerning signs or symptoms, return to the emergency department or your primary care doctor for further evaluation. Magnesium supplement each evening. Clinical Impressions Clinical Impression: Acute hypercapnic respiratory failure, Acute exacerbation of chronic obstructive pulmonary disease Print Language Print Language: Indonesian Discharge ED Provider: Alhaji Pagan General Adult HPI General Chief complaint: Shortness of Breath/Dyspnea Stated complaint: Breathing Problems Time Seen by Provider: 08/13/24 12:02 Mode of Arrival: EMS Source of Information: Patient Limitations: No Limitations Description of Symptoms (Recalled from ER Triage Doc. by RN): pt presents to ED via [facility]. pt reports shortness of air worsening over the past 3 days. pt is a smoker and wears 2L NC baseline. EMS reports that pts oxygen tubing is long and pt not be receiving all of oxygen delivery. History of Present Illness HPI narrative: Please note that above description of symptoms, in this electronic medical record under categorization of recalled from ER triage doctor by RN are reflective of an initial nursing assessment, however, is not reflective of my full history and physical exam that was personally taken and clarified. Consequentially, this preceding description of symptoms, which may include the patient's categorized chief complaint in the EMR, do not reflect my personal clinical impression, and the ultimate description of history of present illness and patient stated complaints should be deferred to this section of the note. Unless stated otherwise or congruent with this section of the note, additional signs, symptoms, or incongruence should be interpreted as inaccurate with my clinical impression. Related Data Home Medications ?Medication ?Instructions ?Recorded ?Confirmed warfarin 4 mg tablet 4 mg PO DAILY Blood thinner 11/18/20 06/04/24 ipratropium 20 mcg-albuterol 100 1 puff inhalation QID 06/05/24 06/05/24 mcg/actuation mist for inhalation (Combivent Respimat) Previous Rx's ?Medication ?Instructions ?Recorded albuterol sulfate 90 mcg/actuation 4 inh inhalation Q4H PRN shortness 04/24/23 aerosol inhaler of breath or wheezing #8.5 grams ipratropium 0.5 mg-albuterol 3 mg 3 ml inhalation Q4H PRN shortness 06/04/24 (2.5 mg base)/3 mL nebulization of breath #180 mL soln atorvastatin 40 mg tablet 40 mg PO HS 30 days #30 tabs 06/06/24 furosemide 40 mg tablet 40 mg PO BIDL 30 days #60 tabs 06/06/24 prednisone 20 mg tablet 40 mg (2 x 20 mg) PO DAILY 3 days 06/06/24 #6 tabs doxycycline monohydrate 100 mg 100 mg PO BID 5 days #10 caps 08/13/24 capsule furosemide 40 mg tablet 40 mg PO DAILY PRN weight gain #30 08/13/24 tabs ipratropium 0.5 mg-albuterol 3 mg 3 ml inhalation Q6H PRN wheezing 08/13/24 (2.5 mg base)/3 mL nebulization #180 mL soln ipratropium 20 mcg-albuterol 100 1 puff inhalation Q6H PRN 08/13/24 mcg/actuation mist for inhalation shortness of breath or wheezing #4 (Combivent Respimat) grams magnesium oxide 800 mg (2 x 400 mg magnesium) PO 08/13/24 DAILY #60 caps prednisone 20 mg tablet 40 mg (2 x 20 mg) PO DAILY 5 days 08/13/24 #10 tabs Allergies Allergy/AdvReac Type Severity Reaction Status Date / Time nitroglycerin Allergy Intermediate Unknown Verified 06/04/24 16:21 allergy reaction aspirin AdvReac Intermediate stomach Verified 06/04/24 16:21 issues NSAIDS (Non-Steroidal AdvReac Intermediate stomach Verified 06/04/24 16:21 Anti-Inflamma issues procainamide AdvReac Intermediate stomach Verified 06/04/24 16:21 [facility] Dis[facility]: The information contained in this section may have been updated after the patient was seen, as this information can be updated by other users. Medical History Hypertension Long-term (current) use of anticoagulants, INR goal 2.5-3.5 Surgical History History of artificial heart valve Family History (Updated 06/04/24 @ 17:31 by Santa Miller RN) Other No significant family history Social History (Updated 06/04/24 @ 17:31 by Santa Miller RN) Smoking Status: Current every day smoker tobacco type: cigarettes packs per day: 1 alcohol intake: never substance use type: marijuana current occupational status: retired household members: significant other and children housing: house caffeine: No Other Medical History Have you received the Flu Vaccine for this season: No Have you received the Pneumonia Vaccine: No ROS Obtained: Yes All systems reviewed & no additional complaints except as documented Physical Exam General General appearance: alert, in no apparent distress and cachectic Head Head exam: atraumatic and normocephalic Eye Eye exam: Present normal appearance, PERRL and EOMI Neck Neck exam: Present normal inspection, full ROM and trachea midline Respiratory Respiratory exam: Present wheezes and prolonged expiratory phase; Absent respiratory distress, stridor or accessory muscle use Cardiovascular Cardiovascular exam: Present regular rate, normal rhythm and other (Pulses equal symmetric in upper and lower extremities) Abdominal Exam Abdominal exam: Present soft; Absent distention, tenderness or pulsatile mass Extremities Exam Extremities exam: Absent edema Neurological Exam Neurological exam: Present alert, oriented X3 and CN II-XII intact; Absent motor sensory deficit Skin Skin exam: Present warm and dry; Absent diaphoresis or erythema Medical Decision Making Medical Records Medical records reviewed: Yes I reviewed the patient's medical records. Screening: Per USPSTF and CDC recommendations, given the prevalence of disease in our region, it is our hospital?s policy to screen for HIV and viral Hepatitis for all patients aged 18 and over and those with ongoing risk factors. Preet Inquiry Pt receiving controlled substance: No Preet was queried for this patient: No Vital Signs: 08/13/24 11:48 08/13/24 12:30 08/13/24 13:00 Temperature 97.8 F Temperature Source Oral Pulse Rate 87 91 H Pulse Rate [Left Radial] 87 Respiratory Rate 20 Blood Pressure 108/58 L 118/62 Blood Pressure [Right Arm] 125/64 Blood Pressure Mean [Right Arm] 84 02 Sat by Pulse Oximetry 96 98 100 Oxygen Delivery Method Room Air 08/13/24 13:45 08/13/24 14:00 Temperature Temperature Source Pulse Rate 89 91 H Pulse Rate [Left Radial] Respiratory Rate Blood Pressure 116/67 124/65 Blood Pressure [Right Arm] Blood Pressure Mean [Right Arm] 02 Sat by Pulse Oximetry 100 100 Oxygen Delivery Method Room Air Lab Data Lab Results 08/13/24 11:53: WBC 6.4, RBC 3.76 L, Hgb 12.2, Hct 36.5 L, MCV 97.1, MCH 32.3 H, MCHC 33.3, RDW 15.2, Plt Count 132 L, MPV 7.8, Neut % (Auto) 82.3 H, Lymph % (Auto) 7.7 L, Jenkins % (Auto) 6.4, Eos % (Auto) 2.7, Baso % (Auto) 0.8, Neut # (Auto) 5.2, Lymph # (Auto) 0.5 L, Jenkins # (Auto) 0.4, Eos # (Auto) 0.2, Baso # (Auto) 0.1, Sodium 139, Potassium 3.7, Chloride 97 L, Carbon Dioxide 35 H, Anion Gap 10.7, BUN 15, Creatinine 0.90, Estimated Creat Clear 46, Estimated GFR 62, Est GFR ( Amer) 75, Glucose 110 H, Lactate 1.0, Calcium 8.7, Total Bilirubin 1.4 H, AST 30, ALT 18, Alkaline Phosphatase 121, Troponin I < 0.01, N T-Pro-B Natriuret Pep 522 H, Total Protein 6.8, Albumin 3.7, Globulin 3.1, Albumin/Globulin Ratio 1.2 08/13/24 11:56: VBG pH 7.32, VBG pCO2 70.6 H, VBG pO2 42.2 H, VBG HCO3 35.6 H, V BG Total CO2 37.7 H, VBG O2 Saturation 77.0 H, VBG Base Excess 9.5 H, VBG Lactic Acid 1.6 08/13/24 11:53 08/13/24 11:53 Orders (Tests/Meds): ED MEDICATIONS Discontinued Medications Generic Name Dose Route Start Last Admin Trade Name Freq PRN Reason Stop Dose Admin Albuterol Sulfate 20 mg 08/13/24 13:40 08/13/24 14:02 Albuterol 0.083% 2.5 Mg/3 Ml [facility] 08/13/24 13:41 20 mg ONCE ONE Administration Albuterol/Ipratropium 3 ml 08/13/24 11:56 08/13/24 11:57 Ipratropium/Albuterol 3 Ml [facility] 08/13/24 11:57 3 ml ONCE ONE Administration Albuterol/Ipratropium 9 ml 08/13/24 12:19 08/13/24 12:27 Ipratropium/Albuterol 3 Ml [facility] 08/13/24 12:20 6 ml ONCE ONE Administration Diazepam 2.5 mg 08/13/24 13:40 08/13/24 13:46 Diazepam 10mg/2ml Syringe IV 08/13/24 13:41 2.5 mg ONCE ONE Administration Doxycycline Hyclate 100 mg 08/13/24 13:43 08/13/24 13:46 Doxycycline Hycl 100 Mg Tablet PO 08/13/24 13:44 100 mg ONCE ONE Administration Methylprednisolone Sodium Succinate 125 mg 08/13/24 12:19 08/13/24 12:27 Methylprednisolone Sod Succ 125mg Vial IV 08/13/24 12:20 125 mg ONCE ONE Administration ORDERS Category Date Time Status XR chest portable Stat Exams 08/13/24 11:56 Completed Complete Blood Count Auto Diff Stat Lab 08/13/24 11:53 Completed Comprehensive Metabolic Panel Stat Lab 08/13/24 11:53 Completed Full Resp Panel w/COVID ([facility]) Routine Lab 08/13/24 12:26 Received Lactic Acid Stat Lab 08/13/24 11:53 Completed NT Pro Brain Natriuretic Pep. Stat Lab 08/13/24 11:53 Completed Trop I [Troponin I] Stat Lab 08/13/24 11:53 Completed Troponin I Q3H Lab 08/13/24 16:15 Ordered Troponin I Q3H Lab 08/13/24 19:15 Ordered Blood Culture Stat Micro 08/13/24 12:26 Received Venous Blood Gas Stat RT 08/13/24 11:56 Completed HEART Score History (anamnesis): Slightly suspicious ECG: Non-specific disturbance Age: >65 years Risk factors: 3 or more risk factors Troponin: </= normal limit HEART Score: 5 Medical Decision Narrative: 69-year-old female presenting with shortness of breath. Patient states that she has had numerous medicine changes over the past couple of weeks. Cardiac medications primarily. Also has run out of her nebulizers that she has been using at home. No fevers or chills, worsening or different cough, syncope, chest pain, any other concerns. Has not needed to increase her oxygen, still wearing 2 L nasal cannula at home. History was obtained via conversation with patient. On arrival, patient hemodynamically stable, alert, oriented x4, appropriate, GCS 15, moving all extremities spontaneously, pupils equal and reactive to light. Full physical exam performed and significant for 69-year-old female chronically ill appears older than stated age. No obvious acute distress. Tearful. Lungs diffusely wheezy, inspiratory wheezes in right lower lung rios anteriorly. Cardiac exam without murmurs gallops or rubs. Lower extremities with chronic overlying skin changes. Pulses equal and symmetric upper and lower extremities. Differential includes COPD exacerbation, bronchitis, pneumonia, ACS, AR, medication noncompliance, among others Patient placed on continuous cardiac monitoring and continuous pulse ox with initial blood pressure 125/64, heart rate 87, saturation 96% on room air. Independent interpretation of EKG shows atrial fibrillation about 83 bpm. QRS wide at 178, QTc 486. Patient was given 3 DuoNebs, Solu-Medrol for symptomatic management and correction of underlying abnormalities. Workup independently interpreted and significant for nonactionable CBC. VBG with normal pH, CO2 elevated at 70, bicarb elevated nearly 36. Negative lactate. Chemistry nonactionable. On independent interpretation of imaging, no acute cardiopulmonary space disease. See radiology read for full review of final results. Heart score 5. On reevaluation, patient agreeable to trialing BiPAP. BiPAP was placed, continuous albuterol pushed through it. Was given 2.5 mg Ativan in order to cope with claustrophobia and anxiety. On reevaluation, patient speaking in full senses, states she no longer feels short of breath and she is actually feeling a lot better. Ready to go home. I feel this is appropriate. Given patient presentation, workup, history, this most likely represents acute COPD exacerbation. Patient states she has numerous medication she needs refilled, these were also sent to the pharmacy. Because patient at baseline without signs or symptoms of clinical decompensation, deemed appropriate for discharge. Results were relayed to patient who voiced understanding and were agreeable to outpatient management and follow up. I discussed my clinical impression with patient and answered all questions. At this time, the evidence for any other entities in the differential is insufficient to warrant any further testing or ED observation. This was explained as well. Advisory was given that persistent or worsening symptoms require further evaluation. I confirmed the understanding of this discussion. [employer] disclaimer Much of this encounter note is an electronic easement worker spoken language to printed text. Electronic easement worker of the spoken language may permit errors. Although I have reviewed the note, some errors may still exist. Critical Care Critical Care Time Critical Care Time: Yes (resp) Attestation: On 08/13/24, the high probability of a clinically significant, sudden or life threatening deterioration of the following system(s) required my full and direct attention, intervention and personal management. The time I documented below is in addition to time spent performing reported procedures but includes the following listed in this critical care notation. Total Time Total Critical Care Time: 45
--- NOTE | 2024-08-13 13:22 | ECG_ITS ---
APPROVED REPORT Exam: Resting ECG HR:83 bpm ECG Measurements Heart Rate 83 AXES QRSd 178 QRS 264 QT 446 T 72 QTc 486 Conclusion ATRIAL FIBRILLATION RIGHT AXIS DEVIATION [QRS AXIS > 100] RIGHT BUNDLE BRANCH BLOCK [120+ ms QRS DURATION, UPRIGHT V1, 40+ ms S IN I/aVL/V4/V5/V6] MARKED T-WAVE ABNORMALITY, CONSIDER LATERAL ISCHEMIA [-0.5+ mV T-WAVE IN I/aVL/V5/V6] Electronically signed by : NICOLE SANCHEZ, 08/14/2024 15:27:35
[2024-08-13 13:32] LABS: NT Pro Brain Natriuretic Pep. 522 pg/mL (0-125)
[2024-08-13 13:35] LABS: Troponin I < 0.01 ng/ml (0.00-0.034)
[2024-08-13] MEDS: DOXYCYCLINE HYCL 100 MG TABLET PO (13:46)
[2024-08-13] MEDS: diazePAM 10MG/2ML SYRINGE 2.5 MG IV (13:46)
[2024-08-13] MEDS: ALBUTEROL 0.083% 2.5 MG/3 ML NEB 20 MG IH (14:02)
--- NOTE | 2024-08-14 15:29 | PC.NURSE ---
discussed with about blood culture results, pt dc with doxycycline, ntd
== END 2024-08-13 16:05 | disposition home or self-care (01) ==
PROVIDERS: Emergency Provider Emergency Medicine
DX: J44.1 Chronic obstructive pulmonary disease with (acute) exacerbation (principal); J96.02 Acute respiratory failure with hypercapnia; F17.200 Nicotine dependence, unspecified, uncomplicated
CPT/HCPCS: 71045; 80053; 82803; 83605; 83880; 84484; 85025; 87040; 87186; 87633; 93005; 96374; 96375; 99291; J2919; J3360; J7613; J7620

== ENCOUNTER 2024-08-15 10:18 | Emergency (ER) | payer MEDICARE, MEDICAID, SELFPAY ==
[2024-08-15 10:20] VITALS: BP 133/69; PULSE 77; RESP 18; TEMP 36.4; O2SAT 96; BMI 20.6
[2024-08-15 10:35] VITALS: BP 133/69; PULSE 78; O2SAT 96
[2024-08-15 10:46] LABS: VBG Base Excess 9.7 mmol/L (-2.4-2.3); VBG HCO3 33.9 mmol/L (23-30); VBG PH 7.43 mmol/L (7.31-7.41); VBG PO2 35.1 mmol/L (28-40); VBG Total CO2 35.5 mmol/L (23-27)
[2024-08-15 10:51] LABS: Basophils % 0.1 % (0.1-2.0); Eosinophils # 0.1 K/mm3 (0.0-0.4); Eosinophils % 0.7 % (0.1-12.0); Hematocrit 38.7 % (37.0-47.0); Hemoglobin 12.4 g/dL (12.2-16.2); Lymphocytes # 0.3 K/mm3 (0.7-4.5); Mean Corpuscular HGB Conc 32.1 g/dL (31.8-35.4); Mean Corpuscular Hemoglobin 31.9 pg (27.0-31.2); Mean Corpuscular Volume 99.3 fl (81-99); Mean Platelet Volume 7.8 fl (7.4-10.4); Monocytes # 0.3 K/mm3 (0.1-1.0); Monocytes % 3.3 % (1.7-9.3); Neutrophils # 7.2 K/mm3 (1.8-7.8); Neutrophils % 91.8 % (37.0-80.0); Platelet Count 144 K/mm3 (142-424); Red Cell Distribution Width 14.9 % (11.5-17.5); White Blood Count 7.8 K/mm3 (4.8-10.8)
[2024-08-15 10:51] LABS: Lactate Venous 2.5 mmol/L (0.4-2.0); VBG PCO2 51.8 mmol/L (35-51)
--- NOTE | 2024-08-15 10:51 | PC.NURSE ---
Dr. Vega given VBG results
[2024-08-15 10:54] LABS: Chloride 96 mmol/L (98-107); Potassium 3.9 mmoL/L (3.5-5.1); Sodium 137 mmol/L (136-145)
[2024-08-15 10:57] LABS: Alanine Aminotransferase 22 U/L (12-78); Albumin/Globulin Ratio 1.2 (1.1-1.8); Alkaline Phosphatase 103 U/L (38-126); Anion Gap 7.9 mEq/L (5-15); Aspartate Amino Transferase 36 U/L (14-36); Bilirubin,Total 1.3 mg/dl (0.2-1.3); Blood Urea Nitrogen 18 mg/dl (7-17); Carbon Dioxide 37 mmol/L (22.0-30.0); Creatinine Clearance Estimated 47 mL/min (50-200); Estimated Glomerular Filt Rate 71 ml/min (>60); GFR (African American) 86 ML/MIN (>60); Globulin 3.4 g/dL (1.3-3.2); Total Protein,Serum 7.4 g/dl (6.3-8.2)
[2024-08-15 10:58] LABS: Calcium 8.7 mg/dl (8.4-10.2); Glucose 163 mg/dl (74-100)
[2024-08-15 11:00] VITALS: BP 118/70; PULSE 84; O2SAT 94
[2024-08-15] MEDS: PIPERACILLIN/TAZO 4.5 GM in 0.9 % SODIUM CHLORIDE 100 ML IV (11:29)
[2024-08-15 11:30] VITALS: BP 123/71; PULSE 89; O2SAT 96
[2024-08-15 11:31] LABS: INR 1.19 (0.9-1.1); Prothrombin Time 13.1 seconds (10.1-12.5)
[2024-08-15] MEDS: RINGERS SOLUTION,LACTATED 500 ML 999 ML IV (11:31)
[2024-08-15 11:33] LABS: MANUAL DIFFERENTIAL MANUAL DIFFERENTIAL (MANUAL DIFF)
--- NOTE | 2024-08-15 11:39 | HMH.EDGENADL ---
Discharge Plan Disposition Patient Disposition: Home, Self-Care Condition: Good Prescriptions Prescriptions: No Action warfarin 4 mg tablet 4 mg PO DAILY Patient Comments: dose per scale ipratropium-albuterol 0.5 mg-3 mg(2.5 mg base)/3 mL solution for nebulization 3 ml inhalation Q4H PRN (Reason: shortness of breath) Qty: 180 2RF Rx Instructions: until breathing returns to target peak flow/parameters Combivent Respimat 20-100 mcg/actuation mist 1 puff INHALATION QID Patient Comments: INHALE 1 PUFF BY MOUTH 4 TIMES A DAY atorvastatin 40 mg Tablet 40 mg PO HS 30 Days Qty: 30 0RF prednisone 20 mg Tablet 40 mg PO DAILY 3 Days Qty: 6 0RF furosemide 40 mg tablet 40 mg PO BIDL 30 Days Qty: 60 0RF albuterol sulfate 90 mcg/actuation HFA aerosol inhaler 4 inh inhalation Q4H PRN (Reason: shortness of breath or wheezing) Qty: 8.5 0RF Rx Instructions: 4 puffs every 4 hours for 48 hours then as needed for shortness of breath or wheezing following Combivent Respimat 20-100 mcg/actuation mist 1 puff inhalation Q6H PRN (Reason: shortness of breath or wheezing) Qty: 4 3RF prednisone 20 mg tablet 40 mg PO DAILY 5 Days Qty: 10 0RF doxycycline monohydrate 100 mg capsule 100 mg PO BID 5 Days Qty: 10 0RF furosemide 40 mg tablet 40 mg PO DAILY PRN (Reason: weight gain) Qty: 30 3RF ipratropium-albuterol 0.5 mg-3 mg(2.5 mg base)/3 mL solution for nebulization 3 ml inhalation Q6H PRN (Reason: wheezing) Qty: 180 4RF magnesium oxide 400 mg magnesium capsule 800 mg PO DAILY Qty: 60 2RF Referrals Follow up/Referrals: Provider,Referral, MD [Referring] - See instructions Activity Restrictions/Add. Instructions Additional Instructions/Restrictions: As discussed please follow-up with your primary care provider. Return to ED if symptoms worsen. Clinical Impressions Clinical Impression: Abnormal laboratory test Print Language Print Language: Divehi Discharge ED Provider: Francisco Javier Vega General Adult HPI General Chief complaint: Shortness of Breath/Dyspnea Stated complaint: abnormal labs, was told to come to ER Time Seen by Provider: 08/15/24 10:33 Mode of Arrival: Family Vehicle Source of Information: Patient and Medical Record Limitations: No Limitations Description of Symptoms (Recalled from ER Triage Doc. by RN): Pt presents to ER to be admitted . She was here for SOA and breathing problems on 08/13, she was on Bipap for a short time and was d/c on doxycycline, lasix, duoneb, and combivent IH for COPD exacerbation. Pt reports she is conintuing to feel worse and feel the fevers in my head . Maintains SOA and dyspnea. She wear 2LPM NC HS. She was notified to returnt o ER as both blood clultures PCR were positive for staph like species and gram positive. History of Present Illness HPI narrative: 69-year-old female PMH hypertension, hyperlipidemia, COPD (no home O2), CAD status post CABG x 2, stenting, A-fib with AICD in place, CHF, mechanical mitral valve on warfarin goal INR 2.5-3.5. Patient presents to the ED after being called to return due to 2 positive blood cultures with gram-positive results. Patient states that she is feeling okay today however continues to have some fatigue. Patient was seen in ED 2 days ago for shortness of breath. Determined to have COPD exacerbation prescribed doxycycline, Lasix, DuoNebs and discharged home. Blood cultures are not positive and patient was instructed to come back to ED. Patient denies further symptoms or complaints at this time. Related Data Home Medications ?Medication ?Instructions ?Recorded ?Confirmed warfarin 4 mg tablet 4 mg PO DAILY Blood thinner 11/18/20 06/04/24 ipratropium 20 mcg-albuterol 100 1 puff inhalation QID 06/05/24 06/05/24 mcg/actuation mist for inhalation (Combivent Respimat) Previous Rx's ?Medication ?Instructions ?Recorded albuterol sulfate 90 mcg/actuation 4 inh inhalation Q4H PRN shortness 04/24/23 aerosol inhaler of breath or wheezing #8.5 grams ipratropium 0.5 mg-albuterol 3 mg 3 ml inhalation Q4H PRN shortness 06/04/24 (2.5 mg base)/3 mL nebulization of breath #180 mL soln atorvastatin 40 mg tablet 40 mg PO HS 30 days #30 tabs 09/20/24 furosemide 40 mg tablet 40 mg PO BIDL 30 days #60 tabs 06/06/24 prednisone 20 mg tablet 40 mg (2 x 20 mg) PO DAILY 3 days 06/06/24 #6 tabs doxycycline monohydrate 100 mg 100 mg PO BID 5 days #10 caps 08/13/24 capsule furosemide 40 mg tablet 40 mg PO DAILY PRN weight gain #30 08/13/24 tabs ipratropium 0.5 mg-albuterol 3 mg 3 ml inhalation Q6H PRN wheezing 08/13/24 (2.5 mg base)/3 mL nebulization #180 mL soln ipratropium 20 mcg-albuterol 100 1 puff inhalation Q6H PRN 08/13/24 mcg/actuation mist for inhalation shortness of breath or wheezing #4 (Combivent Respimat) grams magnesium oxide 800 mg (2 x 400 mg magnesium) PO 08/13/24 DAILY #60 caps prednisone 20 mg tablet 40 mg (2 x 20 mg) PO DAILY 5 days 08/13/24 #10 tabs Allergies Allergy/AdvReac Type Severity Reaction Status Date / Time nitroglycerin Allergy Intermediate Unknown Verified 06/04/24 16:21 allergy reaction aspirin AdvReac Intermediate stomach Verified 06/04/24 16:21 issues NSAIDS (Non-Steroidal AdvReac Intermediate stomach Verified 06/04/24 16:21 Anti-Inflamma issues procainamide AdvReac Intermediate stomach Verified 06/04/24 16:21 issues [facility] Disclaimer: The information contained in this section may have been updated after the patient was seen, as this information can be updated by other users. Medical History Hypertension Long-term (current) use of anticoagulants, INR goal 2.5-3.5 Surgical History History of artificial heart valve Family History (Updated 06/04/24 @ 17:31 by Santa Miller RN) Other No significant family history Social History (Updated 06/04/24 @ 17:31 by Santa Miller RN) Smoking Status: Current every day smoker tobacco type: cigarettes packs per day: 1 alcohol intake: never substance use type: marijuana current occupational status: retired household members: significant other and children housing: house caffeine: No Other Medical History Have you received the Flu Vaccine for this season: No Have you received the Pneumonia Vaccine: No ROS Obtained: Yes Systems reviewed as appropriate & no additional complaints except as documented Physical Exam General General appearance: alert and in no apparent distress Head Head exam: atraumatic and normocephalic Eye Eye exam: Present normal appearance and EOMI ENT ENT exam: Present normal exam Neck Neck exam: Present normal inspection Chest Chest inspection: Present normal inspection and symmetric chest wall rise Respiratory Respiratory exam: Present normal lung sounds bilaterally Cardiovascular Cardiovascular exam: Present regular rate, normal rhythm and normal heart sounds Abdominal Exam Abdominal exam: Present soft and normal bowel sounds; Absent distention or tenderness Extremities Exam Extremities exam: Present normal inspection and full ROM; Absent tenderness Back Exam Back exam: Present normal inspection Neurological Exam Neurological exam: Present alert and oriented X3 Psychiatric Psychiatric exam: Present normal affect and normal mood Skin Skin exam: Present warm, dry, intact and normal color; Absent rash Medical Decision Making Medical Records Medical records reviewed: Yes I reviewed the patient's medical records. Screening: Per USPSTF and CDC recommendations, given the prevalence of disease in our region, it is our hospital?s policy to screen for HIV and viral Hepatitis for all patients aged 18 and over and those with ongoing risk factors. Preet Inquiry Pt receiving controlled substance: No Preet was queried for this patient: No Vital Signs: 08/15/24 10:20 Temperature 97.6 F Temperature Source Oral Pulse Rate [Right] 77 Respiratory Rate 18 Blood Pressure [Right Arm] 133/69 Blood Pressure Mean [Right Arm] 90 Blood Pressure Source [Right Arm] Automatic Cuff 02 Sat by Pulse Oximetry 96 Oxygen Delivery Method Room Air Lab Data Lab Results 08/15/24 10:25: WBC 7.8, RBC 3.90 L, Hgb 12.4, Hct 38.7, MCV 99.3 H, MCH 31.9 H, MCHC 32.1, RDW 14.9, Plt Count 144, MPV 7.8, Neut % (Auto) 91.8 H, Lymph % (Auto) 4.0 L, [place] % (Auto) 3.3, Eos % (Auto) 0.7, Baso % (Auto) 0.1, Neut # (Auto) 7.2, Lymph # (Auto) 0.3 L, [place] # (Auto) 0.3, Eos # (Auto) 0.1, Baso # (Auto) 0.0, Sodium 137, Potassium 3.9, Chloride 96 L, Carbon Dioxide 37 H, Anion Gap 7.9, BUN 18 H, Creatinine 0.80, Estimated Creat Clear 47, Estimated GFR 71, Est GFR ( Amer) 86, Glucose 163 H, Calcium 8.7, Total Bilirubin 1.3, AST 36, ALT 22, Alkaline Phosphatase 103, Total Protein 7.4, Albumin 4.0, Globulin 3.4 H, Albumin/Globulin Ratio 1.2 08/15/24 10:30: PT 13.1 H, INR 1.19 H 08/15/24 10:39: VBG pH 7.43 H, VBG pCO2 51.8 H, VBG pO2 35.1, VBG HCO3 33.9 H, VBG Total CO2 35.5 H, VBG O2 Saturation 70.0, VBG Base Excess 9.7 H, VBG Lactic Acid 2.5 H 08/15/24 10:25 08/15/24 10:25 Orders (Tests/Meds): ED MEDICATIONS Discontinued Medications Generic Name Dose Route Start Last Admin Trade Name Freq PRN Reason Stop Dose Admin Piperacillin Sod/Tazobactam 100 mls @ 200 mls/hr 08/15/24 10:53 08/15/24 11:29 Sod 4.5 gm/ Sodium Chloride IV 08/15/24 11:22 200 mls/hr ONCE ONE Administration Vancomycin HCl 1,000 mg/ 250 mls @ 125 mls/hr 08/15/24 11:00 Sodium Chloride IV 08/15/24 12:59 ONCE ONE Lactated Ringer's 500 mls @ 999 mls/hr 08/15/24 11:12 08/15/24 11:31 Lactated Ringer's 500ml IV 08/15/24 11:42 999 mls/hr .Q31M ONE Administration Miscellaneous 1 each 08/15/24 11:00 Vancomycin Consult Request NOTAPPLIC 09/14/24 10:59 CONSULT PHARMACY BOOKER ORDERS Category Date Time Status Complete Blood Count Auto Diff Stat Lab 08/15/24 10:25 Results Comprehensive Metabolic Panel Stat Lab 08/15/24 10:25 Completed PT/INR [Prothrombin Time INR] Stat Lab 08/15/24 10:30 Completed Blood Culture Stat Micro 08/15/24 11:16 Received Venous Blood Gas Stat RT 08/15/24 10:39 Completed Medical Decision Narrative: Patient with history and exam per above presenting for evaluation of positive blood cultures following recent ED visit Diagnoses considered include bacteremia, culture contamination, leukocytosis, infectious process ED workup and treatment included: As above Labs were independently interpreted by me, significant for no noted leukocytosis or anemia, chronically elevated bicarb, no acute actionable electrolyte abnormality. Patient has elevated lactate on VBG, given IV fluids, patient has been given broad-spectrum antibiotics due to prior blood cultures. My clinical impression at this time is most consistent with abnormal laboratory workup with positive blood culture. Discussed patient with hospitalist on service as a consult, after reviewing patient has most recent blood culture with 1 positive for gram positive cocci, other blood culture site negative. After review of chart and shared decision making between hospitalist, patient and myself it has been determined that patient is medically clear for discharge at this time with outpatient follow-up. Should repeat blood cultures from the day return positive patient is agreeable to returning to ED. Patient has been given IV antibiotics. Remains hemodynamically stable. Patient is agreeable with this plan. Discharged home with hemodynamically stable vitals. I discussed my clinical impression with patient and answered all questions. At this time, the evidence for any other entities in the differential is insufficient to warrant any further testing or ED observation. This was explained to the patient. The patient was advised that persistent or worsening symptoms require further evaluation. Critical Care Critical Care Time Critical Care Time: No
--- NOTE | 2024-08-15 11:48 | PC.NURSE ---
Dr. Vega is s/w hospitalist for admission
--- NOTE | 2024-08-15 11:58 | PC.NURSE ---
Dr. Vega s/w hospitalist and he refuses to admit, feels safe for discharge . Dr. Vega is now s/w pt.
[2024-08-15 12:00] VITALS: BP 143/78; PULSE 87; O2SAT 98
[2024-08-15 12:09] VITALS: BP 143/78; PULSE 87; RESP 19; TEMP 36.6; O2SAT 97
[2024-08-15 13:46] LABS: Lymphocytes % 6 % (10-50); Neutrophils % 94 % (42-76); Platelet Estimate Normal; RBC Morphology Normal; Total Cells Counted 100
[2024-08-15 14:50] LABS: Reflex Lactic Add Lactic Reflex
--- NOTE | 2024-08-17 16:06 | PC.NURSE ---
discussed completed and pending blood cultures from 08/13 & 08/[address] Jimenez, no new orders
== END 2024-08-15 12:15 | disposition home or self-care (01) ==
PROVIDERS: Emergency Provider Student in an Organized Health Care Education/Training Program; PCP Nurse Practitioner Family
DX: R89.9 Unspecified abnormal finding in specimens from other organs, systems and tissues (principal); R06.02 Shortness of breath; R06.00 Dyspnea, unspecified; R53.83 Other fatigue; R79.9 Abnormal finding of blood chemistry, unspecified
CPT/HCPCS: 80053; 82803; 85007; 85025; 85027; 85610; 87040; 96361; 96365; 99283; J2543; J7120

== ENCOUNTER 2024-09-15 10:10 | Inpatient (IN) | payer MEDICARE, MEDICAID, SELFPAY ==
[2024-09-15] VITALS (48 sets, daily range): BP systolic 86–138; BP diastolic 29–78; PULSE 65–88; RESP 11–28; TEMP 36.6–37; O2SAT 79–100; BMI 21.7
--- NOTE | 2024-09-15 10:16 | PC.NURSE ---
Dr. Lawrence at bedside
--- NOTE | 2024-09-15 10:27 | XR_ITS ---
FINAL REPORT CLINICAL HISTORY: Shortness of breath COMPARISON: 08/13/2024 FINDINGS: A portable view of the chest was obtained. Again seen are changes from sternotomy. Left AICD is in stable position. The heart is enlarged in size but unchanged. Emphysema is noted. New right basilar opacity is favored to represent atelectasis but early pneumonia is not excluded. There is a small left pleural effusion. There is no pneumothorax. IMPRESSION: New right basilar opacity, favor atelectasis but pneumonia not excluded, and small left pleural effusion. Recommend follow-up to resolution. Reviewed, Interpreted and Dictated by Marilu Corral MD Transcribed by Gladis Montes Authenticated and [facility]
--- NOTE | 2024-09-15 10:31 | HMH.EDGENADL ---
Discharge Plan Disposition Patient Disposition: Admitted Chief Complaint: Shortness of Breath/Dyspnea Prescriptions Prescriptions: No Action warfarin 4 mg tablet 4 mg PO DAILY Patient Comments: dose per scale ipratropium-albuterol 0.5 mg-3 mg(2.5 mg base)/3 mL solution for nebulization 3 ml inhalation Q4H PRN (Reason: shortness of breath) Qty: 180 2RF Rx Instructions: until breathing returns to target peak flow/parameters Combivent Respimat 20-100 mcg/actuation mist 1 puff INHALATION QID Patient Comments: INHALE 1 PUFF BY MOUTH 4 TIMES A DAY atorvastatin 40 mg Tablet 40 mg PO HS 30 Days Qty: 30 0RF prednisone 20 mg Tablet 40 mg PO DAILY 3 Days Qty: 6 0RF furosemide 40 mg tablet 40 mg PO BIDL 30 Days Qty: 60 0RF albuterol sulfate 90 mcg/actuation HFA aerosol inhaler 4 inh inhalation Q4H PRN (Reason: shortness of breath or wheezing) Qty: 8.5 0RF Rx Instructions: 4 puffs every 4 hours for 48 hours then as needed for shortness of breath or wheezing following Combivent Respimat 20-100 mcg/actuation mist 1 puff inhalation Q6H PRN (Reason: shortness of breath or wheezing) Qty: 4 3RF prednisone 20 mg tablet 40 mg PO DAILY 5 Days Qty: 10 0RF doxycycline monohydrate 100 mg capsule 100 mg PO BID 5 Days Qty: 10 0RF furosemide 40 mg tablet 40 mg PO DAILY PRN (Reason: weight gain) Qty: 30 3RF ipratropium-albuterol 0.5 mg-3 mg(2.5 mg base)/3 mL solution for nebulization 3 ml inhalation Q6H PRN (Reason: wheezing) Qty: 180 4RF magnesium oxide 400 mg magnesium capsule 800 mg PO DAILY Qty: 60 2RF Referrals Follow up/Referrals: Juanita Solano APRN [Primary Care Provider] - See instructions Clinical Impressions Clinical Impression: Acute exacerbation of chronic obstructive pulmonary disease, Acute hypercapnic respiratory failure, Acute hypoxic respiratory failure Print Language Print Language: Marshallese Discharge ED Provider: Landry Lawrence General Adult HPI General Chief complaint: Shortness of Breath/Dyspnea Stated complaint: SOA, dsypnea for 2 days Time Seen by Provider: 09/15/24 10:13 History of Present Illness HPI narrative: 69-year-old female with a history of COPD presents today with worsening cough shortness of breath and wheezing. She states that she is having a very difficult time getting enough air to breathe and just feels very fatigued and like if she falls asleep that she will not wake up she states. Denies any fevers or chills or other infectious symptoms at the moment. She does states she has been chronically ill over the last year. She was given 125 of Solu-Medrol and 1 DuoNeb prior to arrival by EMS. Related Data Home Medications ?Medication ?Instructions ?Recorded ?Confirmed warfarin 4 mg tablet 4 mg PO DAILY Blood thinner 11/18/20 06/04/24 ipratropium 20 mcg-albuterol 100 1 puff inhalation QID 06/05/24 06/05/24 mcg/actuation mist for inhalation (Combivent Respimat) Previous Rx's ?Medication ?Instructions ?Recorded albuterol sulfate 90 mcg/actuation 4 inh inhalation Q4H PRN shortness 04/24/23 aerosol inhaler of breath or wheezing #8.5 grams ipratropium 0.5 mg-albuterol 3 mg 3 ml inhalation Q4H PRN shortness 06/04/24 (2.5 mg base)/3 mL nebulization of breath #180 mL soln atorvastatin 40 mg tablet 40 mg PO HS 30 days #30 tabs 06/06/24 furosemide 40 mg tablet 40 mg PO BIDL 30 days #60 tabs 06/06/24 prednisone 20 mg tablet 40 mg (2 x 20 mg) PO DAILY 3 days 06/06/24 #6 tabs doxycycline monohydrate 100 mg 100 mg PO BID 5 days #10 caps 08/13/24 capsule furosemide 40 mg tablet 40 mg PO DAILY PRN weight gain #30 08/13/24 tabs ipratropium 0.5 mg-albuterol 3 mg 3 ml inhalation Q6H PRN wheezing 08/13/24 (2.5 mg base)/3 mL nebulization #180 mL soln ipratropium 20 mcg-albuterol 100 1 puff inhalation Q6H PRN 08/13/24 mcg/actuation mist for inhalation shortness of breath or wheezing #4 (Combivent Respimat) grams magnesium oxide 800 mg (2 x 400 mg magnesium) PO 08/13/24 DAILY #60 caps prednisone 20 mg tablet 40 mg (2 x 20 mg) PO DAILY 5 days 08/13/24 #10 tabs Allergies Allergy/AdvReac Type Severity Reaction Status Date / Time nitroglycerin Allergy Intermediate Unknown Verified 09/15/24 10:44 allergy reaction aspirin AdvReac Intermediate stomach Verified 09/15/24 10:44 issues NSAIDS (Non-Steroidal AdvReac Intermediate stomach Verified 09/15/24 10:44 Anti-Inflamma issues procainamide AdvReac Intermediate stomach Verified 09/15/24 10:44 issues PFSH [facility] Disclaimer: The information contained in this section may have been updated after the patient was seen, as this information can be updated by other users. Medical History Hypertension Long-term (current) use of anticoagulants, INR goal 2.5-3.5 Surgical History History of artificial heart valve Family History (Updated 06/04/24 @ 17:31 by Santa Miller RN) Other No significant family history Social History (Updated 06/04/24 @ 17:31 by Santa Miller RN) Smoking Status: Current every day smoker tobacco type: cigarettes packs per day: 1 alcohol intake: never substance use type: marijuana current occupational status: retired Travel in the last 8 weeks: None household members: significant other and children housing: house caffeine: No Have you lived/traveled outside [place] in past 30 days?: No Contact w/someone who lives/traveled outside [place] past 30 days?: No Exposure to someone with infectious disease in past 14 days?: No Do you have a fever (greater than 100.4 F or 38 C)?: No Have you tested positive for COVID-19: No Exposed to someone with COVID-19 in past 14 days?: No Do you have a sore throat?: No Do you have a cough?: No Do you have any weakness?: No Do you have any diarrhea?: No Are you experiencing any unusual bleeding?: No Do you have any muscle aches/pain?: No Do you have any abdominal pain?: No Are you experiencing loss of taste or smell?: No Other Medical History Have you received the Flu Vaccine for this season: No Have you received the Pneumonia Vaccine: No ROS Obtained: Yes All systems reviewed & no additional complaints except as documented Physical Exam General General appearance: alert and other (In distress wearing 2 L nasal cannula oxygen saturations in the mid 90s) Respiratory Respiratory exam: Present other (Per slept breathing with accessory muscle use and prolonged expiratory phase but nonfocal minimal air movement throughout) Cardiovascular Cardiovascular exam: Present regular rate Neurological Exam Neurological exam: Present alert and oriented X3 Medical Decision Making Medical Records Screening: Per USPSTF and CDC recommendations, given the prevalence of disease in our region, it is our hospital?s policy to screen for HIV and viral Hepatitis for all patients aged 18 and over and those with ongoing risk factors. Preet Inquiry Pt receiving controlled substance: No Vital Signs: 09/15/24 10:16 09/15/24 10:26 09/15/24 10:30 Temperature 97.8 F Temperature Source Oral Pulse Rate 81 Pulse Rate [Left] 85 Respiratory Rate 11 L 14 18 Blood Pressure 137/78 134/77 Blood Pressure [Right Arm] 137/78 Blood Pressure Mean [Right Arm] 97 Blood Pressure Source [Right Arm] Automatic Cuff Blood Pressure Position [Right Arm] Sitting 02 Sat by Pulse Oximetry 99 99 Oxygen Delivery Method Nasal Cannula Nasal Cannula Nasal Cannula Oxygen Flow Rate (LPM) 2 2 2 09/15/24 11:00 09/15/24 11:15 09/15/24 11:30 Temperature Temperature Source Pulse Rate 69 70 Pulse Rate [Left] Respiratory Rate 11 L 12 15 Blood Pressure 128/68 120/65 123/59 L Blood Pressure [Right Arm] Blood Pressure Mean [Right Arm] Blood Pressure Source [Right Arm] Blood Pressure Position [Right Arm] 02 Sat by Pulse Oximetry 99 87 L 79 L Oxygen Delivery Method Nasal Cannula Nasal Cannula Nasal Cannula Oxygen Flow Rate (LPM) 3 3 09/15/24 11:45 09/15/24 12:00 Temperature Temperature Source Pulse Rate Pulse Rate [Left] Respiratory Rate 15 13 Blood Pressure 119/70 119/64 Blood Pressure [Right Arm] Blood Pressure Mean [Right Arm] Blood Pressure Source [Right Arm] Blood Pressure Position [Right Arm] 02 Sat by Pulse Oximetry Oxygen Delivery Method Nasal Cannula Nasal Cannula Oxygen Flow Rate (LPM) Lab Data Lab results reviewed: Yes I reviewed the patient's lab results. Lab Results 09/15/24 10:14: WBC 6.5, RBC 3.81 L, Hgb 11.8 L, Hct 38.2, MCV 100.3 H, MCH 31.0, MCHC 30.9 L, RDW 14.7, Plt Count 138 L, MPV 10.0, Neut % (Auto) 66.3, Lymph % (Auto) 17.9, [place] % (Auto) 12.7 H, Eos % (Auto) 2.3, Baso % (Auto) 0.6, Neut # (Auto) 4.3, Lymph # (Auto) 1.2, [place] # (Auto) 0.8, Eos # (Auto) 0.2, Baso # (Auto) 0.0, Sodium 137, Potassium 3.8, Chloride 93 L, Carbon Dioxide 38 H, Anion Gap 9.8, BUN 11, Creatinine 0.90, Estimated Creat Clear 46, Estimated GFR 62, Est GFR ( Amer) 75, Glucose 120 H, Calcium 8.8, Total Bilirubin 1.4 H, AST 39 H, ALT 14, Alkaline Phosphatase 140 H, Troponin I 0.01, NT-Pro-B Natriuret Pep 526 H, Total Protein 7.0, Albumin 3.7, Globulin 3.3 H, Albumin/Globulin Ratio 1.1 09/15/24 10:35: VBG pH 7.26 L, VBG pCO2 80.8 H, VBG pO2 42.4 H, VBG HCO3 35.8 H, VBG Total CO2 38.3 H, VBG O2 Saturation 72.4 H, VBG Base Excess 8.8 H, VBG Lactic Acid 1.4 09/15/24 10:14 09/15/24 10:14 Orders (Tests/Meds): ED MEDICATIONS Generic Name Dose Route Start Last Admin Trade Name Freq PRN Reason Stop Dose Admin Albuterol/Ipratropium 3 ml 09/15/24 14:00 Ipratropium/Albuterol 3 Ml [facility] 10/15/24 13:59 Q4RT [facility] Budesonide 0.5 mg 09/15/24 18:00 Budesonide 0.5mg/2ml [facility] 10/15/24 17:59 BIDRT [facility] Ceftriaxone Sodium 1 gm/ 50 mls @ 100 mls/hr 09/15/24 12:06 Sodium Chloride IV 09/15/24 12:35 ONCE ONE Discontinued Medications Generic Name Dose Route Start Last Admin Trade Name Freq PRN Reason Stop Dose Admin Albuterol/Ipratropium 3 ml 09/15/24 10:24 09/15/24 10:49 Ipratropium/Albuterol 3 Ml Neb [facility] 09/15/24 10:25 3 ml ONCE ONE Administration Magnesium Sulfate 2 gm in 50 mls @ 50 mls/hr 09/15/24 10:24 09/15/24 10:39 Magnesium Sulfate 2gm/50ml Premix IV 09/15/24 11:23 50 mls/hr ONCE ONE Administration Azithromycin 500 mg/ Sodium 250 mls @ 250 mls/hr 09/15/24 12:06 Chloride IV 09/15/24 12:07 ONCE ONE ORDERS Category Date Time Status CXR --portable [XR chest portable] Stat Exams 09/15/24 10:27 Completed BNP [NT Pro Brain Natriuretic Pep.] Stat Lab 09/15/24 10:14 Completed CBC w/Auto Diff [Complete Blood Count Auto Diff] Stat Lab 09/15/24 10:14 Completed CMP [Comprehensive Metabolic Panel] Stat Lab 09/15/24 10:14 Completed Complete Blood Count Auto Diff AMLAB Lab 09/16/24 06:00 Ordered Comprehensive Metabolic Panel AMLAB Lab 09/16/24 06:00 Ordered Lactate Venous Stat Lab 09/15/24 10:35 Ordered Magnesium AMLAB Lab 09/16/24 06:00 Ordered Rapid PCR Covid and Flu A/B Stat Lab 09/15/24 10:27 Received Trop I [Troponin I] Stat Lab 09/15/24 10:14 Completed Troponin I Q3H Lab 09/15/24 13:30 Ordered Troponin I Q3H Lab 09/15/24 16:30 Ordered Venous Blood Gas Stat RT 09/15/24 10:35 Completed Medical Decision Narrative: 69-year-old with above history and physical presenting today with respiratory distress no evidence of hypoxic respiratory failure but she does have significant increased work of breathing I suspect she may be hypercarbic. She felt better after the prehospital DuoNeb and Solu-Medrol will give another DuoNeb and magnesium check a blood gas get chest x-ray swab her for viral infections etc. Admission decision will be based on her response to these therapies. It is possible she may need BiPAP which have not initiated at the moment we will make a decision based largely on her blood gas. Reassessment 12:31 PM gas shows hypercapnia we attempted BiPAP on this patient however she refused after a very short period of time which is been her consistent behavior in the past per the respiratory therapist to know her well. She is somewhat somnolent and sleeping and hypoxic and has been requiring increasing oxygen requirement from her baseline. She is still arousable and has a mental capacity to make decisions to refuse BiPAP at the moment. However I am still concerned that she may decompensate as she is not ventilating well. Nonetheless she is somewhat improved from how she initially got here. And will need ongoing management and observation. I discussed the case with Dr. William Berumen who agreed to admit the patient for evaluation and management. Chest x-ray was performed which I personally interpreted which shows no evidence of acute cardiopulmonary emergency however radiology read a questionable consolidation and given the severity of COPD will go ahead and cover with Rocephin azithromycin patient was admitted. Critical Care Critical Care Time Critical Care Time: Yes Attestation: On 09/15/24, the high probability of a clinically significant, sudden or life threatening deterioration of the following system(s) required my full and direct attention, intervention and personal management. The time I documented below is in addition to time spent performing reported procedures but includes the following listed in this critical care notation. Total Time Total Critical Care Time: 35
[2024-09-15 10:32] LABS: Coronavirus 19, PCR Not Detected (NotDetected); Influenza A, PCR Not Detected (NotDetected); Influenza B, PCR Not Detected (NotDetected)
[2024-09-15 10:37] LABS: Lactate Venous 1.4 mmol/L (0.4-2.0); VBG Base Excess 8.8 mmol/L (-2.4-2.3); VBG HCO3 35.8 mmol/L (23-30); VBG Oxygen Saturation 72.4 % (50-70); VBG PH 7.26 mmol/L (7.31-7.41); VBG PO2 42.4 mmol/L (28-40); VBG Total CO2 38.3 mmol/L (23-27)
[2024-09-15 10:37] LABS: Basophils % 0.6 % (0.1-2.0); Eosinophils # 0.2 K/mm3 (0.0-0.4); Eosinophils % 2.3 % (0.1-12.0); Hematocrit 38.2 % (37.0-47.0); Hemoglobin 11.8 g/dL (12.2-16.2); Lymphocytes # 1.2 K/mm3 (0.7-4.5); Lymphocytes % 17.9 % (10-50); Mean Corpuscular HGB Conc 30.9 g/dL (31.8-35.4); Mean Corpuscular Volume 100.3 fl (81-99); Monocytes # 0.8 K/mm3 (0.1-1.0); Monocytes % 12.7 % (1.7-9.3); Neutrophils # 4.3 K/mm3 (1.8-7.8); Neutrophils % 66.3 % (37.0-80.0); Platelet Count 138 K/mm3 (142-424); Red Blood Count 3.81 M/mm3 (4.20-5.40); Red Cell Distribution Width 14.7 % (11.5-17.5); White Blood Count 6.5 K/mm3 (4.8-10.8)
[2024-09-15 10:39] LABS: VBG PCO2 80.8 mmol/L (35-51)
[2024-09-15] MEDS: MAGNESIUM SULFATE IN WATER 2 GM/50 ML PIGGYBACK IV (10:39)
[2024-09-15 10:40] LABS: Albumin Level 3.7 g/dl (3.5-5.0); Chloride 93 mmol/L (98-107); Sodium 137 mmol/L (136-145)
[2024-09-15 10:41] LABS: Potassium 3.8 mmoL/L (3.5-5.1)
--- NOTE | 2024-09-15 10:42 | PC.NURSE ---
I spoke with Claudette in resp and requested the pt be placed on BIPAP per Dr. Lawrence.
[2024-09-15 10:43] LABS: Alanine Aminotransferase 14 U/L (12-78); Albumin/Globulin Ratio 1.1 (1.1-1.8); Alkaline Phosphatase 140 U/L (38-126); Aspartate Amino Transferase 39 U/L (14-36); Bilirubin,Total 1.4 mg/dl (0.2-1.3); Blood Urea Nitrogen 11 mg/dl (7-17); Creatinine Clearance Estimated 46 mL/min (50-200); Estimated Glomerular Filt Rate 62 ml/min (>60); GFR (African American) 75 ML/MIN (>60); Globulin 3.3 g/dL (1.3-3.2)
[2024-09-15 10:44] LABS: Calcium 8.8 mg/dl (8.4-10.2); Glucose 120 mg/dl (74-100)
--- NOTE | 2024-09-15 10:44 | ECG_ITS ---
APPROVED REPORT Exam: Resting ECG HR:70 bpm ECG Measurements Heart Rate 70 AXES LA 261 P 87 QRSd 188 QRS -59 QT 480 T 236 QTc 500 Conclusion ELECTRONIC VENTRICULAR PACEMAKER ABNORMAL RHYTHM ECG UNCONFIRMED REPORT Electronically signed by : Gabe Lawrence, 09/15/2024 15:32:49
[2024-09-15] MEDS: IPRATROPIUM/ALBUTEROL 3 ML NEB IH ×4 (10:49→21:47)
[2024-09-15 10:50] LABS: Anion Gap 9.8 mEq/L (5-15); Carbon Dioxide 38 mmol/L (22.0-30.0)
[2024-09-15 10:52] LABS: NT Pro Brain Natriuretic Pep. 526 pg/mL (0-125)
[2024-09-15 10:57] LABS: Troponin I 0.01 ng/ml (0.00-0.034)
--- NOTE | 2024-09-15 12:24 | P.HP_ITS ---
History of Present Illness *Admission Date: 09/15/24 *Reason for visit:: Confusion, respiratory failure *History of present illness: Ms. Nabil Katz is a 69-year-old female history of hypertension, hyperlipidemia, COPD (no home O2), CAD status post CABG x 2, stenting, A-fib with AICD in place, CHF, mechanical mitral valve on warfarin goal INR 2.5-3.5 presenting with progressive shortness of breath. She states has been going on for 2 to 3 days. Had a similar presentation few months ago but waited longer before coming in. States has been having some swelling in her legs that her legs are not terribly swollen on exam today. Said increased shortness of breath and inability to walk far without being exhausted. On arrival to the ER, patient is hypoxic. Feels very fatigued. Denies fever, chill, nausea or vomiting. No known sick contacts. She uses a walker and cane at home for ambulation. Workup in the ED revealed initial respiratory acidosis with hypercarbia. Unable to convince patient initially to wear BiPAP. After much discussion, patient is agreeable to wear BiPAP for her pCO2 of 80 and pH of 7.26. Given ceftriaxone and azithromycin. Labs showing normal white count of 6.5. Kidney function and electrolytes at baseline for patient with BUN 11, creatinine 0.9. Patient admitted to the ICU for further management due to acute respiratory failure necessitating noninvasive positive pressure ventilation. [facility] Disclaimer: The information contained in this section may have been updated after the patient was seen, as this information can be updated by other users. Medical History Long-term (current) use of anticoagulants, INR goal 2.5-3.5 Hypertension Surgical History History of artificial heart valve Family History Other No significant family history Social History Smoking Status: Current every day smoker tobacco type: cigarettes packs per day: 1 alcohol intake: never substance use type: marijuana current occupational status: retired Travel in the last 8 weeks: None household members: significant other and children housing: house caffeine: No Have you lived/traveled outside [place] in past 30 days?: No Contact w/someone who lives/traveled outside US past 30 days?: No Exposure to someone with infectious disease in past 14 days?: No Do you have a fever (greater than 100.4 F or 38 C)?: No Have you tested positive for COVID-19: No Exposed to someone with COVID-19 in past 14 days?: No Do you have a sore throat?: No Do you have a cough?: No Do you have any weakness?: No Do you have any diarrhea?: No Are you experiencing any unusual bleeding?: No Do you have any muscle aches/pain?: No Do you have any abdominal pain?: No Are you experiencing loss of taste or smell?: No Other Medical History Have you received the Flu Vaccine for this season: No Have you received the Pneumonia Vaccine: No Review of Systems Review of Systems Review of systems (narrative): 14 point review of systems performed, pertinent positives and negatives as per [facility] Meds Home Medications and Allergies Home Medications ?Medication ?Instructions ?Recorded ?Confirmed ?Type warfarin 4 mg tablet 4 mg PO DAILY Blood thinner 11/18/20 06/04/24 History albuterol sulfate 90 mcg/actuation 4 inh inhalation Q4H PRN shortness 04/24/23 06/05/24 Rx aerosol inhaler of breath or wheezing #8.5 grams atorvastatin 40 mg tablet 40 mg PO HS 30 days #30 tabs 06/06/24 Rx furosemide 40 mg tablet 40 mg PO DAILY PRN weight gain #30 08/13/24 09/15/24 Rx tabs ipratropium 0.5 mg-albuterol 3 mg 3 ml inhalation Q6H PRN wheezing 08/13/24 Rx (2.5 mg base)/3 mL nebulization #180 mL soln ipratropium 20 mcg-albuterol 100 1 puff inhalation Q6H PRN 08/13/24 09/15/24 Rx mcg/actuation mist for inhalation shortness of breath or wheezing #4 (Combivent Respimat) grams magnesium oxide 800 mg (2 x 400 mg magnesium) PO 08/13/24 Rx DAILY #60 caps New Prescriptions to Start Prescriptions: Allergies Allergy/AdvReac Type Severity Reaction Status Date / Time nitroglycerin Allergy Intermediate Unknown Verified 09/15/24 10:44 allergy reaction aspirin AdvReac Intermediate stomach Verified 09/15/24 10:44 issues NSAIDS (Non-Steroidal AdvReac Intermediate stomach Verified 09/15/24 10:44 Anti-Inflamma issues procainamide AdvReac Intermediate stomach Verified 09/15/24 10:44 issues Exam Data for Last 24 hours Vital signs and Labs for Last 24 Hours: Temp Pulse Resp BP Pulse Ox O2 Del Method O2 Flow Rate 97.8 F 70 13 119/64 79 L Nasal Cannula 3 09/15/24 10:26 09/15/24 11:15 09/15/24 12:00 09/15/24 12:00 09/15/24 11:30 09/15/24 12:00 09/15/24 11:30 Laboratory Results - last 24 hr 09/15/24 10:14: WBC 6.5, RBC 3.81 L, Hgb 11.8 L, Hct 38.2, MCV 100.3 H, MCH 31.0, MCHC 30.9 L, RDW 14.7, Plt Count 138 L, MPV 10.0, Neut % (Auto) 66.3, Lymph % (Auto) 17.9, Mclennan % (Auto) 12.7 H, Eos % (Auto) 2.3, Baso % (Auto) 0.6, Neut # (Auto) 4.3, Lymph # (Auto) 1.2, Mclennan # (Auto) 0.8, Eos # (Auto) 0.2, Baso # (Auto) 0.0, Sodium 137, Potassium 3.8, Chloride 93 L, Carbon Dioxide 38 H, Anion Gap 9.8, BUN 11, Creatinine 0.90, Estimated Creat Clear 46, Estimated GFR 62, Est GFR ( Amer) 75, Glucose 120 H, Calcium 8.8, Total Bilirubin 1.4 H , AST 39 H, ALT 14, Alkaline Phosphatase 140 H, Troponin I 0.01, NT-Pro-B Natriuret Pep 526 H, Total Protein 7.0, Albumin 3.7, Globulin 3.3 H, Albumin/Globulin Ratio 1.1 09/15/24 10:35: VBG pH 7.26 L, VBG pCO2 80.8 H, VBG pO2 42.4 H, VBG HCO3 35.8 H, VBG Total CO2 38.3 H, VBG O2 Saturation 72.4 H, VBG Base Excess 8.8 H, VBG Lactic Acid 1.4 I & O for Last 24 hours: Intake & Output 09/12/24 09/13/24 09/14/24 09/15/24 23:59 23:59 23:59 23:59 Weight 54.431 kg Constitutional Constitutional: mild distress, cachectic, chronically ill appearing and cooperative *Routine HEENT Exam Head: Present normocephalic Eye: Present EOMI and PERRL ENT: Present mucous membranes moist *Routine Neck Exam Neck: Present supple; Absent lymphadenopathy *Routine Respiratory Exam Respiratory: Present accessory muscle use, prolonged expiratory phase, rhonchi, wheezes, crackles (Right side) and diminished air movement; Absent CTA bilaterally *Routine Cardiovascular Exam Cardiovascular: Present RRR *Routine Abdominal Exam Abdominal: Present soft and normoactive bowel sounds; Absent tenderness *Routine Rectal Exam Rectal:: deferred *Routine Genitalia Exam Genitalia:: deferred *Routine Extremities Exam Extremities: Present edema (Trace in leg); Absent cyanosis or clubbing *Routine Skin Exam Skin: Present warm; Absent rash *Routine Neurological Exam Neurological: Present alert, oriented X3 and moving all extremities; Absent altered mental status Assessment and Plan *Assessment and plan (1) CHF exacerbation: Status: Acute Qualifiers: Heart failure type: diastolic Qualified Code(s): I50.33 - Acute on chronic diastolic (congestive) heart failure Category: Medical Code(s): I50.9 - Heart failure, unspecified (2) Acute hypercapnic respiratory failure: Status: Acute Category: Medical Code(s): J96.02 - Acute respiratory failure with hypercapnia (3) Acute exacerbation of chronic obstructive pulmonary disease: Status: Acute Category: Medical Code(s): J44.1 - Chronic obstructive pulmonary disease with (acute) exacerbation (4) Acute hypoxic respiratory failure: Status: Acute Category: Medical Code(s): J96.01 - Acute respiratory failure with hypoxia (5) Tobacco use: Status: Acute Category: Social Hx Code(s): Z72.0 - Tobacco use (6) Cardiac pacemaker in situ: Status: Acute Category: Medical Code(s): Z95.0 - Presence of cardiac pacemaker (7) Long-term (current) use of anticoagulants, INR goal 2.5-3.5: Status: Chronic Category: Medical Code(s): 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 Karlene Katz is a 69-year-old female history of hypertension, hyperlipidemia, COPD (no home O2), CAD status post CABG x 2, stenting, A-fib with AICD in place, CHF, mechanical mitral valve on warfarin goal INR 2.5-3.5 presenting with progressive shortness of breath. Worsening shortness of breath over the past 3 days. Workup in the ER concerning for respiratory acidosis with hypercarbia and respiratory failure. Initiated on BiPAP. Medicine consulted for admission. Discussed case with ER physician, request treatment for respiratory failure, COPD exacerbation, hypercapnia. I agreed to admit for further management. Able to encourage patient to wear BiPAP. Necessitating ICU level care at this time. Problems addressed as follows: #Acute on chronic hypoxemic with acute hypercapnic respiratory failure # COPD exacerbation -Secondary to heart failure and COPD exacerbation with concern for pneumonia and right lower lobe -Per my review of chest x-ray, small area of airspace disease in right lower lung. Ceftriaxone and azithromycin in the ER. Continue ceftriaxone 1 g and azithromycin 500 mg daily -pH 7.26, pCO2 80 on arrival. Able to convince patient to wear BiPAP. Continue BiPAP at rate of 20, 14/6, FiO2 30%. Repeat blood gas this evening. If showing improvement, will take breaks for meals. -Single dose 2 mg p.o. Valium to help with anxiety while wearing BiPAP, monitor for sedation -Continues to smoke. No desire to quit. Declined patches -DuoNebs every 4 hours scheduled, Pulmicort twice daily -White count normal at 6.5. Repeat CBC, CMP, magnesium ordered for the morning. #HFpEF exacerbation # Hypertension ? BNP better than last visit at 526. Still slightly elevated. Suspect secondary to COPD exacerbation and problem above. Will diurese daily with Lasix 40 mg IV - Kidney function at baseline with BUN 11, creatinine 0.9. Repeat CBC, CMP, magnesium ordered for the morning. ? ECHO 01/2022 reveals LVEF 55%, mild concentric left ventricular hypertrophy, biatrial enlargement, normal mechanical prosthetic mitral valve, moderately enlarged right ventricle, moderate tricuspid regurgitation, RVSP 33 mmHg. - Echo June 23 with moderate RV dilation. EF preserved at 50%. RVSP 25-30 millimeters mercury ? Strict KATHERINE's, fluid/water restriction, and elevation. - Hold blood pressure meds at the moment given her blood pressure of 110/51. Consider resuming as her clinical status normalizes/stabilizes Chronic problems: #CAD s/p CABG X2: Aspirin, statin. #A-fib with AICD #Mechanical mitral valve on warfarin #Subtherapeutic INR ? Currently rate controlled. - Mechanical valve, chronic anticoagulation: Continue warfarin 4 mg daily. INR pending, goal is 2.5?3.5. - Patient reports compliance, but states she takes only 4 mg only on Tuesdays and 2 mg the other days. Will need to confirm this with her pbx technician. ? Repeat INR ordered for tomorrow. CODE STATUS: Full code DVT prophylaxis: Home warfarin Diet: Cardiac
--- NOTE | 2024-09-15 12:59 | PC.NURSE ---
I asked Dr. Lawrence about obtaining blood cultures. He states we do not need to obtain them as we are treating COPD exacerbation.
[2024-09-15] MEDS: CEFTRIAXONE SODIUM 1 GM in 0.9 % SODIUM CHLORIDE 50 ML IV (13:02)
[2024-09-15] MEDS: AZITHROMYCIN 500 MG in 0.9 % SODIUM CHLORIDE 250 ML 250 MG IV (13:07)
--- NOTE | 2024-09-15 14:12 | PC.NURSE ---
I attempted to call report, she will call me back in about 5 minutes.
--- NOTE | 2024-09-15 14:36 | PC.NURSE ---
Gave report to Magalis Villeda RN.
--- NOTE | 2024-09-15 14:52 | PC.NURSE ---
PT IS IN ICU I TOOK HER VIA WHEELCHAIR
[2024-09-15 15:19] LABS: Troponin I 0.01 ng/ml (0.00-0.034)
[2024-09-15 16:03] LABS: INR 1.72 (0.9-1.1); Prothrombin Time 18.3 seconds (10.1-12.5)
[2024-09-15 17:13] LABS: Lactate Venous 1.3 mmol/L (0.4-2.0); VBG Base Excess 5.9 mmol/L (-2.4-2.3); VBG HCO3 31.1 mmol/L (23-30); VBG Oxygen Saturation 67.4 % (50-70); VBG PH 7.37 mmol/L (7.31-7.41); VBG PO2 34.8 mmol/L (28-40); VBG Total CO2 32.8 mmol/L (23-27)
[2024-09-15 17:16] LABS: VBG PCO2 54.5 mmol/L (35-51)
--- NOTE | 2024-09-15 17:30 | PC.NURSE ---
pt refused multiple times to be turn by staff to prevent bed sores.
[2024-09-15] MEDS: WARFARIN 2MG TABLET 4 MG PO (17:42)
[2024-09-15 18:07] LABS: Troponin I < 0.01 ng/ml (0.00-0.034)
[2024-09-15] MEDS: BUDESONIDE 0.5MG/2ML NEB 0.5 MG IH (18:28)
--- NOTE | 2024-09-15 18:34 | PC.NURSE ---
Upon assessment and admission to unit, pt was requested to change into a hospital gown so that pt monitoring equipment can be attached and maintained more appropriately. pt declined stating that she did not want to change out of her clothes from home. pt was also offered by SRNA to be turned/help to turn every 2 hours to prevent breakdown as she is at risk for skin breakdown on saeid prominences. pt refused to SRNA. when speaking with pt about admission questions, pt indicated that she has full upper and lower dentures. pt was asked if dentures could be removed when bipap was reapplied at bedtime. pt refused, stating that she glues them in and she is used to wearing them and when she removes them from her mouth there is a gap that causes discomfort in her jaw. notified pt the risks of leaving dentures in place with bipap in use. advised milton in [place] that pt has dentures in place at this time as well. pt agreeable to reapply bipap at approx [phone]
[2024-09-15] MEDS: diazePAM 2MG TABLET 2 MG PO (19:50)
[2024-09-15] MEDS: ENOXAPARIN 100MG/ML SYRINGE 60 MG SUBCUT (19:51)
[2024-09-16] VITALS (40 sets, daily range): BP systolic 90–115; BP diastolic 46–65; PULSE 73–109; RESP 12–22; TEMP 36.6–37.2; O2SAT 89–99; BMI 22.3
[2024-09-16] MEDS: IPRATROPIUM/ALBUTEROL 3 ML NEB IH ×6 (02:03→21:40)
[2024-09-16 05:44] LABS: Basophils % 0.2 % (0.1-2.0); Hematocrit 32.3 % (37.0-47.0); Lymphocytes # 0.3 K/mm3 (0.7-4.5); Lymphocytes % 6.6 % (10-50); Mean Corpuscular HGB Conc 31.9 g/dL (31.8-35.4); Mean Corpuscular Hemoglobin 31.3 pg (27.0-31.2); Mean Corpuscular Volume 98.2 fl (81-99); Mean Platelet Volume 10.1 fl (7.4-10.4); Monocytes # 0.4 K/mm3 (0.1-1.0); Monocytes % 7.4 % (1.7-9.3); Neutrophils # 4.1 K/mm3 (1.8-7.8); Neutrophils % 85.2 % (37.0-80.0); Platelet Count 102 K/mm3 (142-424); Red Blood Count 3.29 M/mm3 (4.20-5.40); Red Cell Distribution Width 14.3 % (11.5-17.5); White Blood Count 4.9 K/mm3 (4.8-10.8)
[2024-09-16 05:53] LABS: Hemoglobin 10.3 g/dL (12.2-16.2); MANUAL DIFFERENTIAL MANUAL DIFFERENTIAL (MANUAL DIFF)
[2024-09-16 05:55] LABS: Alanine Aminotransferase 17 U/L (12-78); Alkaline Phosphatase 111 U/L (38-126); Aspartate Amino Transferase 31 U/L (14-36); Blood Urea Nitrogen 16 mg/dl (7-17); Calcium 8.3 mg/dl (8.4-10.2); Chloride 94 mmol/L (98-107); Creatinine Clearance Estimated 51 mL/min (50-200); Estimated Glomerular Filt Rate 71 ml/min (>60); GFR (African American) 86 ML/MIN (>60); Glucose 200 mg/dl (74-100); Magnesium 2.3 mg/dl (1.6-2.3); Potassium 3.9 mmoL/L (3.5-5.1); Sodium 133 mmol/L (136-145); Total Protein,Serum 5.7 g/dl (6.3-8.2)
[2024-09-16] MEDS: BUDESONIDE 0.5MG/2ML NEB 0.5 MG IH ×2 (06:00→18:23)
[2024-09-16 06:22] LABS: Anion Gap 5.9 mEq/L (5-15); Carbon Dioxide 37 mmol/L (22.0-30.0)
[2024-09-16 07:19] LABS: Albumin Level 2.8 g/dl (3.5-5.0); Globulin 2.9 g/dL (1.3-3.2)
[2024-09-16 07:46] LABS: Lymphocytes % 9 % (10-50); Monocytes % 1 % (2-9); Neutrophils % 90 % (42-76); Total Cells Counted 100
[2024-09-16 07:47] LABS: Hypochromasia 1+; Ovalocytes 1+; Platelet Estimate Slight Decrease; Schistocytes 1+
[2024-09-16] MEDS: FUROSEMIDE 40MG/4ML VIAL 40 MG IV (08:44)
[2024-09-16] MEDS: CEFTRIAXONE SODIUM 1 GM in 0.9 % SODIUM CHLORIDE 50 ML IV (08:44)
[2024-09-16 08:46] LABS: INR 1.64 (0.9-1.1); Prothrombin Time 17.5 seconds (10.1-12.5)
[2024-09-16] MEDS: AZITHROMYCIN 500 MG in 0.9 % SODIUM CHLORIDE 250 ML 250 MG IV (09:45)
[2024-09-16] MEDS: ENOXAPARIN 60MG/0.6ML SYRINGE 60 MG SUBCUT ×2 (10:54→20:02)
[2024-09-16] MEDS: WARFARIN 3MG TABLET 6 MG PO (12:37)
--- NOTE | 2024-09-16 13:19 | SW/DCPLANNER ---
Per PT/OT patient has no needs at this time.
--- NOTE | 2024-09-16 13:40 | HMH.PTEV ---
Physical Therapy Evaluation Rehab PT IP Evaluation Start: 09/16/24 10:49 Freq: ONCE Status: Active Protocol: Document 09/16/24 13:35 LAURA (Rec: 09/16/24 13:39 LAURA [id number]) Subjective/History History History Per H&P: Ms. Karlene Katz is a 69-year-old female history of hypertension, hyperlipidemia, COPD (no home O2), CAD status post CABG x 2, stenting, A-fib with AICD in place, CHF, mechanical mitral valve on warfarin goal INR 2.5 -3.5 presenting with progressive shortness of breath. She states has been going on for 2 to 3 days. Had a similar presentation few months ago but waited longer before coming in. States has been having some swelling in her legs that her legs are not terribly swollen on exam today. Said increased shortness of breath and inability to walk far without being exhausted. On arrival to the ER, patient is hypoxic. Feels very fatigued. Denies fever, chill, nausea or vomiting. No known sick contacts. She uses a walker and cane at home for ambulation. Subjective Subjective Pt lives at home with her 14 y /o and 43 y/o son. Pt reports she is IND with all mobility without AD use. Pt does own a RW. Pt still driving. New diagnosis of cancer in past 12 No months? Rehab PT IP Eval Objective Appearance Patient Behavior Appropriate,Cooperative Patient Orientation Person,Place Difficulty following instructions none Speech Pattern Clear Ambulation Patient Able to Ambulate Yes Ambulation Observation IP General Gait Pattern Observation No Deviations/Normal Ambulation Distance (feet) 20 Ambulation Assistive Device None Ambulation Ability Independent,Supervision/Stand by Balance Ability to Arise Able, uses arms to help Sitting Balance Steady, safe Standing Balance Steady, wide stance Dynamic Sitting Balance Ability Normal Dynamic Standing Balance Ability Good Transfers Bed Transfer Ability Independent Sit to Stand Chair Transfer Ability Independent Rehab PT IP prob,goals,plan Problems Date of Evaluation: 09/16/24 Rehab Potential Rehab Potential Innapropriate for Skilled Therapy Discharge Plan PT Discharge Plan Pt not appropriate for skilled acute care physical therapy d /t mobility being at baseline/ IND. Eval Complexity Eval Charge Codes 25772 - Low Complexity PHYSICIAN CERTIFICATION: I certify the specified therapy services for [facility] are required, authorized, and reviewed every 30 days.
--- NOTE | 2024-09-16 13:56 | HMH.OTEV ---
OT Inpatient Evaluation Rehab OT IP Evaluation Start: 09/16/24 10:49 Freq: ONCE Status: Active Protocol: Document 09/16/24 13:50 [facility] (Rec: 09/16/24 13:56 [facility] [id number]) Rehab OT IP Assessment Subjective History Pt oriented x 3 on arrival. Pt agreeable to engage in therapy evaluation. Pt admitted on 09/15/24 due to respiratory failure. History and physical: Ms. Nabil Katz is a 69 -year-old female history of hypertension, hyperlipidemia, COPD (no home O2), CAD status post CABG x 2, stenting, A-fib with AICD in place, CHF, mechanical mitral valve on warfarin goal INR 2.5-3.5 presenting with progressive shortness of breath. She states has been going on for 2 to 3 days. Had a similar presentation few months ago but waited longer before coming in. States has been having some swelling in her legs that her legs are not terribly swollen on exam today . Said increased shortness of breath and inability to walk far without being exhausted. On arrival to the ER, patient is hypoxic. Feels very fatigued. Denies fever, chill , nausea or vomiting. No known sick contacts. She uses a walker and cane at home for ambulation. Subjective I am feeling better. Prior to being in the hospital , pt lived with both of her sons. Pt claims normally she is independent with all ADLs and IADLs. She does not require any type of AE during functional transfers. Pt also still drove. Objective Patient Orientation Person,Place,Birthday Right Upper Extremity Gross ROM WFL Left Upper Extremity Gross ROM WFL Bed Mobility bed mobility-scooting,bed mobility - supine/sit Assist Level Supervision/Stand by Transfer Training Sit/Stand Transfer Assist Level Supervision/Stand by Lower Body Dressing Ability Standby Assistance Rehab OT IP prob,goals,plan Problems Date of Evaluation: 09/16/24 OT IP Problems Bed Mobility,Transfers,Balance ,Self care,Safety Rehab Potential Rehab Potential Innapropriate for Skilled Therapy Discharge Plan OT Discharge Plan Pt appears to be at her baseline with functional transfers and ADL independence . Pt can return home with family once she is medically stable per physician. Eval Complexity Eval Charge Codes 93581 - Moderate Complexity PHYSICIAN CERTIFICATION: I certify the specified therapy services for [facility] are required, authorized, and reviewed every 30 days.
--- NOTE | 2024-09-16 19:25 | P.PN_ITS ---
Subjective *Date: 09/16/24 *Time: 19:25 Interval history: Patient is feeling well on morning exam. Weaned to nasal cannula oxygen currently on 2 L. Does not wear oxygen at home. Denies chest pain, nausea, vomiting, fever. Medical Exam Vital signs and Labs for Last 24 Hours: Vital Signs Temp Pulse Pulse Resp BP BP Pulse Ox 09/16/24 18:46 09/16/24 18:46 89 L 09/16/24 18:46 76 09/16/24 18:46 77 09/16/24 18:30 09/16/24 17:00 09/16/24 16:00 09/16/24 15:40 97.8 F 84 18 97/53 L 97 09/16/24 15:00 09/16/24 13:46 81 09/16/24 13:46 81 09/16/24 13:05 09/16/24 12:00 83 09/16/24 12:00 80 17 95/48 L 97 09/16/24 11:05 09/16/24 10:30 82 09/16/24 10:30 86 09/16/24 10:15 109 H 16 97 09/16/24 10:01 115/65 09/16/24 10:01 103 H 18 92 L 09/16/24 10:00 95 H 12 115/65 93 L 09/16/24 09:45 84 21 96 09/16/24 09:00 104/61 L 09/16/24 09:00 84 15 97 09/16/24 08:55 09/16/24 08:15 09/16/24 08:15 80 20 97 09/16/24 08:00 77 09/16/24 08:00 98/52 L 09/16/24 08:00 77 17 96 09/16/24 07:45 83 14 96 09/16/24 07:00 99/54 L 09/16/24 07:00 09/16/24 07:00 85 21 99/54 L 97 09/16/24 06:15 77 22 99 09/16/24 06:00 78 09/16/24 06:00 81 09/16/24 06:00 97 09/16/24 06:00 80 14 107/55 L 98 09/16/24 06:00 107/55 L 09/16/24 05:45 84 13 99 09/16/24 05:30 86 14 97 09/16/24 05:15 82 20 90/46 L 98 09/16/24 05:00 09/16/24 04:15 78 14 98 09/16/24 04:00 82 98 09/16/24 04:00 98/49 L 09/16/24 04:00 98.9 F 83 17 98/49 L 96 09/16/24 04:00 75 09/16/24 03:45 79 18 95 09/16/24 03:30 81 20 96 09/16/24 03:15 76 21 96 09/16/24 03:00 09/16/24 03:00 79 20 102/53 L 95 09/16/24 03:00 20 09/16/24 02:45 79 20 95 09/16/24 02:30 79 20 95 09/16/24 02:15 79 20 95 09/16/24 02:00 79 22 96/51 L 95 09/16/24 02:00 20 09/16/24 02:00 87 09/16/24 02:00 89 09/16/24 02:00 09/16/24 01:45 79 22 95 09/16/24 01:30 80 20 95 09/16/24 01:15 77 15 95 09/16/24 01:00 09/16/24 01:00 92/48 L 09/16/24 01:00 76 20 92/48 L 96 09/16/24 00:45 83 19 97 09/16/24 00:30 79 18 97 09/16/24 00:15 86 19 97 09/16/24 00:01 97.9 F 75 13 102/59 L 94 L 09/16/24 00:01 102/59 L 09/16/24 00:00 09/16/24 00:00 83 97 09/16/24 00:00 80 09/16/24 00:00 87 17 95 09/15/24 23:45 86 21 95 09/15/24 23:30 82 21 94 L 09/15/24 23:15 79 95 09/15/24 23:04 74 25 H 96 09/15/24 23:04 95/54 L 09/15/24 23:02 80 16 86/42 L 95 09/15/24 23:02 80 16 95 09/15/24 23:00 09/15/24 23:00 88/45 L 09/15/24 23:00 79 20 95 09/15/24 22:45 79 17 93 L 09/15/24 22:30 79 18 95 09/15/24 22:15 76 17 95 09/15/24 22:00 100/55 L 09/15/24 22:00 79 20 100/55 L 97 09/15/24 22:00 83 09/15/24 22:00 85 09/15/24 22:00 100 09/15/24 22:00 09/15/24 21:00 75 20 106/56 L 97 09/15/24 20:55 09/15/24 20:00 75 96 09/15/24 20:00 70 09/15/24 20:00 115/52 L 09/15/24 20:00 97.9 F 81 20 115/52 L 95 09/15/24 19:50 09/15/24 19:45 83 18 95 09/15/24 19:30 81 17 94 L O2 Del Method O2 Flow Rate FiO2 09/16/24 18:46 Nasal Cannula 2 28 09/16/24 18:46 Room Air 09/16/24 18:46 09/16/24 18:46 09/16/24 18:30 Nasal Cannula 2 09/16/24 17:00 Nasal Cannula 2 09/16/24 16:00 Nasal Cannula 2 09/16/24 15:40 Nasal Cannula 2 09/16/24 15:00 Nasal Cannula 09/16/24 13:46 09/16/24 13:46 09/16/24 13:05 Nasal Cannula 2 09/16/24 12:00 09/16/24 12:00 09/16/24 11:05 Nasal Cannula 2 09/16/24 10:30 09/16/24 10:30 09/16/24 10:15 09/16/24 10:01 09/16/24 10:01 09/16/24 10:00 09/16/24 09:45 09/16/24 09:00 09/16/24 09:00 09/16/24 08:55 Nasal Cannula 3 09/16/24 08:15 Nasal Cannula 3 09/16/24 08:15 09/16/24 08:00 09/16/24 08:00 09/16/24 08:00 09/16/24 07:45 09/16/24 07:00 09/16/24 07:00 Nasal Cannula 3 09/16/24 07:00 Nasal Cannula 3 09/16/24 06:15 09/16/24 06:00 09/16/24 06:00 09/16/24 06:00 Nasal Cannula 2 09/16/24 06:00 Nasal Cannula 3 09/16/24 06:00 09/16/24 05:45 09/16/24 05:30 09/16/24 05:15 09/16/24 05:00 Nasal Cannula 3 09/16/24 04:15 09/16/24 04:00 Nasal Cannula 3 09/16/24 04:00 09/16/24 04:00 BiPAP 09/16/24 04:00 09/16/24 03:45 09/16/24 03:30 09/16/24 03:15 09/16/24 03:00 BiPAP 09/16/24 03:00 BiPAP 09/16/24 03:00 09/16/24 02:45 09/16/24 02:30 09/16/24 02:15 09/16/24 02:00 BiPAP 09/16/24 02:00 09/16/24 02:00 09/16/24 02:00 09/16/24 02:00 30 09/16/24 01:45 09/16/24 01:30 09/16/24 01:15 09/16/24 01:00 BiPAP 09/16/24 01:00 09/16/24 01:00 BiPAP 09/16/24 00:45 09/16/24 00:30 09/16/24 00:15 09/16/24 00:01 BiPAP 09/16/24 00:01 09/16/24 00:00 BiPAP 30 09/16/24 00:00 Nasal Cannula 3 09/16/24 00:00 09/16/24 00:00 09/15/24 23:45 09/15/24 23:30 09/15/24 23:15 09/15/24 23:04 09/15/24 23:04 09/15/24 23:02 BiPAP 09/15/24 23:02 09/15/24 23:00 BiPAP 09/15/24 23:00 09/15/24 23:00 09/15/24 22:45 09/15/24 22:30 09/15/24 22:15 09/15/24 22:00 09/15/24 22:00 09/15/24 22:00 09/15/24 22:00 09/15/24 22:00 BiPAP 30 09/15/24 22:00 30 09/15/24 21:00 09/15/24 20:55 BiPAP 09/15/24 20:00 BiPAP 30 09/15/24 20:00 09/15/24 20:00 09/15/24 20:00 BiPAP 20 09/15/24 19:50 30 09/15/24 19:45 09/15/24 19:30 Intake and Output 09/16/24 09/16/24 09/16/24 07:59 15:59 23:59 Intake Total 480 / 1260 480 / 1260 300 / 1260 Output Total 0 / 800 800 / 800 Balance 480 / 460 -320 / 460 300 / 460 Intake: Intake, Oral Amount 480 / 1260 480 / 1260 300 / 1260 Output: Output, Urine Amount 0 / 800 800 / 800 Other: Number of Unmeasured Voids 1 Weight 60.726 kg Patient Weight 09/16/24 23:59 Weight 60.726 kg Laboratory Results - last 24 hr 09/16/24 05:23: WBC 4.9, RBC 3.29 L, Hgb 10.3 L D, Hct 32.3 L, MCV 98.2, MCH 31.3 H, MCHC 31.9, RDW 14.3, Plt Count 102 L D, MPV 10.1, Neut % (Auto) 85.2 H, Lymph % (Auto) 6.6 L, [place] % (Auto) 7.4, Eos % (Auto) 0.0 L, Baso % (Auto) 0.2, Neut # (Auto) 4.1, Lymph # (Auto) 0.3 L, [place] # (Auto) 0.4, Eos # (Auto) 0.0, Baso # (Auto) 0.0, Total Counted 100, Neutrophils % (Manual) 90 H, Lymphocytes % (Manual) 9 L, Monocytes % (Manual) 1 L, Platelet Estimate Slight decrease, RBC Morphology Not Reportable, Hypochromasia 1+, Ovalocytes 1+, Schistocytes 1+, Sodium 133 L, Potassium 3.9, Chloride 94 L, Carbon Dioxide 37 H, Anion Gap 5.9, BUN 16 D, Creatinine 0.80, Estimated Creat Clear 51, Estimated GFR 71, Est GFR ( Amer) 86, Glucose 200 H D, Calcium 8.3 L, Magnesium 2.3, Total Bilirubin 1.0, AST 31, ALT 17, Alkaline Phosphatase 111, Total Protein 5.7 L, Albumin 2.8 L D, Globulin 2.9, Albumin/Globulin Ratio 1.0 L 09/16/24 08:20: PT 17.5 H, INR 1.64 H I & O for Labs for Last 24 Hours: Intake & Output 09/13/24 09/14/24 09/15/24 09/16/24 23:59 23:59 23:59 23:59 Intake Total 270 / 270 1260 / 1260 Output Total 250 / 250 800 / 800 Balance 460 / 460 Weight 59.052 kg 60.726 kg Constitutional: Present no acute distress, thin, chronically ill appearing and cooperative Head: Present atraumatic and normocephalic ENT: Present normal exam Neck: Present normal inspection Respiratory: Present prolonged expiratory phase and wheezes; Absent rhonchi or crackles Cardiac: Present Reg Rate and Rhythm GI: Present soft and normal bowel sounds; Absent distention or tenderness Extremities: Present normal inspection and full ROM; Absent edema Skin: Present intact; Absent erythema Neuro: Present Grossly Intact, alert, awake, oriented x 3 and moves all extremities Assessment and Plan *Assessment and plan (1) CHF exacerbation: Status: Acute Qualifiers: Heart failure type: diastolic Qualified Code(s): I50.33 - Acute on chronic diastolic (congestive) heart failure Category: Medical Code(s): I50.9 - Heart failure, unspecified (2) Acute hypercapnic respiratory failure: Status: Acute Category: Medical Code(s): J96.02 - Acute respiratory failure with hypercapnia (3) Acute exacerbation of chronic obstructive pulmonary disease: Status: Acute Category: Medical Code(s): J44.1 - Chronic obstructive pulmonary disease with (acute) exacerbation (4) Acute hypoxic respiratory failure: Status: Acute Category: Medical Code(s): J96.01 - Acute respiratory failure with hypoxia (5) Tobacco use: Status: Acute Category: Social Hx Code(s): Z72.0 - Tobacco use (6) Cardiac pacemaker in situ: Status: Acute Category: Medical Code(s): Z95.0 - Presence of cardiac pacemaker (7) Long-term (current) use of anticoagulants, INR goal 2.5-3.5: Status: Chronic Category: Medical Code(s): Z79.01 - group home (current) use of anticoagulants Plan Ms. Karlene Katz is a 69-year-old female history of hypertension, hyperlipidemia, COPD (no home O2), CAD status post CABG x 2, stenting, A-fib with AICD in place, CHF, mechanical mitral valve on warfarin goal INR 2.5-3.5 presenting with progressive shortness of breath. Worsening shortness of breath over the past 3 days. Workup in the ER concerning for respiratory acidosis with hypercarbia and respiratory failure. Initiated on BiPAP. Medicine consulted for admission. Discussed case with ER physician, request treatment for respiratory failure, COPD exacerbation, hypercapnia. I agreed to admit for further management. Wore BiPAP overnight, doing better. At baseline mentation. Weaned to nasal cannula today. De-escalate to MedSurg. If does well over the next 24 hours, anticipate discharge tomorrow. Problems addressed as follows: #Acute on chronic hypoxemic with acute hypercapnic respiratory failure # COPD exacerbation -Secondary to heart failure and COPD exacerbation with concern for pneumonia and right lower lobe - continue ceftriaxone 1 g and azithromycin 500 mg daily -Wore BiPAP overnight. At baseline function this morning. Discontinue BiPAP. Monitor alertness during the day. Tolerating 2 L nasal cannula for goal sats greater 90%. -Continues to smoke. No desire to quit. Declined patches -DuoNebs every 4 hours scheduled, Pulmicort twice daily -White count normal at 4.9, hemoglobin 10. Repeat CBC, CMP, magnesium ordered for the morning. #HFpEF exacerbation # Hypertension ? BNP better than last visit at 526. Still slightly elevated. Suspect secondary to COPD exacerbation and problem above. Will diurese daily with Lasix 40 mg IV - Kidney function at baseline with BUN 16, creatinine 0.8. Repeat CBC, CMP, magnesium ordered for the morning. ? Echo June 23 with moderate RV dilation. EF preserved at 50%. RVSP 25-30 millimeters mercury ? Strict I&O's, fluid/water restriction, and elevation. - Hold blood pressure meds at the moment given her blood pressure of 98/52. Consider resuming as her clinical status normalizes/stabilizes Chronic problems: #CAD s/p CABG X2: Aspirin, statin. #A-fib with AICD #Mechanical mitral valve on warfarin #Subtherapeutic INR ? Currently rate controlled. - Mechanical valve, chronic anticoagulation: Continue warfarin 4 mg daily. INR 1.6, goal is 2.5?3.5. -Increase warfarin to 6 mg tonight, pharmacy assisting with dosing and adjustment regimen. Continue bridging with therapeutic Lovenox 1 mg/kg twice daily ? Repeat INR ordered for tomorrow. CODE STATUS: Full code DVT prophylaxis: Home warfarin Diet: Cardiac
[2024-09-17] VITALS (8 sets, daily range): BP systolic 90–121; BP diastolic 50–65; PULSE 73–95; RESP 16–20; TEMP 36.4–36.7; O2SAT 92–99; BMI 22.7
[2024-09-17] MEDS: IPRATROPIUM/ALBUTEROL 3 ML NEB IH ×3 (02:12→10:35)
[2024-09-17] MEDS: BUDESONIDE 0.5MG/2ML NEB 0.5 MG IH (06:24)
[2024-09-17 07:08] LABS: INR 2.57 (0.9-1.1); Prothrombin Time 26.2 seconds (10.1-12.5)
[2024-09-17 07:09] LABS: Alanine Aminotransferase 15 U/L (12-78); Albumin/Globulin Ratio 1.1 (1.1-1.8); Alkaline Phosphatase 100 U/L (38-126); Aspartate Amino Transferase 27 U/L (14-36); Bilirubin,Total 0.8 mg/dl (0.2-1.3); Blood Urea Nitrogen 17 mg/dl (7-17); Calcium 8.1 mg/dl (8.4-10.2); Chloride 95 mmol/L (98-107); Creatinine Clearance Estimated 52 mL/min (50-200); Estimated Glomerular Filt Rate 62 ml/min (>60); GFR (African American) 75 ML/MIN (>60); Globulin 2.8 g/dL (1.3-3.2); Glucose 98 mg/dl (74-100); Magnesium 2.1 mg/dl (1.6-2.3); Potassium 3.4 mmoL/L (3.5-5.1); Sodium 135 mmol/L (136-145); Total Protein,Serum 5.8 g/dl (6.3-8.2)
[2024-09-17 07:16] LABS: Anion Gap 6.4 mEq/L (5-15); Carbon Dioxide 37 mmol/L (22.0-30.0)
[2024-09-17] MEDS: CEFTRIAXONE SODIUM 1 GM in 0.9 % SODIUM CHLORIDE 50 ML IV (08:21)
[2024-09-17] MEDS: ENOXAPARIN 60MG/0.6ML SYRINGE 60 MG SUBCUT (08:21)
[2024-09-17 08:31] LABS: Basophils % 0.3 % (0.1-2.0); Eosinophils # 0.1 K/mm3 (0.0-0.4); Eosinophils % 0.7 % (0.1-12.0); Hematocrit 31.8 % (37.0-47.0); Hemoglobin 10.2 g/dL (12.2-16.2); Lymphocytes # 1.2 K/mm3 (0.7-4.5); Lymphocytes % 17.3 % (10-50); Mean Corpuscular HGB Conc 32.1 g/dL (31.8-35.4); Mean Corpuscular Hemoglobin 31.7 pg (27.0-31.2); Mean Corpuscular Volume 98.8 fl (81-99); Mean Platelet Volume 10.5 fl (7.4-10.4); Monocytes # 0.8 K/mm3 (0.1-1.0); Neutrophils % 70.4 % (37.0-80.0); Platelet Count 123 K/mm3 (142-424); Red Blood Count 3.22 M/mm3 (4.20-5.40); Red Cell Distribution Width 14.6 % (11.5-17.5); White Blood Count 7.1 K/mm3 (4.8-10.8)
[2024-09-17] MEDS: AZITHROMYCIN 500 MG in 0.9 % SODIUM CHLORIDE 250 ML 250 MG IV (09:50)
--- NOTE | 2024-09-17 10:33 | ECG_ITS ---
APPROVED REPORT Exam: Resting ECG HR:91 bpm ECG Measurements Heart Rate 91 AXES QRSd 158 QRS 253 QT 423 T 68 QTc 472 Conclusion ATRIAL FIBRILLATION WITH ABERRANT CONDUCTION OR VENTRICULAR PREMATURE COMPLEXES RIGHT AXIS DEVIATION [QRS AXIS > 100] RIGHT BUNDLE BRANCH BLOCK AND POSSIBLE RIGHT VENTRICULAR HYPERTROPHY [RBBB, 1.5 mV R IN V1, RAD] MINIMAL VOLTAGE CRITERIA FOR LVH, CONSIDER NORMAL VARIANT [MEETS CRITERIA IN ONE OF: R(aVL), S(V1), R(V5), R(V5/V6)+S(V1)] INFERIOR MYOCARDIAL INFARCTION , POSSIBLY ACUTE [40+ ms Q WAVE AND/OR ST/T ABNORMALITY IN II/aVF] ANTEROLATERAL MYOCARDIAL INFARCTION , OF INDETERMINATE AGE [40+ ms Q WAVE IN I/aVL/V3-V6] ACUTE PR UNCONFIRMED REPORT Electronically signed by : Foreign Vargas MD 09/17/2024 18:13:00
[2024-09-17] MEDS: WARFARIN 3MG TABLET 6 MG PO (11:12)
[2024-09-17 11:33] LABS: Troponin I < 0.01 ng/ml (0.00-0.034)
--- NOTE | 2024-09-17 12:13 | P.DS_ITS ---
General Admission date:: 09/15/24 HPI HPI HPI: Ms. Nabil Katz is a 69-year-old female history of hypertension, hyperlipidemia, COPD (no home O2), CAD status post CABG x 2, stenting, A-fib with AICD in place, CHF, mechanical mitral valve on warfarin goal INR 2.5-3.5 presenting with progressive shortness of breath. She states has been going on for 2 to 3 days. Had a similar presentation few months ago but waited longer before coming in. States has been having some swelling in her legs that her legs are not terribly swollen on exam today. Said increased shortness of breath and inability to walk far without being exhausted. On arrival to the ER, patient is hypoxic. Feels very fatigued. Denies fever, chill, nausea or vomiting. No known sick contacts. She uses a walker and cane at home for ambulation. Workup in the ED revealed initial respiratory acidosis with hypercarbia. Unable to convince patient initially to wear BiPAP. After much discussion, patient is agreeable to wear BiPAP for her pCO2 of 80 and pH of 7.26. Given ceftriaxone and azithromycin. Labs showing normal white count of 6.5. Kidney function and electrolytes at baseline for patient with BUN 11, creatinine 0.9. Patient admitted to the ICU for further management due to acute respiratory failure necessitating noninvasive positive pressure ventilation. Hospital Course Hospital Course Hospital Course: Ms. Karlene Katz is a 69-year-old female history of hypertension, hyperlipidemia, COPD (no home O2), CAD status post CABG x 2, stenting, A-fib with AICD in place, CHF, mechanical mitral valve on warfarin goal INR 2.5-3.5 presenting with progressive shortness of breath. Worsening shortness of breath over the past 3 days. Workup in the ER concerning for respiratory acidosis with hypercarbia and respiratory failure. Initiated on BiPAP. Medicine consulted for admission. Discussed case with ER physician, request treatment for respiratory failure, COPD exacerbation, hypercapnia. I agreed to admit for further management. #Acute on chronic hypoxic, hypercapnic respiratory failure ? Secondary to COPD exacerbation, pneumonia, and HFpEF exacerbation. See separate problems. #COPD exacerbation #Right lower community-acquired lobe pneumonia ? Clinically improved with ceftriaxone, azithromycin, DuoNebs, Pulmicort. Did not require steroids. ? Initial hypercapnia improved with BiPAP which patient is no longer requiring. Can continue home CPAP. ? Vital signs stable. No leukocytosis, medically stable for discharge. - Continues to smoke. No desire to quit. Declined patches. ? Continue home Breztri, and Combivent, DuoNebs as needed. ? Discharged with cefdinir, azithromycin for 3 more days. #HFpEF exacerbation #Hypertension ? BNP better than last visit at 526. Still slightly elevated. Had significant lower extremity pitting edema. ? Echo June 23 with moderate RV dilation. EF preserved at 50%. RVSP 25-30 mmHg. ? Clinically improved with IV Lasix daily. Weaned to p.o. Lasix 40 mg daily, had been taking as needed. ? Discontinued lisinopril, carvedilol due to soft pressures in the setting of diuresis. Started metoprolol succinate 25 mg daily with a history of A-fib. ? Will follow-up with cardiology within 1 week. #Hypokalemia ? Repleted with oral potassium. #CAD s/p CABG X2: Aspirin, statin. #A-fib with AICD #Mechanical mitral valve on warfarin #Subtherapeutic INR ? Currently rate controlled. Initial subtherapeutic INR 1.64 in the setting of mechanical valve, goal 2.5-3.5.. Had been taking warfarin 4 mg daily. ? INR improved to 2.57 with increase in warfarin 6 mg daily. ? Continue outpatient pharmacy visits for INR monitoring. ? Switched Coreg to metoprolol succinate 25 mg due to soft pressures Exam Data for Last 24 hours Vital signs and Labs for Last 24 Hours: Temp Pulse Resp BP Pulse Ox O2 Del Method O2 Flow Rate 97.6 F 89 19 120/65 92 L Nasal Cannula 1 09/17/24 12:09/17/24 12:09/17/24 12:00 09/17/24 12:00 09/17/24 12:09/17/24 10:54 09/17/24 10:54 FiO2 28 09/16/24 18:46 Laboratory Results - last 24 hr 09/17/24 06:15: WBC 7.1 D, RBC 3.22 L, Hgb 10.2 L, Hct 31.8 L, MCV 98.8, MCH 31.7 H, MCHC 32.1, RDW 14.6, Plt Count 123 L, MPV 10.5 H, Neut % (Auto) 70.4, Lymph % (Auto) 17.3, [place] % (Auto) 11.0 H, Eos % (Auto) 0.7, Baso % (Auto) 0.3, Neut # (Auto) 5.0, Lymph # (Auto) 1.2, [place] # (Auto) 0.8, Eos # (Auto) 0.1, Baso # (Auto) 0.0, PT 26.2 H, INR 2.57 H, Sodium 135 L, Potassium 3.4 L, Chloride 95 L, Carbon Dioxide 37 H, Anion Gap 6.4, BUN 17, Creatinine 0.90, Estimated Creat Clear 52, Estimated GFR 62, Est GFR ( Amer) 75, Glucose 98, Calcium 8.1 L , Magnesium 2.1, Total Bilirubin 0.8, AST 27, ALT 15, Alkaline Phosphatase 100, Total Protein 5.8 L, Albumin 3.0 L, Globulin 2.8, Albumin/Globulin Ratio 1.1 09/17/24 10:50: Troponin I < 0.01 I & O for Last 24 hours: Intake & Output 09/14/24 09/15/24 09/16/24 09/17/24 23:59 23:59 23:59 23:59 Intake Total 270 / 270 1260 / 1510 690 / 690 Output Total 250 / 250 800 / 800 0 / 0 Balance 460 / 710 690 / 690 Weight 59.052 kg 60.726 kg 62.006 kg Constitutional Constitutional: no acute distress, thin, chronically ill appearing and cooperative *Routine HEENT Exam Head: Present normocephalic Eye: Present EOMI and PERRL ENT: Present mucous membranes moist *Routine Neck Exam Neck: Present supple; Absent lymphadenopathy Routine Chest/Breast/Axilla Exam Comments: Well-healed sternotomy scar *Routine Respiratory Exam Respiratory: Present prolonged expiratory phase, wheezes and diminished air movement; Absent rhonchi or crackles *Routine Cardiovascular Exam Cardiovascular: Present RRR *Routine Abdominal Exam Abdominal: Present soft and normoactive bowel sounds; Absent tenderness *Routine Rectal Exam Patient deferred: visual exam *Routine Exam Patient deferred: external exam *Routine Extremities Exam Extremities: Present edema; Absent cyanosis or clubbing Comments: Bilateral lower extremity pitting edema, trace in legs and 1+ in thighs. *Routine Skin Exam Skin: Present warm; Absent rash *Routine Neurological Exam Neurological: Present alert, oriented X3 and moving all extremities; Absent altered mental status Results Data Completed and Pending Labs on day of discharge: Labs from last 24 hours 09/17/24 09/17/24 10:50 06:15 WBC 7.1 D RBC 3.22 L Hgb 10.2 L Hct 31.8 L MCV 98.8 MCH 31.7 H MCHC 32.1 RDW 14.6 Plt Count 123 L MPV 10.5 H Neut % (Auto) 70.4 Lymph % (Auto) 17.3 [place] % (Auto) 11.0 H Eos % (Auto) 0.7 Baso % (Auto) 0.3 Neut # (Auto) 5.0 Lymph # (Auto) 1.2 [place] # (Auto) 0.8 Eos # (Auto) 0.1 Baso # (Auto) 0.0 PT 26.2 H INR 2.57 H Sodium 135 L Potassium 3.4 L Chloride 95 L Carbon Dioxide 37 H Anion Gap 6.4 BUN 17 Creatinine 0.90 Estimated Creat Clear 52 Estimated GFR 62 Est GFR ( Amer) 75 Glucose 98 Calcium 8.1 L Magnesium 2.1 Total Bilirubin 0.8 AST 27 ALT 15 Alkaline Phosphatase 100 Troponin I < 0.01 Total Protein 5.8 L Albumin 3.0 L Globulin 2.8 Albumin/Globulin Ratio 1.1 DS: Diagnosis Discharge Diagnosis (1) CHF exacerbation: Status: Acute Code(s): I50.9 - Heart failure, unspecified Qualifiers: Heart failure type: diastolic Qualified Code(s): I50.33 - Acute on chronic diastolic (congestive) heart failure (2) Acute hypercapnic respiratory failure: Status: Acute Code(s): J96.02 - Acute respiratory failure with hypercapnia (3) Acute exacerbation of chronic obstructive pulmonary disease: Status: Acute Code(s): J44.1 - Chronic obstructive pulmonary disease with (acute) exacerbation (4) Acute hypoxic respiratory failure: Status: Acute Code(s): J96.01 - Acute respiratory failure with hypoxia (5) Tobacco use: Status: Acute Code(s): Z72.0 - Tobacco use (6) Cardiac pacemaker in situ: Status: Acute Code(s): Z95.0 - Presence of cardiac pacemaker (7) Long-term (current) use of anticoagulants, INR goal 2.5-3.5: Status: Chronic Code(s): Z79.01 - intermediate frame tender (current) use of anticoagulants Meds Home Medications and Allergies Home Medications ?Medication ?Instructions ?Recorded ?Confirmed ?Type albuterol sulfate 90 mcg/actuation 4 inh inhalation Q4H PRN shortness 04/24/23 09/16/24 Rx aerosol inhaler of breath or wheezing #8.5 grams ipratropium 0.5 mg-albuterol 3 mg 3 ml inhalation Q6H PRN wheezing 08/13/24 09/16/24 Rx (2.5 mg base)/3 mL nebulization #180 mL soln ipratropium 20 mcg-albuterol 100 1 puff inhalation Q6H PRN 08/13/24 09/16/24 Rx mcg/actuation mist for inhalation shortness of breath or wheezing #4 (Combivent Respimat) grams magnesium oxide 800 mg (2 x 400 mg magnesium) PO 08/13/24 09/16/24 Rx DAILY #60 caps carvedilol 3.125 mg tablet 3.125 mg PO BID 09/16/24 09/16/24 History lisinopril 40 mg tablet 40 mg PO DAILY 09/16/24 09/16/24 History azithromycin 250 mg tablet 250 mg PO DAILY 3 days #3 tabs 09/17/24 Rx budesonide 160 mcg-glycopyr 9 2 puff inhalation BID 30 days 09/17/24 Rx mcg-formot 4.8 mcg/actuation HFA #10.7 grams inhaler (Breztri Aerosphere) cefdinir 300 mg capsule 300 mg PO BID 3 days #6 caps 09/17/24 Rx furosemide 40 mg tablet 40 mg PO DAILY weight gain 30 days 09/17/24 Rx #30 tabs metoprolol succinate 25 mg 25 mg PO DAILY 30 days #30 tabs 09/17/24 Rx tablet,extended release 24 hr potassium chloride 20 mEq 20 meq PO DAILY #30 tabs 09/17/24 Rx tablet,extended release warfarin 3 mg tablet (Jantoven) 6 mg (2 x 3 mg) PO COUMADIN 30 09/17/24 Rx days #30 tabs New Prescriptions to Start Prescriptions: Chirag Love [id number] [Breztri Aerosphere] Chirag Reyes cefdinir Chirag Reyes furosemide Chirag Reyes metoprolol succinate Chirag Reyes potassium chloride Chirag Reyes warfarin [Jantoven] Chirag Reyes Allergies Allergy/AdvReac Type Severity Reaction Status Date / Time nitroglycerin Allergy Intermediate Unknown Verified 09/15/24 10:44 allergy reaction aspirin AdvReac Intermediate stomach Verified 09/15/24 10:44 issues NSAIDS (Non-Steroidal AdvReac Intermediate stomach Verified 09/15/24 10:44 Anti-Inflamma issues procainamide AdvReac Intermediate stomach Verified 09/15/24 10:44 issues Discharge Plan Disposition Patient Disposition: Home, Self-Care Condition: Fair Discharge Order Discharge Orders: Discharge Order (Routine); Ordered 09/17/24 Ordered By: Chirag Reyes Follow up Plan Follow up with: Andreas Solorio PA [[employer]] - 09/24/24 (HFpEF exacerbation, soft pressures) Prescriptions/Medication Reconciliation: New warfarin [Jantoven] 3 mg Tablet 6 mg PO COUMADIN 30 Days Qty: 30 0RF azithromycin 250 mg tablet 250 mg PO DAILY 3 Days Qty: 3 0RF Rx Instructions: start on day 2 of therapy potassium chloride 20 mEq tablet extended release 20 meq PO DAILY Qty: 30 0RF cefdinir 300 mg capsule 300 mg PO BID 3 Days Qty: 6 0RF metoprolol succinate 25 mg tablet extended release 24 hr 25 mg PO DAILY 30 Days Qty: 30 0RF Continued Breztri Aerosphere 160-9-4.8 mcg/actuation HFA aerosol inhaler 2 puff INHALATION BID 30 Days Qty: 10.7 0RF albuterol sulfate 90 mcg/actuation HFA aerosol inhaler 4 inh inhalation Q4H PRN (Reason: shortness of breath or wheezing) Qty: 8.5 0RF Rx Instructions: 4 puffs every 4 hours for 48 hours then as needed for shortness of breath or wheezing following Combivent Respimat 20-100 mcg/actuation mist 1 puff inhalation Q6H PRN (Reason: shortness of breath or wheezing) Qty: 4 3RF ipratropium-albuterol 0.5 mg-3 mg(2.5 mg base)/3 mL solution for nebulization 3 ml inhalation Q6H PRN (Reason: wheezing) Qty: 180 4RF magnesium oxide 400 mg magnesium capsule 800 mg PO DAILY Qty: 60 2RF Changed furosemide 40 mg tablet 40 mg PO DAILY 30 Days Qty: 30 0RF Held carvedilol 3.125 mg tablet 3.125 mg PO BID Hold Instructions: Resume on 10/15/24. Please hold this medication until you follow-up with PCP or cardiology as your blood pressures have been stable without it. Patient Comments: TAKE 1 TABLET BY MOUTH TWICE A DAY lisinopril 40 mg Tablet 40 mg PO DAILY Hold Instructions: Resume on 10/15/24. Please hold this medication until you follow-up with PCP or cardiology as your blood pressures have been stable without it. Patient Comments: Pt says she only take 1/2 of lisinopril causes her to feel lethargic Rx Instructions: TAKE 1/2 PILL BY MOUTH EVERY MORNING Discontinued warfarin 4 mg tablet 4 mg PO DAILY Patient Comments: dose per scale Problem Reconciliation Problems Reviewed?: Yes Patient Discharge Instructions Patient Instructions: DI for Heart Failure, DI for Respiratory Failure, Coumadin Vitamin K/ Diet Print Language: Frisian Providers Primary Care Provider: Juanita Solano Admit Provider: Gabe Berumen Attending Provider: Gabe Berumen
[2024-09-17] MEDS: POTASSIUM CHLORIDE 20MEQ TAB 40 MEQ PO (12:24)
== END 2024-09-17 13:06 | disposition home or self-care (01) | DRG 190 ==
LOC: ER 12:33 → ICU 12:44 → 2ND 09-16 14:45
PROVIDERS: Student in an Organized Health Care Education/Training Program; Admitting Provider Internal Medicine Adolescent Medicine; Emergency Provider Student in an Organized Health Care Education/Training Program; PCP Nurse Practitioner Family; Visit Provider Internal Medicine Adolescent Medicine
DX: J44.1 Chronic obstructive pulmonary disease with (acute) exacerbation (principal); I50.33 Acute on chronic diastolic (congestive) heart failure; J96.22 Acute and chronic respiratory failure with hypercapnia; J18.1 Lobar pneumonia, unspecified organism; J96.21 Acute and chronic respiratory failure with hypoxia; I25.810 Atherosclerosis of coronary artery bypass graft(s) without angina pectoris; I11.0 Hypertensive heart disease with heart failure; F17.210 Nicotine dependence, cigarettes, uncomplicated; E78.5 Hyperlipidemia, unspecified; R60.9 Edema, unspecified; I48.91 Unspecified atrial fibrillation; Z79.01 Long term (current) use of anticoagulants; Z95.810 Presence of automatic (implantable) cardiac defibrillator; Z79.82 Long term (current) use of aspirin; Z95.2 Presence of prosthetic heart valve
CPT/HCPCS: 36415; 71045; 80053; 82803; 83735; 83880; 84484; 85007; 85025; 85610; 87636; 93005; 94640; 94760; 94761; 97161; 97166; 99291; J0456; J0696; J1650; J1940; J3475; J7050; J7620

== ENCOUNTER 2024-09-22 13:10 | Emergency (ER) | payer MEDICAID, MEDICARE, SELFPAY ==
[2024-09-22] VITALS (7 sets, daily range): BP systolic 110–130; BP diastolic 58–91; PULSE 96–109; RESP 18–22; TEMP 37; O2SAT 92–97; BMI 21.6
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
--- NOTE | 2024-09-22 13:15 | XR_ITS ---
FINAL REPORT TECHNIQUE: Single view chest CLINICAL HISTORY: Dyspnea COMPARISON: 09/15/2024 FINDINGS: A single view of the chest was obtained. The heart is mildly enlarged. Patient is status post median sternotomy. A pacemaker is in place. There is a small right pleural effusion. Lungs are clear. There is no pneumothorax. IMPRESSION: Small right pleural effusion. Reviewed, Interpreted and Dictated by Jose Angel Espinal MD Transcribed by Eveline Ward Authenticated and [facility]
--- NOTE | 2024-09-22 13:24 | PC.NURSE ---
XR AT BEDSIDE
--- NOTE | 2024-09-22 13:37 | PC.NURSE ---
BLOOD FOR VG WAS SENT WITH RESP ROBI
[2024-09-22 13:39] LABS: Basophils % 0.2 % (0.1-2.0); Eosinophils # 0.1 K/mm3 (0.0-0.4); Eosinophils % 1.4 % (0.1-12.0); Hematocrit 36.1 % (37.0-47.0); Hemoglobin 11.5 g/dL (12.2-16.2); Lymphocytes # 0.3 K/mm3 (0.7-4.5); Lymphocytes % 4.9 % (10-50); Mean Corpuscular HGB Conc 31.9 g/dL (31.8-35.4); Mean Corpuscular Hemoglobin 31.3 pg (27.0-31.2); Mean Corpuscular Volume 98.1 fl (81-99); Mean Platelet Volume 10.1 fl (7.4-10.4); Monocytes # 0.5 K/mm3 (0.1-1.0); Monocytes % 8.7 % (1.7-9.3); Neutrophils # 4.9 K/mm3 (1.8-7.8); Neutrophils % 84.5 % (37.0-80.0); Platelet Count 107 K/mm3 (142-424); Red Blood Count 3.68 M/mm3 (4.20-5.40); Red Cell Distribution Width 14.6 % (11.5-17.5); White Blood Count 5.8 K/mm3 (4.8-10.8)
[2024-09-22 13:40] LABS: Influenza A, PCR Not Detected (NotDetected); Influenza B, PCR Not Detected (NotDetected)
[2024-09-22 13:42] LABS: Lactate Venous 1.7 mmol/L (0.4-2.0); VBG Base Excess 9.6 mmol/L (-2.4-2.3); VBG HCO3 34.2 mmol/L (23-30); VBG Oxygen Saturation 77.4 % (50-70); VBG PH 7.41 mmol/L (7.31-7.41); VBG Total CO2 35.9 mmol/L (23-27)
[2024-09-22 13:45] LABS: VBG PCO2 55.4 mmol/L (35-51)
[2024-09-22] MEDS: IPRATROPIUM/ALBUTEROL 3 ML NEB IH (13:56)
[2024-09-22 14:14] LABS: Albumin Level 3.4 g/dl (3.5-5.0); Chloride 94 mmol/L (98-107)
[2024-09-22 14:15] LABS: Potassium 4.3 mmoL/L (3.5-5.1); Sodium 136 mmol/L (136-145)
[2024-09-22 14:17] LABS: Alanine Aminotransferase 15 U/L (12-78); Aspartate Amino Transferase 36 U/L (14-36); Blood Urea Nitrogen 13 mg/dl (7-17); Creatinine Clearance Estimated 49 mL/min (50-200); Estimated Glomerular Filt Rate 83 ml/min (>60); GFR (African American) 100 ML/MIN (>60)
[2024-09-22 14:18] LABS: Albumin/Globulin Ratio 1.1 (1.1-1.8); Alkaline Phosphatase 129 U/L (38-126); Bilirubin,Total 2.1 mg/dl (0.2-1.3); Calcium 8.7 mg/dl (8.4-10.2); Globulin 3.2 g/dL (1.3-3.2); Glucose 107 mg/dl (74-100); Magnesium 1.6 mg/dl (1.6-2.3); Total Protein,Serum 6.6 g/dl (6.3-8.2)
[2024-09-22 14:25] LABS: Anion Gap 10.3 mEq/L (5-15); Carbon Dioxide 36 mmol/L (22.0-30.0)
[2024-09-22 14:32] LABS: Coronavirus 19, PCR Detected (NotDetected)
== END 2024-09-22 15:26 | disposition home or self-care (01) ==
PROVIDERS: Physician Assistant; Emergency Provider Emergency Medicine
DX: U07.1 COVID-19 (principal); J44.1 Chronic obstructive pulmonary disease with (acute) exacerbation; R06.02 Shortness of breath; R06.00 Dyspnea, unspecified
CPT/HCPCS: 71045; 80053; 82803; 83735; 85025; 87636; 99283; J7620

== ENCOUNTER 2025-01-06 06:23 | Emergency (ER) | payer MEDICARE, MEDICAID, SELFPAY ==
[2025-01-06] VITALS (12 sets, daily range): BP systolic 107–153; BP diastolic 54–78; PULSE 76–91; RESP 14–22; TEMP 36.9–37.2; O2SAT 90–95; BMI 15.9
--- NOTE | 2025-01-06 06:20 | ECG_ITS ---
APPROVED REPORT Exam: Resting ECG HR:97 bpm ECG Measurements Heart Rate 97 AXES QRSd 186 QRS 269 QT 399 T 81 QTc 454 Conclusion ATRIAL FIBRILLATION RIGHT AXIS DEVIATION [QRS AXIS > 100] RIGHT BUNDLE BRANCH BLOCK AND POSSIBLE RIGHT VENTRICULAR HYPERTROPHY [RBBB, 1.5 mV R IN V1, RAD] MINIMAL VOLTAGE CRITERIA FOR LVH, CONSIDER NORMAL VARIANT [MEETS CRITERIA IN ONE OF: R(aVL), S(V1), R(V5), R(V5/V6)+S(V1)] POSSIBLE SEPTAL MYOCARDIAL INFARCTION , OF INDETERMINATE AGE [30 ms Q WAVE IN V1/V2] ABNORMAL ECG Electronically signed by : CLEO MORGAN, 01/06/2025 22:27:56
--- NOTE | 2025-01-06 06:30 | XR_ITS ---
FINAL REPORT CLINICAL HISTORY: soa, copd COMPARISON: 09/22/2024 FINDINGS: The heart size is mildly enlarged. There has been prior median sternotomy. There is no focal infiltrate or edema. Mild chronic changes are noted in the lungs bilaterally, stable since prior exam. A trace right pleural effusion may be present. There is no pneumothorax. IMPRESSION: No acute cardiopulmonary process. Mild chronic changes are noted in the lungs bilaterally, stable since the prior exam of 09/22/2024. Reviewed, Interpreted and Dictated by Jose Angel Espinal MD Transcribed by Darlyn Jose Authenticated and [facility]
[2025-01-06] MEDS: ALBUTEROL 0.083% 2.5 MG/3 ML NEB 20 MG IH (06:31)
[2025-01-06 06:36] LABS: Lactate Venous 1.4 mmol/L (0.4-2.0); VBG Base Excess 10.4 mmol/L (-2.4-2.3); VBG HCO3 36.1 mmol/L (23-30); VBG Oxygen Saturation 84.7 % (50-70); VBG PH 7.34 mmol/L (7.31-7.41); VBG PO2 52.7 mmol/L (28-40); VBG Total CO2 38.2 mmol/L (23-27)
[2025-01-06] MEDS: 0.9 % SODIUM CHLORIDE 1000ML 1,000 ML 999 ML IV (06:41)
[2025-01-06] MEDS: METHYLPREDNISOLONE SOD SUCC 125MG VIAL 125 MG IV (06:41)
[2025-01-06] MEDS: MAGNESIUM SULFATE IN WATER 2 GM/50 ML PIGGYBACK IV (06:42)
[2025-01-06 06:48] LABS: Albumin Level 3.9 g/dl (3.5-5.0); Chloride 94 mmol/L (98-107)
[2025-01-06 06:49] LABS: Basophils % 0.4 % (0.1-2.0); Eosinophils # 0.1 Kmm3 (0.0-0.4); Eosinophils % 1.2 % (0.1-12.0); Hematocrit 40.1 % (37.0-47.0); Lymphocytes # 0.5 K/mm3 (0.7-4.5); Lymphocytes % 9.6 % (10-50); Mean Corpuscular HGB Conc 32.4 g/dL (31.8-35.4); Mean Corpuscular Hemoglobin 31.9 pg (27.0-31.2); Mean Corpuscular Volume 98.3 fl (81-99); Mean Platelet Volume 10.2 fl (7.4-10.4); Monocytes # 0.5 K/mm3 (0.1-1.0); Monocytes % 9.1 % (1.7-9.3); Neutrophils # 4.5 K/mm3 (1.8-7.8); Neutrophils % 79.3 % (37.0-80.0); Nucleated Red Blood Cells # 0 10^3/uL; Nucleated Red Blood Cells % 0 %; Platelet Count 108 K/mm3 (142-424); Potassium 3.4 mmoL/L (3.5-5.1); Red Blood Count 4.08 M/mm3 (4.20-5.40); Red Cell Distribution Width 13.7 % (11.5-17.5); Red Cell Distribution Width-SD 49.8 fL; Sodium 136 mmol/L (136-145); White Blood Count 5.6 K/mm3 (4.8-10.8)
[2025-01-06 06:51] LABS: Alanine Aminotransferase 16 U/L (12-78); Blood Urea Nitrogen 10 mg/dl (7-17); Creatinine Clearance Estimated 34 mL/min (50-200); Estimated Glomerular Filt Rate 99 ml/min (>60); GFR (African American) 120 ML/MIN (>60)
[2025-01-06 06:52] LABS: Albumin/Globulin Ratio 1.1 (1.1-1.8); Alkaline Phosphatase 124 U/L (38-126); Anion Gap 8.4 mEq/L (5-15); Aspartate Amino Transferase 35 U/L (14-36); Bilirubin,Total 1.3 mg/dl (0.2-1.3); Calcium 8.2 mg/dl (8.4-10.2); Carbon Dioxide 37 mmol/L (22.0-30.0); Globulin 3.7 g/dL (1.3-3.2); Glucose 135 mg/dl (74-100); Total Protein,Serum 7.6 g/dl (6.3-8.2)
[2025-01-06 06:55] LABS: MANUAL DIFFERENTIAL MANUAL DIFFERENTIAL (MANUAL DIFF)
--- NOTE | 2025-01-06 06:55 | ECG_ITS ---
APPROVED REPORT Exam: Resting ECG HR:83 bpm ECG Measurements Heart Rate 83 AXES QRSd 187 QRS -89 QT 453 T 77 QTc 493 Conclusion ATRIAL FIBRILLATION WITH ABERRANT CONDUCTION OR VENTRICULAR PREMATURE COMPLEXES RIGHT BUNDLE BRANCH BLOCK [120+ ms QRS DURATION, UPRIGHT V1, 40+ ms S IN I/aVL/V4/V5/V6] LEFT ANTERIOR FASCICULAR BLOCK [QRS AXIS <= -45, QR IN I, RS IN II] MINIMAL VOLTAGE CRITERIA FOR LVH, CONSIDER NORMAL VARIANT [MEETS CRITERIA IN ONE OF: R(aVL), S(V1), R(V5), R(V5/V6)+S(V1)] ABNORMAL ECG Electronically signed by : CLEO MORGAN, 01/06/2025 22:27:33
--- NOTE | 2025-01-06 06:58 | ED_ITS ---
Discharge Plan Disposition Patient Disposition: Home, Self-Care Condition: Good Prescriptions Prescriptions: New prednisone 20 mg tablet 40 mg PO DAILY 5 Days Qty: 10 0RF amoxicillin-pot clavulanate 875-125 mg tablet 1 tab PO BID Qty: 20 0RF azithromycin 500 mg tablet 500 mg PO DAILY 3 Days Qty: 3 0RF Rx Instructions: Start tomorrow 01/07/2025 No Action carvedilol 3.125 mg tablet 3.125 mg PO BID Patient Comments: TAKE 1 TABLET BY MOUTH TWICE A DAY lisinopril 40 mg Tablet 40 mg PO DAILY Patient Comments: Pt says she only take 1/2 of lisinopril causes her to feel lethargic Rx Instructions: TAKE 1/2 PILL BY MOUTH EVERY MORNING warfarin [Jantoven] 3 mg Tablet 6 mg PO COUMADIN 30 Days Qty: 30 0RF azithromycin 250 mg tablet 250 mg PO DAILY 3 Days Qty: 3 0RF Rx Instructions: start on day 2 of therapy potassium chloride 20 mEq tablet extended release 20 meq PO DAILY Qty: 30 0RF cefdinir 300 mg capsule 300 mg PO BID 3 Days Qty: 6 0RF metoprolol succinate 25 mg tablet extended release 24 hr 25 mg PO DAILY 30 Days Qty: 30 0RF furosemide 40 mg tablet 40 mg PO DAILY 30 Days Qty: 30 0RF Breztri Aerosphere 160-9-4.8 mcg/actuation HFA aerosol inhaler 2 puff INHALATION BID 30 Days Qty: 10.7 0RF ipratropium-albuterol 0.5 mg-3 mg(2.5 mg base)/3 mL solution for nebulization 3 ml inhalation Q8H PRN (Reason: wheezing) Qty: 90 0RF prednisone 50 mg tablet 50 mg PO DAILY 5 Days Qty: 5 0RF azithromycin 250 mg tablet 250 mg PO DAILY 4 Days Qty: 4 0RF Rx Instructions: start on day 2 of therapy Paxlovid 300 mg (150 mg x 2)-100 mg tablets,dose pack See Rx Instructions .ROUTE .COMPLEX Qty: 30 0RF Rx Instructions: take TWO 150 mg tablets of nirmatrelvir with ONE 100 mg tablet of ritonavir twice daily for 5 days albuterol sulfate 90 mcg/actuation HFA aerosol inhaler 4 inh inhalation Q4H PRN (Reason: shortness of breath or wheezing) Qty: 8.5 0RF Rx Instructions: 4 puffs every 4 hours for 48 hours then as needed for shortness of breath or wheezing following Combivent Respimat 20-100 mcg/actuation mist 1 puff inhalation Q6H PRN (Reason: shortness of breath or wheezing) Qty: 4 3RF ipratropium-albuterol 0.5 mg-3 mg(2.5 mg base)/3 mL solution for nebulization 3 ml inhalation Q6H PRN (Reason: wheezing) Qty: 180 4RF magnesium oxide 400 mg magnesium capsule 800 mg PO DAILY Qty: 60 2RF Referrals Follow up/Referrals: Provider,MD Raf [Primary Care Provider] - See instructions Nick Irby MD [Physician] - See instructions Activity Restrictions/Add. Instructions Additional Instructions/Restrictions: You were evaluated in the emergency department today and diagnosed with an exacerbation of COPD as well as pneumonia and a small pleural effusion. You also have a lung nodule, which appears to be stable. Please follow-up very closely with your primary care provider as well as with pulmonology for reassessment. 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 Also use your breathing treatments and inhalers at home as prescribed. Return to the emergency department for new or worsening symptoms. Clinical Impressions Clinical Impression: Acute exacerbation of chronic obstructive pulmonary disease, Lung nodule, Pneumonia, Pleural effusion on right Stand Alone Forms Stand Alone Forms: Work/School Release Instructions Patient Instructions: DI for Chronic Obstructive Pulmonary Disease, DI for Pneumonia -- Adult, DI for Shortness of Breath Print Language Print Language: Cymro Discharge ED Provider: Houston Block General Adult HPI <Houston Block MD - Last Filed: 01/06/25 07:15> General Chief complaint: Shortness of Breath/Dyspnea Stated complaint: Difficulty breathing Time Seen by Provider: 01/06/25 06:30 Mode of Arrival: EMS Source of Information: Patient and EMS Description of Symptoms (Recalled from ER Triage Doc. by RN): pt presents with c/o soa that is chronic in nature with worsening over the last several days. Reports productive cough with white sputum and palpitations as well. HX of COPD with extensive cardiac HX. Reports decrease in PO intake as well. History of Present Illness HPI narrative: 69-year-old female with history of COPD on oxygen at night only, history of mitral valve replacement x 2, on warfarin for mechanical mitral valve, history of pacemaker, presents for worsening shortness of breath. She reports has been going on for the last few days associated with increased sputum and palpitations and intermittent chest pain. She reports that she is not been eating or drinking very much because she has not been feeling like it. Related Data Home Medications ?Medication ?Instructions ?Recorded ?Confirmed carvedilol 3.125 mg tablet 3.125 mg PO BID 09/16/24 09/16/24 lisinopril 40 mg tablet 40 mg PO DAILY 09/16/24 09/16/24 Previous Rx's ?Medication ?Instructions ?Recorded albuterol sulfate 90 mcg/actuation 4 inh inhalation Q4H PRN shortness 04/24/23 aerosol inhaler of breath or wheezing #8.5 grams ipratropium 0.5 mg-albuterol 3 mg 3 ml inhalation Q6H PRN wheezing 08/13/24 (2.5 mg base)/3 mL nebulization #180 mL soln ipratropium 20 mcg-albuterol 100 1 puff inhalation Q6H PRN 08/13/24 mcg/actuation mist for inhalation shortness of breath or wheezing #4 (Combivent Respimat) grams magnesium oxide 800 mg (2 x 400 mg magnesium) PO 08/13/24 DAILY #60 caps azithromycin 250 mg tablet 250 mg PO DAILY 3 days #3 tabs 09/17/24 budesonide 160 mcg-glycopyr 9 2 puff inhalation BID 30 days 09/17/24 mcg-formot 4.8 mcg/actuation HFA #10.7 grams inhaler (Breztri Aerosphere) cefdinir 300 mg capsule 300 mg PO BID 3 days #6 caps 09/17/24 furosemide 40 mg tablet 40 mg PO DAILY weight gain 30 days 09/17/24 #30 tabs metoprolol succinate 25 mg 25 mg PO DAILY 30 days #30 tabs 09/17/24 tablet,extended release 24 hr potassium chloride 20 mEq 20 meq PO DAILY #30 tabs 09/17/24 tablet,extended release warfarin 3 mg tablet (Jantoven) 6 mg (2 x 3 mg) PO COUMADIN 30 09/17/24 days #30 tabs azithromycin 250 mg tablet 250 mg PO DAILY 4 days #4 tabs 09/22/24 ipratropium 0.5 mg-albuterol 3 mg 3 ml inhalation Q8H PRN wheezing 09/22/24 (2.5 mg base)/3 mL nebulization #90 mL soln nirmatrelvir 300 mg (150 mg See Rx Instructions PO .COMPLEX 09/22/24 x2)-ritonavir 100 mg tablet,dose #30 tabs pack (Paxlovid) prednisone 50 mg tablet 50 mg PO DAILY 5 days #5 tabs 09/22/24 amoxicillin 875 mg-potassium 1 tab PO BID #20 tabs 01/06/25 clavulanate 125 mg tablet azithromycin 500 mg tablet 500 mg PO DAILY 3 days #3 tabs 01/06/25 prednisone 20 mg tablet 40 mg (2 x 20 mg) PO DAILY 5 days 01/06/25 #10 tabs Allergies Allergy/AdvReac Type Severity Reaction Status Date / Time nitroglycerin Allergy Intermediate Unknown Verified 09/15/24 10:44 allergy reaction aspirin AdvReac Intermediate stomach Verified 09/15/24 10:44 issues NSAIDS (Non-Steroidal AdvReac Intermediate stomach Verified 09/15/24 10:44 Anti-Inflamma issues procainamide AdvReac Intermediate stomach Verified 09/15/24 10:44 issues PFSH <Houston Block MD - Last Filed: 01/06/25 07:15> FOR[facility]LY [facility] Disclaimer: The information contained in this section may have been updated after the patient was seen, as this information can be updated by other users. Medical History (Updated 01/06/25 @ 09:45 by Hope Jimenez DO) CHF (congestive heart failure) Atrial fibrillation Pacemaker Fracture of left hip requiring operative repair Acute hypoxic respiratory failure Acute hypercapnic respiratory failure Abnormal laboratory test Acute exacerbation of chronic obstructive pulmonary disease Acute hypercapnic respiratory failure Acute exacerbation of chronic obstructive pulmonary disease Weight loss, non-intentional Pruritus of skin Prolonged INR Thrombocytopenia Dehydration Respiratory failure with hypoxia Thoracic back pain Influenza A Long-term (current) use of anticoagulants, INR goal 2.5-3.5 Fluid retention Hypertension Tendinitis, de Quervain's Surgical History (Updated 09/21/24 @ 00:00 by Cristal Patrick) H/O tubal ligation S/P cholecystectomy History of artificial heart valve Family History Other No significant family history Social History (Updated 09/15/24 @ 19:04 by Magalis Shaffer RN) Smoking Status: Current every day smoker tobacco type: cigarettes packs per day: 1 alcohol intake: never substance use type: marijuana current occupational status: retired Travel in the last 8 weeks: None household members: significant other and children housing: house caffeine: No Have you lived/traveled outside [place] in past 30 days?: No Contact w/someone who lives/traveled outside US past 30 days?: No Exposure to someone with infectious disease in past 14 days?: No Do you have a fever (greater than 100.4 F or 38 C)?: No Have you tested positive for COVID-19: No Exposed to someone with COVID-19 in past 14 days?: No Do you have a sore throat?: No Do you have a cough?: No Do you have any weakness?: No Do you have any diarrhea?: No Are you experiencing any unusual bleeding?: No Do you have any muscle aches/pain?: No Do you have any abdominal pain?: No Are you experiencing loss of taste or smell?: No Other Medical History Have you received the Flu Vaccine for this season: No Have you received the Pneumonia Vaccine: No <Houston Block MD - Last Filed: 01/06/25 07:15> ROS Obtained: Yes All systems reviewed & no additional complaints except as documented Physical Exam <Houston Block MD - Last Filed: 01/06/25 07:15> General General appearance: alert and cachectic Comment: Mild shortness of breath Head Head exam: atraumatic and normocephalic Eye Eye exam: Present normal appearance, PERRL and EOMI ENT ENT exam: Present normal oropharynx and normal external ear exam Neck Neck exam: Present normal inspection and full ROM Chest Chest inspection: Present normal inspection and symmetric chest wall rise; Absent tenderness Respiratory Respiratory exam: Present respiratory distress, accessory muscle use and prolonged expiratory phase Cardiovascular Cardiovascular exam: Present tachycardia and irregular rhythm Abdominal Exam Abdominal exam: Present soft; Absent distention, tenderness or guarding Extremities Exam Extremities exam: Present normal inspection; Absent edema or joint swelling Back Exam Back exam: Present normal inspection; Absent tenderness Neurological Exam Neurological exam: Present alert and oriented X3; Absent motor sensory deficit Psychiatric Psychiatric exam: Present normal affect and normal mood Skin Skin exam: Present warm, dry and normal color Lymphatic Lymphatic Findings: no adenopathy Medical Decision Making <Houston Block MD - Last Filed: 01/06/25 07:15> Medical Records Medical records reviewed: Yes I reviewed the patient's medical records. Screening: Per USPSTF and CDC recommendations, given the prevalence of disease in our region, it is our hospital?s policy to screen for HIV and viral Hepatitis for all patients aged 18 and over and those with ongoing risk factors. Preet Inquiry Pt receiving controlled substance: No Preet was queried for this patient: No Vital Signs: 01/06/25 06:28 01/06/25 06:30 01/06/25 06:33 Temperature 98.9 F Temperature Source Oral Pulse Rate 91 H Pulse Rate [Right] 85 Respiratory Rate 22 15 Blood Pressure 148/78 H Blood Pressure [Right Arm] 153/66 H Blood Pressure Mean Blood Pressure Mean [Right Arm] 95 Blood Pressure Source [Right Arm] Manual Cuff/ Auscultation 02 Sat by Pulse Oximetry 95 Oxygen Delivery Method Nasal Cannula Oxygen Flow Rate (LPM) 2 01/06/25 07:00 01/06/25 07:30 01/06/25 08:00 Temperature Temperature Source Pulse Rate 88 87 76 Pulse Rate [Right] Respiratory Rate 14 19 20 Blood Pressure 134/73 136/71 123/70 Blood Pressure [Right Arm] Blood Pressure Mean Blood Pressure Mean [Right Arm] Blood Pressure Source [Right Arm] 02 Sat by Pulse Oximetry 94 L 94 L 91 L Oxygen Delivery Method Nasal Cannula Nasal Cannula Nasal Cannula Oxygen Flow Rate (LPM) 01/06/25 08:30 01/06/25 09:00 01/06/25 09:30 Temperature Temperature Source Pulse Rate 87 86 84 Pulse Rate [Right] Respiratory Rate Blood Pressure 118/63 112/65 112/61 Blood Pressure [Right Arm] Blood Pressure Mean 86 76 71 Blood Pressure Mean [Right Arm] Blood Pressure Source [Right Arm] 02 Sat by Pulse Oximetry 94 L 90 L 91 L Oxygen Delivery Method Nasal Cannula Nasal Cannula Nasal Cannula Oxygen Flow Rate (LPM) 01/06/25 10:00 01/06/25 10:30 01/06/25 11:03 Temperature 98.4 F Temperature Source Pulse Rate 90 84 81 Pulse Rate [Right] Respiratory Rate 20 Blood Pressure 107/60 L 108/54 L 108/54 L Blood Pressure [Right Arm] Blood Pressure Mean Blood Pressure Mean [Right Arm] Blood Pressure Source [Right Arm] 02 Sat by Pulse Oximetry 90 L 94 L Oxygen Delivery Method Nasal Cannula Room Air Oxygen Flow Rate (LPM) Lab Data Lab results reviewed: Yes I reviewed the patient's lab results. Lab Results 01/06/25 06:22: VBG pH 7.34, VBG pCO2 68.0 H, VBG pO2 52.7 H, VBG HCO3 36.1 H, V BG Total CO2 38.2 H, VBG O2 Saturation 84.7 H, VBG Base Excess 10.4 H, VBG Lactic Acid 1.4 01/06/25 06:30: WBC 5.6, RBC 4.08 L, Hgb 13.0, Hct 40.1, MCV 98.3, MCH 31.9 H, MCHC 32.4, RDW 13.7, Plt Count 108 L, MPV 10.2, Neut % (Auto) 79.3, Lymph % (Auto) 9.6 L, [place] % (Auto) 9.1, Eos % (Auto) 1.2, Baso % (Auto) 0.4, Neut # (Auto) 4.5, Lymph # (Auto) 0.5 L, [place] # (Auto) 0.5, Eos # (Auto) 0.1, Baso # (Auto) 0.0, Total Counted 100, Neutrophils % (Manual) 73, Lymphocytes % (Manual) 17, Monocytes % (Manual) 7, Eosinophils % (Manual) 3, Platelet Estimate Slight decrease, RBC Morphology Normal, D-Dimer 1.13 H, Sodium 136, Potassium 3.4 L, C hloride 94 L, Carbon Dioxide 37 H, Anion Gap 8.4, BUN 10, Creatinine 0.60, Estimated Creat Clear 34, Estimated GFR 99, Est GFR ( Amer) 120, Glucose 135 H, Calcium 8.2 L, Total Bilirubin 1.3, AST 35, ALT 16, Alkaline Phosphatase 124, Troponin I 0.01, Total Protein 7.6, Albumin 3.9, Globulin 3.7 H, Albumin/Globulin Ratio 1.1 01/06/25 07:55: SARS-CoV-2 (PCR) Not detected, Influenza A Untype (PCR) Not detected, Influenza Type B (PCR) Not detected 01/06/25 09:37: Troponin I < 0.01 01/06/25 06:30 01/06/25 06:30 Orders (Tests/Meds): ED MEDICATIONS Discontinued Medications Generic Name Dose Route Start Last Admin Trade Name Eulalia PRN Reason Stop Dose Admin Albuterol Sulfate 20 mg 01/06/25 06:24 01/06/25 06:31 Albuterol 0.083% 2.5 Mg/3 Ml Neb IH 01/06/25 06:25 20 mg ONCE ONE Administration Amoxicillin/Clavulanate Potassium 1 each 01/06/25 08:44 01/06/25 09:37 Amoxicillin/Clavulanate Potassium 875/125mg Tablet PO 01/06/25 08:45 1 each ONCE ONE Administration Azithromycin 500 mg 01/06/25 08:44 01/06/25 09:37 Azithromycin 250mg Tablet PO 01/06/25 08:45 500 mg ONCE ONE Administration Sodium Chloride 1,000 mls @ 999 mls/hr 01/06/25 06:30 01/06/25 06:41 Sod Chlor 0.9% 1000ml Bag IV 01/06/25 07:30 999 mls/hr .Q1H1M BOOKER Administration Magnesium Sulfate 2 gm in 50 mls @ 150 mls/hr 01/06/25 06:30 01/06/25 06:42 Magnesium Sulfate 2gm/50ml Premix IV 01/06/25 06:49 150 mls/hr ONCE ONE Administration Iopamidol 75 ml 01/06/25 08:28 01/06/25 08:29 Iopamidol-370 (76%);100ml Bottle IV 01/06/25 08:29 75 ml ONCE ONE Administration Methylprednisolone Sodium Succinate 125 mg 01/06/25 06:30 01/06/25 06:41 Methylprednisolone Sod Succ 125mg Vial IV 01/06/25 06:31 125 mg ONCE ONE Administration Ondansetron HCl 4 mg 01/06/25 06:58 01/06/25 06:59 Ondansetron 4mg/2ml Vial IV 01/06/25 06:59 4 mg ONCE ONE Administration Sodium Chloride 50 ml 01/06/25 08:28 01/06/25 08:29 0.9 % Sodium Chloride 50 Ml Vial IV 01/06/25 08:29 50 ml ONCE ONE Administration Sodium Chloride 10 ml 01/06/25 08:28 01/06/25 08:29 Sodium Chloride 0.9% 10ml Syr (Rad Only) IV 01/06/25 08:29 10 ml ONCE ONE Administration ORDERS Category Date Time Status CT angio chest PE protocol Stat Cat Scan 01/06/25 07:50 Completed CXR --portable [XR chest portable] Stat Exams 01/06/25 06:30 Completed CBC w/Auto Diff [Complete Blood Count Auto Diff] Stat Lab 01/06/25 06:30 Completed CMP [Comprehensive Metabolic Panel] Stat Lab 01/06/25 06:30 Completed D-Dimer Stat Lab 01/06/25 06:30 Completed Lactate Venous Stat Lab 01/06/25 06:30 Ordered Rapid PCR Covid and Flu A/B Stat Lab 01/06/25 07:55 Completed Troponin I Q3H Lab 01/06/25 06:30 Completed Troponin I Q3H Lab 01/06/25 09:37 Completed VBG [Venous Blood Gas] Stat RT 01/06/25 06:22 Completed ECG Data Tracing #1: I reviewed this ECG and interpreted as documented below: Atrial fibrillation, rate of 99, wide QRS complex, no Sgarbossa positive ST changes. Interpretation is limited secondary to artifact. ECG initial impression date: 01/06/25 ECG initial impression time: 06:20 Tracing #2: I reviewed this ECG and interpreted as documented below: Atrial fibrillation with rate of 97, wide QRS, right bundle branch block, no scar Bosa positive ST changes. ECG initial impression date: 01/06/25 ECG initial impression time: 06:55 HEART Score History (anamnesis): Slightly suspicious ECG: Non-specific disturbance Age: >65 years Risk factors: 1-2 risk factors Troponin: </= normal limit HEART Score: 4 Medical Decision Narrative: 69-year-old female with history of COPD on oxygen at night, mitral valve replacement x 2, on warfarin for mechanical valve, presents for worsening shortness of breath over the last few days as well as intermittent palpitations and chest pain. History was obtained via interactive discussion with patient, EMS. On arrival, patient is [afebrile, hemodynamically stable, satting mid 90s on 2 L nasal cannula, oriented x4, GCS 15], moving all extremities spontaneously. Full physical exam performed and significant for mild respiratory distress with prolonged expiratory phase and trace wheezing. Differential includes but is not limited to COPD exacerbation, pneumonia, ACS, PE. Patient was given 2 g of magnesium, 125 Solu-Medrol, continuous albuterol (received DuoNeb prior to arrival) for symptomatic management and correction of underlying abnormalities. Workup initiated including CBC CMP VBG troponin D- dimer EKG x 2 chest x-ray. Laboratory workup independently interpreted by me and significant for no significant leukocytosis, VBG with compensated hypercapnia, mild hypokalemia, negative initial troponin. Imaging independently interpreted by me and significant for no pneumothorax, no large opacity, lungs appear hyperinflated. See radiology read for full review of final results. At this time care handoff oncoming physician. <Hope Jimenez, DO - Last Filed: 01/06/25 14:38> Vital Signs: 01/06/25 06:28 01/06/25 06:30 01/06/25 06:33 Temperature 98.9 F Temperature Source Oral Pulse Rate 91 H Pulse Rate [Right] 85 Respiratory Rate 22 15 Blood Pressure 148/78 H Blood Pressure [Right Arm] 153/66 H Blood Pressure Mean Blood Pressure Mean [Right Arm] 95 Blood Pressure Source [Right Arm] Manual Cuff/ Auscultation 02 Sat by Pulse Oximetry 95 Oxygen Delivery Method Nasal Cannula Oxygen Flow Rate (LPM) 2 01/06/25 07:00 01/06/25 07:30 01/06/25 08:00 Temperature Temperature Source Pulse Rate 88 87 76 Pulse Rate [Right] Respiratory Rate 14 19 20 Blood Pressure 134/73 136/71 123/70 Blood Pressure [Right Arm] Blood Pressure Mean Blood Pressure Mean [Right Arm] Blood Pressure Source [Right Arm] 02 Sat by Pulse Oximetry 94 L 94 L 91 L Oxygen Delivery Method Nasal Cannula Nasal Cannula Nasal Cannula Oxygen Flow Rate (LPM) 01/06/25 08:30 01/06/25 09:00 01/06/25 09:30 Temperature Temperature Source Pulse Rate 87 86 84 Pulse Rate [Right] Respiratory Rate Blood Pressure 118/63 112/65 112/61 Blood Pressure [Right Arm] Blood Pressure Mean 86 76 71 Blood Pressure Mean [Right Arm] Blood Pressure Source [Right Arm] 02 Sat by Pulse Oximetry 94 L 90 L 91 L Oxygen Delivery Method Nasal Cannula Nasal Cannula Nasal Cannula Oxygen Flow Rate (LPM) 01/06/25 10:00 01/06/25 10:30 01/06/25 11:03 Temperature 98.4 F Temperature Source Pulse Rate 90 84 81 Pulse Rate [Right] Respiratory Rate 20 Blood Pressure 107/60 L 108/54 L 108/54 L Blood Pressure [Right Arm] Blood Pressure Mean Blood Pressure Mean [Right Arm] Blood Pressure Source [Right Arm] 02 Sat by Pulse Oximetry 90 L 94 L Oxygen Delivery Method Nasal Cannula Room Air Oxygen Flow Rate (LPM) Lab Data Lab Results 01/06/25 06:22: VBG pH 7.34, VBG pCO2 68.0 H, VBG pO2 52.7 H, VBG HCO3 36.1 H, V BG Total CO2 38.2 H, VBG O2 Saturation 84.7 H, VBG Base Excess 10.4 H, VBG Lactic Acid 1.4 01/06/25 06:30: WBC 5.6, RBC 4.08 L, Hgb 13.0, Hct 40.1, MCV 98.3, MCH 31.9 H, MCHC 32.4, RDW 13.7, Plt Count 108 L, MPV 10.2, Neut % (Auto) 79.3, Lymph % (Auto) 9.6 L, [place] % (Auto) 9.1, Eos % (Auto) 1.2, Baso % (Auto) 0.4, Neut # (Auto) 4.5, Lymph # (Auto) 0.5 L, [place] # (Auto) 0.5, Eos # (Auto) 0.1, Baso # (Auto) 0.0, Total Counted 100, Neutrophils % (Manual) 73, Lymphocytes % (Manual) 17, Monocytes % (Manual) 7, Eosinophils % (Manual) 3, Platelet Estimate Slight decrease, RBC Morphology Normal, D-Dimer 1.13 H, Sodium 136, Potassium 3.4 L, C hloride 94 L, Carbon Dioxide 37 H, Anion Gap 8.4, BUN 10, Creatinine 0.60, Estimated Creat Clear 34, Estimated GFR 99, Est GFR ( Amer) 120, Glucose 135 H, Calcium 8.2 L, Total Bilirubin 1.3, AST 35, ALT 16, Alkaline Phosphatase 124, Troponin I 0.01, Total Protein 7.6, Albumin 3.9, Globulin 3.7 H, Albumin/Globulin Ratio 1.1 01/06/25 07:55: SARS-CoV-2 (PCR) Not detected, Influenza A Untype (PCR) Not detected, Influenza Type B (PCR) Not detected 01/06/25 09:37: Troponin I < 0.01 Orders (Tests/Meds): ED MEDICATIONS Discontinued Medications Generic Name Dose Route Start Last Admin Trade Name Eulalia PRN Reason Stop Dose Admin Albuterol Sulfate 20 mg 01/06/25 06:24 01/06/25 06:31 Albuterol 0.083% 2.5 Mg/3 Ml Neb IH 01/06/25 06:25 20 mg ONCE ONE Administration Amoxicillin/Clavulanate Potassium 1 each 01/06/25 08:44 01/06/25 09:37 Amoxicillin/Clavulanate Potassium 875/125mg Tablet PO 01/06/25 08:45 1 each ONCE ONE Administration Azithromycin 500 mg 01/06/25 08:44 01/06/25 09:37 Azithromycin 250mg Tablet PO 01/06/25 08:45 500 mg ONCE ONE Administration Sodium Chloride 1,000 mls @ 999 mls/hr 01/06/25 06:30 01/06/25 06:41 Sod Chlor 0.9% 1000ml Bag IV 01/06/25 07:30 999 mls/hr .Q1H1M BOOKER Administration Magnesium Sulfate 2 gm in 50 mls @ 150 mls/hr 01/06/25 06:30 01/06/25 06:42 Magnesium Sulfate 2gm/50ml Premix IV 01/06/25 06:49 150 mls/hr ONCE ONE Administration Iopamidol 75 ml 01/06/25 08:28 01/06/25 08:29 Iopamidol-370 (76%);100ml Bottle IV 01/06/25 08:29 75 ml ONCE ONE Administration Methylprednisolone Sodium Succinate 125 mg 01/06/25 06:30 01/06/25 06:41 Methylprednisolone Sod Succ 125mg Vial IV 01/06/25 06:31 125 mg ONCE ONE Administration Ondansetron HCl 4 mg 01/06/25 06:58 01/06/25 06:59 Ondansetron 4mg/2ml Vial IV 01/06/25 06:59 4 mg ONCE ONE Administration Sodium Chloride 50 ml 01/06/25 08:28 01/06/25 08:29 0.9 % Sodium Chloride 50 Ml Vial IV 01/06/25 08:29 50 ml ONCE ONE Administration Sodium Chloride 10 ml 01/06/25 08:28 01/06/25 08:29 Sodium Chloride 0.9% 10ml Syr (Rad Only) IV 01/06/25 08:29 10 ml ONCE ONE Administration ORDERS Category Date Time Status CT angio chest PE protocol Stat Cat Scan 01/06/25 07:50 Completed CXR --portable [XR chest portable] Stat Exams 01/06/25 06:30 Completed CBC w/Auto Diff [Complete Blood Count Auto Diff] Stat Lab 01/06/25 06:30 Completed CMP [Comprehensive Metabolic Panel] Stat Lab 01/06/25 06:30 Completed D-Dimer Stat Lab 01/06/25 06:30 Completed Lactate Venous Stat Lab 01/06/25 06:30 Ordered Rapid PCR Covid and Flu A/B Stat Lab 01/06/25 07:55 Completed Troponin I Q3H Lab 01/06/25 06:30 Completed Troponin I Q3H Lab 01/06/25 09:37 Completed VBG [Venous Blood Gas] Stat RT 01/06/25 06:22 Completed HEART Score HEART Score: 4 Medical Decision Narrative: 69-year-old female with history of COPD on oxygen at night, mitral valve replacement x 2, on warfarin for mechanical valve, presents for worsening shortness of breath over the last few days as well as intermittent palpitations and chest pain. History was obtained via interactive discussion with patient, EMS. On arrival, patient is [afebrile, hemodynamically stable, satting mid 90s on 2 L nasal cannula, oriented x4, GCS 15], moving all extremities spontaneously. Full physical exam performed and significant for mild respiratory distress with prolonged expiratory phase and trace wheezing. Differential includes but is not limited to COPD exacerbation, pneumonia, ACS, PE. Patient was given 2 g of magnesium, 125 Solu-Medrol, continuous albuterol (received DuoNeb prior to arrival) for symptomatic management and correction of underlying abnormalities. Workup initiated including CBC CMP VBG troponin D- dimer EKG x 2 chest x-ray. Laboratory workup independently interpreted by me and significant for no significant leukocytosis, VBG with compensated hypercapnia, mild hypokalemia, negative initial troponin. Imaging independently interpreted by me and significant for no pneumothorax, no large opacity, lungs appear hyperinflated. See radiology read for full review of final results. At this time care handoff oncoming physician. DO Tony: On my assessment of the patient, she is resting comfortably in no acute distress and states she is feeling a lot better. She is resting comfortably with normal O2 saturations on 2 L nasal cannula. She wears oxygen at home and sleeping but not usually during the day. She was able to be weaned here without desaturation. She has no increased work of breathing with reassuring cardiopulmonary exam. Vitals are reassuring on cardiac telemetry. Labs obtained demonstrated elevated D-dimer, for which CT PE protocol was ordered. CBC is reassuring with no significant leukocytosis or anemia, VBG is reassuring with chronic respiratory acidosis that is not currently decompensated. Lactic acid is normal. She has mild hypokalemia. Troponins times [address] PE independently interpreted by myself and demonstrates right sided pneumonia/pleural effusion, but no PE. She was treated by myself with Augmentin and azithromycin. At this time, I feel that she is stable and appropriate for discharge home with diagnosis of pneumonia and treatment of COPD exacerbation. She is given prescriptions for prednisone, Augmentin, and azithromycin and instructions for close follow-up with PCP as well as pulmonology. Very strict return precautions were given at time of discharge. Procedures <Houston Block MD - Last Filed: 01/06/25 07:15> Risk/Benefits of Procedure(s) Were Explained: Yes Critical Care <Houston Block MD - Last Filed: 01/06/25 07:15> Critical Care Time Critical Care Time: Yes Attestation: On 01/06/25, the high probability of a clinically significant, sudden or life threatening deterioration of the following system(s) required my full and direct attention, intervention and personal management. The time I documented below is in addition to time spent performing reported procedures but includes the following listed in this critical care notation. Total Time Total Critical Care Time: 40
[2025-01-06] MEDS: ONDANSETRON 4MG/2ML VIAL 4 MG IV (06:59)
--- OUTSIDE RECORDS SUMMARY | 2025-01-06 06:59 | XMS_ITS | Data Portability ---
Author Organization [facility] Address [address] [place] [address] Care Team Providers Care Vocal Performer Name Role Phone VENKATCATHY Primary Care Provider Assessment No assessment recorded. Plan of Treatment Reminders Order Date Submit Date Provider Last Modified By Organization Details Last Modified Time Details Appointments None recorded. Lab CMP, serum or plasma 2023 [facility] (Laboratory), [address] [place], [address], 4 14:08:26 magnesium, serum or plasma 2023 024 [facility] (Laboratory), [address] [place], [address], 4 14:08:28 pro BNP (pro B-type natriuretic peptide), serum or plasma 2023 [facility] (Laboratory), [address] [place], [address], 4 13:49:14 vitamin D, 25-hydroxy, total, serum [facility] [address] [place], [address], 4 07:41:47 CBC w/ auto diff 2023 024 [facility] ([facility]atory), [address] [place], [address], 13:35:05 Referral None recorded. Procedures None recorded. Surgeries None recorded. Imaging None recorded. Medication Orders aloe vera extract-all antoin 0.5 % lotion 2023 [facility], [address] [place], [address], 4 16:17:28 triamcinolo ne acetonide 0.1 % topical cream 2023 [facility], [address] [place], [address], 4 16:17:28 Breztri Aerosphere 160 mcg-9mcg-4. 8mcg/actuat ion HFA aerosol inhaler 2023 [facility], [address] [place], [address], 4 16:17:28 prednisone 20 mg tablet 2023 [facility], [address] [place], [address], 4 16:21:40 clotrimazol e-betametha sone 1 %-0.05 % topical cream 2023 [facility], [address] [place], [address], 4 14:52:23 Medrol (Jose) 4 mg tablets in a dose pack 2023 [facility], [facility] [place], [address], 4 14:26:36 Zithromax Z-Jose 250 mg tablet 2023 [facility], [address] [place], [address], 4 14:26:19 Combivent Respimat 20 mcg-100 mcg/actuati on solution for inhalation 2023 024 [facility] #[facility]016, [address] [place], [address], 4 11:34:10 lidocaine 5 % topical patch 2023 024 [facility] #[facility]016, [address] [place], [address], 4 10:25:56 Combivent Respimat 20 mcg-100 mcg/actuati on solution for inhalation 2023 024 [facility], [address] [facility] [place], [address], 4 10:25:57 Lidocaine Pain Relief 4 % topical patch 2023 024 [facility]acy #[facility]016, [address] [place], [address], 4 10:00:50 Combivent Respimat 20 mcg-100 mcg/actuati on solution for inhalation 2023 024 [facility], [address] [place], [address], 4 11:19:16 Patient TargetsNo targets recorded. Patient InstructionsNo instructions recorded. Reason for Referral None Reported. Results Created Date Observation Date Name Description Value Unit Range Abnormal Flag Note LastModifiedBy Organization Detail LastModifiedTime 05/23/20 24 05/23/2024 CBC AUTO W DIFF WBC 5.1 10 4.5-11 .5 Not Available [facility] (Lab Registration) [address] [place], [address], 05/23/2024 13:35:05 05/23/20 24 05/23/2024 CBC AUTO W DIFF RBC 3.54 10 4.25-5 .57 low Not Available [facility] (Lab Registration) [address] [place], [address], 05/23/2024 13:35:05 05/23/20 24 05/23/2024 CBC AUTO W DIFF HGB 11.6 g/dL 12.0-1 5.7 low Not Available [facility] (Lab Registration) [address] [place], [address], 05/23/2024 13:35:05 05/23/20 24 05/23/2024 CBC AUTO W DIFF HCT 36.9 % 36.0-4 7.0 Not Available [facility] (Lab Registration) [address] [place], [address], 05/23/2024 13:35:05 05/23/20 24 05/23/2024 CBC AUTO W DIFF MCV 104.2 fL 80-95 high Not Available [facility] (Lab Registration) [address] [place], [address], 05/23/2024 13:35:05 05/23/20 24 05/23/2024 CBC AUTO W DIFF MCH 32.8 pg 27.0-3 4.0 Not Available [facility] (Lab Registration) [address] [place], [address], 05/23/2024 13:35:05 05/23/20 24 05/23/2024 CBC AUTO W DIFF MCHC 31.4 g/dL 32.0-3 6.0 low Not Available [facility] (Lab Registration) [address] [place], [address], 05/23/2024 13:35:05 05/23/20 24 05/23/2024 CBC AUTO W DIFF platelet count 155 10 150-45 0 Not Available [facility] (Lab Registration) [address] [place], [address], 05/23/2024 13:35:05 05/23/20 24 05/23/2024 CBC AUTO W DIFF RDW 12.6 % 12.3-1 5.1 Not Available [facility] (Lab Registration) [address] [place], [address], 05/23/2024 13:35:05 05/23/20 24 05/23/2024 CBC AUTO W DIFF MPV 9.7 fL 7.4-10 .4 Not Available [facility] (Lab Registration) [address] [place], [address], 05/23/2024 13:35:05 05/23/20 24 05/23/2024 CBC AUTO W DIFF granulocyte% 72.8 % 40-75 Not Available [facility] (Lab Registration) [address] [place], [address], 05/23/2024 13:35:05 05/23/20 24 05/23/2024 CBC AUTO W DIFF lymphocyte% 11.5 % 15-57 low Not Available [facility] (Lab Registration) [address] [place], [address], 05/23/2024 13:35:05 05/23/20 24 05/23/2024 CBC AUTO W DIFF monocyte% 10.9 % 4.0-12 .0 Not Available [facility] (Lab Registration) [address] [place], [address], 05/23/2024 13:35:05 05/23/20 24 05/23/2024 CBC AUTO W DIFF eosinophil% 4.0 % 0.0-4. 0 Not Available [facility] (Lab Registration) [address] [place], [address], 05/23/2024 13:35:05 05/23/20 24 05/23/2024 CBC AUTO W DIFF basophil% 0.6 % 0.0-1. 0 Not Available [facility] (Lab Registration) [address] [place], [address], 05/23/2024 13:35:05 05/23/20 24 05/23/2024 CBC AUTO W DIFF immature granulocytes % 0.2 % 0.0-0. 8 Not Available [facility] (Lab Registration) [address] [place], [address], 05/23/2024 13:35:05 05/23/20 24 05/23/2024 CBC AUTO W DIFF granulocyte# 3.68 10 Not Available [facility] (Lab Registration) [address] [place], [address], 05/23/2024 13:35:05 05/23/20 24 05/23/2024 CBC AUTO W DIFF lymphocyte# 0.58 10 Not Available [facility] (Lab Registration) [address] [place], [address], 05/23/2024 13:35:05 05/23/20 24 05/23/2024 CBC AUTO W DIFF monocyte# 0.55 10 Not Available [facility] (Lab Registration) [address] [place], [address], 05/23/2024 13:35:05 05/23/20 24 05/23/2024 CBC AUTO W DIFF eosinophil# 0.20 10 Not Available [facility] (Lab Registration) [address] [place], [address], 05/23/2024 13:35:05 05/23/20 24 05/23/2024 CBC AUTO W DIFF basophil# 0.03 10 Not Available [facility] (Lab Registration) [address] [place], [address], 05/23/2024 13:35:05 05/23/20 24 05/23/2024 CBC AUTO W DIFF immature granulocytes # 0.01 10 Not Available [facility] (Lab Registration) [address] [place], [address], 05/23/2024 13:35:05 05/23/20 24 05/23/2024 CBC AUTO W DIFF manual differential NO Not Available [facility] (Lab Registration) [address] [place], [address], 05/23/2024 13:35:05 05/23/20 24 05/23/2024 CBC AUTO W DIFF note Unles s other james noted testi ng [facility]fo [facility]med at: [facility] [address] [place], [place] [id number] [phone] Lobito brown MD CLIA: [id number] Not Available [facility] (Lab Registration) [address] [place], [address], 05/23/2024 13:35:05 05/23/20 24 05/23/2024 B-TYP E NATRI URETI C PEPTI DE BNP B-type natriuretic peptide BNP 103.0 pg/mL 0.0-10 0 high Non-C HF: Less than 100 pg/mL Class I: Great er than 100 pg/mL - Patie nts have no limit ation s of physi aileen activ ity and have no sympt oms with ordin renetta physi aileen activ ity. Class II: Great er than 221 pg/mL - Patie nts have a sligh t limit ation of physi aileen activ ity and have sympt oms with ordin renetta physi aileen activ ity. Class III: Great er than 459 pg/mL - Patie nts have a marke d limit ation of physi aileen activ ity and have sympt oms with less than ordin renetta physi aileen activ ity, but not at rest. Class IV : Great er than 1006 pg/mL -Corry ents are unabl e to perfo rm any physi aileen activ ity witho ut disco mfort . Not Available [facility] (Lab Registration) [address] [place], [address], 05/23/2024 13:49:13 05/23/20 24 05/23/2024 B-TYP E NATRI URETI C PEPTI DE BNP note Unles s other james noted testi ng perfo [facility]med at: [facility] [address] [place], [place] [id number] [phone] Lobito brown MD CLIA: [id number] Not Available [facility] (Lab Registration) [address] [place], [address], 05/23/2024 13:49:13 05/23/20 24 05/23/2024 VITAM IN D TOTAL (D2+D 3) vitamin D25 (D2+D3) 6.1 NG/mL 30-100 low Not Available [facility] (Lab Registration) [address] [place], [address], 05/23/2024 14:08:25 05/23/20 24 05/23/2024 VITAM IN D TOTAL (D2+D 3) note Unles s other james noted testi ng perfo rmed at: [facility] 9 [facility] [place] [address] [phone] Lobito brown MD CLIA: [id number] Not Available [facility] (Lab Registration) [address] [place], [address], 05/23/2024 14:08:25 05/23/20 24 05/23/2024 COMP METAB OLIC PANEL sodium 136 mmol/ L 136-14 5 Not Available [facility] (Lab Registration) [address] [place], [address], 05/23/2024 14:08:26 05/23/20 24 05/23/2024 COMP METAB OLIC PANEL potassium 4.0 mmol/ L 3.5-5. 1 Not Available [facility] (Lab Registration) [address] [place], [address], 05/23/2024 14:08:26 05/23/20 24 05/23/2024 COMP METAB OLIC PANEL chloride 99 mmol/ L 98-107 Not Available [facility] (Lab Registration) [address] [place], [address], 05/23/2024 14:08:26 05/23/20 24 05/23/2024 COMP METAB OLIC PANEL carbon dioxide 35 mmol/ L 21-32 high Not Available [facility] (Lab Registration) [address] [place], [address], 05/23/2024 14:08:26 05/23/20 24 05/23/2024 COMP METAB OLIC PANEL anion gap 2.0 Not Available [facility] (Lab Registration) [address] [place], [address], 05/23/2024 14:08:26 05/23/20 24 05/23/2024 COMP METAB OLIC PANEL glucose 124 mg/dL 70-110 high Not Available [facility] (Lab Registration) [address] [place], [address], 05/23/2024 14:08:26 05/23/20 24 05/23/2024 COMP METAB OLIC PANEL blood urea nitrogen 9 mg/dL 7-18 Not Available [facility] (Lab Registration) [address] [place], [address], 05/23/2024 14:08:26 05/23/20 24 05/23/2024 COMP METAB OLIC PANEL creatinine 0.8 mg/dL 0.6-1. 0 Not Available [facility] (Lab Registration) [address] [place], [address], 05/23/2024 14:08:26 05/23/20 24 05/23/2024 COMP METAB OLIC PANEL BUN/creatini ne ratio 11.3 ratio 9-21 Not Available [facility] (Lab Registration) [address] [place], [address], 05/23/2024 14:08:26 05/23/20 24 05/23/2024 COMP METAB OLIC PANEL estimated glom filtration rate 80 mL/mi n >60- Not Available [facility] (Lab Registration) [address] [place], [address], 05/23/2024 14:08:26 05/23/20 24 05/23/2024 COMP METAB OLIC PANEL total protein 6.7 g/dL 6.4-8. 2 Not Available [facility] (Lab Registration) [address] [place], [address], 05/23/2024 14:08:26 05/23/20 24 05/23/2024 COMP METAB OLIC PANEL albumin 2.9 g/dL 3.4-5. 0 low Not Available [facility] (Lab Registration) [address] [place], [address], 05/23/2024 14:08:26 05/23/20 24 05/23/2024 COMP METAB OLIC PANEL calcium 8.7 mg/dL 8.5-10 .1 Not Available [facility] (Lab Registration) [address] [place], [address], 05/23/2024 14:08:26 05/23/20 24 05/23/2024 COMP METAB OLIC PANEL corrected calcium 9.6 mg/dL 8.5-10 .1 Not Available [facility] (Lab Registration) [address] [place], [address], 05/23/2024 14:08:26 05/23/20 24 05/23/2024 COMP METAB OLIC PANEL bilirubin total 1.1 mg/dL 0.4-1. 5 Not Available [facility] (Lab Registration) [address] [place], [address], 05/23/2024 14:08:26 05/23/20 24 05/23/2024 COMP METAB OLIC PANEL AST (SGOT) 19 U/L 15-37 Not Available [facility] (Lab Registration) [address] [place], [address], 05/23/2024 14:08:26 05/23/20 24 05/23/2024 COMP METAB OLIC PANEL ALT (SGPT) 14 U/L 12-78 Not Available [facility] (Lab Registration) [address] [place], [address], 05/23/2024 14:08:26 09/06/20 24 05/23/2024 COMP METAB OLIC PANEL alk phosphatase 130 U/L 53-141 Not Available [facility] (Lab Registration) [address] [place], [address], 05/23/2024 14:08:26 05/23/20 24 05/23/2024 COMP METAB OLIC PANEL note Unles s other james noted testi ng perfo [facility]med at: [facility] [address] [place] [address] [phone] Lobito brown MD CLIA: [id number] Not Available [facility] (Lab Registration) [address] [place], [address], 05/23/2024 14:08:26 05/23/20 24 05/23/2024 MAGNE SIUM magnesium 1.6 mg/dL 1.8-2. 4 low Not Available [facility] (Lab Registration) [address] [place], [address], 05/23/2024 14:08:28 05/23/20 24 05/23/2024 MAGNE SIUM note Unles s other james noted testi ng perfo rmed at: [facility] [address] [place] [address] [phone] Lobito brown MD CLIA: [id number] Not Available [facility] (Lab Registration) [address] [place], [address], 05/23/2024 14:08:28 03/09/20 24 03/09/2024 imagi ng inter preta tion No observ ation record ed. [email or web address] [facility] [address], [place], [address], 03/11/2024 08:49:01 03/09/20 24 03/09/2024 imagi ng inter preta tion No observ ation record ed. [email or web address] [facility] [address], [place], [address], 03/11/2024 08:48:52 03/09/20 24 03/09/2024 imagi ng inter preta tion No observ ation record ed. [email or web address] [facility] [address], [place], [address], 03/11/2024 08:48:48 09/15/20 24 09/15/2024 imagi ng inter preta tion No observ ation record ed. [email or web address] [facility] [address], [place], [address], 09/15/2024 11:53:49 09/15/20 24 09/15/2024 imagi ng inter preta tion No observ ation record ed. [email or web address], [place], [address], 09/16/2024 07:24:15 09/17/19 25 09/17/2024 elect flor rosado am, routi ne ECG, 12 leads min No observ ation record ed. [facility] [address], [place], [address], 09/18/2024 08:27:01 Result Notes None recorded. Problems Name Problem SNOMED Code Status Onset Date Resolution Date Notes Provider Name and Address Organization Details Recorded Time Weight loss 42079712 Active 2022 Aravind Mcgowan null, [place] - [facility] [place] [facility] [place] 4 10:01:05 Chronic atrial fibrillation 328129412 Active 2022 Aravind Mcgowan null, [place] [facility] [place] [facility] [place] 4 10:00:56 Heart valve disorder 575344 Active 2022 Aravind Mcgowan null, [place] - [facility] [place] [facility] [place] 4 10:01:00 Chronic obstructive pulmonary disease 15249755 Active 2023 JAKE Carreon [facility] - [place] [facility] [place] 4 10:00:58 Thoracic back pain 916863159 Active 2023 JAKE Carreon [facility] - [place] [facility] [place] 4 10:01:02 Unsteady when walking 64361607 Active 2023 JAKE Carreon [facility] - [place] [facility] [place] 4 11:07:18 Problem Notes None recorded. Procedures Surgical History None recorded. Imaging Results Imaging Date Name Status LastModified by Organization Details LastModified Time 03/09/2024 imaging interpretation completed [address], [place], [address], 03/11/2024 08:49:01 03/09/2024 imaging interpretation completed [address], [place], [address], 03/11/2024 08:48:52 03/09/2024 imaging interpretation completed [address], [place], [address], 03/11/2024 08:48:48 09/15/2024 imaging interpretation completed [facility] [address], [place], [address], 09/15/2024 11:53:49 09/15/2024 imaging interpretation completed [address], [place], [address], 09/16/2024 07:24:15 09/17/2024 electrocardiogram, routine ECG, 12 leads min completed [facility] [address], [place], [address], 09/18/2024 08:27:01 Procedure Notes None recorded. Medical Equipment None Reported. Allergies Allergen ID Allergen Name Allergen Category Reaction Reaction Severity Criticality Documentation Date Start Date Code Code System Note Provider Name and Address Organization Details Recorded Time 590380 aspirin medicatio n Not available Not available Not available 07/26/2023 1191 RxNorm GI intol eranc e JAKE Reyna [facility] [place] 4 08:55:14 574028 Non-stero idal anti-infl ammatory agent (product) medicatio n Not available Not available Not available 07/26/2023 40640 005 SNOMED GI intol eranc e JAKE Reyna [facility] [place] 4 08:55:09 960284 procainam dia medicatio n anaphylax is Not available Not available 04/16/2024 8700 RxNorm JAKE Reyna [facility] [place] 4 08:53:49 Medications Name Sig Start Date Stop Date Status Note LastModified by Organization Details LastModified Time furosemide 40 mg tablet TAKE ONE TABLET BY MOUTH EVERY DAY FOR WEIGHT GAIN active Not Available Not Available No t Available atorvastati n 40 mg tablet 08/06 completed Not Available Not Available Not Available carvedilol 6.25 mg tablet Take 1 tablet by mouth 2 (Two) Times a Day. active Not Available Not Available No t Available doxycycline hyclate 100 mg capsule TAKE 1 CAPSULE BY MOUTH TWICE A DAY FOR 10 DAYS 08/16 completed Not Available Not Available Not Available carvedilol 12.5 mg tablet TAKE 1 TABLET BY MOUTH TWICE A DAY WITH FOOD 08/06 completed Not Available Not Available Not Available ipratropium 0.5 mg-albutero l 3 mg (2.5 mg base)/3 mL nebulizatio n soln USE DIRECTED active Not Available Not Available No t Available albuterol sulfate 2.5 mg/3 mL (0.083 %) solution for nebulizatio n INHALE 3 ML BY NEBULIZAT ION 3 TIMES A DAY NEEDED 08/06 completed Not Available Not Available Not Available azithromyci n 250 mg tablet TAKE 2 TABLETS BY MOUTH TODAY, THEN TAKE 1 TABLET DAILY FOR 4 DAYS DIRECTED active Not Available Not Available No t Available lisinopril 20 mg tablet Take 1 tablet every day by oral route. active Not Available Not Available No t Available prednisone 20 mg tablet Take 1 tablet every day by oral route for 4 days. 08/29 completed Not Available Not Available Not Available triamcinolo ne acetonide 0.1 % topical cream APPLY A THIN LAYER TO THE AFFECTED AREA(S) BY TOPICAL ROUTE 2 TIMES PER DAY active Not Available Not Available No t Available carvedilol 3.125 mg tablet TAKE ONE TABLET BY MOUTH TWICE DAILY active Not Available Not Available No t Available warfarin 4 mg tablet TAKE 1/2 TO 1 TABLET BY MOUTH DAILY OR DIRECTED BY [facility] 08/31 completed Not Available Not Available Not Available warfarin 3 mg tablet active Not Available Not Available No t Available benzonatate 100 mg capsule TAKE 1 CAPSULE BY MOUTH THREE TIMES A DAY NEEDED FOR COUGH 08/16 completed Not Available Not Available Not Available doxycycline monohydrate 100 mg capsule active Not Available Not Available Not Available clotrimazol e-betametha sone 1 %-0.05 % topical cream APPLY TO THE AFFECTED AND SURROUNDI NG AREAS OF SKIN BY TOPICAL ROUTE 2 TIMES PER DAY IN THE MORNING AND EVENING FOR 2 WEEKS 2023 active Not Available Not Available Not Avai lable prednisone 50 mg tablet TAKE 1 TABLET BY MOUTH ONCE DAILY FOR COPD FOR 4 DAYS active Not Available Not Available No t Available warfarin 2 mg tablet TAKE 1-2 TABLETS BY MOUTH ONCE DAILY OR DIRECTED BY [facility] active Not Available Not Available No t Available lidocaine 5 % topical patch APPLY ONE PATCH TOPICALLY ONCE DAILY. may wear up to 12 hours. active Not Available Not Available No t Available warfarin 5 mg tablet 04/18 completed Not Available Not Available Not Available mirtazapine 15 mg tablet TAKE 1 TABLET BY MOUTH EVERY DAY 08/31 completed Not Available Not Available Not Available metoprolol succinate ER 25 mg tablet,exte nded release 24 hr active Not Available Not Available Not Available levofloxaci n 500 mg tablet TAKE 1 TABLET BY MOUTH ONCE DAILY FOR 7 DAYS 08/31 completed Not Available Not Available Not Available scopolamine 1 mg over 3 days transdermal patch APPLY 1 PATCH BEHIND THE EAR EVERY 3 DAYS NEEDED FOR MOTION SICKNESS 08/31 completed Not Available Not Available Not Available methylpredn isolone 4 mg tablets in a dose pack TAKE DIRECTED ON PACKAGE 08/06 completed Not Available Not Available Not Available albuterol sulfate HFA 90 mcg/actuati on aerosol inhaler INHALE TWO PUFFS EVERY 4 HOURS NEEDED active Not Available Not Available No t Available ondansetron 4 mg disintegrat ing tablet DISOLVE 1 TABLET UNDER TONGUE EVERY 6 HOURS NEEDED FOR NAUSEA AND VOMITING 05/23 completed Not Available Not Available Not Available cefdinir 300 mg capsule active Not Available Not Available Not Available metoclopram dia 10 mg tablet TAKE 1 TABLET BY MOUTH EVERY 6 HOURS NEEDED FOR NAUSEA AND VOMITING 05/23 completed Not Available Not Available Not Available enoxaparin 60 mg/0.6 mL subcutaneou s syringe INJECT 0.5 ML UNDER THE SKIN INTO THE APPROPRIA TE AREA DIRECTED EVERY 12 HOURS FOR 5 DAYS. 08/06 completed Not Available Not Available Not Available enoxaparin 40 mg/0.4 mL subcutaneou s syringe 04/18 completed Not Available Not Available Not Available Mucinex 600 mg tablet, extended release Take 1 tablet every 12 hours by oral route for 30 days. 01/01 completed Not Available Not Available Not Available Combivent Respimat 20 mcg-100 mcg/actuati on solution for inhalation inhale ONE PUFF BY MOUTH FOUR TIMES DAILY active Not Available Not Available No t Available potassium chloride ER 20 mEq tablet,exte nded release active Not Available Not Available Not Available aloe vera extract-all antoin 0.5 % lotion Apply 5 mL twice a day by topical route as needed for 30 days. 2023 active Not Available Not Available Not Avai lable Aspercreme (lidocaine) 4 % topical patch APPLY 1 PATCH TO SKIN EVERY DAY NEEDED FOR 10 DAYS. 04/18 completed Not Available Not Available Not Available Breztri Aerosphere 160 mcg-9mcg-4. 8mcg/actuat ion HFA aerosol inhaler INHALE TWO PUFFS BY MOUTH TWICE DAILY active Not Available Not Available No t Available Paxlovid 300 mg (150 mg x 2)-100 mg tablets in a dose pack active Not Available Not Available Not Available Vitals Date Recorded Body height Body mass index (BMI) Body weight Body temperature Oxygen saturation Oxygen saturation in Arterial blood by Pulse oximetry Heart rate Respiratory rate Systolic blood pressure Diastolic blood pressure Provider Name and Address Organization Details Last Updated DateTime 04/17/202 4 166.37 cm 16.2 kg/m2 68689.9 3 g 97.2 [degF] 97 % 97 % 79 /min 18 /min 160 mm[Hg] 92 mm[Hg] Aravind GONZALEZ [facility] [place] 4 11:01:16 Date Recorded Body height Body mass index (BMI) Body weight Body temperature Oxygen saturation Oxygen saturation in Arterial blood by Pulse oximetry Heart rate Respiratory rate Systolic blood pressure Diastolic blood pressure Provider Name and Address Organization Details Last Updated DateTime 4 166.37 cm 19 kg/m2 08360.7 1 g 97.2 [degF] 96 % 96 % 81 /min 18 /min 125 mm[Hg] 80 mm[Hg] Aravind Menchaca LPNT [facility] [place] 4 10:00:27 Date Recorded Body height Body mass index (BMI) Body weight Body temperature Oxygen saturation Oxygen saturation in Arterial blood by Pulse oximetry Heart rate Respiratory rate Systolic blood pressure Diastolic blood pressure Provider Name and Address Organization Details Last Updated DateTime 4 166.37 cm 20.5 kg/m2 43348.0 5 g 97.2 [degF] 95 % 95 % 87 /min 18 /min 122 mm[Hg] 71 mm[Hg] Aravind Menchaca LPNT [facility] [place] 4 11:06:52 Date Recorded Body height Body mass index (BMI) Body weight Body temperature Oxygen saturation Oxygen saturation in Arterial blood by Pulse oximetry Heart rate Systolic blood pressure Diastolic blood pressure Provider Name and Address Organization Details Last Updated DateTime 4 166.37 cm 19.8 kg/m2 21153.9 6 g 97.2 [degF] 96 % 96 % 96 /min 116 mm[Hg] 69 mm[Hg] Andre Dsouza cecy [place] - [facility]NT [facility] & [place] 4 14:25:56 Date Recorded Body height Body mass index (BMI) Body weight Body temperature Oxygen saturation Oxygen saturation in Arterial blood by Pulse oximetry Heart rate Respiratory rate Systolic blood pressure Diastolic blood pressure Provider Name and Address Organization Details Last Updated DateTime 4 166.37 cm 20.8 kg/m2 40151.2 3 g 97.7 [degF] 95.97 % 95.97 % 87 /min 18 /min 114 mm[Hg] 77 mm[Hg] Aravind COLLADO - LPNT [facility] & [place] 16:21:22 Social History Question Answer Notes LastModified by Organizat ion Details LastModified Time Tobacco Smoking Status Current Every Day Smoker [facility]ero, [facility] [place] 01/02/2024 11:02:56 Do You Have An Advance Directive? No [email or web address] Information not available 01/02/2024 What Is Your Level Of Alcohol Consumption? None [email or web address] Information not available 01/02/2024 Do You Wear A Helmet When Biking? Yes [email or web address] Information not available 01/02/2024 Are You Blind Or Do You Have Difficulty Seeing? No [email or web address] Information not available 01/02/2024 Is Blood Transfusion Acceptable In An Emergency? No [email or web address] Information not available 01/02/2024 What Is Your Level Of Caffeine Consumption? Occasional [email or web address] Information not available 01/02/2024 In The 14 Days Before Symptom Onset, Have You Had Close Contact With A Laboratory-confir med COVID-19 While That Case Was Ill? No [email or web address] Information not available 01/02/2024 In The 14 Days Before Symptom Onset, Have You Had Close Contact With A Person Who Is Under Investigation For COVID-19 While That Person Was Ill? No [email or web address] Information not available 01/02/2024 Have You Been To An Area Known To Be High Risk For COVID-19? No [email or web address] Information not available 01/02/2024 Are You Currently Employed? No [email or web address] Information not available 01/02/2024 Are You Deaf Or Do You Have Serious Difficulty Hearing? No Information not available 01/02/2024 What Type Of Diet Are You Following? REGULAR [email or web address] Information not available 01/02/2024 Have You Processed Blood Or Body Fluids From An Ebola Virus Disease Patient Without Appropriate PPE? No [email or web address] Information not available 01/02/2024 Do You Reside In Or Have You Traveled To An Area Where Ebola Virus Transmission Is Active? No [email or web address] Information not available 01/02/2024 Have There Been Any Changes To Your Family Or Social Situation? No [email or web address] Information no t available 01/02/2024 What Is The Fluoride Status Of Your Home? Unknown [email or web address] Information not available 01/02/2024 Are There Any Guns Present In Your Home? No [email or web address] Information not available 01/02/2024 Have You Recently Or Are You Planning To Travel To An Area With Zika Virus? No [email or web address] Information not available 01/02/2024 Do You Use Insect Repellent Routinely? Yes [email or web address] Information not available 01/02/2024 Do You Feel Safe At Home? Yes [email or web address] Information not available 01/02/2024 Do You Have A Medical Power Of Tensioning Machine Operator? No [email or web address] Information not available 01/02/2024 What Was The Date Of Your Most Recent Tobacco Screening? 08/06/2024 [email or web address] Information not available 08/06/2024 What Is Your Current Pack Years? 10-19packyears [email or web address] Information not available 01/02/2024 Do You Have Any Pets? No [email or web address] Information not available 01/02/2024 What Is Your Relationship Status? Unknown [email or web address] Information not available 01/02/2024 Do You Use Your Seat Belt Or Car Seat Routinely? Yes [email or web address] Information not available 01/02/2024 Do You Have Smoke And Carbon Monoxide Detectors In Your Home? Yes [email or web address] Information not available 01/02/2024 Are You Passively Exposed To Smoke? No [email or web address] Information no t available 01/02/2024 Do You Feel Stressed (tense, Restless, Nervous, Or Anxious, Or Unable To Sleep At Night)? [id number] [email or web address] Information not available 01/02/2024 Do You Use Any Illicit Or Recreational Drugs? No [email or web address] Information not available 01/02/2024 Do You Use Sunscreen Routinely? Yes [email or web address] Information not available 01/02/2024 Has Tobacco Cessation Counseling Been Provided? Yes [email or web address] Information not available 04/18/2024 On What Date Was Tobacco Cessation Counseling Provided? 08/06/2024 [email or web address] Information not available 08/06/2024 How Many Years Have You Smoked Tobacco? 40 [email or web address] Information not available 01/02/2024 Are You Currently In School? No [email or web address] Information not available 01/02/2024 Do You Or Have You Ever Used Any Other Forms Of Tobacco Or Nicotine? No [email or web address] Information not available 01/02/2024 Sex: Unknown Functional Status Question Answer Note LastModified by Organizat ion Details LastModified Time Do you have difficulty walking or climbing stairs? No [email or web address] Information not available 01/02/2024 Do you have transportation difficulties? No sejzswjs25 Information not available 01/02/2024 Are you able to walk? YESWOREST jhidmfxr35 Information not available 01/02/2024 Do you have difficulty doing errands alone? No [email or web address] Information not available 01/02/2024 Are you able to care for yourself? Yes livylgqz41 Information n ot available 01/02/2024 Do you have difficulty dressing or bathing? No [email or web address] Information not available 01/02/2024 What is your exercise level? Occasional hebkmeny42 Information not available 01/02/2024 Mental Status Question Answer Note LastModified by Organization D etails LastModified Time Do you have difficulty concentrating, remembering or making decisions? No [email or web address] Information no t available 01/02/2024 Family History Relationship Description Onset Age of this Age Resolved Age Notes LastModified by Organization Details LastModified Time Father Alcohol abuse [email or web address] Not available 2023 08:55:29 Mother Hypertensive disorder [email or web address] Not available 2023 08:55:39 Medical History Condition Response COPD Y Vision or Eye Problems Y Back Problems Y Congestive Heart Failure (CHF) Y Heart Disease Y Gynecological HistoryNo gynecological history recorded. Obstetrics History GPAL:G 0 P 0 0 0 0 Immunizations Vaccine Type Date Status Note Provider Nam e and Address Organization Details Recorded Time Influenza, MDCK, quadrivalent, PF 10/09/2019 completed Aravind romero, [place] - [facility] & [place] 01/02/2024 11:01:37 Influenza, high-dose, quadrivalent, PF 06/03/2020 completed Aravind romero, [place] - [facility] & [place] 01/02/2024 11:01:37 COVID-19, mRNA, LNP-S, PF, 30 mcg/0.3 mL dose 11/20/2020 completed JAKE Carreon - [facility]NT [facility] & [place] 01/02/2024 11:01:37 COVID-19, mRNA, LNP-S, PF, 30 mcg/0.3 mL dose 12/15/2020 completed JAKE Carreon LPNT - [place] & [place] 01/02/2024 11:01:37 COVID-19, mRNA, LNP-S, PF, 30 mcg/0.3 mL dose 09/05/2021 completed JAKE Carreon LPNT - [place] & [place] 01/02/2024 11:01:37 Past Encounters Encounter ID Performer Location Encounter Start Date Encounter Closed Date Diagnosis/Indication Diagnosis SNOMED-CT Code Diagnosis ICD10 Code Diagnosis Note [id number] Cathy Matos MD [address] [place] [address] 07/26/2023 12:02:47 07/26/2023 12:49:03 Loss of appetite 26053529 R63.0 Patient is very resistant to discussion about the possibilit y of her symptoms being related to depression . She does not want to take medication for depression . I explained that we could do further workup but if we do not find an explanatio n I felt she needed treatment and or more thorough evaluation by behavioral health for depression . Weight loss 87732020 R63 .4 BMI is 15. We will check blood work. Also chest x-ray due to tobacco history. Patient declines low-dose CT of the chest. She also declines testing for colon cancer. Chronic ob structive pulmonary disease 53332652 J44.9 Symptoms are stable prescripti ons for inhalers given chest x-ray ordered Heart valve disorder 368 009 I38 continue management and follow up with Cardiology Chronic at rial fibrillation 367034168 I48.20 continue management and follow up with Cardiology [id number] Cathy Matos MD [facility] [address] [facility] [place] [address] 08/16/2023 11:47:59 08/16/2023 12:34:50 Weight loss 86666292 R63.4 Blood work did not show an obvious abnormalit y. Patient has gained 6 lb since last visit. She feels she is better with her mood. We will continue management herself. See back in 2 months. Chronic ob structive pulmonary disease 88335740 J44.9 chest x-ray did show some interstiti al scarring. Patient does feel she is improved with the Combivent. We will continue this along with albuterol both inhaler and nebulizer. [id number] TALON GILMORE NP [address] [place] [id number] 08/31/2023 11:56:07 08/31/2023 12:45:48 Cough 44537604 R05.1 stay well hydratedre stmedicati ons as prescribed symptomati c management ER if any urgent signs or symptoms arise Influenza B virus present 216579304 J10.1 Patient advised to rest, drink clear fluids, use a humidifier , gargle with warm salt water, use {{Acetomin ophen* Ibu profen}} for fever prophylaxi s. Patient will notify provider: if temp >101 or persists for >3weeks, if there is blood in the stool or vomit, if there are any signs of dehydratio n, or any problems breathing. Acute exac erbation of chronic obstructive pulmonary disease 500670455 J44.1 rescue vs maintenanc e inhaler educationu se of inhalers Thoracic back pain 59803 8004 M54.6 reports chronicnee ds refill of lidocaine patches, only thing that works for her [id number] Cathy Matos MD [address] [place] [address] 10/16/2023 14:28:03 10/16/2023 15:11:17 Acute maxillary sinusitis 30051759 J01.00 treat with Zithromax to cover sinuses and lungs. Seek medical care symptoms become severe Chronic ob structive pulmonary disease 37074026 J44.9 Refill inhalers use as needed and prescribed . [id number] Cathy Matos MD [address] [place] [address] 01/02/2024 10:51:01 01/02/2024 11:53:36 Chronic obstructive pulmonary disease 77330226 J44.9 Recent acute exacerbati on. Patient has finished steroids and antibiotic s. We will refill Combivent inhaler seek medical care if symptoms become severe again. See back in 3 months. Thoracic back pain 04584 8004 M54.6 Patient does well with Lidoderm patches. We will prescribe. Treatment at this time [id number] Cathy Matos MD [address] [place] [id number] 04/18/2024 09:48:05 04/22/2024 09:38:05 History of hemiarthroplasty of left hip 9959696443 024725 Z96.642 patient had left hemo arthropath y in [place]. She has been doing home care with therapy. She was progressin g slowly. Recommend continuing therapy until she is able to walk with a cane Or independen t . I explained to the patient she needs to get more independen t before released to drive. Chronic ob structive pulmonary disease 48243205 J44.9 Patient's breathing is stable. Patient continues to smoke. Continue inhalers as prescribed . Chronic at rial fibrillation 422728810 I48.20 patient is having some peripheral edema. Recommend contacting Cardiology for follow-up appointmen t soon. Thoracic back pain 44233 8004 M54.6 Patient does well with Lidoderm patches. We will prescribe. Treatment at this time Unsteady when walking 22 212793 R26.89 continue physical therapy. Patient is wanting to drive. She still has to use Rollator. Recommend continuing therapy until able to walk cane. [id number] TALON GILMORE NP [address] [place] [id number] 05/23/2024 10:37:19 05/23/2024 12:22:14 Swelling of bilateral lower limbs 678853597 M79.89 declines adding on spironolac tone or unna bootsawait ing lab workER if any urgent signs or symptoms arise, call back if she wishes to have spironolac tone or unna boots Acute exac erbation of chronic obstructive pulmonary disease 725133783 J44.1 rescue vs maintenanc e inhaler educationu se of inhalers Vitamin D deficiency 347 42026 E55.9 recheck lab work today Thrombocyt openic disorder 993726499 D69.6 recheck lab work today, previously low iron reviewed lab work completed by previous PCP Chronic ob structive pulmonary disease 52170520 J44.9 refill Combivent, discussed COPD exacerbati on [id number] TALON GILMORE NP [address] [place] [id number] 08/06/2024 14:01:16 08/06/2024 14:55:14 Acute dermatitis 58172559 L30.9 wishes to only have something for the itching, discussed that if we do not treat the swelling she is going to continue to have itching present. Swelling o f bilateral lower limbs 455634373 M79.89 declines adding on spironolac tone or unna bootsdecli frank lab work to check kidney functionde clines ultrasound s of bilateral lower extremitie s, wishes to follow up with her cardiologi st in scussed concerns for her taking 40 mg of Lasix twice a day, not on any potassium supplement ation when her script is for once daily. She reports she has been taking it twice daily since she lived in [place]. And had a 6 month supply at home so she had extra.ER if any urgent signs or symptoms arise, call back if she wishes to have spironolac tone or unna boots [id number] TALON GILMORE NP [address] [place] [id number] 08/29/2024 15:47:19 09/01/2024 08:38:40 Screening for malignant neoplasm of colon 157084241 Z12.11 Screening mammography of bilateral breasts 1890112682 66228 Z12.31 Screening for osteoporosis 302965694 Z13.820 Acute exac erbation of chronic obstructive pulmonary disease 979198532 J44.1 rescue vs maintenanc e inhaler educationu se of inhalers Acute dermatitis 2552617 6 L30.9 continue management of her swelling with cardiology topical as prescribed f/u if symptoms persist or worsen Health Concerns Section Related Observation LastModified by Organization Detai ls LastModified Time None Recorded Concern Status LastModified by Organization Details LastModified Time None Recorded Advance Directives Directive N: Payers Encounter Date Sequence Insurance Name Policy Number Policy Griffin Covered Member ID Griffin Member ID Guarantor Name 01/02/2024 1 [employer] [place] ([place]ICA[place] Karlene Katz [id number] Karlene Katz 04/18/2024 1 [employer] [place] (MED[place]ID H[place]) Karlene Katz [id number] Karlene [place] 04/18/2024 1 [employer] - DUAL COMPLETE (MEDICARE REPLACEMEN T/ADVANTAG E - H[place] [id number] Karlene L Gianna [id number] Karlene Gianna 05/23/2024 1 [employer] [place] Karlene Gianna [id number] Karlene [place] 05/23/2024 1 [employer] - DUAL COMPLETE (MEDICARE REPLACEMEN T/ADVANTAG E - [place] [id number] Karlene L Gianna [id number] Karlene Richfield 08/06/2024 1 [employer] [place] Karlene Richfield [id number] Karlene Gianna 08/06/2024 1 [employer] - DUAL COMPLETE (MEDICARE REPLACEMEN T/ADVANTAG E - H[place]) [id number] Karlene L Rich[place] [id number] Karlene Richfield 08/29/2024 1 [employer] [place] Karlene Richfield [id number] Karlene Gianna 08/29/2024 1 [employer] - DUAL COMPLETE (MEDICARE REPLACEMEN T/ADVANTAG E - HMO) [id number] [place] Karlene L Gianna [id number] Karlene Gianna Notes Date Note Type Note Provider Name and Address Organization Details Recorded Time 01/02/2024 text/html patient is seen for follow-up from ER visit last Sunday. She woke acutely short of breath. She was taken emergency room and evaluated. Patient has known COPD. She has also had pneumonia many times. Testing did not show pneumonia. She was given nebulizer treatments and steroids. She is finished the antibiotics and steroids. She feels like her breathing is back to baseline. She does need a refill on her Combivent inhaler. She has also had history of thoracic back pain. She is Lidoderm patches for this. She needs prescription for this. Symptoms are no worse than usual.Patient continues to smoke. She denies any chest pain or shortness a breath at this time. Cathy Matos MD [address] [place] [address], [id number] - [facility] - [facility] 01/02/2024 11:19:34 04/18/2024 text/html patient is seen today for follow-up from recent hospitalization.Howard joe was in [place] visiting family and fell. She suffered a fracture to her left hip. She had left hip arthropathy there. She was hospitalized for 10 days. She denies any complications with the surgery or medical complications. Patient does have COPD and chronic atrial fibrillation.Patient has been getting home care and home physical therapy and occupational therapy. Patient reports some swelling in her legs. She was on carvedilol. This is managed by food service driver. Patient denies any breathing difficulty or shortness a breath. She does need medications. Patient is asking about driving. She is still requiring Rollator for gait assistance. She states she is unsteady with walking. Cathy Matos MD [address] [place], [address], [facility] & [place] 04/18/2024 10:38:41 05/23/2024 text/html 68-year-old fembethanie [address] who presents with complaints of severe leg swelling, with weeping. She recently had hip replacement on March 15 and symptoms have been present since then. She has a follow-up with Ortho on . She is followed by Cardiology. She was released by [facility] due to insurance no longer covering in-home visits. She has not scheduled outpatient therapy. She is on warfarin therapy followed by Coumadin clinic for atrial fibrillation. Reports history of congestive heart failure with having to replace her pacemaker battery x6. Does have COPD with wheezing currently present. She does use albuterol inhaler and Combivent. Does need refills on medications. She has gained approximately 10 lb since last weight the beginning of April. TALON GILMORE NP [address] [facility], [place], [address], [facility] & [place] 05/26/2024 15:18:06 08/06/2024 text/html 69-year-old fema maciel who presents with complaints of dry skin on both of her legs, pure retic, affecting her sleep. Swelling continues to be present but is improved from previous. She reports she is taking Lasix 40 mg twice a day but her prescription says Lasix 40 mg once daily. She reports twice daily dosing since she lived in [place], she has extra supply at home so that is how she is taking extra. She has follow-up with food service driver in August. She reports her kidney function and potassium were just checked by Cardiology and was normal TALON GILMORE NP [address] [place], [address], [facility] & [place] 08/06/2024 14:56:15 08/29/2024 text/html The patient pres ents with a chief complaint of dry, scaly skin on her legs and persistent swelling. She reports that the itching has subsided, but the appearance of her legs remains a concern. The patient also mentions difficulty breathing, particularly during the winter months, and is currently using a nebulizer, Albuterol Rescue Inhaler, and Combivent for relief. She expresses dissatisfaction with the current dosage of Combivent, stating that one puff four times a day is insufficient.The patient has a history of an emergency room visit three weeks ago due to shortness of breath. She was treated with breathing treatments and steroids at [facility]. She was called back the next day due to a potential blood infection, but it was later determined to be a false alarm caused by a malfunctioning machine. TALON GILMORE NP [address] [facility], [place], [address], [place] - [facility] & [place] 08/31/2024 19:58:25 OBGyn Episode No OBEpisode recorded.
[2025-01-06 07:11] LABS: D-Dimer 1.13 ug/mL (0.0-0.5); Troponin I 0.01 ng/ml (0.00-0.034)
--- NOTE | 2025-01-06 07:50 | CT_ITS ---
FINAL REPORT TECHNIQUE: The patient was injected with IV contrast. Axial images were obtained through the chest in a PE protocol. 3-D reconstruction images were also performed. Individualized dose reduction techniques using automated exposure control or adjustment of the MA and/or KV according to patient's size were employed. CLINICAL HISTORY: SOA, elevated dimer COMPARISON: 12/28/2023 FINDINGS: Mediastinal vasculature is adequately opacified. No pulmonary artery filling defects are identified to suggest PE. A pacemaker is once again identified in the anterior left chest wall. There is no aortic dissection. There is no axillary adenopathy. There is no hilar or mediastinal adenopathy. There is prominence of the left atrium, which measures 7.3 x 5.5 cm in size. There is no pericardial or pleural effusion. Limited images of the upper abdomen are unremarkable. There is a small right pleural effusion present. Right lower lobe consolidation and atelectasis is present. Mild changes of centrilobular emphysema are noted. The 4 mm nodule noted on the prior CTA of the chest in the left lower lobe remains stable, best seen on image #89 of series 5. IMPRESSION: No pulmonary embolus or dissection. Right lower lobe consolidation and atelectasis is present, with a small right pleural effusion. 4 mm nodule noted on the prior CTA of the chest in the left lower lobe remains stable. Reviewed, Interpreted and Dictated by Jose Angel Espinal MD Transcribed by Darlyn Jose Authenticated and [facility]
--- NOTE | 2025-01-06 07:55 | PC.NURSE ---
covid/flu swab sent to lab
[2025-01-06 07:59] LABS: Coronavirus 19, PCR Not Detected (NotDetected); Influenza A, PCR Not Detected (NotDetected); Influenza B, PCR Not Detected (NotDetected)
[2025-01-06 08:11] LABS: Eosinophils % 3 % (0-3); Lymphocytes % 17 % (10-50); Monocytes % 7 % (2-9); Neutrophils % 73 % (42-76); Platelet Estimate Slight Decrease; RBC Morphology Normal; Total Cells Counted 100
--- NOTE | 2025-01-06 08:15 | PC.NURSE ---
PT RETURNED FROM CT
[2025-01-06] MEDS: IOPAMIDOL-370 (76%);100ML BOTTLE 75 ML IV (08:29)
[2025-01-06] MEDS: SODIUM CHLORIDE 0.9% 10ML SYR (RAD ONLY) 10 ML IV (08:29)
[2025-01-06] MEDS: 0.9 % SODIUM CHLORIDE 50 ML VIAL IV (08:29)
[2025-01-06] MEDS: AMOXICILLIN/CLAVULANATE POTASSIUM 875/125MG TABLET 1 EACH PO (09:37)
[2025-01-06] MEDS: AZITHROMYCIN 250MG TABLET 500 MG PO (09:37)
[2025-01-06 10:07] LABS: Troponin I < 0.01 ng/ml (0.00-0.034)
--- NOTE | 2025-01-06 10:40 | PC.NURSE ---
TRN attempted to call daughter at number listed in chart, no answer.
--- NOTE | 2025-01-06 10:42 | PC.NURSE ---
spoke to pt, she states that her ride will be here in approx 30 minutes. she spoke with them on her phone at bedside.
== END 2025-01-06 11:05 | disposition home or self-care (01) ==
PROVIDERS: Emergency Medicine; Emergency Provider Emergency Medicine
DX: J44.1 Chronic obstructive pulmonary disease with (acute) exacerbation (principal); J44.0 Chronic obstructive pulmonary disease with (acute) lower respiratory infection; J18.9 Pneumonia, unspecified organism; R91.1 Solitary pulmonary nodule; J90 Pleural effusion, not elsewhere classified; E87.6 Hypokalemia; I48.91 Unspecified atrial fibrillation; Z99.81 Dependence on supplemental oxygen
CPT/HCPCS: 71045; 71275; 80053; 82803; 84484; 85007; 85025; 85027; 85378; 87636; 93005; 96361; 96365; 96375; 99291; J2405; J2919; J3475; J7030; Q9967

== ENCOUNTER 2025-01-12 22:01 | Emergency (ER) | payer MEDICARE, MEDICAID, SELFPAY ==
[2025-01-12 21:55] VITALS: BP 165/73; PULSE 90; RESP 18; TEMP 36.7; O2SAT 100; BMI 18.3
--- NOTE | 2025-01-12 22:07 | XR_ITS ---
PROCEDURE INFORMATION: Exam: XR Chest Exam date and time: 01/12/2025 10:09 PM Age: 69 years old Clinical indication: Other: Possible pna; Additional info: Eval pna TECHNIQUE: Imaging protocol: Radiologic exam of the chest. Views: 2 views. COMPARISON: CT ANGIO CHEST PE PROTOCOL 01/06/2025 8:11 AM FINDINGS: Tubes, catheters and devices: Stable pacemaker. Lungs: Underlying emphysematous changes. Benign left lower lung zone calcified granuloma. Pleural spaces: Moderate right pleural effusion. Small left pleural effusion. Heart/Mediastinum: Unremarkable. No cardiomegaly. Bones/joints: Unremarkable. IMPRESSION: 1. No infiltration identified. 2. Bilateral pleural effusions.
[2025-01-12 22:14] LABS: Basophils % 0.2 % (0.1-2.0); Eosinophils % 0.2 % (0.1-12.0); Hematocrit 38.7 % (37.0-47.0); Hemoglobin 12.3 g/dL (12.2-16.2); Lymphocytes # 0.7 K/mm3 (0.7-4.5); Lymphocytes % 7.9 % (10-50); Mean Corpuscular HGB Conc 31.8 g/dL (31.8-35.4); Mean Corpuscular Hemoglobin 31.7 pg (27.0-31.2); Mean Corpuscular Volume 99.7 fl (81-99); Mean Platelet Volume 10.1 fl (7.4-10.4); Neutrophils # 6.8 K/mm3 (1.8-7.8); Neutrophils % 79.4 % (37.0-80.0); Nucleated Red Blood Cells # 0 10^3/uL; Nucleated Red Blood Cells % 0 %; Platelet Count 160 K/mm3 (142-424); Red Blood Count 3.88 M/mm3 (4.20-5.40); Red Cell Distribution Width 13.7 % (11.5-17.5); Red Cell Distribution Width-SD 50.3 fL; White Blood Count 8.6 K/mm3 (4.8-10.8)
--- NOTE | 2025-01-12 22:16 | ED_ITS ---
Discharge Plan Disposition Patient Disposition: Home, Self-Care Condition: Fair Chief Complaint: Shortness of Breath/Dyspnea Prescriptions Prescriptions: No Action carvedilol 3.125 mg tablet 3.125 mg PO BID Patient Comments: TAKE 1 TABLET BY MOUTH TWICE A DAY lisinopril 40 mg Tablet 40 mg PO DAILY Patient Comments: Pt says she only take 1/2 of lisinopril causes her to feel lethargic Rx Instructions: TAKE 1/2 PILL BY MOUTH EVERY MORNING warfarin [Jantoven] 3 mg Tablet 6 mg PO COUMADIN 30 Days Qty: 30 0RF azithromycin 250 mg tablet 250 mg PO DAILY 3 Days Qty: 3 0RF Rx Instructions: start on day 2 of therapy potassium chloride 20 mEq tablet extended release 20 meq PO DAILY Qty: 30 0RF cefdinir 300 mg capsule 300 mg PO BID 3 Days Qty: 6 0RF metoprolol succinate 25 mg tablet extended release 24 hr 25 mg PO DAILY 30 Days Qty: 30 0RF furosemide 40 mg tablet 40 mg PO DAILY 30 Days Qty: 30 0RF Breztri Aerosphere 160-9-4.8 mcg/actuation HFA aerosol inhaler 2 puff INHALATION BID 30 Days Qty: 10.7 0RF ipratropium-albuterol 0.5 mg-3 mg(2.5 mg base)/3 mL solution for nebulization 3 ml inhalation Q8H PRN (Reason: wheezing) Qty: 90 0RF prednisone 50 mg tablet 50 mg PO DAILY 5 Days Qty: 5 0RF azithromycin 250 mg tablet 250 mg PO DAILY 4 Days Qty: 4 0RF Rx Instructions: start on day 2 of therapy Paxlovid 300 mg (150 mg x 2)-100 mg tablets,dose pack See Rx Instructions .ROUTE .COMPLEX Qty: 30 0RF Rx Instructions: take TWO 150 mg tablets of nirmatrelvir with ONE 100 mg tablet of ritonavir twice daily for 5 days albuterol sulfate 90 mcg/actuation HFA aerosol inhaler 4 inh inhalation Q4H PRN (Reason: shortness of breath or wheezing) Qty: 8.5 0RF Rx Instructions: 4 puffs every 4 hours for 48 hours then as needed for shortness of breath or wheezing following Combivent Respimat 20-100 mcg/actuation mist 1 puff inhalation Q6H PRN (Reason: shortness of breath or wheezing) Qty: 4 3RF ipratropium-albuterol 0.5 mg-3 mg(2.5 mg base)/3 mL solution for nebulization 3 ml inhalation Q6H PRN (Reason: wheezing) Qty: 180 4RF magnesium oxide 400 mg magnesium capsule 800 mg PO DAILY Qty: 60 2RF prednisone 20 mg tablet 40 mg PO DAILY 5 Days Qty: 10 0RF amoxicillin-pot clavulanate 875-125 mg tablet 1 tab PO BID Qty: 20 0RF azithromycin 500 mg tablet 500 mg PO DAILY 3 Days Qty: 3 0RF Rx Instructions: Start tomorrow 01/07/2025 Referrals Follow up/Referrals: Provider,Referral, MD [Primary Care Provider] - See instructions Activity Restrictions/Add. Instructions Additional Instructions/Restrictions: You were evaluated in the ER and are believed to be appropriate for discharge at this time. You are leaving without CT scan which you refused. 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 Also follow-up with your primary care doctor for reevaluation in 2 to 3 days. Return to the ER with any new, worsening, or otherwise concerning symptoms. Clinical Impressions Clinical Impression: Shortness of breath Cough Qualifiers: Cough type: subacute Qualified Code(s): R05.2 - Subacute cough Print Language Print Language: Barbadian Discharge ED Provider: Nikko Hernandez General Adult HPI <Nikko Hernandez MD - Last Filed: 01/13/25 00:41> General Chief complaint: Shortness of Breath/Dyspnea Stated complaint: Shortness of Breath Time Seen by Provider: 01/12/25 22:04 Mode of Arrival: EMS Source of Information: Patient Description of Symptoms (Recalled from ER Triage Doc. by RN): PT presents via [facility] from home for evaluation of increasing shortness of breath. Pt has been using 2L of NC. Pt states she finished the course of antibiotics, but has had a junkier cough History of Present Illness HPI narrative: This is a 69-year-old female with a history of COPD on oxygen at night only, history of mitral valve replacement x 2, on warfarin for mechanical mitral valve, history of pacemaker, who presents with persistent cough and shortness of breath. Presents via EMS. States that she began to have symptoms about 2 weeks ago. Presented to the emergency department on 01/06/2025 and was diagnosed with a COPD exacerbation/pneumonia. Was prescribed a course of steroids and 2 antibiotics. States that she finished these however she is having persistent symptoms. States that she occasionally uses oxygen at home, been using 2 L nasal cannula. Believes that she still has a pneumonia and would like to be evaluated. Denies fever. Cough is nonproductive. Denies chest pain. Related Data Home Medications ?Medication ?Instructions ?Recorded ?Confirmed carvedilol 3.125 mg tablet 3.125 mg PO BID 09/16/24 09/16/24 lisinopril 40 mg tablet 40 mg PO DAILY 09/16/24 09/16/24 Previous Rx's ?Medication ?Instructions ?Recorded albuterol sulfate 90 mcg/actuation 4 inh inhalation Q4H PRN shortness 04/24/23 aerosol inhaler of breath or wheezing #8.5 grams ipratropium 0.5 mg-albuterol 3 mg 3 ml inhalation Q6H PRN wheezing 08/13/24 (2.5 mg base)/3 mL nebulization #180 mL soln ipratropium 20 mcg-albuterol 100 1 puff inhalation Q6H PRN 08/13/24 mcg/actuation mist for inhalation shortness of breath or wheezing #4 (Combivent Respimat) grams magnesium oxide 800 mg (2 x 400 mg magnesium) PO 08/13/24 DAILY #60 caps azithromycin 250 mg tablet 250 mg PO DAILY 3 days #3 tabs 09/17/24 budesonide 160 mcg-glycopyr 9 2 puff inhalation BID 30 days 09/17/24 mcg-formot 4.8 mcg/actuation HFA #10.7 grams inhaler (Breztri Aerosphere) cefdinir 300 mg capsule 300 mg PO BID 3 days #6 caps 09/17/24 furosemide 40 mg tablet 40 mg PO DAILY weight gain 30 days 09/17/24 #30 tabs metoprolol succinate 25 mg 25 mg PO DAILY 30 days #30 tabs 09/17/24 tablet,extended release 24 hr potassium chloride 20 mEq 20 meq PO DAILY #30 tabs 09/17/24 tablet,extended release warfarin 3 mg tablet (Jantoven) 6 mg (2 x 3 mg) PO COUMADIN 30 09/17/24 days #30 tabs azithromycin 250 mg tablet 250 mg PO DAILY 4 days #4 tabs 09/22/24 ipratropium 0.5 mg-albuterol 3 mg 3 ml inhalation Q8H PRN wheezing 09/22/24 (2.5 mg base)/3 mL nebulization #90 mL soln nirmatrelvir 300 mg (150 mg See Rx Instructions PO .COMPLEX 09/22/24 x2)-ritonavir 100 mg tablet,dose #30 tabs pack (Paxlovid) prednisone 50 mg tablet 50 mg PO DAILY 5 days #5 tabs 09/22/24 amoxicillin 875 mg-potassium 1 tab PO BID #20 tabs 01/06/25 clavulanate 125 mg tablet azithromycin 500 mg tablet 500 mg PO DAILY 3 days #3 tabs 01/06/25 prednisone 20 mg tablet 40 mg (2 x 20 mg) PO DAILY 5 days 01/06/25 #10 tabs Allergies Allergy/AdvReac Type Severity Reaction Status Date / Time nitroglycerin Allergy Intermediate Unknown Verified 09/15/24 10:44 allergy reaction aspirin AdvReac Intermediate stomach Verified 09/15/24 10:44 issues NSAIDS (Non-Steroidal AdvReac Intermediate stomach Verified 09/15/24 10:44 Anti-Inflamma issues procainamide AdvReac Intermediate stomach Verified 09/15/24 10:44 issues PFSH <Nikko Hernandez MD - Last Filed: 01/13/25 00:41> [facility] Disclaimer: The information contained in this section may have been updated after the patient was seen, as this information can be updated by other users. Medical History (Updated 01/13/25 @ 00:41 by Nikko Hernandez MD) CHF (congestive heart failure) Atrial fibrillation Pacemaker Fracture of left hip requiring operative repair Acute hypoxic respiratory failure Acute hypercapnic respiratory failure Abnormal laboratory test Acute exacerbation of chronic obstructive pulmonary disease Acute hypercapnic respiratory failure Acute exacerbation of chronic obstructive pulmonary disease Weight loss, non-intentional Pruritus of skin Prolonged INR Thrombocytopenia Dehydration Respiratory failure with hypoxia Thoracic back pain Influenza A Long-term (current) use of anticoagulants, INR goal 2.5-3.5 Fluid retention Hypertension Tendinitis, de Quervain's Surgical History (Updated 09/21/24 @ 00:00 by Cristal Patrick) H/O tubal ligation S/P cholecystectomy History of artificial heart valve Family History Other No significant family history Social History (Updated 09/15/24 @ 19:04 by Magalis Shaffer RN) Smoking Status: Current every day smoker tobacco type: cigarettes packs per day: 1 alcohol intake: never substance use type: marijuana current occupational status: retired Travel in the last 8 weeks?: None household members: significant other and children housing: house caffeine: No Have you lived/traveled outside [place] in past 30 days?: No Contact w/someone who lives/traveled outside [place] past 30 days?: No Exposure to someone with infectious disease in past 14 days?: No Do you have a fever (greater than 100.4 F or 38 C)?: No Have you tested positive for COVID-19?: No Exposed to someone with COVID-19 in past 14 days?: No Do you have a sore throat?: No Do you have a cough?: No Do you have any weakness?: No Do you have any diarrhea?: No Are you experiencing any unusual bleeding?: No Do you have any muscle aches/pain?: No Do you have any abdominal pain?: No Are you experiencing loss of taste or smell?: No Other Medical History Have you received the Flu Vaccine for this season: No Have you received the Pneumonia Vaccine: No <Nikko Hernandez MD - Last Filed: 01/13/25 00:41> ROS Obtained: Yes All systems reviewed & no additional complaints except as documented Physical Exam <Nikko Hernandez MD - Last Filed: 01/13/25 00:41> General General appearance: alert and in no apparent distress Head Head exam: atraumatic Eye Eye exam: Present normal appearance, PERRL and EOMI Neck Neck exam: Present normal inspection and full ROM Chest Chest inspection: Present symmetric chest wall rise Respiratory Respiratory exam: Present normal lung sounds bilaterally; Absent respiratory distress or wheezes Cardiovascular Cardiovascular exam: Present regular rate and normal rhythm Abdominal Exam Abdominal exam: Present soft; Absent distention Extremities Exam Extremities exam: Present normal inspection Neurological Exam Neurological exam: Present alert and oriented X3 Psychiatric Psychiatric exam: Present normal affect and normal mood Skin Skin exam: Present warm and dry Medical Decision Making <Nikko Hernandez MD - Last Filed: 01/13/25 00:41> Medical Records Medical records reviewed: Yes I reviewed the patient's medical records. Screening: Per USPSTF and CDC recommendations, given the prevalence of disease in our region, it is our hospital?s policy to screen for HIV and viral Hepatitis for all patients aged 18 and over and those with ongoing risk factors. MR Comment: Emergency department note from 01/06/2025 notable for patient's past medical history as noted above. Was prescribed a 5-day course of 40 mg prednisone, amoxicillin, and azithromycin. Preet Inquiry Pt receiving controlled substance: No Vital Signs: 01/12/25 21:55 01/12/25 23:00 01/12/25 23:30 Temperature 98.0 F Temperature Source Oral Pulse Rate 81 75 Pulse Rate [Right] 90 Respiratory Rate 18 21 17 Blood Pressure 120/61 120/62 Blood Pressure [Right Arm] 165/73 H Blood Pressure Mean [Right Arm] 103 Blood Pressure Source [Right Arm] Automatic Cuff Blood Pressure Position [Right Arm] Sitting 02 Sat by Pulse Oximetry 100 97 98 Oxygen Delivery Method Room Air 01/13/25 00:00 01/13/25 01:00 Temperature Temperature Source Pulse Rate 83 88 Pulse Rate [Right] Respiratory Rate 20 15 Blood Pressure 121/72 118/69 Blood Pressure [Right Arm] Blood Pressure Mean [Right Arm] Blood Pressure Source [Right Arm] Blood Pressure Position [Right Arm] 02 Sat by Pulse Oximetry 97 99 Oxygen Delivery Method Lab Data Lab Results 01/12/25 21:56: WBC 8.6, RBC 3.88 L, Hgb 12.3, Hct 38.7, MCV 99.7 H, MCH 31.7 H, MCHC 31.8, RDW 13.7, Plt Count 160, MPV 10.1, Neut % (Auto) 79.4, Lymph % (Auto) 7.9 L, [place] % (Auto) 12.0 H, Eos % (Auto) 0.2, Baso % (Auto) 0.2, Neut # (Auto) 6.8, Lymph # (Auto) 0.7, [place] # (Auto) 1.0, Eos # (Auto) 0.0, Baso # (Auto) 0.0, D-Dimer 1.20 H, Sodium 137, Potassium 4.1, Chloride 93 L, Carbon Dioxide 40 H, Anion Gap 8.1, BUN 12, Creatinine 0.70, Estimated Creat Clear 42, Estimated GFR 83, Est GFR ( Amer) 100, Glucose 147 H, Calcium 9.0, Total Bilirubin 1.7 H, AST 39 H, ALT 22, Alkaline Phosphatase 59, Troponin I 0.02, Total Protein 7.2, Albumin 3.6, Globulin 3.6 H, Albumin/Globulin Ratio 1.0 L 01/12/25 22:08: VBG pH 7.38, VBG pCO2 65.7 H, VBG pO2 41.7 H, VBG HCO3 37.6 H, V BG Total CO2 39.6 H, VBG O2 Saturation 73.2 H, VBG Base Excess 12.4 H, VBG Lactic Acid 2.5 H 01/13/25 01:13: Lactate 1.5, Troponin I < 0.01, NT-Pro-B Natriuret Pep 1450 H 01/12/25 21:56 01/12/25 21:56 Orders (Tests/Meds): ORDERS Category Date Time Status CT angio chest PE protocol Stat Cat Scan 01/13/25 03:06 Stop Req Chest XR 2 view (NOT portable) [XR chest 2V] Stat Exams 01/12/25 22:07 Completed BNP [NT Pro Brain Natriuretic Pep.] Stat Lab 01/13/25 01:13 Completed CBC w/Auto Diff [Complete Blood Count Auto Diff] Stat Lab 01/12/25 21:56 Completed CMP [Comprehensive Metabolic Panel] Stat Lab 01/12/25 21:56 Completed D-Dimer Stat Lab 01/13/25 00:00 Completed Lactic Acid Follow Up (RFLX 1) Stat Lab 01/13/25 01:13 Completed Troponin I Q3H Lab 01/13/25 01:13 Completed Troponin I Q3H Lab 01/13/25 04:15 Ordered Troponin I Stat Lab 01/12/25 21:56 Completed VBG [Venous Blood Gas] Stat RT 01/12/25 22:08 Completed ECG Data Tracing #1: I reviewed this ECG and interpreted as documented below: Atrial fibrillation at a rate of 92, QTc 451, left axis deviation, left bundle branch block, no STEMI by Sgarbossa criteria Medical Decision Narrative: In summary, this 69-year-old female with a history of COPD on oxygen at night only, history of mitral valve replacement x 2, on warfarin for mechanical mitral valve, history of pacemaker, presents to the emergency department today with persistent cough and shortness of breath. On initial evaluation patient is afebrile, hemodynamically stable, nontoxic-appearing, satting appropriately on 2 L nasal cannula and in no significant respiratory distress. Differential diagnosis includes but is not limited to ACS, pneumonia, COPD exacerbation, viral illness, bronchitis. Based on these concerns, I ordered CBC, CMP, VBG, troponin, EKG, chest x-ray. ECG personally interpreted as noted above. I offered the patient breathing treatments however she declined. Stated that she did not believe that she needed these at this time. Labs personally reviewed demonstrate detectable troponin at 0.02, white blood cell count of 8.6, hemoglobin of 12.3, unremarkable VBG with compensated hypercarbia,. XR personally interpreted demonstrates small bilateral pleural effusions that were present on previous. No obvious consolidation. On reassessment patient remained stable and in no acute distress. Stated that she wished to be discharged for IV antibiotics, however clinical evidence points towards improving pneumonia and COPD exacerbation. Offered the patient a course of steroids however she declined. Ultimately, care was handed off to Dr. Lewis pending patient second troponin. Plan at this point would be for discharge with PCP follow-up. She was in no acute respiratory distress at her baseline oxygen. She also described that her dyspnea has significantly worsened since a hip replacement that she had several months ago. States that she has been seen several times and a lot of her other medications have been changed. States that she was immobile for a long period of time. Suspect that deconditioning is playing a role in this. <Silvia Lewis MD - Last Filed: 01/13/25 03:15> Vital Signs: 01/12/25 21:55 01/12/25 23:00 01/12/25 23:30 Temperature 98.0 F Temperature Source Oral Pulse Rate 81 75 Pulse Rate [Right] 90 Respiratory Rate 18 21 17 Blood Pressure 120/61 120/62 Blood Pressure [Right Arm] 165/73 H Blood Pressure Mean [Right Arm] 103 Blood Pressure Source [Right Arm] Automatic Cuff Blood Pressure Position [Right Arm] Sitting 02 Sat by Pulse Oximetry 100 97 98 Oxygen Delivery Method Room Air 01/13/25 00:00 01/13/25 01:00 Temperature Temperature Source Pulse Rate 83 88 Pulse Rate [Right] Respiratory Rate 20 15 Blood Pressure 121/72 118/69 Blood Pressure [Right Arm] Blood Pressure Mean [Right Arm] Blood Pressure Source [Right Arm] Blood Pressure Position [Right Arm] 02 Sat by Pulse Oximetry 97 99 Oxygen Delivery Method Lab Data Lab Results 01/12/25 21:56: WBC 8.6, RBC 3.88 L, Hgb 12.3, Hct 38.7, MCV 99.7 H, MCH 31.7 H, MCHC 31.8, RDW 13.7, Plt Count 160, MPV 10.1, Neut % (Auto) 79.4, Lymph % (Auto) 7.9 L, [place] % (Auto) 12.0 H, Eos % (Auto) 0.2, Baso % (Auto) 0.2, Neut # (Auto) 6.8, Lymph # (Auto) 0.7, [place] # (Auto) 1.0, Eos # (Auto) 0.0, Baso # (Auto) 0.0, D-Dimer 1.20 H, Sodium 137, Potassium 4.1, Chloride 93 L, Carbon Dioxide 40 H, Anion Gap 8.1, BUN 12, Creatinine 0.70, Estimated Creat Clear 42, Estimated GFR 83, Est GFR ( Amer) 100, Glucose 147 H, Calcium 9.0, Total Bilirubin 1.7 H, AST 39 H, ALT 22, Alkaline Phosphatase 59, Troponin I 0.02, Total Protein 7.2, Albumin 3.6, Globulin 3.6 H, Albumin/Globulin Ratio 1.0 L 01/12/25 22:08: VBG pH 7.38, VBG pCO2 65.7 H, VBG pO2 41.7 H, VBG HCO3 37.6 H, V BG Total CO2 39.6 H, VBG O2 Saturation 73.2 H, VBG Base Excess 12.4 H, VBG Lactic Acid 2.5 H 01/13/25 01:13: Lactate 1.5, Troponin I < 0.01, NT-Pro-B Natriuret Pep 1450 H Orders (Tests/Meds): ORDERS Category Date Time Status CT angio chest PE protocol Stat Cat Scan 01/13/25 03:06 Stop Req Chest XR 2 view (NOT portable) [XR chest 2V] Stat Exams 01/12/25 22:07 Completed BNP [NT Pro Brain Natriuretic Pep.] Stat Lab 01/13/25 01:13 Completed CBC w/Auto Diff [Complete Blood Count Auto Diff] Stat Lab 01/12/25 21:56 Completed CMP [Comprehensive Metabolic Panel] Stat Lab 01/12/25 21:56 Completed D-Dimer Stat Lab 01/13/25 00:00 Completed Lactic Acid Follow Up (RFLX 1) Stat Lab 01/13/25 01:13 Completed Troponin I Q3H Lab 01/13/25 01:13 Completed Troponin I Q3H Lab 01/13/25 04:15 Ordered Troponin I Stat Lab 01/12/25 21:56 Completed VBG [Venous Blood Gas] Stat RT 01/12/25 22:08 Completed Medical Decision Narrative: In summary, this 69-year-old female with a history of COPD on oxygen at night only, history of mitral valve replacement x 2, on warfarin for mechanical mitral valve, history of pacemaker, presents to the emergency department today with persistent cough and shortness of breath. On initial evaluation patient is afebrile, hemodynamically stable, nontoxic-appearing, satting appropriately on 2 L nasal cannula and in no significant respiratory distress. Differential diagnosis includes but is not limited to ACS, pneumonia, COPD exacerbation, viral illness, bronchitis. Based on these concerns, I ordered CBC, CMP, VBG, troponin, EKG, chest x-ray. ECG personally interpreted as noted above. I offered the patient breathing treatments however she declined. Stated that she did not believe that she needed these at this time. Labs personally reviewed demonstrate detectable troponin at 0.02, white blood cell count of 8.6, hemoglobin of 12.3, unremarkable VBG with compensated hypercarbia,. XR personally interpreted demonstrates small bilateral pleural effusions that were present on previous. No obvious consolidation. On reassessment patient remained stable and in no acute distress. Stated that she wished to be discharged for IV antibiotics, however clinical evidence points towards improving pneumonia and COPD exacerbation. Offered the patient a course of steroids however she declined. Ultimately, care was handed off to Dr. Lewis pending patient second troponin. Plan at this point would be for discharge with PCP follow-up. She was in no acute respiratory distress at her baseline oxygen. She also described that her dyspnea has significantly worsened since a hip replacement that she had several months ago. States that she has been seen several times and a lot of her other medications have been changed. States that she was immobile for a long period of time. Suspect that deconditioning is playing a role in this. Lewis: Per my assumption of care patient is stable. I agree with the assessment and plan from Dr. Hernandez. Labs reviewed demonstrate no leukocytosis, VBG similar to prior without evidence of acute exacerbation, pCO2 improved from previous. Repeat troponin pending. Chest x-ray personally interpreted demonstrates slight worsening of bilateral pleural effusion. See radiology read for full interpretation. I do not see any evidence of pneumonia and will not be treating patient with antibiotics since she just completed a course of antibiotics and steroids. Repeat troponin was less than 0.01. Significantly reassuring. I did add D-dimer and BNP to patient's workup since she has slightly increased pleural effusion and has had elevated dimer in the past. D-dimer will be used for comparison since she has not had acute change in symptoms. 6 days ago she had slightly elevated D-dimer but negative CTA PE. D-dimer resulted at 1.2, only trace increased from a few days ago when her CTA PE was negative. Because of her persistent symptoms and slight increase I recommended CTA PE to rule out pulmonary embolism or other evolving intrathoracic abnormality. She refused this stating she now has someone coming to get her. BNP is elevated at 1450 but she states I do not have a sac around my heart which is why she reportedly gets pleural effusions. I do not believe she requires diuresis at this time based on her clinical findings. I again recommended to the patient to perform CTA PE for thorough evaluation to rule out potential life-threatening etiology including blood clot. She refused this and stated go ahead and document that I am declining it right now . She states she has pulmonology follow-up at [facility] this week and will ask them to do a CT scan. I indicated to her that delaying CT could be dangerous but she continues to refuse and wants to be discharged. I have relatively low suspicion for PE since her D-dimer is only changed by 0.07 and 6 days and she has not had an acute change in symptoms. She is also not tachycardic or hypotensive which is reassuring. Since she has close pulmonology follow-up I believe she is otherwise appropriate for discharge though she has not had PE scan. Patient was given instructions on symptomatic management, follow up instructions, and return precautions for the emergency department. Patient indicated understanding and was discharged in stable condition. Critical Care <Nikko Hernandez MD - Last Filed: 01/13/25 00:41> Critical Care Time Critical Care Time: No
--- OUTSIDE RECORDS SUMMARY | 2025-01-12 22:16 | XMS_ITS | Data Portability ---
Author Organization [facility] Address [address] [place] [address] Care Team Providers Care Pea Viner Mechanic Name Role Phone CATHY MATOS Primary Care Provider [phone] Assessment No assessment recorded. Plan of Treatment Reminders Order Date Submit Date Provider Last Modified By Organization Details Last Modified Time Details Appointments OV EST 30 2024 12:00P M TALON GILMORE NP Not available Not available Not available Lab CMP, serum or plasma 2023 [facility] (Laboratory), [address] [place] [address] [place], [address], 05/23/2024 14:08:26 magnesium , serum or plasma 2023 024 [facility] (Laboratory), [address] [place] [address] [place], [address], 05/23/2024 14:08:28 pro BNP (pro B-type natriuret ic peptide), serum or plasma 2023 024 [facility] (Laboratory), [address] [place] [address] [place], [address], 05/23/2024 13:49:14 vitamin D, 25-hydrox y, total, serum 2023 [facility] (Laboratory), [address] [place] [address] [place], [address], 2024 07:41:47 CBC w/ auto diff 2023 [facility] (Laboratory), [address] [place], [address], 05/23/2024 13:35:05 Referral None recorded. Procedures None recorded. Surgeries None recorded. Imaging None recorded. Medication Orders aloe vera extract-a llantoin 0.5 % lotion 2023 024 [facility] [address] [place], [address], 08/29/2024 16:17:28 triamcino lone acetonide 0.1 % topical cream 2023 024 [facility], [address] [place], [address], 08/29/2024 16:17:28 Breztri Aerospher e 160 mcg-9mcg- 4.8mcg/ac tuation HFA aerosol inhaler 2023 024 [facility], [address] [place], [address], 08/29/2024 16:17:28 prednison e 20 mg tablet 2023 024 [facility], [address] [place], [address], 08/29/2024 16:21:40 clotrimaz ole-betam ethasone 1 %-0.05 % topical cream 2023 024 [facility], [address] [place], [address], 08/06/2024 14:52:23 Medrol (Jose) 4 mg tablets in a dose pack 2023 024 [facility], [facility] [place], [address], 08/06/2024 14:26:36 Zithromax Z-Jose 250 mg tablet 2023 024 [facility], [address] [place], [address], 08/06/2024 14:26:19 Combivent Respimat 20 mcg-100 mcg/actua tion solution for inhalatio n 2023 024 [facility], [address] [place], [address], 05/23/2024 11:34:10 lidocaine 5 % topical patch 2023 024 [facility], [address] [place], [address], 04/18/2024 10:25:56 Combivent Respimat 20 mcg-100 mcg/actua tion solution for inhalatio n 2023 024 [facility], [address] [place], [address], 04/18/2024 10:25:57 Lidocaine Pain Relief 4 % topical patch 2023 024 [facility], [address] [place], [address], 04/18/2024 10:00:50 Combivent Respimat 20 mcg-100 mcg/actua tion solution for inhalatio n 2023 024 [facility], [address] [place], [address], 01/02/2024 11:19:16 Patient TargetsNo targets recorded. Patient InstructionsNo instructions recorded. Reason for Referral None Reported. Results Created Date Observation Date Name Description Value Unit Range Abnormal Flag Note LastModifiedBy Organization Detail LastModifiedTime 05/23/20 24 05/23/2024 CBC AUTO W DIFF WBC 5.1 10 4.5-11 .5 Not Available [facility] (Lab Registration) [address] [place], [address], 05/23/2024 13:35:05 05/23/20 24 05/23/2024 CBC AUTO W DIFF RBC 3.54 10 4.25-5 .57 low Not Available [facility] (Lab Registration) [address] [place], [address], 05/23/2024 13:35:05 05/23/20 24 05/23/2024 CBC AUTO W DIFF HGB 11.6 g/dL 12.0-1 5.7 low Not Available [facility] (Lab Registration) [address] [place], [address], 05/23/2024 13:35:05 05/23/20 24 05/23/2024 CBC AUTO W DIFF HCT 36.9 % 36.0-4 7.0 Not Available [facility] (Lab Registration) [address] [place], [address], 05/23/2024 13:35:05 05/23/20 24 05/23/2024 CBC AUTO W DIFF MCV 104.2 fL 80-95 high Not Available [facility] (Lab Registration) [address] [place], [address], 05/23/2024 13:35:05 05/23/20 24 05/23/2024 CBC AUTO W DIFF MCH 32.8 pg 27.0-3 4.0 Not Available [facility] (Lab Registration) [address] [place], [address], 05/23/2024 13:35:05 05/23/20 24 05/23/2024 CBC AUTO W DIFF MCHC 31.4 g/dL 32.0-3 6.0 low Not Available [facility] (Lab Registration) [address] [place], [address], 05/23/2024 13:35:05 05/23/20 24 05/23/2024 CBC AUTO W DIFF platelet count 155 10 150-45 0 Not Available [facility] (Lab Registration) [address] [place], [address], 05/23/2024 13:35:05 05/23/20 24 05/23/2024 CBC AUTO W DIFF RDW 12.6 % 12.3-1 5.1 Not Available [facility] (Lab Registration) [address] [place], [address], 05/23/2024 13:35:05 05/23/20 24 05/23/2024 CBC AUTO W DIFF MPV 9.7 fL 7.4-10 .4 Not Available [facility] (Lab Registration) [address] [place], [address], 05/23/2024 13:35:05 05/23/20 24 05/23/2024 CBC AUTO W DIFF granulocyte% 72.8 % 40-75 Not Available [facility] (Lab Registration) [address] [place], [address], 05/23/2024 13:35:05 05/23/20 24 05/23/2024 CBC AUTO W DIFF lymphocyte% 11.5 % 15-57 low Not Available [facility] (Lab Registration) [address] [place], [address], 05/23/2024 13:35:05 05/23/20 24 05/23/2024 CBC AUTO W DIFF monocyte% 10.9 % 4.0-12 .0 Not Available [facility] (Lab Registration) [address] [place], [address], 05/23/2024 13:35:05 05/23/20 24 05/23/2024 CBC AUTO W DIFF eosinophil% 4.0 % 0.0-4. 0 Not Available [facility] (Lab Registration) [address] [place], [address], 05/23/2024 13:35:05 05/23/20 24 05/23/2024 CBC AUTO W DIFF basophil% 0.6 % 0.0-1. 0 Not Available [facility] (Lab Registration) [address] [place], [address], 05/23/2024 13:35:05 05/23/20 24 05/23/2024 CBC AUTO W DIFF immature granulocytes % 0.2 % 0.0-0. 8 Not Available [facility] (Lab Registration) [address] [place], [address], 05/23/2024 13:35:05 05/23/20 24 05/23/2024 CBC AUTO W DIFF granulocyte# 3.68 10 Not Available [facility] (Lab Registration) [address] [place], [address], 05/23/2024 13:35:05 05/23/20 24 05/23/2024 CBC AUTO W DIFF lymphocyte# 0.58 10 Not Available [facility] (Lab Registration) [address] [place], [address], 05/23/2024 13:35:05 05/23/20 24 05/23/2024 CBC AUTO W DIFF monocyte# 0.55 10 Not Available [facility] (Lab Registration) [address] [place], [address], 05/23/2024 13:35:05 05/23/20 24 05/23/2024 CBC AUTO W DIFF eosinophil# 0.20 10 Not Available [facility] (Lab Registration) [address] [place], [address], 05/23/2024 13:35:05 05/23/20 24 05/23/2024 CBC AUTO W DIFF basophil# 0.03 10 Not Available [facility] (Lab Registration) [address] [place], [address], 05/23/2024 13:35:05 05/23/20 24 05/23/2024 CBC AUTO W DIFF immature granulocytes # 0.01 10 Not Available [facility] (Lab Registration) [address] [place], [address], 05/23/2024 13:35:05 05/23/20 24 05/23/2024 CBC AUTO W DIFF manual differential NO Not Available [facility] (Lab Registration) [address] [place], [address], 05/23/2024 13:35:05 05/23/20 24 05/23/2024 CBC AUTO W DIFF note Unles s other james noted testi ng perfo rmed at: [facility] [address] [place] [address] [phone] Lobito brown MD CLIA: [id number] Not Available [facility] (Lab Registration) [address] [place], [address], 05/23/2024 13:35:05 05/23/20 24 05/23/2024 B-TYP E [...] witho ut disco mfort . Not Available [facility] (Lab Registration) [address] [place], [address], 05/23/2024 13:49:13 05/23/20 24 05/23/2024 B-TYP E NATRI URETI C PEPTI DE BNP note Unles s other james noted testi ng perfo rmed at: [facility] [address] [place] [address] [phone] Lobito brown MD CLIA: [id number] Not Available [facility] (Lab Registration) [address] [place], [address], 05/23/2024 13:49:13 05/23/20 24 05/23/2024 VITAM IN D TOTAL (D2+D 3) vitamin D25 (D2+D3) 6.1 NG/mL 30-100 low Not Available [facility] (Lab Registration) [address] [place], [address], 05/23/2024 14:08:25 05/23/20 24 05/23/2024 VITAM IN D TOTAL (D2+D 3) note Unles s other james noted testi ng perfo rmed at: [facility] [address] [place] [address] [phone] Lobito brown MD CLIA: [id number] Not Available [facility] (Lab Registration) [address] [place], [address], 05/23/2024 14:08:25 05/23/20 24 05/23/2024 COMP METAB OLIC PANEL sodium 136 mmol/ L 136-14 5 Not Available [facility] (Lab Registration) [address] [place], [address], 05/23/2024 14:08:26 05/23/20 24 05/23/2024 COMP METAB OLIC PANEL potassium 4.0 mmol/ L 3.5-5. 1 Not Available [facility] (Lab Registration) [address] [place], [address], 05/23/2024 14:08:26 05/23/20 24 05/23/2024 COMP METAB OLIC PANEL chloride 99 mmol/ L 98-107 Not Available [facility] (Lab Registration) [address] [place], [address], 05/23/2024 14:08:26 05/23/20 24 05/23/2024 COMP METAB OLIC PANEL carbon dioxide 35 mmol/ L 21-32 high Not Available [facility] (Lab Registration) [address] [place], [address], 05/23/2024 14:08:26 05/23/20 24 05/23/2024 COMP METAB OLIC PANEL anion gap 2.0 Not Available [facility] (Lab Registration) [address] [place], [address], 05/23/2024 14:08:26 05/23/20 24 05/23/2024 COMP METAB OLIC PANEL glucose 124 mg/dL 70-110 high Not Available [facility] (Lab Registration) [address] [place], [address], 05/23/2024 14:08:26 05/23/20 24 05/23/2024 COMP METAB OLIC PANEL blood urea nitrogen 9 mg/dL 7-18 Not Available [facility] (Lab Registration) [address] [place], [address], 05/23/2024 14:08:26 05/23/20 24 05/23/2024 COMP METAB OLIC PANEL creatinine 0.8 mg/dL 0.6-1. 0 Not Available [facility] (Lab Registration) [address] [place], [address], 05/23/2024 14:08:26 05/23/20 24 05/23/2024 COMP METAB OLIC PANEL BUN/creatini ne ratio 11.3 ratio 9-21 Not Available [facility] (Lab Registration) [address] [place], [address], 05/23/2024 14:08:26 05/23/20 24 05/23/2024 COMP METAB OLIC PANEL estimated glom filtration rate 80 mL/mi n >60- Not Available [facility] (Lab Registration) [address] [place], [address], 05/23/2024 14:08:26 05/23/20 24 05/23/2024 COMP METAB OLIC PANEL total protein 6.7 g/dL 6.4-8. 2 Not Available [facility] (Lab Registration) [address] [place], [address], 05/23/2024 14:08:26 05/23/20 24 05/23/2024 COMP METAB OLIC PANEL albumin 2.9 g/dL 3.4-5. 0 low Not Available [facility] (Lab Registration) [address] [place], [address], 05/23/2024 14:08:26 05/23/20 24 05/23/2024 COMP METAB OLIC PANEL calcium 8.7 mg/dL 8.5-10 .1 Not Available [facility] (Lab Registration) [address] [place], [address], 05/23/2024 14:08:26 05/23/20 24 05/23/2024 COMP METAB OLIC PANEL corrected calcium 9.6 mg/dL 8.5-10 .1 Not Available [facility] (Lab Registration) [address] [place], [address], 05/23/2024 14:08:26 05/23/20 24 05/23/2024 COMP METAB OLIC PANEL bilirubin total 1.1 mg/dL 0.4-1. 5 Not Available [facility] (Lab Registration) [address] [place], [address], 05/23/2024 14:08:26 05/23/20 24 05/23/2024 COMP METAB OLIC PANEL AST (SGOT) 19 U/L 15-37 Not Available [facility] (Lab Registration) [address] [place], [address], 05/23/2024 14:08:26 05/23/20 24 05/23/2024 COMP METAB OLIC PANEL ALT (SGPT) 14 U/L 12-78 Not Available [facility] (Lab Registration) [address] [place], [address], 05/23/2024 14:08:26 05/23/20 24 05/23/2024 COMP METAB OLIC PANEL alk phosphatase 130 U/L 53-141 Not Available [facility] (Lab Registration) [address] [place], [address], 05/23/2024 14:08:26 05/23/20 24 05/23/2024 COMP METAB OLIC PANEL note Unles s other james noted testi ng perfo rmed at: [facility] [address] [place] [address] [phone] Lobito brown MD CLIA: [id number] Not Available [facility] (Lab Registration) [address] [place], [address], 05/23/2024 14:08:26 05/23/20 24 05/23/2024 MAGNE SIUM magnesium 1.6 mg/dL 1.8-2. 4 low Not Available [facility] (Lab Registration) [address] [place], [address], 05/23/2024 14:08:28 05/23/20 24 05/23/2024 MAGNE SIUM note Unles s other james noted testi ng perfo rmed at: [facility] [address] [place] [address] [phone] Lobito brown MD CLIA: [id number] Not Available [facility] (Lab Registration) [address] [place], [address], 05/23/2024 14:08:28 03/09/20 24 03/09/2024 imagi ng inter preta tion No observ ation record ed. [email or web address] [facility] [address], [place], [address], 03/11/2024 08:49:01 03/09/20 24 03/09/2024 imagi ng inter preta tion No observ ation record ed. [address], [place], [address], 03/11/2024 08:48:52 03/09/20 24 03/09/2024 imagi ng inter preta tion No observ ation record ed. [email or web address], [place], [address], 03/11/2024 08:48:48 09/15/20 24 09/15/2024 imagi ng inter preta tion No observ ation record ed. [facility] [address], [place], [address], 09/15/2024 11:53:49 09/15/20 24 09/15/2024 imagi ng inter preta tion No observ ation record ed. [email or web address], [place], [address], 09/16/2024 07:24:15 09/17/19 25 09/17/2024 elect flor rosado am, routi ne ECG, 12 leads min No observ ation record ed. [facility] [address], [place], [address], 09/18/2024 08:27:01 Result Notes None recorded. Problems Name Problem SNOMED Code Status Onset Date Resolution Date Notes Provider Name and Address Organization Details Recorded Time Weight loss 17243704 Active 2022 [place] - [place] 4 10:01:05 Chronic atrial fibrillation 471224884 Active 2022 HEAVEN Carreon - [facility] [place] [facility] [place] 4 10:00:56 Heart valve disorder 194803 Active 2022 HEAVEN Carreon - [facility] - [place] [facility] [place] 4 10:01:00 Chronic obstructive pulmonary disease 58395380 Active 2023 Aravind romero, [place] - [facility] [place] 4 10:00:58 Thoracic back pain 193420725 Active 2023 Aravind romero, [place] - [facility] [place] 4 10:01:02 Unsteady when walking 98133502 Active 2023 Aravind romero, [place] - [facility] - [place] 4 11:07:18 Problem Notes None recorded. Procedures Surgical History None recorded. Imaging Results Imaging Date Name Status LastModified by Organization Details LastModified Time 03/09/2024 imaging interpretation completed [address], [place], [address], 03/11/2024 08:49:01 03/09/2024 imaging interpretation completed [address], [place], [address], 03/11/2024 08:48:52 03/09/2024 imaging interpretation completed [address], [place], [address], 03/11/2024 08:48:48 09/15/2024 imaging interpretation completed [facility] [address], [place], [address], 09/15/2024 11:53:49 09/15/2024 imaging interpretation completed [address], [place], [address], 09/16/2024 07:24:15 09/17/2024 electrocardiogram, routine ECG, 12 leads min completed [facility] [address], [place], [address], 09/18/2024 08:27:01 Procedure Notes None recorded. Medical Equipment None Reported. Allergies Allergen ID Allergen Name Allergen Category Reaction Reaction Severity Criticality Documentation Date Start Date Code Code System Note Provider Name and Address Organization Details Recorded Time 333647 aspirin medicatio n Not available Not available low 07/26/2023 1191 RxNorm GI intol eranc e Marci [place] null, [place] - [facility] & [place] 5 10:17:25 056211 Non-stero idal anti-infl ammatory agent (product) medicatio n Not available Not available low 07/26/2023 59395 005 SNOMED GI intol eranc e Marci Colon null, [place] - [facility] & [place] 5 10:17:58 489076 procainam dia medicatio n anaphylax is Not available Not available 04/16/2024 8700 RxNorm Lidia Oc null, [place] - [facility] & [place] 4 08:53:49 839135 nitroglyc wil medicatio n Not available Not available [facility] 01/08/2025 4917 RxNorm Marci Colon null, [place] - [facility] & [place] 5 10:17:52 Medications Name Sig Start Date Stop Date [...] TABLET BY MOUTH DAILY OR DIRECTED BY [facility] 08/31 completed Not Available Not Available [...] BY MOUTH ONCE DAILY OR DIRECTED BY [facility] active Not Available Not Available No [...] Details Last Updated DateTime 4 166.37 cm 16.2 kg/m2 97085.9 3 g 97.2 [degF] 97 % 97 % 79 /min 18 /min 160 mm[Hg] 92 mm[Hg] Aravind GONZALEZ [facility] & [place] 4 11:01:16 Date Recorded Body height Body mass index (BMI) Body weight Body temperature Oxygen saturation Oxygen saturation in Arterial blood by Pulse oximetry Heart rate Respiratory rate Systolic blood pressure Diastolic blood pressure Provider Name and Address Organization Details Last Updated DateTime 4 166.37 cm 19 kg/m2 78307.7 1 g 97.2 [degF] 96 % 96 % 81 /min 18 /min 125 mm[Hg] 80 mm[Hg] Arvaind Menchaca NICKY [facility] & [place] 4 10:00:27 Date Recorded Body height Body mass index (BMI) Body weight Body temperature Oxygen saturation Oxygen saturation in Arterial blood by Pulse oximetry Heart rate Respiratory rate Systolic blood pressure Diastolic blood pressure Provider Name and Address Organization Details Last Updated DateTime 4 166.37 cm 20.5 kg/m2 08783.0 5 g 97.2 [degF] 95 % 95 % 87 /min 18 /min 122 mm[Hg] 71 mm[Hg] Aravind GONZALEZ [facility] & [place] 4 11:06:52 Date Recorded Body height Body mass index (BMI) Body weight Body temperature Oxygen saturation Oxygen saturation in Arterial blood by Pulse oximetry Heart rate Systolic blood pressure Diastolic blood pressure Provider Name and Address Organization Details Last Updated DateTime 4 166.37 cm 19.8 kg/m2 35189.9 6 g 97.2 [degF] 96 % 96 % 96 /min 116 mm[Hg] 69 mm[Hg] Andre GONZALEZ [facility] & [place] 4 14:25:56 Date Recorded Body height Body mass index (BMI) Body weight Body temperature Oxygen saturation Oxygen saturation in Arterial blood by Pulse oximetry Heart rate Respiratory rate Systolic blood pressure Diastolic blood pressure Provider Name and Address Organization Details Last Updated DateTime 4 166.37 cm 20.8 kg/m2 98485.2 3 g 97.7 [degF] 95.97 % 95.97 % 87 /min 18 /min 114 mm[Hg] 77 mm[Hg] Aravind COLLADO [facility] & [place] 4 16:21:22 Social History Question Answer Notes LastModified by Organizat ion Details LastModified Time Tobacco Smoking Status Current Every Day Smoker [facility] [place] 01/02/2024 11:02:56 Do You Have An Advance Directive? No [email or web address] Information not available 01/02/2024 What Is Your Level Of Alcohol Consumption? None [email or web address] Information not available 01/02/2024 Do You Wear A Helmet When Biking? Yes [email or web address] Information not available 01/02/2024 Are You Blind Or Do You Have Difficulty Seeing? No [email or web address] Information not available 01/02/2024 Is Blood Transfusion Acceptable In An Emergency? No [email or web address] Information not available 01/02/2024 What Is Your Level Of Caffeine Consumption? Occasional [email or web address] Information not available 01/02/2024 In The 14 Days Before Symptom Onset, Have You Had Close Contact With A Laboratory-confir med COVID-19 While That Case Was Ill? No Information not available 01/02/2024 In The 14 Days Before Symptom Onset, Have You Had Close Contact With A Person Who Is Under Investigation For COVID-19 While That Person Was Ill? No [email or web address] Information not available 01/02/2024 Have You Been To An Area Known To Be High Risk For COVID-19? No [email or web address] Information not available 01/02/2024 Are You Currently Employed? No [email or web address] Information not available 01/02/2024 Are You Deaf Or Do You Have Serious Difficulty Hearing? No [email or web address] Information not available 01/02/2024 What Type Of Diet Are You Following? REGULAR [email or web address] Information not available 01/02/2024 Have You Processed Blood Or Body Fluids From An Ebola Virus Disease Patient Without Appropriate PPE? No [email or web address] Information not available 01/02/2024 Do You Reside In Or Have You Traveled To An Area Where Ebola Virus Transmission Is Active? No [email or web address] Information not available 01/02/2024 Have There Been Any Changes To Your Family Or Social Situation? No [email or web address] Information no t available 01/02/2024 What Is The Fluoride Status Of Your Home? Unknown [email or web address] Information not available 01/02/2024 Are There Any Guns Present In Your Home? No [email or web address] Information not available 01/02/2024 Have You Recently Or Are You Planning To Travel To An Area With Zika Virus? No [email or web address] Information not available 01/02/2024 Do You Use Insect Repellent Routinely? Yes Information not available 01/02/2024 Do You Feel Safe At Home? Yes [email or web address] Information not available 01/02/2024 Do You Have A Medical Power Of Sas Programmer Remote? No [email or web address] Information not available 01/02/2024 What Was The Date Of Your Most Recent Tobacco Screening? 08/06/2024 [email or web address] Information not available 08/06/2024 What Is Your Current Pack Years? 10-19packyears [email or web address] Information not available 01/02/2024 Do You Have Any Pets? No [email or web address] Information not available 01/02/2024 What Is Your Relationship Status? Unknown [email or web address] Information not available 01/02/2024 Do You Use Your Seat Belt Or Car Seat Routinely? Yes [email or web address] Information not available 01/02/2024 Do You Have Smoke And Carbon Monoxide Detectors In Your Home? Yes [email or web address] Information not available 01/02/2024 Are You Passively Exposed To Smoke? No [email or web address] Information no t available 01/02/2024 Do You Feel Stressed (tense, Restless, Nervous, Or Anxious, Or Unable To Sleep At Night)? [id number] [email or web address] Information not available 01/02/2024 Do You Use Any Illicit Or Recreational Drugs? No [email or web address] Information not available 01/02/2024 Do You Use Sunscreen Routinely? Yes [email or web address] Information not available 01/02/2024 Has Tobacco Cessation Counseling Been Provided? Yes [email or web address] Information not available 04/18/2024 On What Date Was Tobacco Cessation Counseling Provided? 08/06/2024 [email or web address] Information not available 08/06/2024 How Many Years Have You Smoked Tobacco? 40 [email or web address] Information not available 01/02/2024 Are You Currently In School? No [email or web address] Information not available 01/02/2024 Do You Or Have You Ever Used Any Other Forms Of Tobacco Or Nicotine? No Information not available 01/02/2024 Sex: Unknown Functional Status Question Answer Note LastModified by Organizat ion Details LastModified Time Do you have difficulty walking or climbing stairs? No [email or web address] Information not available 01/02/2024 Do you have transportation difficulties? No [email or web address] Information not available 01/02/2024 Are you able to walk? YESWOREST [email or web address] Information not available 01/02/2024 Do you have difficulty doing errands alone? No [email or web address] Information not available 01/02/2024 Are you able to care for yourself? Yes [email or web address] Information n ot available 01/02/2024 Do you have difficulty dressing or bathing? No Information not available 01/02/2024 What is your exercise level? Occasional [email or web address] Information not available 01/02/2024 Mental Status Question Answer Note LastModified by Organization D etails LastModified Time Do you have difficulty concentrating, remembering or making decisions? No [email or web address] Information no t available 01/02/2024 Family History Relationship Description Onset Age of this Age Resolved Age Notes LastModified by Organization Details LastModified Time Father Harmful pattern of use of alcohol [email or web address] Not available 2023 08:55:29 Mother Hypertensive disorder [email or web address] Not available 2023 08:55:39 Medical History Condition Response COPD Y Vision or Eye Problems Y Congestive Heart Failure (CHF) Y Back Problems Y Heart Disease Y Gynecological HistoryNo gynecological history recorded. Obstetrics History GPAL:G 0 P 0 0 0 0 Immunizations Vaccine Type Date Status Note Provider Nam e and Address Organization Details Recorded Time Influenza, MDCK, quadrivalent, PF 10/09/2019 completed [facility] - [place] & [place] 01/02/2024 11:01:37 Influenza, high-dose, quadrivalent, PF 06/03/2020 completed Aravind romero, [facility] - [facility] - [place] [facility] [place] 01/02/2024 11:01:37 COVID-19, mRNA, LNP-S, PF, 30 mcg/0.3 mL dose 11/20/2020 completed [facility] - [facility] - [place] & [place] 01/02/2024 11:01:37 COVID-19, mRNA, LNP-S, PF, 30 mcg/0.3 mL dose 12/15/2020 completed Aravind romero, HEAVEN - [facility] - [place] & [place] 01/02/2024 11:01:37 COVID-19, mRNA, LNP-S, PF, 30 mcg/0.3 mL dose 09/05/2021 completed [facility] - [facility] - [place] & [place] 01/02/2024 11:01:37 Past Encounters Encounter ID Performer Location Encounter Start Date Encounter Closed Date Diagnosis/Indication Diagnosis SNOMED-CT Code Diagnosis ICD10 Code Diagnosis Note [id number] Cathy Matos MD [facility] [address] [facility] [place] [address] 07/26/2023 12:02:47 07/26/2023 12:49:03 Loss of appetite 83574226 R63.0 Patient is very resistant to discussion [...] behavioral health for depression . Weight loss 11657800 R63 .4 BMI is 15. We will check blood work. Also chest x-ray due to tobacco history. Patient declines low-dose CT of the chest. She also declines testing for colon cancer. Chronic ob structive pulmonary disease 63332166 J44.9 Symptoms are stable prescripti ons for inhalers given chest x-ray ordered Heart valve disorder 368 009 I38 continue management and follow up with Cardiology Chronic at ria fibrillation 294640527 I48.20 continue management and follow up with Cardiology [id number] Cathy Matos MD [address] [place] [address] 08/16/2023 11:47:59 08/16/2023 12:34:50 Weight loss 17964125 R63.4 Blood work did not show an obvious abnormalit y. Patient has gained 6 lb since last visit. She feels she is better with her mood. We will continue management herself. See back in 2 months. Chronic ob structive pulmonary disease 96622214 J44.9 chest x-ray did show some interstiti al scarring. Patient does feel she is improved with the Combivent. We will continue this along with albuterol both inhaler and nebulizer. [id number] TALON GILMORE, LINDY [address] [place] [address] 08/31/2023 11:56:07 08/31/2023 12:45:48 Cough 42103917 R05.1 stay well hydratedre stmedicati ons as prescribed symptomati c management ER if any urgent signs or symptoms arise Influenza B virus present 034595389 J10.1 Patient advised to rest, drink clear [...] exac erbation of chronic obstructive pulmonary disease 731735879 J44.1 rescue vs maintenanc e inhaler educationu se of inhalers Thoracic back pain 13507 8004 M54.6 reports chronicnee ds refill of lidocaine patches, only thing that works for her [id number] Cathy Matos MD [address] [place] [id number] 10/16/2023 14:28:03 10/16/2023 15:11:17 Acute maxillary sinusitis 37295997 J01.00 treat with Zithromax to cover sinuses and lungs. Seek medical care symptoms become severe Chronic ob structive pulmonary disease 69654143 J44.9 Refill inhalers use as needed and prescribed . [id number] Cathy Matos MD [address] [place] [address] 01/02/2024 10:51:01 01/02/2024 11:53:36 Chronic obstructive pulmonary disease 61998749 J44.9 Recent acute exacerbati on. Patient has finished steroids and antibiotic s. We will refill Combivent inhaler seek medical care if symptoms become severe again. See back in 3 months. Thoracic back pain 36258 8004 M54.6 Patient does well with Lidoderm patches. We will prescribe. 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 She has been doing home care with therapy. She was progressin g slowly. Recommend continuing therapy until she is able to walk with a cane Or independen t . I explained to the patient she needs to get more independen t before released to drive. Chronic ob structive pulmonary disease 71650854 J44.9 Patient's breathing is stable. Patient continues to smoke. Continue inhalers as prescribed . Chronic at rial fibrillation 812367639 I48.20 patient is having some peripheral edema. Recommend contacting Cardiology for follow-up appointmen t soon. Thoracic back pain 52364 8004 M54.6 Patient does well with Lidoderm patches. We will prescribe. Treatment at this time Unsteady when walking 22 110067 R26.89 continue physical therapy. Patient is wanting to drive. She still has to use Rollator. Recommend continuing therapy until able to walk cane. [id number] TALON GILMORE, LINDY [place] [address] [facility] [place] [address] 05/23/2024 10:37:19 05/23/2024 12:22:14 Swelling of bilateral lower limbs 887271521 M79.89 declines adding on spironolac tone or unna bootsawait ing lab workER if any urgent signs or symptoms arise, call back if she wishes to have spironolac tone or unna boots Acute exac erbation of chronic obstructive pulmonary disease 619595262 J44.1 rescue vs maintenanc e inhaler educationu se of inhalers Vitamin D deficiency 347 94432 E55.9 recheck lab work today Thrombocyt openic disorder 982585926 D69.6 recheck lab work today, previously low iron reviewed lab work completed by previous PCP Chronic ob structive pulmonary disease 01681830 J44.9 refill Combivent, discussed COPD exacerbati on [id number] TALON GILMORE NP [address] [place] [address] 08/06/2024 14:01:16 08/06/2024 14:55:14 Acute dermatitis 21028218 L30.9 wishes to only have something for the itching, discussed that if we do not treat the swelling she is going to continue to have itching present. Swelling o f bilateral lower limbs 840553314 M79.89 declines adding on spironolac tone or [...] it twice daily since she lived in [place]. And had a 6 month supply at home so she had extra.ER if any urgent signs or symptoms arise, call back if she wishes to have spironolac tone or unna boots [id number] TALON GILMORE NP [address] [place] [address] 08/29/2024 15:47:19 09/01/2024 08:38:40 Screening for malignant neoplasm of colon 371638823 Z12.11 Screening mammography of bilateral breasts 0130238347 11651 Z12.31 Screening for osteoporosis 956137844 Z13.820 Acute exac erbation of chronic obstructive pulmonary disease 704810547 J44.1 rescue vs maintenanc e inhaler educationu se of inhalers Acute dermatitis 3630573 6 L30.9 continue management of her swelling [...] 01/02/2024 1 [employer] [place]ICA[place] Karlene Tuttle [id number] Karlene Gianna 04/18/2024 1 [employer] [place] Karlene Tuttle [id number] Karlene Tuttle 04/18/2024 1 [employer] - DUAL COMPLETE (MEDICARE REPLACEMEN T/ADVANTAG E - HMO) [id number] [place] Karlene L Tuttle [id number] Karlene Tuttle 05/23/2024 1 [employer] [place] Karlene Gianna [id number] Karlene Gianna 05/23/2024 1 [employer] - DUAL COMPLETE (MEDICARE REPLACEMEN T/ADVANTAG E - HMO) [id number] [place] Karlene L Gianna [id number] Karlene Tuttle 08/06/2024 1 [employer] [place] Karlnee Tuttle [id number] Karlene Tuttle 08/06/2024 1 [employer] - DUAL COMPLETE (MEDICARE REPLACEMEN T/ADVANTAG E - HMO) [id number] [place] Karlene L Tuttle [id number] Karlene Tuttle 08/29/2024 1 [employer] [place] Karlene Gianna [id number] Karlene Gianna 08/29/2024 1 [employer] - DUAL COMPLETE (MEDICARE REPLACEMEN T/ADVANTAG E - HMO) [id number] [place] Karlene L Tuttle [id number] [facility] Tuttle Notes Date Note Type Note Provider Name [...] breath at this time. Cathy Matos MD [address] [place], [address], [facility] & [place] 01/02/2024 11:19:34 04/18/2024 text/html patient is seen today for follow-up from recent hospitalization.Howard joe was in [place] visiting [facility] and fell. She suffered a fracture to [...] was on carvedilol. This is managed by cuffing machine operator. Patient denies any breathing difficulty or shortness a breath. She does need medications. Patient is asking about driving. She is still requiring Rollator for gait assistance. She states she is unsteady with walking. Cathy Matos MD [address] [place], [address], [facility] & [place] 04/18/2024 10:38:41 05/23/2024 text/html 68-year-old fema maciel who presents with complaints of severe leg swelling, with weeping. She recently had hip replacement on March 15 and symptoms have been present since then. She has a follow-up with Ortho on . She is followed by Cardiology. She was released by [facility] due to insurance no longer covering [...] beginning of April. TALON GILMORE NP [address] [place], [address], [facility] & [place] 05/26/2024 15:18:06 08/06/2024 text/html 69-year-old fembethanie [address] who presents with complaints of dry skin on both of her legs, pure retic, affecting her sleep. Swelling continues to be present but is improved from previous. She reports she is taking Lasix 40 mg twice a day but her prescription says Lasix 40 mg once daily. She reports twice daily dosing since she lived in [place], she has extra supply at home so that is how she is taking extra. She has follow-up with cuffing machine operator in August. She reports her kidney function and potassium were just checked by Cardiology and was normal TALON GILMORE NP [address] [place], [address], [facility] & [place] 08/06/2024 14:56:15 08/29/2024 text/html The patient pres [...] treated with breathing treatments and steroids at [facility]. She was called back the next day due to a potential blood infection, but it was later determined to be a false alarm caused by a malfunctioning machine. TALON GILMORE NP [address] [place], [address], [facility] & [place] 08/31/2024 19:58:25 OBGyn Episode No OBEpisode recorded.
[2025-01-12 22:18] LABS: VBG Base Excess 12.4 mmol/L (-2.4-2.3); VBG HCO3 37.6 mmol/L (23-30); VBG Oxygen Saturation 73.2 % (50-70); VBG PH 7.38 mmol/L (7.31-7.41); VBG PO2 41.7 mmol/L (28-40); VBG Total CO2 39.6 mmol/L (23-27)
[2025-01-12 22:20] LABS: Lactate Venous 2.5 mmol/L (0.4-2.0); VBG PCO2 65.7 mmol/L (35-51)
[2025-01-12 22:43] LABS: Carbon Dioxide 40 mmol/L (22.0-30.0)
[2025-01-12 22:47] LABS: Troponin I 0.02 ng/ml (0.00-0.034)
--- NOTE | 2025-01-12 22:51 | ECG_ITS ---
APPROVED REPORT Exam: Resting ECG HR:92 bpm ECG Measurements Heart Rate 92 AXES QRSd 188 QRS -86 QT 401 T 78 QTc 451 Conclusion ATRIAL FIBRILLATION LEFT AXIS DEVIATION [QRS AXIS < -30] LEFT BUNDLE BRANCH BLOCK [120+ ms QRS DURATION, UPRIGHT V1, 40+ ms S IN I/aVL/V4/V5/V6] MINIMAL VOLTAGE CRITERIA FOR LVH, CONSIDER NORMAL VARIANT [MEETS CRITERIA IN ONE OF: R(aVL), S(V1), R(V5), R(V5/V6)+S(V1)] ABNORMAL ECG Electronically signed by : Nikko Hernandez, 01/13/2025 01:02:55
[2025-01-12 22:56] LABS: Alanine Aminotransferase 22 U/L (12-78); Albumin Level 3.6 g/dl (3.5-5.0); Alkaline Phosphatase 59 U/L (38-126); Anion Gap 8.1 mEq/L (5-15); Aspartate Amino Transferase 39 U/L (14-36); Bilirubin,Total 1.7 mg/dl (0.2-1.3); Blood Urea Nitrogen 12 mg/dl (7-17); Chloride 93 mmol/L (98-107); Creatinine Clearance Estimated 42 mL/min (50-200); Estimated Glomerular Filt Rate 83 ml/min (>60); GFR (African American) 100 ML/MIN (>60); Globulin 3.6 g/dL (1.3-3.2); Glucose 147 mg/dl (74-100); Potassium 4.1 mmoL/L (3.5-5.1); Sodium 137 mmol/L (136-145); Total Protein,Serum 7.2 g/dl (6.3-8.2)
[2025-01-12 23:00] VITALS: BP 120/61; PULSE 81; RESP 21; O2SAT 97
[2025-01-12 23:30] VITALS: BP 120/62; PULSE 75; RESP 17; O2SAT 98
[2025-01-13] VITALS: BP 121/72; PULSE 83; RESP 20; O2SAT 97
[2025-01-13 01:00] VITALS: BP 118/69; PULSE 88; RESP 15; O2SAT 99
[2025-01-13 01:24] LABS: Reflex Lactic Add Lactic Reflex
[2025-01-13 01:42] LABS: Lactic Acid Follow Up (RFLX 1) 1.5 mmol/L (0.7-2.1)
[2025-01-13 02:06] LABS: Troponin I < 0.01 ng/ml (0.00-0.034)
[2025-01-13 03:02] LABS: NT Pro Brain Natriuretic Pep. 1450 pg/mL (0-125)
[2025-01-13 03:14] VITALS: BP 116/66; PULSE 95; RESP 13; TEMP 36.6; O2SAT 90
== END 2025-01-13 03:17 | disposition home or self-care (01) ==
PROVIDERS: Emergency Medicine; Emergency Provider Student in an Organized Health Care Education/Training Program
DX: R06.02 Shortness of breath (principal); R05.2 Subacute cough; J44.9 Chronic obstructive pulmonary disease, unspecified; I48.91 Unspecified atrial fibrillation; Z99.81 Dependence on supplemental oxygen
CPT/HCPCS: 71046; 80053; 82803; 83605; 83880; 84484; 85025; 85378; 93005; 99284